=== PATIENT | male | born 1945 | race Caucasian/White ===

== ENCOUNTER 2023-03-16 15:35 | Outpatient (OUT) | payer MEDICARE, SELFPAY ==
[2023-03-16 16:00] LABS: Hematocrit 35.3 % (42.0-54.0); Hemoglobin 11.1 g/dL (14.0-18.0); Mean Corpuscular HGB Conc 31.4 g/dL (29.9-35.2); Mean Corpuscular Volume 95.4 fL (80.0-94.0); Platelet Count 110 10^3/uL (150-450); Red Cell Distribution Width 13.9 % (11.0-15.0); White Blood Count 6.8 10^3/uL (4.0-11.0)
[2023-03-16 16:06] LABS: Bilirubin Urine NEGATIVE (NEGATIVE); Blood Urine NEGATIVE (NEGATIVE); Clarity Urine CLEAR (CLEAR); Color Urine LT. YELLOW (YELLOW); Glucose Urine UA NEGATIVE (NEGATIVE); Ketones Urine NEGATIVE (NEGATIVE); Leukocyte Esterase Urine TRACE (NEGATIVE); Nitrite Urine NEGATIVE (NEGATIVE); Protein Urine TRACE mg/dL (NEG/TRACE); Urobilinogen Urine 0.2 EU/dL (0.2-1.0); pH Urine 5.5 (5.0-9.0)
[2023-03-16 16:09] LABS: Creatinine Urine Random 166.29 mg/dL (20.00-300.00); Microalbum Creatinine Ratio Ur 11.4 mg/g (0.0-29.9); Microalbumin Urine Random 1.9 mg/dL (<=30.0)
[2023-03-16 16:25] LABS: Bacteria Urine TRACE #/HPF (NONE SEEN); Cast Seen? NONE SEEN #/LPF (NONE SEEN); Crystals Seen? None Seen #/HPF (None Seen); Mucus Urine NONE SEEN (NONE SEEN); RBC Urine NONE SEEN #/HPF (0-2); Squamous Epithelial Cell Urine NONE SEEN #/LPF (NONE/RARE); WBC Urine 0-2 #/HPF (NONE SEEN)
[2023-03-16 16:27] LABS: Albumin Level 3.8 g/dL (3.4-5.0); Anion Gap 11.4; BUN Creatinine Ratio 15.5; Calcium 8.9 mg/dL (8.5-10.1); Carbon Dioxide 26.3 mmol/L (21.0-32.0); Chloride 107 mmol/L (98-107); Estimated GFR (African America 28 (>=60); Estimated GFR (Non-African Ame 23 (>=60); Glucose 85 mg/dL (74-106); Magnesium 1.9 mg/dL (1.8-2.4); Phosphorus 3.1 mg/dL (2.6-4.7); Potassium 4.7 mmol/L (3.5-5.1); Sodium 140 mmol/L (136-145)
[2023-03-18 14:07] LABS: PTH, Intact 122 pg/mL (15-65)
== END 2023-03-16 15:36 | disposition home or self-care (01) ==
LOC: LAB 15:35
PROVIDERS: PCP Family Medicine
DX: N18.4 Chronic kidney disease, stage 4 (severe) (principal)
CPT/HCPCS: 36415; 80048; 81001; 82042; 82043; 82306; 82570; 83735; 83970; 84100; 85027

== ENCOUNTER 2023-12-21 15:03 | Outpatient (OUT) | payer MEDICARE, SELFPAY ==
--- OUTSIDE RECORDS SUMMARY | 2023-12-21 15:19 | XMS_ITS | CCD ---
Author Organization [facility] Care Team Providers Care Medical Records Custodian Name Role Phone Unknown, Referring Provider Unavailable Unav ailable Unavailable Unavailable Rumschlag, Talita Primary Care Provider Rumschlag, Talita Primary Care Provider Rumschlag, Talita K Unavailable Enio, Dr. Terrence Anthony Referring Unava ilable Enio, Dr. Terrence Anthony Attending Unava ilable UNKNOWN, PCP Primary Care Unavailable Rumschlag, Talita Primary Care Provider RUMSCHLAG, TALITA Admitting Unavailable RUMSCHLAG, TALITA Consulting Unavailable RUMSCHLAG, TALITA Attending Unavailable [facility] Primary Care Unavailable MISC, DR MINA Admitting Unavailable MISC, DR MINA Consulting Unavailable MISC, DR MINA Attending Unavailable [facility] Primary Care Unavailable ENGELER, DR KRISTINE Bradley Consulting Unavailable MISC, DR MINA Admitting Unavailable MISC, DR MINA Attending Unavailable MISC, DR MINA Consulting Unavailable Rumschlag DO, Talita Primary Care Provider KYLIE CUTLER Attending Unavailable Rumschlag DO, Talita Maggie Primary Care Provider Rumschlag DO, Talita Primary Care Provider RUMSCHLAG, TALITA Primary Care Unavailable Camille AGARWAL Referring Unavailable RUMSCHLAG, TALITA Primary Care Unavailable Camille AGARWAL Attending Unavailable Camille AGARWAL Referring Unavailable RUMSCHLAG, TALITA Primary Care Unavailable RUMSCHLAG, TALITA Primary Care Unavailable Camille AGARWAL Referring Unavailable RUMSCHLAG, TALITA Primary Care Unavailable RUMSCHLAG, TALITA Primary Care Unavailable PAIGE GUTIERREZ Referring Unavailable RUMSCHLAG, TALITA Primary Care Unavailable Camille AGARWAL Attending Unavailable TALITA MISTRY Primary Care Unavailable Allergies Allergy Classification Reported Allergen(s) Allergy Type Date of Onset Reaction(s) Facility (7 sources) DULoxetine; Translations: [duloxetine] Drug Allergy 0 Hallucinations, Unknown [facility] Work Phone: (10 sources) DULoxetine; Translations: [DULOXETINE HCL] Drug Allergy 9 Mental Status Change [facility] Medications Current Medications Medication Drug Class(es) Dates Sig (Normalized) Sig (Original) [id number] 200 actuat albuterol 0.09 mg/actuat metered dose inhaler (16 sources) beta2-Adrenergic Agonist Start: 06-29-2023 take 2 puff(s) by inhalation every six hours for wheezing albuterol HFA 90 mcg/act inhaler Indications: Chronic obstructive pulmonary disease, unspecified COPD type (CMS/HCC) Inhale 2 puffs every 6 (six) hours if needed for shortness of breath or wheezing 18 g 5 06/29/2023 Active Start: 06-29-2023 take 2 puff(s) by in halation every six hours for wheezing albuterol HFA 90 mcg/act inhaler Indications: Chronic obstructive pulmonary disease, unspecified COPD type (CMS/HCC) Inhale 2 puffs every 6 (six) hours if needed for shortness of breath or wheezing 18 g 5 06/29/2023 Active Start: 12-13-2022 End: 06-29-2023 take 2 puff(s) by inhalation every six hours for wheezing albuterol HFA 90 mcg/act inhaler Indications: Chronic obstructive pulmonary disease, unspecified COPD type (CMS/HCC) Inhale 2 puffs every 6 (six) hours if needed for shortness of breath or wheezing. 18 g 5 12/13/2022 06/29/2023 Discontinued (Reorder) take 2 puff(s) by in halation every six hours as needed albuterol HFA (PROVENTIL HFA, VENTOLIN HFA) 90 mcg/actuation inhaler Inhale 2 Puffs as instructed every 6 hours as needed. 0 Active ProAir HFA 108 ( 90 Base) MCG/ACT AERS USE DIRECTED Quantity: 0 Refills: 0 Ordered: 08-Jun-2022 DO Active Comment on above: Inhale 2 Puffs as in structed every 6 hours as needed. amLODIPine 10 mg oral tablet (17 sources) Dihydropyridine Calcium Channel Judah Start: 05-27-19 End: 07-16-19 take 1 tablet by mouth once daily amLODIPine (Norvasc) 10 mg tablet Indications: Essential hypertension Take 1 tablet (10 mg) by mouth once daily. 90 tablet 3 07/17/2023 07/16/2024 Active Comment on above: Take 10 mg by mouth once daily. atorvastatin 10 mg oral tablet (17 sources) HMG-CoA Reductase Inhibitor Start: 09-23-19 take 1 tablet by mouth at bedtime atorvastatin (Lipitor) 20 MG tablet Take 20 mg by mouth at bedtime. 0 09/22/2022 Active Start: 05-27-2019 End: 07-16-2024 take 1 tablet by mouth once daily at bedtime atorvastatin (Lipitor) 10 mg tablet Indications: Hyperlipidemia, unspecified hyperlipidemia type Take 1 tablet (10 mg) by mouth once daily at bedtime. 90 tablet 3 07/17/2023 07/16/2024 Active Comment on above: Take 10 mg by mouth daily at bedtime. 30 actuat fluticasone furoate 0.1 mg/actuat / umeclidinium 0.0625 mg/actuat / vilanterol 0.025 mg/actuat dry powder inhaler (2 sources) Anticholinergic, Corticosteroid, beta2-Adrenergic Agonist Start: take 1 puff(s) by inhalation in the morning Fluticasone-Umeclid in-Vilant (Trelegy Ellipta) 100-62.5-25 MCG/ACT aerosol powder Indications: Chronic obstructive pulmonary disease, unspecified COPD type (CMS/HCC) Inhale 1 puff in the morning. 1 each 5 06/29/2023 Active Start: 06-29-2023 take 1 puff(s) by inhalation in the morning Ropjsswejru-Zgmlcnzqx-Jizyev (Trelegy Ellipta) 100-62.5-25 MCG/ACT aerosol powder Indications: Chronic obstructive pulmonary disease, unspecified COPD type (CMS/HCC) Inhale 1 puff in the morning. 1 each 5 06/29/2023 Active lisinopril 40 mg oral tablet (17 sources) Angiotensin Converting Enzyme Inhibitor Start: 11-05-2018 End: 07-16-2024 take 1 tablet by mouth once daily lisinopril 40 mg tablet Indications: Essential hypertension Take 1 tablet (40 mg) by mouth once daily. 90 tablet 3 07/17/2023 07/16/2024 Active Comment on above: 40 mg. magnesium oxide 400 mg oral tablet (4 sources) Start: 01-24-2022 take 1 tablet by mouth in the morning magnesium oxide (Mag-Ox) 400 (241.3 Mg) MG tablet Take 400 mg by mouth in the morning. 0 01/24/2022 Active 30 actuat umeclidinium 0.0625 mg/actuat / vilanterol 0.025 mg/actuat dry powder inhaler (4 sources) Anticholinergic, beta2-Adrenergic Agonist Start: 12-13-2022 End: 06-29-2023 take 1 puff(s) by inhalation in the morning Umeclidinium-Vilan terol (Anoro Ellipta) 62.5-25 MCG/ACT aerosol powder Indications: Chronic obstructive pulmonary disease, unspecified COPD type (CMS/HCC) Inhale 1 puff in the morning. 1 each 2 12/13/2022 06/29/2023 Discontinued Completed/Discontinued Medications Medication Drug Class(es) Dates Sig (Normalized) Sig (Original) 8 hr acetaminophen 650 mg extended release oral tablet (12 sources) take 1 tablet by mouth every eight hours as needed acetaminophen 650 mg CR tablet Take 650 mg by mouth every 8 hours as needed. 0 Active acetaminophen (T ylenol) 500 MG tablet every 8 (eight) hours 0 Active Comment on above: Take 650 mg by mouth every 8 hours as needed. aspirin 81 mg delayed release oral tablet (16 sources) Platelet Aggregation Inhibitor, Nonsteroidal Anti-inflammatory Drug aspirin, enteric coated (ASPIRIN, ENTERIC COATED) 81 mg EC tablet Take by mouth q 24 HR. 0 Active take 1 tablet by mouth once helene y aspirin 81 mg EC tablet Take 1 tablet (81 mg) by mouth once daily. 0 Active Comment on above: Take by mouth q 24 H R. baclofen 10 mg oral tablet (16 sources) gamma-Aminobutyric Acid-ergic Agonist Start: 10-23-2019 take 1 tablet by mouth three times daily baclofen (LIORESAL) 10 mg tablet Take 10 mg by mouth three times daily. 0 10/23/2019 Active take 1 tablet by mouth once helene y baclofen (Lioresal) 20 mg tablet Take 1 tablet (20 mg) by mouth once daily. 0 Active take 1 tablet by mouth twice micheal ly Baclofen 20 MG Oral Tablet Take 1 tablet twice daily Quantity: 0 Refills: 0 Ordered: 08-Jun-2022 DO Active take 1 tablet by mouth three anabela es daily Baclofen 20 MG Oral Tablet TAKE 1 TABLET 3 TIMES DAILY. Quantity: 0 Refills: 0 Ordered: 24-May-2021 DO Active Comment on above: Take 10 mg by mouth three times daily. cholecalciferol 0.05 mg oral capsule (9 sources) Vitamin D Start: 11-06-19 19 take 1 capsule by mouth once daily VITAMIN D-3 2,000 unit cap TAKE 1 CAPSULE BY MOUTH ONCE DAILY FOR 30 DAYS 6 11/05/2018 Active Comment on above: TAKE 1 CAPSULE BY [facility] ONCE DAILY FOR 30 DAYS escitalopram 5 mg oral tablet (3 sources) Serotonin Reuptake Inhibitor End: 12-29-19 22 take 1 tablet by mouth once daily escitalopram oxalate (LEXAPRO) 5 mg tablet Take 5 mg by mouth once daily. 0 12/28/2021 Discontinued (Discontinued by another Health Care Provider) Comment on above: Take 5 mg by mouth o nce daily. pantoprazole 40 mg delayed release oral tablet (16 sources) Proton Pump Inhibitor Start: 06-04-19 20 take 1 tablet by mouth once daily pantoprazole DR (PROTONIX) 40 mg tablet Take 1 tablet by mouth once daily. 30 tablet 5 06/04/2019 Active Comment on above: [facility]. sertraline 50 mg oral tablet (16 sources) Serotonin Reuptake Inhibitor Start: 05-27-19 20 take 1 tablet by mouth once daily sertraline (ZOLOFT) 50 mg tablet Take 50 mg by mouth once daily. 0 05/27/2019 Active Comment on above: Take 50 mg by mouth once daily. 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] Onset: 12-25-2018 Resolved: 06-28-2023 Chronic Chronic kidney disease (3 sources) Chronic kidney disease, stage 4 (severe); Translations: [Chronic kidney disease] Onset: 09-18-2022 07-17-2023 Chronic Chronic kidney disease (5 sources) Chronic kidney disease; Translations: [CHRONIC KIDNEY DISEASE STAGE 3B] Onset: 01-20-2022 Chronic obstructive pulmonary disease and bronchiectasis (10 sources) Chronic obstructive lung disease; Translations: [Chronic airway obstruction, not elsewhere classified] Onset: 12-14-2022 12-14-2022 Chronic Coagulation and hemorrhagic disorders (18 sources) Lupus anticoagulant disorder; Translations: [Primary hypercoagulable state] Onset: 08-06-2012 08-06-2012 Chronic Conduction disorders (6 sources) Right bundle branch block; Translations: [Right bundle branch block] Onset: 06-07-2023 Resolved: 06-28-2023 06-28-2023 Chronic Coronary atherosclerosis and other heart disease (5 sources) History of myocardial infarction; Translations: [Old myocardial infarction] Onset: 06-07-2023 Resolved: 06-28-2023 06-28-2023 Chronic Disorders of lipid metabolism (12 sources) Hyperlipidemia; Translations: [Other and unspecified hyperlipidemia] Onset: 09-15-2022 Resolved: 06-28-2023 Chronic Essential hypertension (11 sources) Essential hypertension; Translations: [Unspecified essential hypertension] Onset: 09-15-2022 Resolved: 06-28-2023 Chronic Hypertension with complications and secondary hypertension (1 source) Hypertensive chronic kidney disease with stage 1 through stage 4 chronic kidney disease, or unspecified chronic kidney disease; Translations: [HTN CKD W/STAGE 1-4 CKD/UNS CKD] Onset: 09-18-2022 Chronic Malaise and fatigue (1 source) Fatigue; Translations: [Other fatigue] Episodic Neoplasms of unspecified nature or uncertain behavior (1 source) Neoplasm of lung ; Translations: [Neoplasm of unspecified behavior of respiratory system] Episodic Nutritional deficiencies (1 source) Vitamin D deficiency, unspecified; Translations: [Vitamin D deficiency] Onset: 07-19-2023 Chronic Other lower respiratory disease (2 sources) Dyspnea on exertion; Translations: [Shortness of breath] Resolved: 05-24-2021 Episodic Other lower respiratory disease (15 sources) Nodule of lung; Translations: [Solitary pulmonary nodule] Onset: 08-23-2017 08-23-2017 Episodic Other lower respiratory disease (2 sources) Multiple nodules of lung; Translations: [Other nonspecific abnormal finding of lung field] Episodic Other lower respiratory disease (1 source) Cough; Translations: [Cough] Episodic Other nutritional; endocrine; and metabolic disorders (1 source) Overweight in adulthood with body mass index of 25 or more but less than 30; Translations: [Overweight] Episodic Residual codes; unclassified (6 sources) Sleep apnea; Translations: [Unspecified sleep apnea] Onset: 06-07-2023 Resolved: 06-28-2023 06-28-2023 Chronic Residual codes; unclassified (1 source) Body mass index 20-24 - normal; Translations: [Body Mass Index between 19-24, adult] Episodic Rheumatoid arthritis and related disease (17 sources) Rheumatoid arthritis; Translations: [Rheumatoid arthritis] Onset: 10-01-2014 01-09-2019 Chronic Screening and history of mental health and substance abuse codes (4 sources) Ex-smoker; Translations: [Personal history of tobacco use] Onset: 07-17-2023 07-17-2023 Episodic Thyroid disorders (8 sources) Atrophy of thyroid - acquired; Translations: [Atrophy of thyroid (acquired)] Onset: 01-05-2023 Episodic Past or Other Problems Problem Classification Problem Date Documented Da te Episodic/Chronic Chronic obstructive pulmonary disease and bronchiectasis (12 sources) Bronchitis; Translations: [Bronchitis, not specified as acute or chronic] Onset: 10-16-2013 Resolved: 06-28-2023 10-16-2013 Episodic Immunizations and screening for infectious disease (14 sources) Lupus anticoagulant disorder; Translations: [Raised antibody titer] Onset: 10-01-2014 10-01-2014 Episodic Other bone disease and musculoskeletal deformities (9 sources) Disorder of bone; Translations: [Other specified disorders of bone, unspecified site] Onset: 08-09-2012 08-09-2012 Episodic Other diseases of kidney and ureters (13 sources) Renal impairment; Translations: [Disorder of kidney and ureter, unspecified] Onset: 08-09-2012 08-09-2012 Episodic Other screening for suspected conditions (not mental disorders or infectious disease) (19 sources) Cardiovascular stress test abnormal; Translations: [Other nonspecific abnormal results of function study of cardiovascular system] Onset: 08-09-2012 Resolved: 06-28-2023 08-09-2012 Episodic Other skin disorders (9 sources) Eruption; Translations: [Rash and other nonspecific skin eruption] Onset: 08-09-2012 08-09-2012 Episodic Residual codes; unclassified (2 sources) History of clinical finding in subject; Translations: [Personal history of other specified diseases] Resolved: 05-24-2021 Episodic Unclassified (1 source) Onset: 07-17-2023 07-17-2023 Results Test Name Value Interpretation Reference Range Facility Urinalysis complete panel (U )on 07-20-2023 Bacteria LM.HPF (Urine sed) [#/Area] Negative Normal Negative [facility] Comment on above: Order Comment: Speci men Type: URINE SPECIMEN Ordering Facility: External Submitter Address: , , Performed By: #### 2 4356-8 #### [facility] CLIA [id number] [address] [place] [address] [place] Bilirubin Ql (U) Negative Normal Negative [facility] Comment on above: Order Comment: Speci men Type: URINE SPECIMEN Ordering Facility: External Submitter Address: , , Performed By: #### 2 4356-8 #### [facility] CLIA [id number] [address] [place] [address] [place] Clarity (Unsp spec) Clear Normal Clear [facility] Comment on above: Order Comment: Speci men Type: URINE SPECIMEN Ordering Facility: External Submitter Address: , , Performed By: #### 2 4356-8 #### [facility] CLIA [id number] [address] [place] [address] [place] Color (U) Yellow Normal Yellow [facility] Comment on above: Order Comment: Speci men Type: URINE SPECIMEN Ordering Facility: External Submitter Address: , , Performed By: #### 2 4356-8 #### [facility] CLIA [id number] [address] [place] [address] [place] Epithelial cells LM.HPF (Urine sed) [#/Area] None Seen Normal [facility] Comment on above: Order Comment: Speci men Type: URINE SPECIMEN Ordering Facility: External Submitter Address: , , Performed By: #### 2 4356-8 #### [facility] CLIA [id number] [address] [place] [address] [place] Glucose Test strip (U) [Mass/Vol] Negative Normal Negative [facility] Comment on above: Order Comment: Speci men Type: URINE SPECIMEN Ordering Facility: External Submitter Address: , , Performed By: #### 2 4356-8 #### [facility] CLIA [id number] [address] [place] [address] [place] Hemoglobin Ql (U) Negative Normal Negative [facility] Comment on above: Order Comment: Speci men Type: URINE SPECIMEN Ordering Facility: External Submitter Address: , , Performed By: #### 2 4356-8 #### [facility] CLIA [id number] [address] [place] [address] [place] Hyaline casts (Urine sed) [#/Area] 1-3 /LPF Abnormal 0 /LPF [facility] Comment on above: Order Comment: Speci men Type: URINE SPECIMEN Ordering Facility: External Submitter Address: , , Performed By: #### 2 4356-8 #### [facility] CLIA [id number] [address] [place] Ketones Ql (U) Negative Normal Negative [facility] Comment on above: Order Comment: Speci men Type: URINE SPECIMEN Ordering Facility: External Submitter Address: , , Performed By: #### 2 4356-8 #### [facility] CLIA [id number] [address] [place] [address] [place] Leukocyte esterase Test strip Ql (U) 1+ Abnormal Negative [facility] Comment on above: Order Comment: Speci men Type: URINE SPECIMEN Ordering Facility: External Submitter Address: , , Performed By: #### 2 4356-8 #### [facility] CLIA [id number] [address] [place] [address] [place] Nitrite Ql (U) Negative Normal Negative [facility] Comment on above: Order Comment: Speci men Type: URINE SPECIMEN Ordering Facility: External Submitter Address: , , Performed By: #### 2 4356-8 #### [facility] CLIA [id number] [address] [place] [address] [place] pH (U) 5.5 [pH] Normal <8.5 [facility] Comment on above: Order Comment: Speci men Type: URINE SPECIMEN Ordering Facility: External Submitter Address: , , Performed By: #### 2 4356-8 #### [facility] CLIA [id number] [address] [place] [address] [place] Protein (U) [Mass/Vol] Trace Abnormal Negative [facility] Comment on above: Order Comment: Speci men Type: URINE SPECIMEN Ordering Facility: External Submitter Address: , , Performed By: #### 2 4356-8 #### [facility] CLIA [id number] [address] [place] [address] [place] RBC LM.HPF (Urine sed) [#/Area] 0-2 /HPF Normal 0-2 /HPF [facility] Comment on above: Order Comment: Speci men Type: URINE SPECIMEN Ordering Facility: External Submitter Address: , , Performed By: #### 2 4356-8 #### [facility] CLIA [id number] [address] [place] [address] [place] Specific gravity (U) [Rel density] 1.023 Normal 1.005-1.030 [facility] Comment on above: Order Comment: Speci men Type: URINE SPECIMEN Ordering Facility: External Submitter Address: , , Performed By: #### 2 4356-8 #### [facility] CLIA [id number] [address] [place] [address] [place] Urobilinogen Ql (U) 0.2 EU/dL Normal 0.2-1.0 EU/dL [facility] Comment on above: Order Comment: Speci men Type: URINE SPECIMEN Ordering Facility: External Submitter Address: , , Performed By: #### 2 4356-8 #### [facility] CLIA [id number] [address] [place] [address] [place] WBC LM.HPF (Urine sed) [#/Area] 0-5 /HPF Normal 0-5 /HPF [facility] Comment on above: Order Comment: Speci men Type: URINE SPECIMEN Ordering Facility: External Submitter Address: , , Performed By: #### 2 4356-8 #### [facility] CLIA [id number] [address] [place] [address] [place] 25(OH)D3 SerPl-ncon 2023 25-hydroxyvitamin D3 [Mass/Vol] 17.9 ng/mL Low 31.0-80.0 [facility] Comment on above: Order Comment: Speci men Type: BLOOD SPECIMEN Ordering Facility: External Submitter Address: , , Result Comment: Clas sification of 25 [place] Vitamin D status: Deficiency/Insufficiency: < or = 30 ng/ml. Sufficiency/Optimal Levels: 31-80 ng/mL Toxicity: > 100 ng/mL. Test performed by chemiluminescent immunoassay. Performed By: #### 1 989-3 #### [facility] IA [id number] [address] [place] [address] [place] Albumin SerPl-mCncon 024 Albumin [Mass/Vol] 4.6 g/dL Normal 3.9-4.9 [facility] Comment on above: Order Comment: Speci men Type: BLOOD SPECIMEN Ordering Facility: [facility] Address: [address] [id number] Performed By: #### 3 016-3, 3026-2 #### [facility] CLIA [id number] [address] [place] [address] [place] Basic metabolic 2000 panelon 07-19-2023 Anion gap [Moles/Vol] 10 mmol/L Normal 9-18 [facility] Comment on above: Order Comment: Speci men Type: BLOOD SPECIMEN Ordering Facility: [facility] Address: [address] [place], [place] [id number] Performed By: #### 3 016-3, 3026-2 #### [facility] CLIA [id number] [address] [place] [address] [place] Calcium [Mass/Vol] 9.7 mg/dL Normal 8.5-10.2 [facility] Comment on above: Order Comment: Speci men Type: BLOOD SPECIMEN Ordering Facility: [facility] Address: [address] [place] [address] Performed By: #### 3 016-3, 3026-2 #### [facility] CLIA [id number] [address] [place] [address] [place] Chloride [Moles/Vol] 109 mmol/L High 97-105 [facility] Comment on above: Order Comment: Speci men Type: BLOOD SPECIMEN Ordering Facility: [facility] Address: [address] [place], [place] [id number] Performed By: #### 3 016-3, 3026-2 #### [facility] CLIA [id number] [address] [place] [address] [place] CO2 [Moles/Vol] 25 mmol/L Normal 22-30 [facility] Comment on above: Order Comment: Speci men Type: BLOOD SPECIMEN Ordering Facility: [facility] Address: [address] [place], [place] [id number] Performed By: #### 3 016-3, 3026-2 #### [facility] CLIA [id number] [address] [place] [address] [place] Creatinine [Mass/Vol] 2.45 mg/dL High 0.73-1.22 [facility] Comment on above: Order Comment: Christina pérez Type: BLOOD SPECIMEN Ordering Facility: [facility] Address: [address] [address] Performed By: #### 3 016-3, 3026-2 #### [facility] CLIA [id number] [facility] [place] [address] [place] Creatinine and Glomerular filtration rate.predicted panel (S/P/Bld) 26 mL/min/1.73m??? Low >=60 [facility] Comment on above: Order Comment: Christina pérez Type: BLOOD SPECIMEN Ordering Facility: [facility] Address: [address] [address] Result Comment: Luam mated Glomerular Filtration Rate (eGFR) is calculated using the 2020 CKD-EPI creatinine equation. This equation utilizes serum creatinine, sex, and age as parameters. The creatinine assay has traceable calibration to isotope dilution-mass spectrometry. Refer to KDIGO guidelines for clinical interpretation. In patients with unstable renal function, e.g. those with acute kidney injury, the eGFR may not accurately reflect actual GFR. Performed By: #### 3 016-3, 3026-2 #### [facility] CLIA [id number] [address] [place] [address] [place] Glucose [Mass/Vol] 104 mg/dL High 74-99 [facility] Comment on above: Order Comment: Christina pérez Type: BLOOD SPECIMEN Ordering Facility: [facility] Address: [address] [address] Result Comment: The [place] [employer] (ADA) provides guidance for cutoff values for fasting glucose and random glucose. The ADA defines fasting as no caloric intake for at least 8 hours. Fasting plasma glucose results between 100 to 125 mg/dL indicate increased risk for diabetes (prediabetes). Fasting plasma glucose results greater than or equal to 126 mg/dL meet the criteria for diagnosis of diabetes. In the absence of unequivocal hyperglycemia, results should be confirmed by repeat testing. In a patient with classic symptoms of hyperglycemia or hyperglycemic crisis, random plasma glucose results greater than or equal to 200 mg/dL meet the criteria for diagnosis of diabetes. Reference: Standards of Medical Care in Diabetes 2016, [place] [employer]. Diabetes Care. 2016.39(Suppl 1). Performed By: #### 3 016-3, 3026-2 #### [facility] CLIA [id number] [address] [place] [address] [place] Potassium [Moles/Vol] 5.1 mmol/L Normal 3.7-5.1 [facility] Comment on above: Order Comment: Speci men Type: BLOOD SPECIMEN Ordering Facility: [facility] Address: [address] Performed By: #### 3 016-3, 3026-2 #### [facility] CLIA [id number] [address] [place] [address] [place] Sodium [Moles/Vol] 144 mmol/L Normal 136-144 [facility] Comment on above: Order Comment: Speci men Type: BLOOD SPECIMEN Ordering Facility: [facility] Address: [address] Performed By: #### 3 016-3, 3025-2 #### [facility] CLIA [id number] [address] [place] [address] [place] Urea nitrogen [Mass/Vol] 33 mg/dL High 9-24 [facility] Comment on above: Order Comment: Speci men Type: BLOOD SPECIMEN Ordering Facility: [facility] Address: [address] [place] [address] Performed By: #### 3 016-3, 6-2 #### [facility] CLIA [id number] [address] [place] [address] [place] C3 SerPl-mCncon 07-19-2023 Complement C3 [Mass/Vol] 95 mg/dL Normal 86-166 [facility] Comment on above: Order Comment: Speci men Type: BLOOD SPECIMEN Ordering Facility: [facility] Address: [address] Performed By: #### 3 016-3, 3026-2 #### [facility] CLIA [id number] [address] [facility] [address] [address] [place] C4 SerPl-mCncon 07-19-2023 Complement C4 [Mass/Vol] 20 mg/dL Normal 13-46 [facility] Comment on above: Order Comment: Speci men Type: BLOOD SPECIMEN Ordering Facility: [facility] Address: [address] [place] [address] Performed By: #### 3 016-3, 3025-2 #### [facility] CLIA [id number] [address] [facility] [address] [place] [id number] [place] CBC W Auto Differential pane l (Bld)on 07-19-2023 Basophils (Bld) [#/Vol] 0.03 10*3/uL Normal <0.11 [facility] Comment on above: Order Comment: Speci men Type: BLOOD SPECIMEN Ordering Facility: External Submitter Address: , , Performed By: #### 5 7021-8 #### [facility] CLIA [id number] [address] [place] [address] Basophils/100 WBC (Bld) 0.5 % Normal [facility] Comment on above: Order Comment: Speci men Type: BLOOD SPECIMEN Ordering Facility: External Submitter Address: , , Performed By: #### 5 7021-8 #### [facility] CLIA [id number] [address] [place] [address] Differential cell count method Nom (Bld) Auto Normal [facility] Comment on above: Order Comment: Speci men Type: BLOOD SPECIMEN Ordering Facility: External Submitter Address: , , Performed By: #### 5 7021-8 #### [facility] CLIA [id number] [address] [place] [address] Eosinophils (Bld) [#/Vol] 0.26 10*3/uL Normal <0.46 [facility] Comment on above: Order Comment: Speci men Type: BLOOD SPECIMEN Ordering Facility: External Submitter Address: , , Performed By: #### 5 7021-8 #### [facility] CLIA [id number] [address] [place] [address] Eosinophils/100 WBC (Bld) 4.2 % Normal [facility] Comment on above: Order Comment: Speci men Type: BLOOD SPECIMEN Ordering Facility: External Submitter Address: , , Performed By: #### 5 7021-8 #### [facility] CLIA [id number] [address] [place] [address] Erythrocyte distribution width (RBC) [Ratio] 13.6 % Normal 11.5-15.0 [facility] Comment on above: Order Comment: Speci men Type: BLOOD SPECIMEN Ordering Facility: External Submitter Address: , , Performed By: #### 5 7021-8 #### [facility] CLIA [id number] [address] [place] [address] Hematocrit (Bld) [Volume fraction] 37.8 % Low 39.0-51.0 [facility] Comment on above: Order Comment: Speci men Type: BLOOD SPECIMEN Ordering Facility: External Submitter Address: , , Performed By: #### 5 7021-8 #### [facility] CLIA [id number] [address] [place] [address] Hemoglobin (Bld) [Mass/Vol] 12.0 g/dL Low 13.0-17.0 [facility] Comment on above: Order Comment: Speci men Type: BLOOD SPECIMEN Ordering Facility: External Submitter Address: , , Performed By: #### 5 7021-8 #### [facility] CLIA [id number] [address] [place] [address] Immature granulocytes (Bld) [#/Vol] 10*3/uL Normal <0.10 [facility] Comment on above: Order Comment: Speci men Type: BLOOD SPECIMEN Ordering Facility: External Submitter Address: , , Performed By: #### 5 7021-8 #### [facility] CLIA [id number] [address] [place] [address] Immature granulocytes/100 WBC (Bld) 0.3 % Normal [facility] Comment on above: Order Comment: Speci men Type: BLOOD SPECIMEN Ordering Facility: External Submitter Address: , , Performed By: #### 5 7021-8 #### [facility] CLIA [id number] [address] [place] [address] Lymphocytes (Bld) [#/Vol] 1.19 10*3/uL Normal 1.00-4.00 [facility] Comment on above: Order Comment: Speci men Type: BLOOD SPECIMEN Ordering Facility: External Submitter Address: , , Performed By: #### 5 7021-8 #### [facility] CLIA [id number] [address] [place] [address] Lymphocytes/100 WBC (Bld) 19.1 % Normal [facility] Comment on above: Order Comment: Speci men Type: BLOOD SPECIMEN Ordering Facility: External Submitter Address: , , Performed By: #### 5 7021-8 #### [facility] CLIA [id number] [address] [place] [address] MCH (RBC) [Entitic mass] 30.1 pg Normal 26.0-34.0 [facility] Comment on above: Order Comment: Speci men Type: BLOOD SPECIMEN Ordering Facility: External Submitter Address: , , Performed By: #### 5 7021-8 #### [facility] CLIA [id number] [address] [place] [address] MCHC (RBC) [Mass/Vol] 31.7 g/dL Normal 30.5-36.0 [facility] Comment on above: Order Comment: Speci men Type: BLOOD SPECIMEN Ordering Facility: External Submitter Address: , , Performed By: #### 5 7021-8 #### [facility] CLIA [id number] [address] [place] [address] MCV (RBC) [Entitic vol] 94.7 fL Normal 80.0-100.0 [facility] Comment on above: Order Comment: Speci men Type: BLOOD SPECIMEN Ordering Facility: External Submitter Address: , , Performed By: #### 5 7021-8 #### [facility] CLIA [id number] [address] [place] [address] Monocytes (Bld) [#/Vol] 0.37 10*3/uL Normal <0.87 [facility] Comment on above: Order Comment: Speci men Type: BLOOD SPECIMEN Ordering Facility: External Submitter Address: , , Performed By: #### 5 7021-8 #### [facility] CLIA [id number] [address] [place] [address] Monocytes/100 WBC (Bld) 5.9 % Normal [facility] Comment on above: Order Comment: Speci men Type: BLOOD SPECIMEN Ordering Facility: External Submitter Address: , , Performed By: #### 5 7021-8 #### [facility] CLIA [id number] [address] [place] [address] Neutrophils (Bld) [#/Vol] 4.37 10*3/uL Normal 1.45-7.50 [facility] Comment on above: Order Comment: Speci men Type: BLOOD SPECIMEN Ordering Facility: External Submitter Address: , , Performed By: #### 5 7021-8 #### [facility] CLIA [id number] [address] [place] [address]40[address] Neutrophils/100 WBC (Bld) 70.0 % Normal [facility] Comment on above: Order Comment: Speci men Type: BLOOD SPECIMEN Ordering Facility: External Submitter Address: , , Performed By: #### 5 7021-8 #### [facility] CLIA [id number] [address] [place] [address] Nucleated RBC (Bld) [#/Vol] 10*3/uL Normal <0.01 [facility] Comment on above: Order Comment: Speci men Type: BLOOD SPECIMEN Ordering Facility: External Submitter Address: , , Performed By: #### 5 7021-8 #### [facility] CLIA [id number] [address] [place] [address] Nucleated RBC/100 WBC (Bld) [Ratio] 0.0 /100 WBC Normal [facility] Comment on above: Order Comment: Speci men Type: BLOOD SPECIMEN Ordering Facility: External Submitter Address: , , Performed By: #### 5 7021-8 #### [facility] CLIA [id number] [address] [place] [address]78 Platelet mean volume (Bld) [Entitic vol] 12.2 fL Normal 9.0-12.7 [facility] Comment on above: Order Comment: Speci men Type: BLOOD SPECIMEN Ordering Facility: External Submitter Address: , , Performed By: #### 5 7021-8 #### [facility] CLIA [id number] [address] [place] [address]80 Platelets (Bld) [#/Vol] 59 10*3/uL Low 150-400 [facility] Comment on above: Order Comment: Speci men Type: BLOOD SPECIMEN Ordering Facility: External Submitter Address: , , Result Comment: No c lot detected.Results checked and verified. Performed By: #### 5 7021-8 #### [facility] CLIA [id number] [address] [place] [address] RBC (Bld) [#/Vol] 3.99 10*6/uL Low 4.20-6.00 [facility] Comment on above: Order Comment: Speci men Type: BLOOD SPECIMEN Ordering Facility: External Submitter Address: , , Performed By: #### 5 7021-8 #### [facility] CLIA [id number] [address] [place] [address] 22371 WBC (Bld) [#/Vol] 6.24 10*3/uL Normal 3.70-11.00 [facility] Comment on above: Order Comment: Speci men Type: BLOOD SPECIMEN Ordering Facility: External Submitter Address: , , Performed By: #### 5 7021-8 #### [facility] NANO [id number] [address] [place] [address] CNOVon 07-19-2023 CNOV Office Visit (PAZ ) SUSHANT CORREA ([id number]) 1945 M Date Time Provider Department 07/19/23 10:15 AM Camille AGARWAL During your visit today, we recorded the following information about you: Temperature Pulse Respiration Blood pressure 97.5 degrees 71/minute 16/minute 155/78 Weight 69.7 kg Camille Agarwal MD 07/20/2023 3:22 PM Signed Radiation Oncology - Follow Up Note PATIENT DIAGNOSIS: Laryngeal cancer, squamous cell carcinoma in situ, stage [id number]. RADIATION SUMMARY:DATES OF TREATMENT: 11/25/18- 01/01/19 AREA TREATED: Larynx DELIVERED DOSE: Area: Larynx 6,300 cGy in 28 fractions, 3 Parker, 3D Conformal, 6MV with daily CBCT TOTAL: 6,300 cGy in 28 fractions ELAPSED TIME: 37 days . INTERVAL HISTORY: Doing well. Voice is stable. No neck pain. No significant cough. No chest pain. Denies dysphagia. 12/28/21: Patient in for follow up after PET evaluation of lung nodule on CT chest. 11/07/21: Patient is in earlier than scheduled appointment due to concerns of fatigue increased cough and dyspnea with exertion, decreased appetite, feeling like he is dehydrated. Patient denies any dizzy spells. Denies any hemoptysis. No fever. Denies chest pain. RADIOLOGY: CT chest 07/12/2023: 1. 6 mm nodular subpleural nodular opacity, stable since 01/05/23. 2. Other subcentimeter nodular opacities measuring up to 7-8 mm, stable since 12/26/18. Greater than 4 year stability favors a benign etiology. 3. No evidence of new intrathoracic abnormalities. CT Chest 01/05/23: 1. Multiple bilateral pulmonary nodules, overall similar in appearance to prior exam. A left upper lobe nodule appears slightly smaller whereas the left lower lobe nodule appears slightly larger. No new nodules are identified. 2. No evidence of intrathoracic lymphadenopathy. (Right upper lobe (4:91) 2 mm, stable Right lower lobe (4:107) 3 mm, stable Left upper lobe (4:74) nodules measuring up to 7 mm, previously 8-9 mm Left lower lobe (4:145) 9 mm, previously 8 mm Left lower lobe (4:155) 3 mm, stable ) No new nodules are visualized. The central airways are widely patent. CT Chest 06/30/22:IMPRESSION: 1. 0.9 cm left upper lobe nodular opacity, decreased in size since 11/17/21. 2. Other subcentimeter nodular opacities measuring up to 7-8 mm, stable. 3. No evidence of new intrathoracic abnormalities. PET/CT 12/13/21: IMPRESSION: 1. Neck: No suspicious hypermetabolic foci 2. Chest: Scattered lung nodules. The most prominent Left upper lobe lung nodule is associated with low-level FDG activity. Otherwise no suspicious hypermetabolic foci. No hypermetabolic lymphadenopathy. 3. Abdomen and pelvis: No evidence of FDG avid neoplastic process 4. Skeleton: No hypermetabolic osseous lesions CT chest 11/17/2021:IMPRESSION: 1. 1.4 CM, NEWLY APPARENT LEFT UPPER LOBE NODULE, CONCERNING FOR PROGRESSION OF METASTATIC DISEASE. 2. Additional bilateral subcentimeter pulmonary nodules, unchanged. 3. No substantial intrathoracic adenopathy is identified. LABORATORY: Latest Reference Range AND Units 12/28/21 13:09 01/05/23 12:29 07/12/23 08:02 T4 5.5 - 10.2 ug/dL 5.8 5.9 6.2 TSH 0.270 - 4.200 mIU/L 1.780 0.988 2.070 Ref. Range 11/07/2021 13:28 11/07/2021 14:04 Sodium Latest Ref Range: 136 - 144 mmol/L 142 Potassium Latest Ref Range: 3.7 - 5.1 mmol/L 4.0 Chloride Latest Ref Range: 97 - 105 mmol/L 109 (H) CO2 Latest Ref Range: 22 - 30 mmol/L 26 BUN Latest Ref Range: 9 - 24 mg/dL 37 (H) Creatinine Latest Ref Range: 0.73 - 1.22 mg/dL 2.18 (H) Glucose Latest Ref Range: 74 - 99 mg/dL 134 (H) Protein, Total Latest Ref Range: 6.3 - 8.0 g/dL 7.3 Calcium Latest Ref Range: 8.5 - 10.2 mg/dL 9.6 Albumin Latest Ref Range: 3.9 - 4.9 g/dL 4.6 Bilirubin, Total Latest Ref Range: 0.2 - 1.3 mg/dL 1.2 Alkaline Phosphatase Latest Ref Range: 38 - 113 U/L 82 ALT Latest Ref Range: 10 - 54 U/L 5 (L) AST Latest Ref Range: 14 - 40 U/L 16 Anion Gap Latest Ref Range: 9 - 18 mmol/L 7 (L) eGFR Latest Ref Range: >=60 mL/min/1.73m? 31 (L) Hematocrit Latest Ref Range: 39.0 - 51.0 % 35.3 (L) Results for FELICITAS CORREA ( ) as of 11/08/2021 07:59 Ref. Range 11/07/2021 13:28 WBC Latest Ref Range: 3.70 - 11.00 k/uL 6.70 RBC Latest Ref Range: 4.20 - 6.00 m/uL 3.74 (L) Hemoglobin Latest Ref Range: 13.0 - 17.0 g/dL 11.3 (L) Hematocrit Latest Ref Range: 39.0 - 51.0 % 35.3 (L) Platelet Count Latest Ref Range: 150 - 400 k/uL 77 (L) MCV Latest Ref Range: 80.0 - 100.0 fL 94.4 MCH Latest Ref Range: 26.0 - 34.0 pg 30.2 MCHC Latest Ref Range: 30.5 - 36.0 g/dL 32.0 MPV Latest Ref Range: 9.0 - 12.7 fL 13.5 (H) RDW-CV Latest Ref Range: 11.5 - 15.0 % 14.1 DTYPE Unknown Auto Neut% Latest Units: % 70.3 Abs Neut (ANC) Latest Ref Range: 1.45 - 7.50 k/uL 4.71 Lymph% Latest Units: % 17.5 Abs Lymph Latest Ref Range: 1.00 - 4.00 k/uL 1.17 M (more content not included)... Normal [facility] Magnesium SerPl-mCncon Magnesium [Mass/Vol] 1.8 mg/dL Normal 1.7-2.3 [facility] Comment on above: Order Comment: Speci men Type: BLOOD SPECIMEN Ordering Facility: [facility] Address: [address] [place] [address] Performed By: #### 3 016-3, 3026-2 #### [facility] CLIA [id number] [facility] [address] [place] PTH-Intact SerPl-mCncon 06-22 Parathyrin.intact [Mass/Vol] 120 pg/mL High 15-65 [facility] Comment on above: Order Comment: Speci men Type: BLOOD SPECIMEN Ordering Facility: [facility] Address: [address] [place] [address] Performed By: #### 3 016-3, 3026-2 #### [facility] [place] [id number] [address] [place] [address] [place] Phosphate SerPl-mCncon Phosphate [Mass/Vol] 3.0 mg/dL Normal 2.7-4.8 [facility] Comment on above: Order Comment: Speci men Type: BLOOD SPECIMEN Ordering Facility: [facility] Address: [address] [place], [place] [address] Performed By: #### 3 016-3, 3026-2 #### [facility] [place] [id number] [address] [place] [address] [place] T4 SerPl-mCncon 07-19-2023 T4 [Mass/Vol] 6.0 ug/dL Normal 5.5-10.2 [facility] Comment on above: Order Comment: Speci men Type: BLOOD SPECIMEN Ordering Facility: [facility] Address: [address] [place], [place] [address] Performed By: #### 3 016-3, 3026-2 #### [facility] CLIA [id number] [facility] [address] [place] T4/THYROXINE BLOODon 024 T4 [Mass/Vol] 6.0 ug/dL 5.5 - 10.2 ug/dL [facility] TSH BLDon 07-19-2023 TSH Qn 1.840 m[IU]/L 0.270 - 4.200 mIU/L [facility] TSH SerPl-aCncon 07-19-2023 TSH Qn 1.840 m[IU]/L Normal 0.270-4.200 [facility] Comment on above: Order Comment: Speci men Type: BLOOD SPECIMEN Ordering Facility: [facility] Address: [address] [place] [address] Performed By: #### 3 016-3, 3026-2 #### [facility] CLIA [id number] [address] [place] [address] CHEST WO IVCONon 07-12-[address] CHEST WO IVCON * * *Final Report* * * DATE OF EXAM: Jul 12 2023 8:02AM [facility] 0541 - CT CHEST WO IVCON / PROCEDURE REASON: multiple diagnoses * * * * Physician Interpretation * * * * RESULT: EXAMINATION: CHEST CT WITHOUT CONTRAST CLINICAL HISTORY: Laryngeal cancer, lung nodules Technique: Spiral CT acquisition of the chest from the thoracic inlet to the upper abdomen without contrast. MQ: [id number] CT Radiation dose: Integrated Dose-length product (DLP) for this visit = 223 mGy*cm CT Dose Reduction Employed: Automated exposure control (AEC) Comparison: 01/05/23, 12/26/18 RESULT: Limitations: Right posterior costophrenic sulcus is excluded from the [id number].. Lines, tubes, and devices: None. Lung parenchyma and airways: Moderate emphysematous changes of the lungs. Calcified granulomas are noted. Bronchial wall thickening suggestive of bronchitis. 6 mm branching nodular opacity in the left upper lobe (3:90) stable since 01/05/23. Subcentimeter noncalcified nodular opacities measuring up to 7-8 mm, stable since 12/26/18. For example: Right midlung field (3:103) Right lower lobe (3:124) Left lower lobe (3: 162, 169) The central airways are patent. Pleural space: No pleural effusion. No pleural thickening. Lower neck, lymph nodes, and mediastinum: The imaged thyroid gland is normal. Calcified mediastinal lymph nodes are identified. No evidence of enlarged noncalcified mediastinal lymph nodes. Heart, pericardium, and thoracic vessels: The thoracic aorta and main pulmonary artery are normal in caliber. The cardiac chambers are normal in size. No coronary artery atherosclerotic calcifications are noted, although the study is not optimized for coronary assessment. No pericardial effusion or thickening. Bones and soft tissues: A hemangioma is noted in the T3 vertebral body. Sclerotic focus in the right posterior fifth rib (2:68) is stable since 12/26/18, probably a bone island. No new osseous abnormalities. Upper abdomen: Calcified splenic granulomas are noted. Partially visualized 6-7 mm high attenuation focus in the upper pole left kidney (2:217), stable. Bruise Trimmer (topogram) images: No additional findings. IMPRESSION: 1. 6 mm nodular subpleural nodular opacity, stable since 01/05/23. 2. Other subcentimeter nodular opacities measuring up to 7-8 mm, stable since 12/26/18. Greater than 4 year stability favors a benign etiology. 3. No evidence of new intrathoracic abnormalities. Transcribe Date/Time: Jul 12 2023 10:24A Dictated by: JOSIAH PEREA MD This examination was interpreted and the report reviewed and electronically signed by: JOSIAH PEREA MD on Jul 12 2023 10:46AM EST Thank you for allowing us to participate in the care of your patient. Should there be any questions regarding this interpretation, please call [phone]. If you are unable to reach us at the number above, please feel free to contact [facility] at [phone]. [id number] N Normal [facility] T4 SerPl-mCncon 07-12-2023 T4 [Mass/Vol] 6.2 ug/dL Normal 5.5-10.2 [facility] Comment on above: Order Comment: Speci men Type: BLOOD SPECIMEN Ordering Facility: [facility] Address: [address] [place] [address] Performed By: #### 3 016-3, 3026-2 #### [facility] IA [id number] [address] [place] [address] [place] TSH SerPl-aCncon 07-12-2023 TSH Qn 2.070 m[IU]/L Normal 0.270-4.200 [facility] Comment on above: Order Comment: Speci men Type: BLOOD SPECIMEN Ordering Facility: [facility] Address: [address] [place] [address] Performed By: #### 3 016-3, 3026-2 #### [facility] CLIA [id number] [address] [place] [address] [place] CNOVon 01-09-2023 CNOV Office Visit (RADTSA ) SUSHANT CORREA ([id number]) 1945 M Date Time Provider Department 01/09/23 2:15 PM [facility] your visit today, we recorded the following information about you: Weight 70.3 kg Camille Agarwal MD 01/09/2023 2:16 PM Signed Radiation Oncology - Follow Up Note PATIENT DIAGNOSIS: Laryngeal cancer, squamous cell carcinoma in situ, stage [id number]. RADIATION SUMMARY:DATES OF TREATMENT: 11/25/18- 01/01/19 AREA TREATED: Larynx DELIVERED DOSE: Area: Larynx 6,300 cGy in 28 fractions, 3 Parker, 3D Conformal, 6MV with daily CBCT TOTAL: 6,300 cGy in 28 fractions ELAPSED TIME: 37 days . INTERVAL HISTORY: Doing well. Has some mild intermittent cough and dyspnea on exertion. No productive cough. No chest pain. Denies dysphagia. 12/28/21: Patient in for follow up after PET evaluation of lung nodule on CT chest. 11/07/21: Patient is in earlier than scheduled appointment due to concerns of fatigue increased cough and dyspnea with exertion, decreased appetite, feeling like he is dehydrated. Patient denies any dizzy spells. Denies any hemoptysis. No fever. Denies chest pain. RADIOLOGY: CT Chest 01/05/23: 1. Multiple bilateral pulmonary nodules, overall similar in appearance to prior exam. A left upper lobe nodule appears slightly smaller whereas the left lower lobe nodule appears slightly larger. No new nodules are identified. 2. No evidence of intrathoracic lymphadenopathy. (Right upper lobe (4:91) 2 mm, stable Right lower lobe (4:107) 3 mm, stable Left upper lobe (4:74) nodules measuring up to 7 mm, previously 8-9 mm Left lower lobe (4:145) 9 mm, previously 8 mm Left lower lobe (4:155) 3 mm, stable ) No new nodules are visualized. The central airways are widely patent. CT Chest 06/30/22:IMPRESSION: 1. 0.9 cm left upper lobe nodular opacity, decreased in size since 11/17/21. 2. Other subcentimeter nodular opacities measuring up to 7-8 mm, stable. 3. No evidence of new intrathoracic abnormalities. PET/CT 12/13/21: IMPRESSION: 1. Neck: No suspicious hypermetabolic foci 2. Chest: Scattered lung nodules. The most prominent Left upper lobe lung nodule is associated with low-level FDG activity. Otherwise no suspicious hypermetabolic foci. No hypermetabolic lymphadenopathy. 3. Abdomen and pelvis: No evidence of FDG avid neoplastic process 4. Skeleton: No hypermetabolic osseous lesions CT chest 11/17/2021:IMPRESSION: 1. 1.4 CM, NEWLY APPARENT LEFT UPPER LOBE NODULE, CONCERNING FOR PROGRESSION OF METASTATIC DISEASE. 2. Additional bilateral subcentimeter pulmonary nodules, unchanged. 3. No substantial intrathoracic adenopathy is identified. LABORATORY: Latest Reference Range AND Units 12/28/21 13:09 01/05/23 12:29 T4 5.5 - 10.2 ug/dL 5.8 5.9 TSH 0.270 - 4.200 mIU/L 1.780 0.988 Ref. Range 11/07/2021 13:28 11/07/2021 14:04 Sodium Latest Ref Range: 136 - 144 mmol/L 142 Potassium Latest Ref Range: 3.7 - 5.1 mmol/L 4.0 Chloride Latest Ref Range: 97 - 105 mmol/L 109 (H) CO2 Latest Ref Range: 22 - 30 mmol/L 26 BUN Latest Ref Range: 9 - 24 mg/dL 37 (H) Creatinine Latest Ref Range: 0.73 - 1.22 mg/dL 2.18 (H) Glucose Latest Ref Range: 74 - 99 mg/dL 134 (H) Protein, Total Latest Ref Range: 6.3 - 8.0 g/dL 7.3 Calcium Latest Ref Range: 8.5 - 10.2 mg/dL 9.6 Albumin Latest Ref Range: 3.9 - 4.9 g/dL 4.6 Bilirubin, Total Latest Ref Range: 0.2 - 1.3 mg/dL 1.2 Alkaline Phosphatase Latest Ref Range: 38 - 113 U/L 82 ALT Latest Ref Range: 10 - 54 U/L 5 (L) AST Latest Ref Range: 14 - 40 U/L 16 Anion Gap Latest Ref Range: 9 - 18 mmol/L 7 (L) eGFR Latest Ref Range: >=60 mL/min/1.73m? 31 (L) Hematocrit Latest Ref Range: 39.0 - 51.0 % 35.3 (L) Results for FELICITAS CORREA ( ) as of 11/08/2021 07:59 Ref. Range 11/07/2021 13:28 WBC Latest Ref Range: 3.70 - 11.00 k/uL 6.70 RBC Latest Ref Range: 4.20 - 6.00 m/uL 3.74 (L) Hemoglobin Latest Ref Range: 13.0 - 17.0 g/dL 11.3 (L) Hematocrit Latest Ref Range: 39.0 - 51.0 % 35.3 (L) Platelet Count Latest Ref Range: 150 - 400 k/uL 77 (L) MCV Latest Ref Range: 80.0 - 100.0 fL 94.4 MCH Latest Ref Range: 26.0 - 34.0 pg 30.2 MCHC Latest Ref Range: 30.5 - 36.0 g/dL 32.0 MPV Latest Ref Range: 9.0 - 12.7 fL 13.5 (H) RDW-CV Latest Ref Range: 11.5 - 15.0 % 14.1 DTYPE Unknown Auto Neut% Latest Units: % 70.3 Abs Neut (ANC) Latest Ref Range: 1.45 - 7.50 k/uL 4.71 Lymph% Latest Units: % 17.5 Abs Lymph Latest Ref Range: 1.00 - 4.00 k/uL 1.17 Garden% Latest Units: % 6.3 Abs Garden Latest Ref Range: <0.87 k/uL 0.42 Eosin% Latest Units: % 5.4 Abs Eosin Latest Ref Range: <0.46 k/uL 0.36 Baso% Latest Units: % 0.4 Abs Baso Latest Ref Range: <0.11 k/uL 0.03 Immature Gran % Latest Units: % 0.1 IMMATURE GRANS (ABS) Latest Ref Range: <0.10 k/uL <0.03 NRBC Latest Units: /100 WBC 0.0 Absolute nRBC Latest Ref Ra (more content not included)... Normal [facility] CT CHEST WO IVCONon 01-06-[address] CHEST WO IVCON * * *Final Report* * * DATE OF EXAM: Jan 05 2023 1:36PM [facility] 0541 - CT CHEST WO IVCON / PROCEDURE REASON: multiple diagnoses * * * * Physician Interpretation * * * * RESULT: EXAMINATION: CHEST CT WITHOUT CONTRAST CLINICAL HISTORY: Laryngeal cancer. Technique: Spiral CT acquisition of the chest from the thoracic inlet to the upper abdomen without contrast. MQ: [id number] CT Radiation dose: Integrated Dose-length product (DLP) for this visit = 213 mGy*cm CT Dose Reduction Employed: Automated exposure control (AEC) Comparison: CT performed 06/30/2022 RESULT: Limitations: None. Lines, tubes, and devices: None. Lung parenchyma and airways: No lobar consolidation is visualized. There is mild to moderate centrilobular emphysema. Bilateral calcified granulomas are visualized. Bilateral nodular opacities are again noted. These include the following: Right upper lobe (4:91) 2 mm, stable Right lower lobe (4:107) 3 mm, stable Left upper lobe (4:74) nodules measuring up to 7 mm, previously 8-9 mm Left lower lobe (4:145) 9 mm, previously 8 mm Left lower lobe (4:155) 3 mm, stable No new nodules are visualized. The central airways are widely patent. Pleural space: No pleural effusion. No pleural thickening. Lower neck, lymph nodes, and mediastinum: Calcified mediastinal and bilateral hilar nodes are seen, in keeping with prior granulomatous disease. Heart, pericardium, and thoracic vessels: The thoracic aorta and main pulmonary artery are normal in caliber. The cardiac chambers are normal in size. No coronary artery atherosclerotic calcifications are noted, although the study is not optimized for coronary assessment. No pericardial effusion or thickening. Bones and soft tissues: Degenerative changes are noted in the thoracic spine. No destructive osseous lesions are seen. Superficial soft tissues are unremarkable. Upper abdomen: Punctate calcifications are seen within the spleen, in keeping with prior granulomatous disease. There is a probable proteinaceous/hemorrh agic cyst in the upper pole of the left kidney. Bruise Trimmer (topogram) images: No additional findings. IMPRESSION: 1. Multiple bilateral pulmonary nodules, overall similar in appearance to prior exam. A left upper lobe nodule appears slightly smaller whereas the left lower lobe nodule appears slightly larger. No new nodules are identified. 2. No evidence of intrathoracic lymphadenopathy. Transcribe Date/Time: Jan 08 2023 11:20A Dictated by: HUGO WALDEN MD This examination was interpreted and the report reviewed and electronically signed by: HUGO WALDEN MD on Jan 08 2023 11:44AM EST Thank you for allowing us to participate in the care of your patient. Should there be any questions regarding this interpretation, please call [phone]. If you are unable to reach us at the number above, please feel free to contact [facility] at [phone]. [id number] N Normal [facility] T4 SerPl-mCncon 01-05-2023 T4 [Mass/Vol] 5.9 ug/dL Normal 5.5-10.2 [facility] Comment on above: Order Comment: Speci men Type: BLOOD SPECIMEN Ordering Facility: [facility] Address: [address] [place] [address] Performed By: #### 3 016-3, 3026-2 #### [facility] CLIA [id number] OF [facility] TSH SerPl-aCncon 01-05-2023 TSH Qn 0.988 m[IU]/L Normal 0.270-4.200 [facility] Comment on above: Order Comment: Speci men Type: BLOOD SPECIMEN Ordering Facility: [facility] Address: [address] [place] [address] Performed By: #### 3 016-3, 3026-2 #### [facility] CLIA [id number] OF [facility] CNPNon 12-21-2022 CNPN Telephone (RADTSA) SUSHANT CORREA ([id number]) 1945 M Date Time Provider Department 12/21/22 Camille AGARWAL During your visit today, we recorded the following information about you: Nicole Alva LPN 12/21/2022 9:59 AM Signed Please sign pended lab orders for upcoming follow up. Previous orders . 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 - albuterol HFA (PROVENTIL HFA, VENTOLIN HFA) 90 mcg/actuation inhaler Inhale 2 Puffs as instructed every 6 hours as needed. - baclofen (LIORESAL) 10 mg tablet Take 10 mg by mouth three times daily. - amLODIPine (NORVASC) 10 mg tablet Take 10 mg by mouth once daily. - atorvastatin (LIPITOR) 10 mg tablet Take 10 mg by mouth daily at bedtime. - sertraline (ZOLOFT) 50 mg tablet Take 50 mg by mouth once daily. - pantoprazole DR (PROTONIX) 40 mg tablet Take 1 tablet by mouth once daily. - lisinopril (ZESTRIL, PRINIVIL) 40 mg tablet 40 mg. - VITAMIN D-3 2,000 unit cap TAKE 1 CAPSULE BY MOUTH ONCE DAILY FOR 30 DAYS - acetaminophen 650 mg CR tablet Take 650 mg by mouth every 8 hours as needed. Problem List As Of Date 12/21/2022 Noted Resolved Thrombocytopenia [D69.6] 08/06/2012 Elevated partial thromboplastin time (PTT) [R79*08/09/2012 Renal insufficiency [N28.9] 08/09/2012 Bone mass [M89.8X9] 08/09/2012 Rash [R21] 08/09/2012 SLE (systemic lupus erythematosus) (HCC) [M32.9]10/16/2013 10/05/2016 Bronchitis [J40] 10/16/2013 Lupus anticoagulant positive [R76.0] 10/01/2014 Rheumatoid arthritis of multiple sites with neg*10/01/2014 Lung nodule [R91.1] 08/23/2017 Laryngeal cancer (HCC) [C32.9] 12/25/2018 Encounter Status:Closed by Camille AGARWAL on 12/21/22 Normal [facility] P[facility] INTACTon 09-16-2022 PTH, Intact 64 pg/mL Normal 15-65 [facility] Comment on above: Performed By: #### M ALBCRL #### [facility] [address] [place] [address] Dr. Alison Patterson CBC AUTO DIFFon 09-15-2022 BASO # 0.1 103/ul Normal 0.0-0.1 [facility] Comment on above: Performed By: #### C BC #### [facility] [address] [place] [address] Dr. Alison Patterson Basophils/100 WBC (Bld) 0.8 % Normal 0.2-2.0 [facility] Comment on above: Performed By: #### C BC #### [facility] [address] [place] [address] Dr. Alison Patterson EO # 0.5 103/ul Normal 0.0-0.7 [facility] Comment on above: Performed By: #### C BC #### [facility] [address] [place] [address] Dr. Alison Patterson Eosinophils/100 WBC (Bld) 7.2 % Critically high 0.9-7.0 [facility] Comment on above: Performed By: #### C BC #### [facility] [address] [place] [address] Dr. Alison Patterson Erythrocyte distribution width (RBC) [Ratio] 13.7 % Normal 11.0-15.0 [facility] Comment on above: Performed By: #### C BC #### [facility] [address] [place] [address] Dr. Alison Patterson Hematocrit (Bld) [Volume fraction] 39.8 % Critically low 42.0-54.0 [facility] Comment on above: Performed By: #### C BC #### [facility] [address] [place] [address] Dr. Alison Patterson Hemoglobin (Bld) [Mass/Vol] 12.5 g/dL Critically low 14.0-18.0 [facility] Comment on above: Performed By: #### C BC #### [facility] [address] [place] [address] Dr. Alison Patterson IG # 0.01 10e3/ul Normal 0.00-0.03 [facility] Comment on above: Performed By: #### C BC #### [facility] [address] [place] [address] Dr. Alison Patterson IG % 0.2 % Normal 0.0-0.5 [facility] Comment on above: Performed By: #### C BC #### [facility] [address] [place] [address] Dr. Alison Patterson LYMPH # 1.5 103/ul Normal 1.2-3.8 [facility] Comment on above: Performed By: #### C BC #### [facility] [address] [place] [address] Dr. Alison Patterson Lymphocytes/100 WBC (Bld) 23.3 % Normal 20.5-60.0 [facility] Comment on above: Performed By: #### C BC #### [facility] [address] [place] [address] Dr. Alison Patterson MANUAL DIFF REQ NO Normal [facility] Comment on above: Performed By: #### C BC #### [facility] [address] [place] [address] Dr. Alison aPtterson MCH (RBC) [Entitic mass] 30.6 pg Normal 25.9-34.0 [facility] Comment on above: Performed By: #### C BC #### [facility] [address] [place] [address] Dr. Alison Patterson MCHC (RBC) [Mass/Vol] 31.4 g/dL Normal 29.9-35.2 [facility] Comment on above: Performed By: #### C BC #### [facility] [address] [place] [address] Dr. Alison Patterson MCV (RBC) [Entitic vol] 97.5 fL Critically high 80.0-94.0 [facility] Comment on above: Performed By: #### C BC #### [facility] [address] [place] [address] Dr. Alison Patterson MONO # 0.5 103/ul Normal 0.3-0.8 [facility] Comment on above: Performed By: #### C BC #### [facility] [address] [place] [address] Dr. Alison Patterson Monocytes/100 WBC (Bld) 7.2 % Normal 1.7-12.0 [facility] Comment on above: Performed By: #### C BC #### [facility] [address] [address] [address] Alison Patterson NEUT # 3.9 103/ul Normal 1.4-6.5 [facility] Comment on above: Performed By: #### C BC #### [facility] [address] [address] [address] Alison Patterson Neutrophils/100 WBC (Bld) 61.3 % Normal 43.0-75.0 [facility] Comment on above: Performed By: #### C BC #### [facility] [address] [address] [address] Alison Patterson Platelet mean volume (Bld) [Entitic vol] 12.7 fL Normal 9.5-13.5 [facility] Comment on above: Performed By: #### C BC #### [facility] [address] [address] [address] Alison Patterson PLT 78 103/ul Critically low 150-450 [facility] Comment on above: Performed By: #### C BC #### [facility] [address] [address] [address] Alison Patterson RBC 4.08 106/ul Critically low 4.70-6.10 [facility] Comment on above: Performed By: #### C BC #### [facility] [address] [address] [address] Alison Patterson WBC 6.4 103/ul Normal 4.0-11.0 [facility] Comment on above: Performed By: #### C BC #### [facility] [address] [address] [address] Alison Patterson LIPID PROFILEon 09-15-2022 CHOL-HDL RATIO NORM SEE BELOW Normal [facility] Comment on above: Result Comment: 3.3 - 4.4 LOW RISK 4.4 - 7.1 AVERAGE RISK 7.1 - 11.0 MODERATE RISK >11.0 HIGH RISK Performed By: #### C MP, LIPID #### [facility] [address] [address] [address] Alison Patterson Cholesterol [Mass/Vol] 189 mg/dL Normal <=200 [facility] Comment on above: Performed By: #### C MP, LIPID #### [facility] [address] [address] [address] Alison Patterson Cholesterol in HDL [Mass/Vol] 42 mg/dL Normal 40-60 [facility] Comment on above: Performed By: #### C MP, LIPID #### [facility] [address] [address] [address] Alison Patterson Cholesterol in LDL [Mass/Vol] 116.0 mg/dL Normal [facility] Comment on above: Performed By: #### C MP, LIPID #### [facility] [address] [address] [address] Alison Patterson Cholesterol.total/Cho lesterol in HDL [Mass ratio] 4.5 {ratio} Normal [facility] Comment on above: Performed By: #### C MP, LIPID #### [facility] [address] [place] [address] Dr. Alison Patterson HDL NORMAL > or = 60 mg/dl - LO W CARDIOVASCULAR RISK <40 mg/dl - HIGH CARDIOVASCULAR RISK Normal [facility] Comment on above: Performed By: #### C MP, LIPID #### [facility] [address] [place] [address] Dr. Alison Patterson LDL CALC NORMAL SEE BELOW Normal [facility] Comment on above: Result Comment: <100 mg/dl OPTIMAL 100 - 129 mg/dl NEAR OR ABOVE OPTIMAL 130 - 159 mg/dl BORDERLINE HIGH 160 - 189 mg/dl HIGH >190 mg/dl VERY HIGH Performed By: #### C MP, LIPID #### [facility] [address] [address] [address] Alison Patterson Triglyceride [Mass/Vol] 155 mg/dL Critically high <=150 [facility] Comment on above: Performed By: #### C MP, LIPID #### [facility] [address] [address] [address] Alison Patterson VLDL CALC 31.0 mg/dL Normal [facility] Comment on above: Performed By: #### C MP, LIPID #### [facility] [address] [address] [address] Alison Patterson MAGNESIUMon 09-15-2022 Magnesium [Mass/Vol] 1.9 mg/dL Normal 1.8-2.4 [facility] Comment on above: Performed By: #### M ALBCRL #### [facility] [address] [place] [address] Dr. Alison Patterson MICROALB CREAT RATIO RANDOMo n 09-15-2022 mALB 3.7 mg/L Normal <=30.0 [facility] Comment on above: Performed By: #### M CRR #### [facility] [address] [address] [address] Alison Patterson MALB CR RATIO 14.3 mg/g Normal 0.0-29.9 [facility] Comment on above: Performed By: #### M CRR #### [facility] [address] [place] [address] Dr. Alison Patterson MALB CR RATIO RANGE SEE BELOW Normal [facility] Comment on above: Result Comment: NO M ICROALBUMINURIA 0-29 MG/G CLINICAL MICROALBUMINURIA 30-300 MG/G MACROALBUMINURIA >300 MG/G Performed By: #### M CRR #### [facility] [address] [address] [address] Alison Patterson URINE CREAT 259.52 mg/dL Normal 20.00-300.00 [facility] Comment on above: Performed By: #### M CRR #### [facility] [address] [address] [address] Alison Patterson PHOSPHORUSon 09-15-2022 Phosphate [Mass/Vol] 3.9 mg/dL Normal 2.6-4.7 [facility] Comment on above: Performed By: #### M ALBCRL #### [facility] [address] [address] [address] Alison Patterson PROF 14(COMP METB)on 023 Albumin [Mass/Vol] 4.1 g/dL Normal 3.4-5.0 [facility] Comment on above: Performed By: #### C MP, LIPID #### [facility] [address] [place] [address] Dr. Alison Patterson Albumin/Globulin [Mass ratio] 1.0 {ratio} Normal [facility] Comment on above: Performed By: #### C MP, LIPID #### [facility] [address] [address] [address] Alison Patterson ALP [Catalytic activity/Vol] 78 U/L Normal 46-116 [facility] Comment on above: Performed By: #### C MP, LIPID #### [facility] [address] [address] [address] Alison Patterson ALT [Catalytic activity/Vol] 17 U/L Normal 16-63 [facility] Comment on above: Performed By: #### C MP, LIPID #### [facility] [address] [place] [address] Dr. Alison Patterson Anion gap [Moles/Vol] 13.6 mmol/L Normal [facility] Comment on above: Performed By: #### C MP, LIPID #### [facility] [address] [place] [address] Dr. Alison Patterson AST [Catalytic activity/Vol] 14 U/L Critically low 15-37 [facility] Comment on above: Performed By: #### C MP, LIPID #### [facility] [address] [place] [address] Dr. Alison Patterson Bilirubin [Mass/Vol] 1.2 mg/dL Critically high 0.2-1.0 [facility] Comment on above: Performed By: #### C MP, LIPID #### [facility] [address] [place] [address] Dr. Alison Patterson Calcium [Mass/Vol] 9.4 mg/dL Normal 8.5-10.1 [facility] Comment on above: Performed By: #### C MP, LIPID #### [facility] [address] [place] [address] Dr. Alison Patterson Chloride [Moles/Vol] 106 mmol/L Normal 98-107 [facility] Comment on above: Performed By: #### C MP, LIPID #### [facility] [address] [place] [address] Dr. Alison Patterson CO2 [Moles/Vol] 29.2 mmol/L Normal 21.0-32.0 [facility] Comment on above: Performed By: #### C MP, LIPID #### [facility] [address] [address] [address] Alison Patterson Creatinine [Mass/Vol] 2.53 mg/dL Critically high 0.70-1.30 [facility] Comment on above: Performed By: #### C MP, LIPID #### [facility] [address] [address] [address] Alison Patterson EGFR-AF J[place] 30 mL/min/1.73m2 Critically low >=60 [facility] Comment on above: Performed By: #### C MP, LIPID #### [facility] [address] [place] [address] Dr. Alison Patterson EGFR-NON AF [place] 25 mL/min/1.73m2 Critically low >=60 [facility] Comment on above: Performed By: #### C MP, LIPID #### [facility] [address] [place] [address] Dr. Alison Patterson Globulin (S) [Mass/Vol] 4.1 g/dL Normal [facility] Comment on above: Performed By: #### C MP, LIPID #### [facility] [address] [place] [address] Dr. Alison Patterson Glucose [Mass/Vol] 97 mg/dL Normal 74-106 [facility] Comment on above: Performed By: #### C MP, LIPID #### [facility] [address] [place] [address] Dr. Alison Patterson Potassium [Moles/Vol] 4.8 mmol/L Normal 3.5-5.1 [facility] Comment on above: Performed By: #### C MP, LIPID #### [facility] [address] [place] [address] Dr. Alison Patterson Protein [Mass/Vol] 8.2 g/dL Normal 6.4-8.[address] [facility] Comment on above: Performed By: #### C MP, LIPID #### [facility] [address] [address] [address] Alison Patterson Sodium [Moles/Vol] 144 mmol/L Normal 136-145 [facility] Comment on above: Performed By: #### C MP, LIPID #### [facility] [address] [place] [address] Dr. Aliosn Patterson Urea nitrogen [Mass/Vol] 33.0 mg/dL Critically high 7.0-18.0 [facility] Comment on above: Performed By: #### C MP, LIPID #### [facility] [address] [place] [address] Dr. Alison Patterson Urea nitrogen/Creatinine [Mass ratio] 13.0 mg/mg Normal [facility] Comment on above: Performed By: #### C MP, LIPID #### [facility] [address] [place] [address] Dr. Alison Patterson UA RANDOMon 09-15-2022 Bilirubin Ql (U) Negative Normal NEGATIVE [facility] Comment on above: Performed By: #### U A #### [facility] [address] [place] [address] Dr. Alison Patterson Clarity (U) CLEAR Normal CLEAR [facility] Comment on above: Performed By: #### U A #### [facility] [address] [place] [address] Dr. Alison Patterson Color (U) YELLOW Normal YELLOW [facility] Comment on above: Performed By: #### U A #### [facility] [address] [place] [address] Dr. Alison Patterson Glucose Ql (U) Negative Normal NEGATIVE [facility] Comment on above: Performed By: #### U A #### [facility] [address] [place] [address] Dr. Alison Patterson Hemoglobin Ql (U) Negative Normal NEGATIVE [facility] Comment on above: Performed By: #### U A #### [facility] [address] [place] [address] Dr. Alison Patterson Ketones Ql (U) Negative Normal NEGATIVE [facility] Comment on above: Performed By: #### U A #### [facility] [address] [place] [address] Dr. Alison Patterson LEUKOCYTES Negative Normal NEGATIVE [facility] Comment on above: Performed By: #### U A #### [facility] [address] [place] [address] Dr. Alison Patterson Nitrite Ql (U) Negative Normal NEGATIVE [facility] Comment on above: Performed By: #### U A #### [facility] [address] [place] [address] Dr. Alison Patterson pH (U) 5.5 [pH] Normal 5-9 [facility] Comment on above: Performed By: #### U A #### [facility] [address] [place] [address] Dr. Alison Patterson SPEC GRAVITY 1.025 Normal 1.005-<=1.025 [facility] Comment on above: Performed By: #### U A #### [facility] [address] [place] [address] Dr. Alison Patterson UA PROTEIN Negative Normal NEGATIVE/ TRACE [facility] Comment on above: Performed By: #### U A #### [facility] [address] [place] [address] Dr. Alison Patterson Urobilinogen Qn (U) 0.2 {Sarah'U}/dL Normal 0.2 - 1. 0 [facility] Comment on above: Performed By: #### U A #### [facility] [address] [place] [address] Dr. Alison Patterson VITAMIN D 25 OHon 09-15-2022 VIT D 25-OH 51.7 ng/mL Normal [facility] Comment on above: Performed By: #### M ALBCRL #### [facility] [address] [place] [address] Dr. Alison Patterson VIT D RANGES SEE BELOW Normal [facility] Comment on above: Result Comment: <20 ng/mL Vit D deficient 20 - <30 ng/mL Vit D insufficient 30 - 100 ng/mL Vit D sufficient >100 ng/mL Potential Toxicity Performed By: #### M ALBCRL #### [facility] [address] [place] [address] Dr. Alison Patterson Tobacco Screening.on 023 Fall risk assessment a) No falls within the last year -[facility] 250 DO Work Phone: Tobacco use status [facility] b) No -[facility] 250 DO Work Phone: Tobacco Screening. Yes [facility] 250 DO Work Phone: MICROALBUMIN/ CREATININE RAT IOon 01-21-2022 Albumin, Urine 43.3 ug/mL Normal Not Estab. The [facility] Comment on above: Performed By: #### M ALBCRL #### [facility] [address] [address] [address] Alison Patterson Albumin/ Creatinine Ratio 23 mg/g creat Normal 0-29 [facility] Comment on above: Result Comment: Norm al: 0 - 29 Moderately increased: 30 - 300 Severely increased: >300 Performed By: #### M ALBCRL #### [facility] [address] [address] [address] Alison Patterson Creatinine, Urine 186.8 mg/dL Normal Not Estab. The [facility] Comment on above: Performed By: #### M ALBCRL #### [facility] [address] [address] [address] Alison Patterson PTH INTACTon 01-21-2022 PTH, Intact 67 pg/mL Critically high 15-65 [facility] Comment on above: Performed By: #### P THINT #### [facility] [address] [place] [address] Dr. Alison Patterson VIT D 25-OH [facility] 2021 Vitamin D, 25-Hydroxy 48.0 ng/mL Normal 30.0-100.0 [facility] Comment on above: Result Comment: Elena min D deficiency has been defined by the [place] of [employer] and an Endocrine Society practice guideline as a level of serum 25-OH vitamin D less than 20 ng/mL (1,2). The Endocrine Society went on to further define vitamin D insufficiency as a level between 21 and 29 ng/mL (2). 1. IOM ([place] of [employer]). 2010. Dietary reference intakes for calcium and D. [place]: The National Academies Press. 2. Kennedy MF, Leilani NC, Jane PEREZ, et al. Evaluation, treatment, and prevention of vitamin D deficiency: an Endocrine Society clinical practice guideline. JCEM. 2010; 96(7):1911-30. Performed By: #### V ITADLC #### [facility] [address] [place] [address] Dr. Alison Patterson ALBUMINon 01-20-2022 Albumin [Mass/Vol] 4.0 g/dL Normal 3.4-5.0 [facility] Comment on above: Performed By: #### M ALBCRL #### [facility] [address] [place] [address] Dr. Alison Patterson CBC AUTO DIFFon 01-20-2022 BASO # 0.0 103/ul Normal 0.0-0.1 [facility] Comment on above: Performed By: #### C BC #### [facility] [address] [place] [address] Dr. Alison Patterson Basophils/100 WBC (Bld) 0.6 % Normal 0.2-2.0 [facility] Comment on above: Performed By: #### C BC #### [facility] [address] [place] [address] Dr. Alison Patterson EO # 0.2 103/ul Normal 0.0-0.7 [facility] Comment on above: Performed By: #### C BC #### [facility] [address] [place] [address] Dr. Alison Patterson Eosinophils/100 WBC (Bld) 2.9 % Normal 0.9-7.0 [facility] Comment on above: Performed By: #### C BC #### [facility] [address] [place] [address] Dr. Alison Patterson Erythrocyte distribution width (RBC) [Ratio] 15.3 % Critically high 11.0-15.0 [facility] Comment on above: Performed By: #### C BC #### [facility] [address] [address] [address] Alison Patterson Hematocrit (Bld) [Volume fraction] 36.9 % Critically low 42.0-54.0 [facility] Comment on above: Performed By: #### C BC #### [facility] [address] [place] [address] Dr. Alison Patterson Hemoglobin (Bld) [Mass/Vol] 11.7 g/dL Critically low 14.0-18.0 [facility] Comment on above: Performed By: #### C BC #### [facility] [address] [place] [address] Dr. Alison Patterson IG # 0.01 10e3/ul Normal 0.00-0.03 [facility] Comment on above: Performed By: #### C BC #### [facility] [address] [place] [address] Dr. Alison Patterson IG % 0.2 % Normal 0.0-0.5 [facility] Comment on above: Performed By: #### C BC #### [facility] [address] [place] [address] Dr. Alison Patterson LYMPH # 1.1 103/ul Critically low 1.2-3.8 [facility] Comment on above: Performed By: #### C BC #### [facility] [address] [place] [address] Dr. Alison Patterson Lymphocytes/100 WBC (Bld) 17.5 % Critically low 20.5-60.0 [facility] Comment on above: Performed By: #### C BC #### [facility] [address] [place] [address] Dr. Alison Patterson MANUAL DIFF REQ NO Normal [facility] Comment on above: Performed By: #### C BC #### [facility] [address] [place] [address] Dr. Alison Patterson MCH (RBC) [Entitic mass] 30.6 pg Normal 25.9-34.0 [facility] Comment on above: Performed By: #### C BC #### [facility] [address] [place] [address] Dr. Alison Patterson MCHC (RBC) [Mass/Vol] 31.7 g/dL Normal 29.9-35.2 [facility] Comment on above: Performed By: #### C BC #### [facility] [address] [place] [address] Dr. Alison Patterson MCV (RBC) [Entitic vol] 96.6 fL Critically high 80.0-94.0 [facility] Comment on above: Performed By: #### C BC #### [facility] [address] [place] [address] Dr. Alison Patterson MONO # 0.5 103/ul Normal 0.3-0.8 [facility] Comment on above: Performed By: #### C BC #### [facility] [address] [place] [address] Dr. Alison Patterson Monocytes/100 WBC (Bld) 7.5 % Normal 1.7-12.0 [facility] Comment on above: Performed By: #### C BC #### [facility] [address] [place] [address] Dr. Alison Patterson NEUT # 4.5 103/ul Normal 1.4-6.5 [facility] Comment on above: Performed By: #### C BC #### [facility] [address] [place] [address] Dr. Alison Patterson Neutrophils/100 WBC (Bld) 71.3 % Normal 43.0-75.0 [facility] Comment on above: Performed By: #### C BC #### [facility] [address] [place] [address] Dr. Alison Patterson Platelet mean volume (Bld) [Entitic vol] 12.8 fL Normal 9.5-13.5 [facility] Comment on above: Performed By: #### C BC #### [facility] [address] [place] [address] Dr. Alison Patterson PLT 75 103/ul Critically low 150-450 [facility] Comment on above: Performed By: #### C BC #### [facility] [address] [place] [address] Dr. Alison Patterson RBC 3.82 106/ul Critically low 4.70-6.10 [facility] Comment on above: Performed By: #### C BC #### [facility] [address] [place] [address] Dr. Alison Patterson WBC 6.3 103/ul Normal 4.0-11.0 [facility] Comment on above: Performed By: #### C BC #### [facility] [address] [place] [address] Dr. Alison Patterson MAGNESIUMon 01-20-2022 Magnesium [Mass/Vol] 1.6 mg/dL Critically low 1.8-2.4 [facility] Comment on above: Performed By: #### M ALBCRL #### [facility] [address] [place] [address] Dr. Alison Patterson PHOSPHORUSon 01-20-2022 Phosphate [Mass/Vol] 3.2 mg/dL Normal 2.6-4.7 [facility] Comment on above: Performed By: #### M ALBCRL #### [facility] [address] [place] [address] Dr. Alison Patterson PROF CHEM 8 (BAS METB)on Anion gap [Moles/Vol] 14.7 mmol/L Normal [facility] Comment on above: Performed By: #### M ALBCRL #### [facility] [address] [place] [address] Dr. Alison Patterson Calcium [Mass/Vol] 8.5 mg/dL Normal 8.5-10.1 [facility] Comment on above: Performed By: #### M ALBCRL #### [facility] [address] [place] [address] Dr. Alison Patterson Chloride [Moles/Vol] 109 mmol/L Critically high 98-107 [facility] Comment on above: Performed By: #### M ALBCRL #### [facility] [address] [place] [address] Dr. Alison Patterson CO2 [Moles/Vol] 26.8 mmol/L Normal 21.0-32.0 [facility] Comment on above: Performed By: #### M ALBCRL #### [facility] [address] [address] [address] Alison Patterson Creatinine [Mass/Vol] 2.29 mg/dL Critically high 0.70-1.30 [facility] Comment on above: Performed By: #### M ALBCRL #### [facility] [address] [address] [address] Alison Patterson EGFR-AF [place] 34 mL/min/1.73m2 Critically low >=60 [facility] Comment on above: Performed By: #### M ALBCRL #### [facility] [address] [address] [address] Alison Patterson EGFR-NON AF [place] 28 mL/min/1.73m2 Critically low >=60 [facility] Comment on above: Performed By: #### M ALBCRL #### [facility] [address] [address] [address] Alison Patterson Glucose [Mass/Vol] 91 mg/dL Normal 74-106 [facility] Comment on above: Performed By: #### M ALBCRL #### [facility] [address] [address] [address] Alison Patterson Potassium [Moles/Vol] 4.5 mmol/L Normal 3.5-5.1 [facility] Comment on above: Performed By: #### M ALBCRL #### [facility] [address] [address] [address] Alison Patterson Sodium [Moles/Vol] 146 mmol/L Critically high 136-145 [facility] Comment on above: Performed By: #### M ALBCRL #### [facility] [address] [address] [address] Alison Patterson Urea nitrogen [Mass/Vol] 38.0 mg/dL Critically high 7.0-18.0 [facility] Comment on above: Performed By: #### M ALBCRL #### [facility] [address] [address] [address] Alison Patterson Urea nitrogen/Creatinine [Mass ratio] 16.6 mg/mg Normal [facility] Comment on above: Performed By: #### M ALBCRL #### [facility] [address] [place] [address] Dr. Alison Patterson UA RANDOMon 01-20-2022 Bilirubin Ql (U) Negative Normal NEGATIVE [facility] Comment on above: Performed By: #### U A #### [facility] [address] [place] [address] Dr. Alison Patterson Clarity (U) CLEAR Normal CLEAR [facility] Comment on above: Performed By: #### U A #### [facility] [address] [place] [address] Dr. Alison Patterson Color (U) YELLOW Normal YELLOW [facility] Comment on above: Performed By: #### U A #### [facility] [address] [place] [address] Dr. Alison Patterson Glucose Ql (U) Negative Normal NEGATIVE [facility] Comment on above: Performed By: #### U A #### [facility] [address] [place] [address] Dr. Alison Patterson Hemoglobin Ql (U) Negative Normal NEGATIVE [facility] Comment on above: Performed By: #### U A #### [facility] [address] [place] [address] Dr. Alison Patterson Ketones Ql (U) Negative Normal NEGATIVE [facility] Comment on above: Performed By: #### U A #### [facility] [address] [place] [address] Dr. Alison Patterson LEUKOCYTES Negative Normal NEGATIVE [facility] Comment on above: Performed By: #### U A #### [facility] [address] [place] [address] Dr. Alison Patterson Nitrite Ql (U) Negative Normal NEGATIVE [facility] Comment on above: Performed By: #### U A #### [facility] [address] [place] [address] Dr. Alison Patterson pH (U) 5.5 [pH] Normal 5-9 [facility] Comment on above: Performed By: #### U A #### [facility] [address] [address] [address] Alison Patterson SPEC GRAVITY 1.025 Normal 1.005-<=1.025 [facility] Comment on above: Performed By: #### U A #### [facility] [address] [address] [address] Alison Patterson UA PROTEIN Negative Normal NEGATIVE/ TRACE [facility] Comment on above: Performed By: #### U A #### [facility] [address] [address] [address] Alison Patterson Urobilinogen Qn (U) 0.2 {Sarah'U}/dL Normal 0.2 - 1. 0 [facility] Comment on above: Performed By: #### U A #### [facility] [address] [place] [address] Dr. Alison Patterson T4/THYROXINE BLOODon 022 T4 [Mass/Vol] 5.8 ug/dL 5.5 - 10.2 ug/dL [facility] T4/THYROXINE BLOODon 022 T4 [Mass/Vol] 5.3 ug/dL Low 5.5 - 10.2 ug/dL [facility] TSH BLDon 11-08-2021 TSH Qn 1.480 m[IU]/L 0.270 - 4.200 mIU/L [facility] Albumin Levelon 07-14-2021 Albumin [Mass/Vol] 3.6 g/dL Normal 3.2-5.5 [facility] Comment on above: Performed By: #### M G, CBCNO, PTH, PHOS, ALB, URMACRERAT, BMP, [id number] #### [facility] [address] Basic Metabolic Panelon 06-22 Calcium [Mass/Vol] 9.2 mg/dL Normal 8.2-10.2 [facility] Comment on above: Performed By: #### M G, CBCNO, PTH, PHOS, ALB, URMACRERAT, BMP, [id number] #### [facility] [address] Chloride [Moles/Vol] 106 mmol/L Normal 95-114 [facility] Comment on above: Performed By: #### M G, CBCNO, PTH, PHOS, ALB, URMACRERAT, BMP, [id number] #### [facility] [address] CO2 [Moles/Vol] 26.9 mmol/L Normal 22.0-30.0 [facility] Comment on above: Performed By: #### M G, CBCNO, PTH, PHOS, ALB, URMACRERAT, BMP, [id number] #### [facility] [address] Creatinine [Mass/Vol] 2.02 mg/dL High 0.64-1.27 [facility] Comment on above: Performed By: #### M G, CBCNO, PTH, PHOS, ALB, URMACRERAT, BMP, [id number] #### [facility] [address] Estimated GFR ( Manda 39 [facility] Comment on above: Result Comment: GFR estimated reference range: According to KDOQI guidelines, <60 ml/min/1.73m2 is sufficient to diagnose a patient with chronic kidney disease. Performed By: #### M G, CBCNO, PTH, PHOS, ALB, URMACRERAT, BMP, [id number] #### [facility] [address] Estimated GFR (Non- Am 32 [facility] Comment on above: Performed By: #### M G, CBCNO, PTH, PHOS, ALB, URMACRERAT, BMP, [id number] #### [facility] [address] Glucose [Mass/Vol] 96 mg/dL Normal 70-100 [facility] Comment on above: Result Comment: [place] om Glucose Reference Range is dependent on time and content of last meal. Glucose of more than 200 mg/dL in a nonstressed, ambulatory subject supports the diagnosis of Diabetes Mellitus. ADA recommended reference range Performed By: #### M G, CBCNO, PTH, PHOS, ALB, URMACRERAT, BMP, [id number] #### [address] Potassium [Moles/Vol] 4.6 mmol/L Normal 3.5-5.1 [facility] Comment on above: Performed By: #### M G, CBCNO, PTH, PHOS, ALB, URMACRERAT, BMP, [id number] #### [address] Sodium [Moles/Vol] 142 mmol/L Normal 136-146 [facility] Comment on above: Performed By: #### M G, CBCNO, PTH, PHOS, ALB, URMACRERAT, BMP, [id number] #### [address] Urea nitrogen [Mass/Vol] 34 mg/dL High 9-23 [facility] Comment on above: Performed By: #### M G, CBCNO, PTH, PHOS, ALB, URMACRERAT, BMP, [id number] #### [address] Hemogram CBC Without Diffon 07-14-2021 Erythrocyte distribution width (RBC) [Ratio] 15.0 % High 12.0-14.8 [facility] Comment on above: Performed By: #### M G, CBCNO, PTH, PHOS, ALB, URMACRERAT, BMP, [id number] #### [address] Hematocrit (Bld) [Volume fraction] 30.8 % Low 38.8-50.0 [facility] Comment on above: Performed By: #### M G, CBCNO, PTH, PHOS, ALB, URMACRERAT, BMP, [id number] #### [address] Hemoglobin (Bld) [Mass/Vol] 10.4 g/dL Low 13.0-17.0 [facility] Comment on above: Performed By: #### M G, CBCNO, PTH, PHOS, ALB, URMACRERAT, BMP, [id number] #### [address] MCH (RBC) [Entitic mass] 31.2 pg Normal 27.5-35.2 [facility] Comment on above: Performed By: #### M G, CBCNO, PTH, PHOS, ALB, URMACRERAT, BMP, [id number] #### [address] MCV (RBC) [Entitic vol] 92.1 fL Normal 83.5-101 [facility] Comment on above: Performed By: #### M G, CBCNO, PTH, PHOS, ALB, URMACRERAT, BMP, [id number] #### [address] Mean Corpuscular HGB Conc 33.9 g/dL Normal 32.5-35.6 [facility] Comment on above: Performed By: #### M G, CBCNO, PTH, PHOS, ALB, URMACRERAT, BMP, [id number] #### [address] Platelet mean volume (Bld) [Entitic vol] 12.0 fL High 6.6-10.1 [facility] Comment on above: Result Comment: PERF ORMED BY: [place] [address] PATHOLOGIST PRODUCTION COOK TIA AKBAR M.D. Performed By: #### M G, CBCNO, PTH, PHOS, ALB, URMACRERAT, BMP, [id number] #### [address] Platelets (Bld) [#/Vol] 76 10*3/uL Low 150-450 [facility] Comment on above: Performed By: #### M G, CBCNO, PTH, PHOS, ALB, URMACRERAT, BMP, [id number] #### [address] RBC (Bld) [#/Vol] 3.34 10*6/uL Low 3.90-5.60 [facility] Comment on above: Performed By: #### M G, CBCNO, PTH, PHOS, ALB, URMACRERAT, BMP, [id number] #### [facility] [address] WBC (Bld) [#/Vol] 7.5 10*3/uL Normal 4.1-10.5 [facility] [place] Comment on above: Performed By: #### M G, CBCNO, PTH, PHOS, ALB, URMACRERAT, BMP, [id number] #### [address] Magnesiumon 07-14-2021 Magnesium [Mass/Vol] 1.8 mg/dL Normal 1.6-2.6 [facility] Comment on above: Performed By: #### M G, CBCNO, PTH, PHOS, ALB, URMACRERAT, BMP, [id number] #### [address] MicroAlb Creat Ratio,Uon Albumin DL <= 20 mg/L (U) [Mass/Vol] 3.2 mg/dL High 0.0-1.8 [facility] Comment on above: Performed By: #### M G, CBCNO, PTH, PHOS, ALB, URMACRERAT, BMP, [id number] #### [address] Creatinine, Urine (Random) 142.6 mg/dL Normal [facility] Comment on above: Result Comment: No r eference range established Performed By: #### M G, CBCNO, PTH, PHOS, ALB, URMACRERAT, BMP, [id number] #### [address] Microalbumin/Creatini ne Ratio 22.0 mg/g Normal 0.0-30.0 [facility] Comment on above: Result Comment: 30-3 00 mg/g indicates an increased risk for diabetic nephropathy. Greater than 300 mg/g is consistent with clinical nephropathy. (Am. J. Kidney Disease 1995, 25:107) PERFORMED BY: [place] [address] PATHOLOGIST PR[employer] COOK TIA AKBAR M.D. Performed By: #### M G, CBCNO, PTH, PHOS, ALB, URMACRERAT, BMP, [id number] #### [address] Parathyroid Hormone Intacton 07-14-2021 Parathyroid Hormone Intact 85.3 pg/mL Normal 12-88 [facility] Comment on above: Result Comment: PERF ORMED BY: [place] [address] PATHOLOGIST [employer] COOK TIA AKBAR M.D. Performed By: #### M G, CBCNO, PTH, PHOS, ALB, URMACRERAT, BMP, [id number] #### [address] Phosphoruson 07-14-2021 Phosphate [Mass/Vol] 3.2 mg/dL Normal 2.5-4.6 [facility] Comment on above: Performed By: #### M G, CBCNO, PTH, PHOS, ALB, URMACRERAT, BMP, [id number] #### [address] Vitamin D 25 Hydroxy Totalon 07-14-2021 Vitamin D 25 Hydroxy Total 27.3 ng/mL Low 30-100 [facility] Comment on above: Result Comment: ELE[place] MIN D STATUS 25(OH)VITAMIN D RANGE (ng/mL) Deficient <20 Insufficient 20 to <30 Sufficient 30 to 100 Reference: Kennedy MF,Leilani NC, Jane PEREZ, et al. Evaluation,treatment, and prevention of vitamin D deficiency; an Endocrine Society clinical practice guideline. JCEM. 2010; 96(7):1911-30. Performed By: #### M G, CBCNO, PTH, PHOS, ALB, URMACRERAT, BMP, [id number] #### [facility] [address] [id number] [facility] Provider Letteron 06-03-2021 Provider Letter June 03, 2021 Dear Mr. Correa, This letter is to inform you that the providers at [facility] will no longer be responsible for your routine medical care. Emergency care only will be provided for the thirty (30) days following this letter. During this time period we suggest that you find another physician for your medical needs. A listing of area physicians can be found on 's website at [email or web address] or you may contact your health plan. We will be glad to forward your records to your new physician as long as we receive a signed release of records form. This form can be obtained at our office. Sincerely, Dr. Lino Tucker [facility] [address] [facility] 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 Prescriptions will not be filled unless you are compliant with your follow up appointments or have a follow up appointment scheduled as per instruction of your physician. Refills should be requested at the time of your visit. Follow up in 1 year. Chief Complaint SUSHANT CORREA is being seen for a 6 month follow-up of. Patient is a 75-year-old gentleman returns for 6-month follow-up following recent cardiology evaluation, stress perfusion imaging revealing inferior infarction pattern with preserved left ventricular function 6 months ago. Patient remains asymptomatic has no angina or heart failure hospitalizations. He is a former smoker and has underlying COPD. He is tolerating current medications well. 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 He is not on any anticoagulation. He also has a history of throat cancer status post radiation approximately 2 to 3 years ago We rediscussed his abnormal stress test his asymptomatic status, will will continue with conservative based approach at this time. We will follow-up in 1 year Surgical History Problems History of Appendectomy Past Medical History Problems History of fatigue (V13.89) (Z87.898) Resolved Date: 24 May 2021 History of SOB (shortness of breath) on exertion (786.05) (R06.02) Current Meds Medication NameInstruction amLODIPine Besylate 10 MG Oral TabletTAKE 1 TABLET DAILY. Aspirin EC 81 MG Oral Tablet Delayed ReleaseTAKE 1 TABLET DAILY. Atorvastatin Calcium 10 MG Oral TabletTAKE 1 TABLET AT BEDTIME. Baclofen 20 MG Oral TabletTAKE 1 TABLET 3 TIMES DAILY. Lisinopril 40 MG Oral TabletTAKE 1 TABLET DAILY DIRECTED. Pantoprazole Sodium 40 MG Oral Tablet Delayed ReleaseTAKE 1 TABLET DAILY. Sertraline HCl - 50 MG Oral TabletTAKE 1 TABLET DAILY. Allergies Medication duloxetine Allergy; Recorded By: Mundo Anne; 04/26/2021 4:21:10 PM Social History Problems Caffeine use (V49.89) (Z78.9) 3-4 cups of coffee daily. Former smoker (V15.82) (Z87.891) No alcohol use No illicit drug use Review of Systems Constitutional: not feeling tired. Cardiovascular: palpitations, but no intermittent leg claudication and as noted in HPI. Respiratory: shortness of breath, but no cough. Gastrointestinal: no change in bowel habits and no blood in stools. Integumentary: no skin rashes. Neurological: no seizures and no frequent falls. All other systems have been reviewed and are negative for complaint. Vitals Vital Signs Recorded: 24May2021 10:53AM Heart Rate81, L Brachial Artery Slzrhgyf924, LUE, Sitting Mxgpjfxxi87, LUE, Sitting Height5 ft 7 in Thkaeg354 lb BMI Dlokdyibxa50.22 kg/m2 BSA Calculated1.84 Tobacco Useb) No Fall Screeninga) No falls within the last year Physical Exam Constitutional: alert and in no acute distress. Neck: neck is supple, symmetric, trachea midline, no masses and no thyromegaly . Pulmonary: no increased work of breathing or signs of respiratory distress and lungs clear to auscultation. Cardiovascular: carotid pulses 2+ bilaterally with no bruit , JVP was normal, no thrills , regular rhythm, normal S1 and S2, no murmurs , pedal pulses 2+ bilaterally and no edema . Abdomen: abdomen non-tender, no masses and no hepatomegaly . Skin: skin warm and dry, normal skin turgor . Psychiatric judgment and insight is normal and oriented to person, place and time . Signatures Electronically signed by : Terrence Vo DO; May 24 2021 1:48PM EST (Author) Normal FID3 Tobacco Screening.on Fall risk assessment a) No falls within the last year [facility] DO Work Phone: Tobacco use status [facility] b) No [facility] [address] DO Work Phone: Patient Correspondenceon Patient Correspondence [id number] 1.00CD:127 Normal [facility] Patient Letter [facility] Patient Letter [facility] February 15, 2021 SUSHANT CORREA [address] [place] [address] SUSHANT CORREA 1945 Dear Sushant Correa, I am corresponding with you by certified mail because you have a medical condition known as elevated PSA and it was recommended we do a prostate biopsy. You cancelled your procedure and have not rescheduled. Our office has been trying to reach you to reschedule without success. Please contact my office at your earliest convenience and we will gladly get your procedure rescheduled. If you wish not to have the procedure we recommend you stop in and sign a refusal of treatment form. I cannot be responsible for your urologic care if you do not follow up as recommended. Sincerely, Dr. Lino Tucker [facility] Reminderson 01-27-2021 Reminders - From: Charmaine Gaspar To: EU - Recallluther Garrett; Sent: 12/15/2020 12:51:26 EDT Show up: 01/14/2021 12:51:00 EDT Subject: reschedule trus w/ bx Reminder/Recall patient cancelled 12-20-20 biopsy and wanted rescheduled for a later time just unsure when. told patient we will call him if we do not hear back from him spoke with patient's , they still dont want to proceed with biopsy. sent msg to [facility] Lab Reportson 11-10-2020 Lab Reports [id number] .00CD:127 [facility] CARDIAC STRESS/REST INJE CTIONon 11-03-2020 [facility] CARDIAC STRESS/REST INJECTION Patient Name: SUSHANT CORREA STUDY: MYOCARDIAL PERFUSION STRESS TEST WITH LEXISCAN Performing facility: [facility], [address] [place] [address], [address], [address] Provider: Keke Vo DO, [facility] PCP: Dr. Antonella Mistry Supervising provider: Tyron Curtis MD INDICATION: SOB; Fatigue Hyperlipidemia RBBB HISTORY: Gender: M; Age: 75 y/o ; Height: 0 cm; Weight: 0 kg. CAD; Abnormal EKG; HTN; COPD; Quit smoking Unknown years ago. COMPARISON: No comparison. ACCESSION NUMBER(S): [id number]; [id number]; [id number] ORDERING CLINICIAN: TERRENCE VO TECHNIQUE: ONE DAY protocol. Stress injection: Date:11-03-20, 32.5 mCi of Myoview IV 20 seconds after rapid injection of Lexiscan. Rest injection: Date: 11-03-20, 10.5 mCi of Myoview IV at rest. The patient had a rapid injection of 0.4 mg of Lexiscan IV over 10 seconds. Imaging was performed by gated tomographic technique. Reason for Lexiscan: dizziness/unsteady/fa ll risk STRESS TEST DATA: Resting heart rate was 60 BPM. Resting blood pressure was 140/70 mmHg. Peak blood pressure was 144/60 mmHg. Peak heart rate was 77 BPM. TEST TERMINATED DUE TO: Protocol completed FINDINGS: STRESS TEST RESULTS: Resting electrocardiogram revealed normal sinus rhythm with right bundle branch block. There were no significant ischemic ECG changes or dysrhythmias. The patient did not have chest pains/symptoms during procedure. There was a normal recovery phase. IMAGING RESULTS: Image quality was good. Rest and stress tomographic images were reviewed and revealed abnormal perfusion. There was no evidence of perfusion abnormality suggestive myocardial ischemia There was evidence of fixed inferior perfusion abnormality consistent with inferior myocardial infarction. There was no left ventricular dilatation with stress. Overall left ventricular systolic function appeared to be abnormal. There were regional wall motion abnormalities with mild inferior hypokinesis. LVEF was 52%. TID is 0.91 and is normal. There was no evidence of attenuation artifact. IMPRESSION: Abnormal Lexiscan Myoview cardiac perfusion stress test. No myocardial ischemia by perfusion imaging. Moderate area inferior myocardial infarction by perfusion imaging. Abnormal left ventricular systolic function with inferior wall hypokinesis. Left ventricular ejection fraction 52 %. No previous studies are available for comparison. Electronically signed by: CIRILO DAIGLE MD Normal [facility] Ambulatory Clinical Summaryo n 11-02-2020 Ambulatory Clinical Summary {[id number]}CD:[id number] Normal [facility] Formson 11-02-2020 Forms [id number] .00CD:127 Normal [facility] Patient Educationon 11-03-19 21 Patient Education Prostate-Specific Antigen The prostate-specific antigen (PSA) is a blood test. It is used to help detect early forms of prostate cancer. The test is usually used along with other tests. The test is also used to follow the course of those who already have prostate cancer or who have been treated for prostate cancer. Some factors interfere with the results of the PSA. The factors listed below will either increase or decrease the PSA levels. They are: ? Prescriptions used for male baldness. ? Some herbs. ? Active prostate infection. ? Prior instrumentation or urinary catheterization. ? Ejaculation up to 2 days prior to testing. ? A noncancerous enlargement of the prostate. ? Inflammation of the prostate. ? Active urinary tract infection. If your test results are elevated, your caregiver will discuss the results with you. Your caregiver will also let you know if more evaluation is needed. PREPARATION FOR TEST No preparation or fasting is necessary. NORMAL FINDINGS Less than 4 ng/mL or Less than 4mcg/L (SI units) Ranges for normal findings may vary among different laboratories and hospitals. You should always check with your caregiver after having lab work or other tests done to discuss the meaning of your test results and whether your values are considered within normal limits. MEANING OF TEST A normal value means prostate cancer is less likely. The chance of having prostate cancer increases if the value is between 4 ng/mL and 10 ng/mL. However, further testing will be needed. Values above 10 ng/mL indicate that there is a much higher chance of having prostate cancer (if the above situations that raise PSA are not present). Your caregiver will go over your test results with you and discuss the importance of this test. If this value is elevated, your caregiver may recommend further testing or evaluation. OBTAINING THE TEST RESULTS It is your responsibility to obtain your test results. Ask the lab or department performing the test when and how you will get your results. Document Released: 06/09/2005 Document Revised: 07/29/2012 Document Reviewed: 12/13/2007 ExitCare? Patient Information ?2013 [employer]. Normal [facility] Screenson 11-02-2020 Screens [id number] 1.00CD:127 Normal [facility] Urology Office/Clinic Noteon 11-02-2020 Urology Office/Clinic Note Chief Complaint new patient elevated PSA This patient is a 75-year-old male with a history of elevated PSA. 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 He had a vocal cord biopsy sometime ago and states he did not have any problems with bleeding after that was performed. I am suggesting that he consider prostate ultrasound ultrasound-guided needle biopsy. [facility] Staff Canchola is a 75 y.o. male here as a new patient referred by Dr. Talita Mistry for elevated PSA.. Most recent PSA was done 09/23/20 and was 4.46.. Patients IPPS score today is 6.. Patient states that he has a cousin with prostate cancer, but is unsure of any other Fhx of prostate cancer. Denies any past medical procedures on prostate. No medications for prostate or bladder. Patient was unable to give urine sample today. Dysuria: _Denies Incomplete bladder emptying: _Denies Hematuria: _Denies visible blood in urine, Frequency: _Denies Urgency: _Denies Nocturia: _x1 Stream: _weaker stream Leaking: _Denies Post void dripping: _Denies Wearing pads/ Depends: _Denies Urge incontinence: _Denies Stress incontinence: _Denies Incontinence without Sensory Awareness: _Denies Abdominal pain: _Denies Flank pain: _Denies Sexual complaints: _ History of Present Illness Reviewed PSA, referral, and new pt. forms. There have been no associated fever, chills, flank pain or blood in the urine. Pt. denies any pain/burning with urination at this time. Review of Systems PHQ Score Initial Depression Screen Score: 0 ROS - Provider Constitutional: denies weight loss, denies hot flashes. Eyes: denies eye problems. Gastrointestinal: denies nausea, denies vomiting. Cardiovascular: denies chest pain or angina. Integumentary: no dryness Musculoskeletal: denies musculoskeletal symptoms. ENMT: denies otolaryngeal symptoms. Respiratory: no shortness of breath. Heme/Lymph: denies easy bleeding tendency, denies easy bruising tendency. Psychiatric: no confusion, no anxiety. Genitourinary: denies dysuria, denies hematuria, denies discharge, denies urinary frequency, denies urinary hesitancy, denies nocturia, denies incontinence, denies genital sores, denies decreased libido, and denies erectile dysfunction. Physical Exam Vitals & Measurements HR: 74(Peripheral) BP: 176/65 HT: 173 cm HT: 173.0 cm WT: 71.9 kg WT: 71.9 kg BMI: 24.02 General Appearance: alert, no distress, well nourished, well developed male. Head: normocephalic . Eyes: normal orbit and globe. ENMT: normal examination of external ears. Chest: Lungs CTA, respirations non labored. Cardiovascular: regular rate and rhythm. Abdomen: soft, non distended, no tenderness, no mass or organomegaly, no hernia. Genitourinary: normal scrotum, normal testes, normal urethra, normal epididymis, normal vas deferens/spermatic cord. Flank Pain: none. Bladder: nonpalpable. Penis: normal shaft, normal glans. Prostate: normal prostate, estimated weight 40 gms, no hard nodule observed. Lymph Nodes: unremarkable palpation of the cervical area. Skin: warm, dry, no bruising. Psychiatric: cooperative, affect appropriate for age, normal judgement, euthymic mood. Assessment/Plan This patient history of an elevated PSA at 4.46/mL. 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 I discussed the possibility of performing a prostate biopsy and also given the option of foregoing the biopsy and simply following his PSA because of the risk of bleeding. Patient decided he would like to proceed with prostate ultrasound with ultrasound-guided needle biopsy. The risk, alternatives and potential complications have been discussed with the patient. All of his questions were answered. Informed consent is been obtained. Preop antibiotics have been ordered and we will schedule him for transrectal ultrasound the prostate with ultrasound-guided needle biopsy. 1. Elevated PSA (R97.20: Elevated prostate specific antigen [PSA]) PSA drawn on 09/25/20 w/ a level of 4.46. WAYNE today - 40gms, no hard nodules. Will schedule TRUS of Prostate with Biopsy. The procedural risks, benefits, details, and treatment alternatives have been discussed with the patient. These include minimal to severe bleeding, infection, blood in the semen, inability to urinate, and severe infection requiring hospitalization and IV antibiotics, among others. Full informed consent has been obtained. Will order Local anesthesia. ABX sent to [facility]. Ordered: Most recent diastolic blood pressure <80 mm Hg 3078F Most recent systolic blood pressure >= 140 mm Hg 3077F Urology Procedure Order 2. BPH with urinary obstruction (N40.1: Benign prostatic hyperplasia with lower urinary tract symptoms) Pt. is not on any BPH meds. at this time and is doing well overall w/ his urination w/ no bothersome symptoms. IPSS today - 6. Ordered: Urology Procedure Order Orders: ciprofloxacin, 500 mg = 1 tab(s), Oral, BID, Start 3 days p (more content not included)... Normal [facility] Comment on above: Result Comment: Elec tronically Signed By: Garrett Arce MD, Lino Younger\.br\Date and Time Signed: 11/02/20 11:26 EDT\.br\Electronically Co-Signed By: Aimee Cooney MA\.br\Date and Time Co-Signed: 11/02/20 11:03 EDT Vital Signs Date Time Vital Sign Value Performing Clinician Facility 07-19-2023 10:10-0500 Body temperature 97.5 [degF] LISSETT Agarwal MD Work Phone: [facility] 07-19-2023 10:10-0500 Body weight 69.7 kg LISSETT Agarwal MD Work Phone: [facility] 07-19-2023 10:10-0500 Diastolic blood pressure 78 mm[Hg] LISSETT Agarwal MD Work Phone: [facility] 07-19-2023 10:10-0500 Heart rate 71 /min LISSETT Agarwal MD Work Phone: [facility] 07-19-2023 10:10-0500 Respiratory rate 16 /min LISSETT Agarwal MD Work Phone: [facility] 07-19-2023 10:10-0500 SaO2% (BldA) [Mass fraction] 97 % LISSETT Agarwal MD Work Phone: [facility] 07-19-2023 10:10-0500 Systolic blood pressure 155 mm[Hg] LISSETT Agarwal MD Work Phone: [facility] 07-17-2023 15:25-0500 Body height 170.2 cm Terrence Vo DO Work Phone: [facility] 07-17-2023 15:25-0500 Body mass index (BMI) [Ratio] 24.12 kg/m2 Terrence Vo DO Work Phone: [facility] 07-17-2023 15:25-0500 Body weight 69.85 kg Terrence Vo DO Work Phone: [facility] 07-17-2023 15:25-0500 Diastolic blood pressure 74 mm[Hg] Terrence Vo DO Work Phone: [facility] 07-17-2023 15:25-0500 Heart rate 64 /min Terrence Vo DO Work Phone: [facility] 07-17-2023 15:25-0500 Systolic blood pressure 132 mm[Hg] Terrence Vo DO Work Phone: [facility] 06-29-2023 10:54-0500 Body height 170.2 cm Kylie Omayra DO Work Phone: [facility] 06-29-2023 10:54-0500 Body mass index (BMI) [Ratio] 24.37 kg/m2 Kylie Omayra DO Work Phone: [facility] 06-29-2023 10:54-0500 Body weight 70.58 kg Kylie Omayra DO Work Phone: [facility] 06-29-2023 10:54-0500 Diastolic blood pressure 73 mm[Hg] Kylie Omayra DO Work Phone: [facility] 06-29-2023 10:54-0500 Heart rate 73 /min Kylie Omayra DO Work Phone: [facility] 06-29-2023 10:54-0500 SaO2% (BldA) [Mass fraction] 97 % Kylie Omayra DO Work Phone: [facility] 06-29-2023 10:54-0500 Systolic blood pressure 124 mm[Hg] Kylie Omayra DO Work Phone: [facility] 01-09-2023 14:00-0400 Body weight 70.31 kg LISSETT Agarwal MD Work Phone: [facility] 07-06-2022 13:01-0500 Body temperature 96.69 [degF] LISSETT Agarwal MD Work Phone: [facility] 07-06-2022 13:01-0500 Body weight 66.68 kg LISSETT Agarwal MD Work Phone: [facility] 07-06-2022 13:01-0500 Diastolic blood pressure 52 mm[Hg] LISSETT Agarwal MD Work Phone: [facility] 07-06-2022 13:01-0500 Heart rate 77 /min LISSETT Agarwal MD Work Phone: [facility] 07-06-2022 13:01-0500 Respiratory rate 18 /min LISSETT Agarwal MD Work Phone: [facility] 07-06-2022 13:01-0500 SaO2% (BldA) [Mass fraction] 97 % LISSETT Agarwal MD Work Phone: [facility] 07-06-2022 13:01-0500 Systolic blood pressure 120 mm[Hg] LISSETT Agarwal MD Work Phone: [facility] 06-08-2022 11:19-0500 Body height 170.18 cm Talita K Praneethzabrinalag Work Phone: [facility] DO Work Phone: 06-08-2022 11:19-0500 Body mass index (BMI) [Ratio] 24.12 kg/m2 Talita John Praneethschlag Work Phone: [facility] DO Work Phone: 06-08-2022 11:19-0500 Body surface area Derived from formula 1.81 m2 Talita John Praneethschlag Work Phone: [facility] DO Work Phone: 06-08-2022 11:19-0500 Body weight 69.85 kg Talita K Praneethschlag Work Phone: [facility] DO Work Phone: 06-08-2022 11:19-0500 Diastolic blood pressure 70 mm[Hg] Talita John Praneethschlag Work Phone: [facility] DO Work Phone: 06-08-2022 11:19-0500 Heart rate 76 /min Talita Mistry Work Phone: [facility] DO Work Phone: 06-08-2022 11:19-0500 Systolic blood pressure 124 mm[Hg] Talita Cordobag Work Phone: [facility] DO Work Phone: 12-28-2021 13:14-0400 Body height 171.5 cm Chaparro Wallace MD Work Phone: [facility] 12-28-2021 13:14-0400 Body temperature 97.3 [degF] Chaparro Wallace MD Work Phone: [facility] 12-28-2021 13:14-0400 Body weight 69.94 kg Chaparro Wallace MD Work Phone: [facility] 12-28-2021 13:14-0400 Diastolic blood pressure 58 mm[Hg] Chaparro Wallace MD Work Phone: [facility] 12-28-2021 13:14-0400 Heart rate 71 /min Chaparro Wallace MD Work Phone: [facility] 12-28-2021 13:14-0400 Respiratory rate 16 /min Chaparro Wallace MD Work Phone: [facility] 12-28-2021 13:14-0400 SaO2% (BldA) [Mass fraction] 96 % Chaparro Wallace MD Work Phone: [facility] 12-28-2021 13:14-0400 Systolic blood pressure 134 mm[Hg] Chaparro Wallace MD Work Phone: [facility] 12-28-2021 12:43-0400 Body temperature 97.59 [degF] LISSETT Agarwal MD Work Phone: [facility] 12-28-2021 12:43-0400 Body weight 69.4 kg LISSETT Agarwal MD Work Phone: [facility] 12-28-2021 12:43-0400 Heart rate 81 /min LISSETT Agarwal MD Work Phone: [facility] 12-28-2021 12:43-0400 Respiratory rate 16 /min LISSETT Agarwal MD Work Phone: [facility] 12-28-2021 12:43-0400 SaO2% (BldA) [Mass fraction] 96 % LISSETT Agarwal MD Work Phone: [facility] 11-24-2021 10:47-0400 Body temperature 98.4 [degF] LISSETT Agarwal MD Work Phone: [facility] 11-24-2021 10:47-0400 Body weight 69.04 kg LISSETT Agarwal MD Work Phone: [facility] 11-24-2021 10:47-0400 Diastolic blood pressure 71 mm[Hg] LISSETT Agarwal MD Work Phone: [facility] 11-24-2021 10:47-0400 Heart rate 80 /min LISSETT Agarwal MD Work Phone: [facility] 11-24-2021 10:47-0400 Respiratory rate 18 /min LISSETT Agarwal MD Work Phone: [facility] 11-24-2021 10:47-0400 SaO2% (BldA) [Mass fraction] 97 % LISSETT Agarwal MD Work Phone: [facility] 11-24-2021 10:47-0400 Systolic blood pressure 130 mm[Hg] LISSETT Agarwal MD Work Phone: [facility] 11-07-2021 13:35-0400 Body temperature 97.11 [degF] LISSETT Agarwal MD Work Phone: [facility] 11-07-2021 13:35-0400 Body weight 70.31 kg LISSETT Agarwal MD Work Phone: [facility] 11-07-2021 13:35-0400 Diastolic blood pressure 55 mm[Hg] LISSETT Agarwal MD Work Phone: [facility] 11-07-2021 13:35-0400 Heart rate 75 /min LISSETT Agarwal MD Work Phone: [facility] 11-07-2021 13:35-0400 Respiratory rate 16 /min LISSETT Agarwal MD Work Phone: [facility] 11-07-2021 13:35-0400 SaO2% (BldA) [Mass fraction] 95 % LISSETT Agarwal MD Work Phone: [facility] 11-07-2021 13:35-0400 Systolic blood pressure 138 mm[Hg] LISSETT Agarwal MD Work Phone: [facility] 05-24-2021 10:53-0500 Body height 170.18 cm Referring Provider Unknown [facility] DO Work Phone: 05-24-2021 10:53-0500 Body mass index (BMI) [Ratio] 25.22 kg/m2 Referring Provider Unknown [facility] DO Work Phone: 05-24-2021 10:53-0500 Body surface area Derived from formula 1.84 m2 Referring Provider Unknown [facility] DO Work Phone: 05-24-2021 10:53-0500 Body weight 73.03 kg Referring Provider Unknown [facility] DO Work Phone: 05-24-2021 10:53-0500 Diastolic blood pressure 70 mm[Hg] Referring Provider Unknown [facility] DO Work Phone: 05-24-2021 10:53-0500 Heart rate 81 /min Referring Provider Unknown [facility] DO Work Phone: 05-24-2021 10:53-0500 Systolic blood pressure 146 mm[Hg] Referring Provider Unknown -[facility] DO Work Phone: Encounters Encounter Date Encounter Type Care Provider Facility Start: 07-20-2023 End: 07-20-2023 [facility] Facility:[facility] Start: 07-19-2023 End: 07-19-2023 [facility] Facility:[facility] Start: 07-19-2023 End: 07-19-2023 Patient encounter procedure G Cesar Agarwal MD Work Phone: [facility] Comment on above: 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); Lung nodule; Atrophy of thyroid (acquired) Start: 07-17-2023 End: 07-17-2023 Office outpatient visit 25 minutes Terrence Vo DO Work Phone: [facility] Comment on above: Abnormal stress test ; Lupus anticoagulant disorder (CMS/HCC); Chronic kidney disease, unspecified CKD stage; Chronic obstructive pulmonary disease, unspecified COPD type (CMS/HCC); Laryngeal cancer (CMS/HCC); Former smoker; Hyperlipidemia, unspecified hyperlipidemia type; Essential hypertension Start: 07-12-2023 End: 07-12-2023 [facility] Facility:[facility] Start: 06-29-2023 Bamboo flowsheet Kylie Qureshi ck DO Work Phone: [facility] Start: 06-29-2023 Bamboo flowsheet Kylie Lopez Stra ck DO Work Phone: [facility] Start: 06-29-2023 End: 06-29-2023 ambulatory KYLIE CUTLER Not Available Start: 06-29-2023 End: 06-29-2023 Office outpatient visit 15 minutes Kylie Cutler DO Work Phone: [facility] Comment on above: Chronic obstructive pulmonary disease, unspecified COPD type (CMS/HCC) (Primary Dx) Start: 06-28-2023 Chart abstracting Kylie Miller ack DO Work Phone: [facility] Start: 01-09-2023 End: 01-09-2023 ambulatory TALITA PRANEETHSCHYEYOG Facility:[facility] Start: 01-09-2023 End: 01-09-2023 Patient encounter procedure Camille Agarwal MD Work Phone: Radiation Oncology Comment on above: 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); Acquired atrophy of thyroid Start: 01-05-2023 End: 01-05-2023 ambulatory TALITAVENKATA DACOSTASCHYEYOG Facility:[facility] Start: 12-21-2022 Telephone encounter Camille Agarwal MD Work Phone: Radiation Oncology Comment on above: Orders Start: 09-15-2022 End: 09-16-2022 ambulatory TALITAVENKATA MISTRY Facility: Start: 07-06-2022 End: 07-06-2022 Patient encounter procedure Camille Agarwal MD Work Phone: Radiation Oncology Comment on above: 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 Terrence Vo Facility: Start: 01-20-2022 End: 01-21-2022 ambulatory [facility] Facility: Start: 01-05-2022 Telephone encounter Chaparro dia MD Work Phone: [facility] Comment on above: Referral Information (Pulmonary) Start: 12-28-2021 End: 12-28-2021 ambulatory Chaparro Wallace MD Work Phone: Hematology/Oncology Comment on above: Lupus anticoagulant positive (Primary Dx); Rheumatoid arthritis of multiple sites with negative rheumatoid factor (HCC); Thrombocytopenia (HCC); Lung nodule Start: 12-28-2021 End: 12-28-2021 Patient encounter procedure Chaparro Wallace MD Work Phone: [facility] Comment on above: Lung nodules (Primar y Dx); Malignant neoplasm of larynx (HCC); Other fatigue; Disorder of thyroid Start: 11-24-2021 End: 11-24-2021 Patient encounter procedure Camille Agarwal MD Work Phone: Radiation Oncology Comment on above: Lung nodules; Neoplasm of lung Start: 11-07-2021 End: 11-07-2021 Patient encounter procedure Camille Agarwal MD Work Phone: Radiation Oncology Comment on above: Acquired atrophy of thyroid (Primary Dx); Malignant neoplasm of larynx (HCC) Start: 05-24-2021 Office outpatient vi sit 15 minutes Referring Provider Unknown [facility] 250 DO Work Phone: Procedures Date Procedure Procedure Detail Performing Clinician Start: 11-07-2021 Adult depression scr eening assessment LISSETT Agarwal MD Work Phone: Appendectomy Referring Provi erna Unknown Plan of Treatment Date Care Activity Detail Author Start: 07-18-2026 Diabetes Screening Diabetes Screenin [facility] Start: 12-28-2024 DIABETES SCREEN DIABETES SCREEN [facility] Start: 11-07-2024 DIABETES SCREEN DIABETES SCREEN [facility] Start: 07-18-2024 End: 08-17-2024 CT Chest WO contrast CT CHEST WO IVCON Radiology Routine Malignant neoplasm of larynx (HCC) Lung nodule Expected: 07/18/2024, Expires: 08/17/2024 [facility] Work Phone: Comment on above: Expected: 07/18/2024 , Expires: 08/17/2024 Start: 07-16-2024 End: 07-16-2024 Patient encounter procedure 07/16/2024 11:00 AM EST Office Visit [facility] [address] [facility] [place] [address] [place] [phone] Terrence Vo DO [address] [facility] [address] [place] [address] [facility] Start: 10-17-2023 End: 10-17-2023 Patient encounter procedure 10/17/2023 11:00 AM EDT Office Visit [facility] [address] [place] [phone] Kylie Cutler, [address] [place] [address] [facility] Start: 07-12-2023 End: 02-08-2024 Ct thorax w/o contrast material CT CHEST WO IVCON Radiology Routine 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 Expected: 07/12/2023, Expires: 02/08/2024 [facility] Work Phone: Comment on above: Expected: 07/12/2023 , Expires: 02/08/2024 Start: 07-12-2023 End: 09-11-2023 Thyrotropin [Units/volume] in Serum or Plasma TSH BLD Lab Routine 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 Expected: 07/12/2023, Expires: 09/11/2023 [facility] Work Phone: Comment on above: Expected: 07/12/2023 , Expires: 09/11/2023 Start: 07-12-2023 End: 09-11-2023 Thyroxine (T4) [Mass/volume] in Serum or Plasma T4/THYROXINE BLOOD Lab Routine 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 Expected: 07/12/2023, Expires: 09/11/2023 [facility] Work Phone: Comment on above: Expected: 07/12/2023 , Expires: 09/11/2023 Start: 06-29-2023 End: 06-29-2023 Patient encounter procedure [facility] Comment on above: Arrived Start: 06-07-2023 FUV, Provider: Terrence Vo, Status: Pen, Time: 11:20 AM FUV, Provider: Terrence Vo, Status: Guicho, Time: 11:20 AM [facility] 250 DO Work Phone: Start: 05-21-2023 Advance Directive Discussion Advance Directive Discussion [facility] Start: 05-21-2023 Depression Assessment Depression Ass essment [facility] Start: 01-19-2023 Influenza vaccination C [facility] Start: 12-21-2022 End: 02-20-2023 Thyrotropin [Units/volume] in Serum or Plasma TSH BLD Lab Routine Hypothyroidism due to acquired atrophy of thyroid Expected: 12/21/2022, Expires: 02/20/2023 [facility] Work Phone: Comment on above: Expected: 12/21/2022 , Expires: 02/20/2023 Start: 12-21-2022 End: 02-20-2023 Thyroxine (T4) [Mass/volume] in Serum or Plasma T4/THYROXINE BLOOD Lab Routine Hypothyroidism due to acquired atrophy of thyroid Expected: 12/21/2022, Expires: 02/20/2023 [facility] Work Phone: Comment on above: Expected: 12/21/2022 , Expires: 02/20/2023 Start: 11-07-2022 Adult depression screening assessment DEPRESSION SCREENING [facility] Start: 07-06-2022 End: 09-05-2022 Thyrotropin [Units/volume] in Serum or Plasma TSH BLD Lab Routine Malignant neoplasm of larynx (HCC) Disorder of thyroid Expected: 07/06/2022, Expires: 09/05/2022 [facility] Work Phone: Comment on above: Expected: 07/06/2022 , Expires: 09/05/2022 Start: 07-06-2022 End: 09-05-2022 Thyroxine (T4) [Mass/volume] in Serum or Plasma T4/THYROXINE BLOOD Lab Routine Malignant neoplasm of larynx (HCC) Disorder of thyroid Expected: 07/06/2022, Expires: 09/05/2022 [facility] Work Phone: Comment on above: Expected: 07/06/2022 , Expires: 09/05/2022 Start: 06-08-2022 FUV, Provider: Terrence Vo, Status: Pen, Time: 11:20 AM FUV, Provider: Terrence Vo, Status: Pen, Time: 11:20 AM [facility] 250 DO Work Phone: Start: 05-21-2022 ADVANCE DIRECTIVE DISCUSSION ADVANCE DIRECTIVE DISCUSSION [facility] Start: 05-21-2022 DEPRESSION ASSESSMENT DEPRESSION ASS ESSMENT [facility] Start: 01-19-2022 Influenza vaccination [facility] Start: 05-21-2021 ADVANCE DIRECTIVE DISCUSSION ADVANCE DIRECTIVE DISCUSSION [facility] Start: 12-27-2019 Influenza vaccination LUNG CANCER [facility] Start: 05-21-2017 Pneumococcal Vaccine : 65+ (2 of 2 - PCV) Pneumococcal Vaccine: 65+ (2 of 2 - PCV) [facility] Start: 05-21-2017 Pneumococcal Vaccine : 65+ Years (2 - PCV) Pneumococcal Vaccine: 65+ Years (2 - PCV) [facility] Start: 05-21-2017 PNEUMOCOCCAL: 65+ (2 - PCV) PNEUMOCOCCAL: 65+ (2 - PCV) [facility] Start: 2010 PNEUMOCOCCAL: 65+ (1 - PCV) PNEUMOCOCCAL: 65+ (1 - PCV) [facility] Start: 2005 RSV Vaccine (1 - 1-d ose 60+ series) RSV Vaccine (1 - 1-dose 60+ series) [facility] Start: 1995 SHINGRIX VACCINE (1 of 2) SHINGRIX VACCINE (1 of 2) [facility] Start: 1995 Zoster Vaccines (1 o f 2) Zoster Vaccines (1 of 2) [facility] Start: 1967 DTaP/Tdap/Td Vaccine s (1 - Tdap) DTaP/Tdap/Td Vaccines (1 - Tdap) [facility] Start: 1964 SHINGRIX VACCINE (1 of 2) SHINGRIX VACCINE (1 of 2) [facility] Start: 1964 Urine microalbumin profile [facility] Start: 1963 HEPATITIS C SCREENING HEPATITIS C [facility] Start: 1963 Hepatitis C screening Hepatitis C [facility] Start: 1951 PNEUMOCOCCAL: 65+ (1 - PCV) PNEUMOCOCCAL: 65+ (1 - PCV) [facility] Start: 1950 COVID-19 VACCINE (#1) COVID-19 VACCI NE (#1) [facility] Start: 1945 COVID-19 VACCINE (#1) COVID-19 VACCI NE (#1) [facility] Start: 1945 Lipid panel Lipid Panel [facility] Start: 1945 Medicare Annual Wellness Visit Medicare Annual Wellness Visit (AWV) [facility] End: 12-07-2022 Ct thorax w/o contrast material CT CHEST WO IVCON Radiology Routine Malignant neoplasm of larynx (HCC) 1 Occurrences starting 11/07/2021 until 12/07/2022 [facility] Work Phone: Comment on above: 1 Occurrences starti ng 11/07/2021 until 12/07/2022 End: 01-27-2023 Ct thorax w/o contrast material CT CHEST WO IVCON Radiology Routine Lung nodules Malignant neoplasm of larynx (HCC) Other fatigue Disorder of thyroid 1 Occurrences starting 12/28/2021 until 01/27/2023 [facility] Work Phone: Comment on above: 1 Occurrences starti ng 12/28/2021 until 01/27/2023 End: 08-05-2023 Ct thorax w/o contrast material CT CHEST WO IVCON Radiology Routine Malignant neoplasm of larynx (HCC) Disorder of thyroid 1 Occurrences starting 07/06/2022 until 08/05/2023 [facility] Work Phone: Comment on above: 1 Occurrences starti ng 07/06/2022 until 08/05/2023 End: 12-24-[address] attenuation skull base mid-thigh NM PET/CT SKULL-THIGH INITIAL Radiology Routine Lung nodules Neoplasm of lung 1 Occurrences starting 11/24/2021 until 12/24/2022 [facility] Work Phone: Comment on above: 1 Occurrences starti ng 11/24/2021 until 12/24/2022 [facility] Immunizations Immunization Date Immunization Notes Care Provider Fa [facility] 05-30-2019 influenza, high dose seasonal, preservative-free Referring Provider Unknown [facility] 05-30-2019 influenza virus vacc ine, unspecified formulation Terrnece Vo DO Work Phone: [facility] Work Phone: 04-03-2018 Influenza, injectabl e, [facility] [place] Canine Kidney, preservative free, quadrivalent Referring Provider Unknown [facility] 04-11-2017 influenza, seasonal, injectable, preservative free Referring Provider Unknown [facility] 05-21-2016 pneumococcal polysaccharide vaccine, 23 valwillie Wallace MD Work Phone: [facility] Payers Date Payer Category Payer Medicare MEDICARE MEDICAR E A AND B [id number] 2010-Present [phone] [place] [address] Medicare [id number] 2010 Medicare [id number] 1959 Medicare [id number] 1945 Unknown [id number] 1945 Unknown [id number] 1945 Unknown [id number] 1945 Unknown [id number] 1945 Unknown [id number] Unknown MEDICARE Social History Date Type Detail Facility Start: 10-07-2015 End: 01-09-2023 No alcohol use No alcohol use [facility] Comment on above: 3-4 cups of coffee d aily.; Start: 10-07-2015 End: 07-19-2023 Tobacco smoking status NHIS Ex-smoker [facility] Start: 10-06-2012 End: 11-13-2013 History of tobacco use Current smoker [facility] Start: 10-06-2012 End: 11-13-2013 History of tobacco use Cigarette Smoker [facility] Start: 10-06-2012 End: 11-13-2013 History of tobacco use Cigar Smoker [facility] Start: 10-07-2015 End: 07-19-2023 Tobacco use and exposure Smokeless tobacco non-user [facility] Start: 11-07-2021 End: 07-19-2023 Alcohol intake Ex-drinker (finding) [facility] Start: 05-07-2019 History SDOH Alcohol Frequency 1 [facility] Start: 1945 Sex Assigned At Not on file [facility] Start: 10-28-2021 End: 07-17-2023 Exposure to SARS-CoV-2 (event) Not sure [facility] Start: 05-07-2019 End: 01-09-2023 Alcohol Use Disorder Identification Test - Consumption [AUDIT-C] [facility] How often to you hav e a drink containing alcohol? Never [facility] Average Number of Drinks Not on file [facility] Start: 03-09-2023 End: 07-17-2023 Alcohol intake Lifetime non-drinker (finding) [facility] Start: 03-09-2023 Alcohol Comment caffeine intak e: 2-3 cups per day [facility] Clinical Notes 10-16-2013 to 07-19-2023 Camille Agarwal MD - 07/19/2023 10:21 AM Mynor Vo, DO - 07/17/2023 2:50 PM ESTPatient Jeramie Cutler, DO - 06/29/2023 11:15 AM EST Note Date & Type Note Facility 07-19-2023 Note HNO ID: [id number] Author: Camille AGARWAL MD Service: ? Author Type: Physician Type: Progress Notes Filed: 07/20/2023 15:22 Note Text: Radiation Oncology - Follow Up Note PATIENT DIAGNOSIS: Laryngeal cancer, squamous cell carcinoma in situ, stage [id number]. RADIATION SUMMARY:DATES OF TREATMENT: 11/25/18- 01/01/19 AREA TREATED: Larynx DELIVERED DOSE: Area: Larynx 6,300 cGy in 28 fractions, 3 Parker, 3D Conformal, 6MV with daily CBCT TOTAL: 6,300 cGy in 28 fractions ELAPSED TIME: 37 days . INTERVAL HISTORY: Doing well. Voice is stable. No neck pain. No significant cough. No chest pain. Denies dysphagia. 12/28/21: Patient in for follow up after PET evaluation of lung nodule on CT chest. 11/07/21: Patient is in earlier than scheduled appointment due to concerns of fatigue increased cough and dyspnea with exertion, decreased appetite, feeling like he is dehydrated. Patient denies any dizzy spells. Denies any hemoptysis. No fever. Denies chest pain. RADIOLOGY: CT chest 07/12/2023: 1. 6 mm nodular subpleural nodular opacity, stable since 01/05/23. 2. Other subcentimeter nodular opacities measuring up to 7-8 mm, stable since 12/26/18. Greater than 4 year stability favors a benign etiology. 3. No evidence of new intrathoracic abnormalities. CT Chest 01/05/23: 1. Multiple bilateral pulmonary nodules, overall similar in appearance to prior exam. A left upper lobe nodule appears slightly smaller whereas the left lower lobe nodule appears slightly larger. No new nodules are identified. 2. No evidence of intrathoracic lymphadenopathy. (Right upper lobe (4:91) 2 mm, stable Right lower lobe (4:107) 3 mm, stable Left upper lobe (4:74) nodules measuring up to 7 mm, previously 8-9 mm Left lower lobe (4:145) 9 mm, previously 8 mm Left lower lobe (4:155) 3 mm, stable ) No new nodules are visualized. The central airways are widely patent. CT Chest 06/30/22:IMPRESSION: 1. 0.9 cm left upper lobe nodular opacity, decreased in size since 11/17/21. 2. Other subcentimeter nodular opacities measuring up to 7-8 mm, stable. 3. No evidence of new intrathoracic abnormalities. PET/CT 12/13/21: IMPRESSION: 1. Neck: No suspicious hypermetabolic foci 2. Chest: Scattered lung nodules. The most prominent Left upper lobe lung nodule is associated with low-level FDG activity. Otherwise no suspicious hypermetabolic foci. No hypermetabolic lymphadenopathy. 3. Abdomen and pelvis: No evidence of FDG avid neoplastic process 4. Skeleton: No hypermetabolic osseous lesions CT chest 11/17/2021:IMPRESSION: 1. 1.4 CM, NEWLY APPARENT LEFT UPPER LOBE NODULE, CONCERNING FOR PROGRESSION OF METASTATIC DISEASE. 2. Additional bilateral subcentimeter pulmonary nodules, unchanged. 3. No substantial intrathoracic adenopathy is identified. LABORATORY: Latest Reference Range AND Units 12/28/21 13:09 01/05/23 12:29 07/12/23 08:02 T4 5.5 - 10.2 ug/dL 5.8 5.9 6.2 TSH 0.270 - 4.200 mIU/L 1.780 0.988 2.070 Ref. Range 11/07/2021 13:28 11/07/2021 14:04 Sodium Latest Ref Range: 136 - 144 mmol/L 142 Potassium Latest Ref Range: 3.7 - 5.1 mmol/L 4.0 Chloride Latest Ref Range: 97 - 105 mmol/L 109 (H) CO2 Latest Ref Range: 22 - 30 mmol/L 26 BUN Latest Ref Range: 9 - 24 mg/dL 37 (H) Creatinine Latest Ref Range: 0.73 - 1.22 mg/dL 2.18 (H) Glucose Latest Ref Range: 74 - 99 mg/dL 134 (H) Protein, Total Latest Ref Range: 6.3 - 8.0 g/dL 7.3 Calcium Latest Ref Range: 8.5 - 10.2 mg/dL 9.6 Albumin Latest Ref Range: 3.9 - 4.9 g/dL 4.6 Bilirubin, Total Latest Ref Range: 0.2 - 1.3 mg/dL 1.2 Alkaline Phosphatase Latest Ref Range: 38 - 113 U/L 82 ALT Latest Ref Range: 10 - 54 U/L 5 (L) AST Latest Ref Range: 14 - 40 U/L 16 Anion Gap Latest Ref Range: 9 - 18 mmol/L 7 (L) eGFR Latest Ref Range: >=60 mL/min/1.73m? 31 (L) Hematocrit Latest Ref Range: 39.0 - 51.0 % 35.3 (L) Results for CLARKE FELICITAS Hanna ( ) as of 11/08/2021 07:59 Ref. Range 11/07/2021 13:28 WBC Latest Ref Range: 3.70 - 11.00 k/uL 6.70 RBC Latest Ref Range: 4.20 - 6.00 m/uL 3.74 (L) Hemoglobin Latest Ref Range: 13.0 - 17.0 g/dL 11.3 (L) Hematocrit Latest Ref Range: 39.0 - 51.0 % 35.3 (L) Platelet Count Latest Ref Range: 150 - 400 k/uL 77 (L) MCV Latest Ref Range: 80.0 - 100.0 fL 94.4 MCH Latest Ref Range: 26.0 - 34.0 pg 30.2 MCHC Latest Ref Range: 30.5 - 36.0 g/dL 32.0 MPV Latest Ref Range: 9.0 - 12.7 fL 13.5 (H) RDW-CV Latest Ref Range: 11.5 - 15.0 % 14.1 DTYPE Unknown Auto Neut% Latest Units: % 70.3 Abs Neut (ANC) Latest Ref Range: 1.45 - 7.50 k/uL 4.71 Lymph% Latest Units: % 17.5 Abs Lymph Latest Ref Range: 1.00 - 4.00 k/uL 1.17 Garden% Latest Units: % 6.3 Abs Garden Latest Ref Range: <0.87 k/uL 0.42 Eosin% Latest Units: % 5.4 Abs Eosin Latest Ref Range: <0.46 k/uL 0.36 Baso% Latest Units: % 0.4 Abs Baso Latest Ref Range: <0.11 k/uL 0.03 Immature Gran % Latest Units: % 0.1 IMMATURE GRANS (ABS) Latest Ref Range: <0.10 k/uL <0.0 (more content not included)... [facility] 07-19-2023 History of Present illness Narrative Radiation Oncology - Follow Up Note PATIENT DIAGNOSIS: Laryngeal cancer, squamous cell carcinoma in situ, stage [id number]. RADIATION SUMMARY:DATES OF TREATMENT: 11/25/18- 01/01/19 AREA TREATED: Larynx DELIVERED DOSE: Area: Larynx 6,300 cGy in 28 fractions, 3 Parker, 3D Conformal, 6MV with daily CBCT TOTAL: 6,300 cGy in 28 fractions ELAPSED TIME: 37 days . INTERVAL HISTORY: Doing well. Voice is stable. No neck pain. No significant cough. No chest pain. Denies dysphagia. 12/28/21: Patient in for follow up after PET evaluation of lung nodule on CT chest. 11/07/21: Patient is in earlier than scheduled appointment due to concerns of fatigue increased cough and dyspnea with exertion, decreased appetite, feeling like he is dehydrated. Patient denies any dizzy spells. Denies any hemoptysis. No fever. Denies chest pain. RADIOLOGY: CT chest 07/12/2023: 1. 6 mm nodular subpleural nodular opacity, stable since 01/05/23. 2. Other subcentimeter nodular opacities measuring up to 7-8 mm, stable since 12/26/18. Greater than 4 year stability favors a benign etiology. 3. No evidence of new intrathoracic abnormalities. CT Chest 01/05/23: 1. Multiple bilateral pulmonary nodules, overall similar in appearance to prior exam. A left upper lobe nodule appears slightly smaller whereas the left lower lobe nodule appears slightly larger. No new nodules are identified. 2. No evidence of intrathoracic lymphadenopathy. (Right upper lobe (4:91) 2 mm, stable Right lower lobe (4:107) 3 mm, stable Left upper lobe (4:74) nodules measuring up to 7 mm, previously 8-9 mm Left lower lobe (4:145) 9 mm, previously 8 mm Left lower lobe (4:155) 3 mm, stable ) No new nodules are visualized. The central airways are widely patent. CT Chest 06/30/22:IMPRESSION: 1. 0.9 cm left upper lobe nodular opacity, decreased in size since 11/17/21. 2. Other subcentimeter nodular opacities measuring up to 7-8 mm, stable. 3. No evidence of new intrathoracic abnormalities. PET/CT 12/13/21: IMPRESSION: 1. Neck: No suspicious hypermetabolic foci 2. Chest: Scattered lung nodules. The most prominent Left upper lobe lung nodule is associated with low-level FDG activity. Otherwise no suspicious hypermetabolic foci. No hypermetabolic lymphadenopathy. 3. Abdomen and pelvis: No evidence of FDG avid neoplastic process 4. Skeleton: No hypermetabolic osseous lesions CT chest 11/17/2021:IMPRESSION: 1. 1.4 CM, NEWLY APPARENT LEFT UPPER LOBE NODULE, CONCERNING FOR PROGRESSION OF METASTATIC DISEASE. 2. Additional bilateral subcentimeter pulmonary nodules, unchanged. 3. No substantial intrathoracic adenopathy is identified. LABORATORY: Latest Reference Range & Units 12/28/21 13:09 01/05/23 12:29 07/12/23 08:02 T4 5.5 - 10.2 ug/dL 5.8 5.9 6.2 TSH 0.270 - 4.200 mIU/L 1.780 0.988 2.070 Ref. Range 11/07/2021 13:28 11/07/2021 14:04 Sodium Latest Ref Range: 136 - 144 mmol/L 142 Potassium Latest Ref Range: 3.7 - 5.1 mmol/L 4.0 Chloride Latest Ref Range: 97 - 105 mmol/L 109 (H) CO2 Latest Ref Range: 22 - 30 mmol/L 26 BUN Latest Ref Range: 9 - 24 mg/dL 37 (H) Creatinine Latest Ref Range: 0.73 - 1.22 mg/dL 2.18 (H) Glucose Latest Ref Range: 74 - 99 mg/dL 134 (H) Protein, Total Latest Ref Range: 6.3 - 8.0 g/dL 7.3 Calcium Latest Ref Range: 8.5 - 10.2 mg/dL 9.6 Albumin Latest Ref Range: 3.9 - 4.9 g/dL 4.6 Bilirubin, Total Latest Ref Range: 0.2 - 1.3 mg/dL 1.2 Alkaline Phosphatase Latest Ref Range: 38 - 113 U/L 82 ALT Latest Ref Range: 10 - 54 U/L 5 (L) AST Latest Ref Range: 14 - 40 U/L 16 Anion Gap Latest Ref Range: 9 - 18 mmol/L 7 (L) eGFR Latest Ref Range: >=60 mL/min/1.73m 31 (L) Hematocrit Latest Ref Range: 39.0 - 51.0 % 35.3 (L) Results for CLARKEFELICITAS ( ) as of 11/08/2021 07:59 Ref. Range 11/07/2021 13:28 WBC Latest Ref Range: 3.70 - 11.00 k/uL 6.70 RBC Latest Ref Range: 4.20 - 6.00 m/uL 3.74 (L) Hemoglobin Latest Ref Range: 13.0 - 17.0 g/dL 11.3 (L) Hematocrit Latest Ref Range: 39.0 - 51.0 % 35.3 (L) Platelet Count Latest Ref Range: 150 - 400 k/uL 77 (L) MCV Latest Ref Range: 80.0 - 100.0 fL 94.4 MCH Latest Ref Range: 26.0 - 34.0 pg 30.2 MCHC Latest Ref Range: 30.5 - 36.0 g/dL 32.0 MPV Latest Ref Range: 9.0 - 12.7 fL 13.5 (H) RDW-CV Latest Ref Range: 11.5 - 15.0 % 14.1 DTYPE Unknown Auto Neut% Latest Units: % 70.3 Abs Neut (ANC) Latest Ref Range: 1.45 - 7.50 k/uL 4.71 Lymph% Latest Units: % 17.5 Abs Lymph Latest Ref Range: 1.00 - 4.00 k/uL 1.17 Garden% Latest Units: % 6.3 Abs Garden Latest Ref Range: <0.87 k/uL 0.42 Eosin% Latest Units: % 5.4 Abs Eosin Latest Ref Range: <0.46 k/uL 0.36 Baso% Latest Units: % 0.4 Abs Baso Latest Ref Range: <0.11 k/uL 0.03 Immature Gran % Latest Units: % 0.1 IMMATURE GRANS (ABS) Latest Ref Range: <0.10 k/uL <0.03 NRBC Latest Units: /100 WBC 0.0 Absolute nRBC Latest Ref Range: <0.01 k/uL <0.01 Results for CLARKEFELICITAS ( ) as of 11/08/2021 07:59 Ref. Range 11/07/2021 14:04 GLUCOSE UA (POCT) Latest Ref Range: Negative mg/dL Negative BILIRUBIN UA (POCT) Latest Ref Range: Negative Negative KETONE UA (POCT) Latest Ref Range: Negative mg/dL Negative SPECIFIC GRAVITY UA (POCT) Latest Ref Range: 1.005 - 1.030 1.020 HEMOGLOBIN/BLOOD UA (POCT) Latest Ref Range: Negative Negative PH UA (POCT) Latest Ref Range: 4.5 - 8.0 5.5 PROTEIN UA (POCT) Latest Ref Range: Negative mg/dL Trace (A) UROBILINOGEN UA (POCT) Latest Ref Range: Normal E.U./dL 0.2 NITRITE UA (POCT) Latest Ref Range: Negative Negative LEUKOCYTES UA (POCT) Latest Ref Range: Negative Negative COLOR UA (POCT) Unknown Yellow CLARITY UA (POCT) Unknown Clear Ref. Range 05/05/2019 12:03 10/30/19 06/22/20 06/21/21 11/07/20 T4 Latest Ref Range: 5.5 - 10.2 ug/dL 6.3 6.8 6.5 5.3 pending TSH Latest Ref Range: 0.270 - 4.200 uU/mL 1.160 1.487 1.251 1.48 pending ALLERGIES Allergen Reactions Duloxetine Hcl Mental Status Change MEDICATIONS: aspirin, enteric coated (ASPIRIN, ENTERIC COATED) 81 mg EC tablet Take by mouth q 24 HR. albuterol HFA (PROVENTIL HFA, VENTOLIN HFA) 90 mcg/actuation inhaler Inhale 2 Puffs as instructed every 6 hours as needed. baclofen (LIORESAL) 10 mg tablet Take 10 mg by mouth three times daily. amLODIPine (NORVASC) 10 mg tablet Take 10 mg by mouth once daily. atorvastatin (LIPITOR) 10 mg tablet Take 10 mg by mouth daily at bedtime. sertraline (ZOLOFT) 50 mg tablet Take 50 mg by mouth once daily. pantoprazole DR (PROTONIX) 40 mg tablet Take 1 tablet by mouth once daily. lisinopril (ZESTRIL, PRINIVIL) 40 mg tablet 40 mg. VITAMIN D-3 2,000 unit cap TAKE 1 CAPSULE BY MOUTH ONCE DAILY FOR 30 DAYS acetaminophen 650 mg CR tablet Take 650 mg by mouth every 8 hours as needed. REVIEW OF SYSTEMS: GENERAL: Negative for weight loss, fevers, chills, or night sweats. HEENT: Negative for sudden vision or hearing changes. NECK: Negative for masses in the neck. RESPIRATORY: See HPI CARDIAC: Negative for chest pain, palpitations, murmurs, or syncopal episodes. GI: Appetite diminished no nausea vomiting or diarrhea : Negative for hematuria, has some increased urgency and frequency MUSCULOSKELETAL: Negative for limitations in movement, pain, or swelling. NEURO: Negative for dizziness, headache, weakness or numbness. HEMATOLOGIC: Negative for bleeding or easy bruising. SKIN: Skin irritation anterior neck improving PHYSICAL EXAM: VS: BP 155/78 Pulse 71 Temp 36.4 C (97.5 F) Resp 16 Wt 69.7 kg (153 lb 10.6 oz) SpO2 97% BMI 23.70 kg/m KPS: 100 General Appearance: Alert and oriented. No acute distress. Lungs: No rales rhonchi or wheezing Neuro: Speech fluent. Gait normal. No focal deficits. Skin: No rashes noted Lymphatics: No palpable lymphadenopathy. ASSESSMENT/PLAN: Laryngeal cancer, squamous cell carcinoma in situ, stage [id number] status post definitive radiation completed December 2018. 1. Laryngeal cancer, doing well no evidence recurrence. Has continued surveillance with Dr. Rodriguez. 2. Left upper lung nodule and other subcentimeter nodules. Overall stable on recent CT scan. Likely benign. Recommend interval CT in 1 year. 3. Thyroid function stable still at risk for postradiation hypothyroidism recommend continued surveillance. Signed by: Camille Agarwal MD cc: Eloy Matamoros MD [address] [place] [address] Dr. Rodriguez Portions of the above note extracted and edited from previous visit as well as active information included in the EMR. documented in this encounter [facility] 07-17-2023 History of Present illness Narrative Subjective Sushant Correa is a 78 y.o. male Chief Complaint Annual Exam 78-year-old gentleman here for 1 year follow-up he is doing well he describes no cardiovascular events, angina or hospitalizations. In 2020 he had abnormal stress imaging that revealed small inferior infarction with no ischemia and preserved left ventricular function. However due to his advanced kidney disease we undertook conservative approach with no further imaging or evaluation especially based on his asymptomatic status. Same goes as for today, he does have exertional shortness of breath due to underlying COPD but no cardiovascular symptoms or angina He is stable status post laryngeal cancer with chemo/radiation, continues to follow with hematology oncology, has lupus anticoagulant disorder as well with no thromboembolic events. He has underlying stage 4+ chronic kidney disease, and states he is about ready for dialysis at some point. He is hemodynamically stable tolerating current therapies well Will continue conservative approach follow-up in 1 year or as needed. Review of Systems Respiratory: Positive for shortness of breath. All other systems reviewed and are negative. Vitals: 07/17/23 1525 BP: 132/74 BP Location: Left arm Patient Position: Sitting Pulse: 64 Weight: 69.9 kg (154 lb) Height: 1.702 m (5' 7 ) Objective Physical Exam Constitutional: Appearance: Normal appearance. HENT: Nose: Nose normal. Neck: Vascular: No carotid bruit. Cardiovascular: Rate and Rhythm: Normal rate. Pulses: Normal pulses. Heart sounds: Normal heart sounds. Pulmonary: Effort: Pulmonary effort is normal. Abdominal: General: Bowel sounds are normal. Palpations: Abdomen is soft. Musculoskeletal: General: Normal range of motion. Cervical back: Normal range of motion. Right lower leg: No edema. Left lower leg: No edema. Skin: General: Skin is warm and dry. Neurological: General: No focal deficit present. Mental Status: He is alert. Psychiatric: Mood and Affect: Mood normal. Behavior: Behavior normal. Thought Content: Thought content normal. Judgment: Judgment normal. Allergies Duloxetine Current Medications Current Outpatient Medications: amLODIPine (Norvasc) 10 mg tablet, Take 1 tablet (10 mg) by mouth once daily., Disp: , Rfl: aspirin 81 mg EC tablet, Take 1 tablet (81 mg) by mouth once daily., Disp: , Rfl: atorvastatin (Lipitor) 10 mg tablet, Take 1 tablet (10 mg) by mouth once daily at bedtime., Disp: , Rfl: baclofen (Lioresal) 20 mg tablet, Take 1 tablet (20 mg) by mouth once daily., Disp: , Rfl: lisinopril 40 mg tablet, Take 1 tablet (40 mg) by mouth once daily., Disp: , Rfl: pantoprazole (ProtoNix) 40 mg EC tablet, Take 1 tablet (40 mg) by mouth once daily., Disp: , Rfl: sertraline (Zoloft) 50 mg tablet, Take 1 tablet (50 mg) by mouth once daily., Disp: , Rfl: No medication list or bottles at visit today. Updated verbally with patient. Assessment/Plan 1. Abnormal stress test 2. Lupus anticoagulant disorder (CMS/HCC) 3. Chronic kidney disease, unspecified CKD stage 4. Chronic obstructive pulmonary disease, unspecified COPD type (CMS/HCC) 5. Laryngeal cancer (CMS/HCC) 6. Former smoker Scribe Attestation By signing my name below, Ariana Fletcher LPN , Scribe attest that this documentation has been prepared under the direction and in the presence of Terrence Vo DO. Provider Attestation - Scribe documentation All medical record entries made by the Scribe were at my direction and personally dictated by me. I have reviewed the chart and agree that the record accurately reflects my personal performance of the history, physical exam, discussion and plan. documented in this encounter [facility] Work Phone: 07-17-2023 Instructions Dyan Brown LPN - 07/17/2023 2:50 PM EST Please bring all medicines, vitamins, and herbal supplements with you when you come to the office. Prescriptions will not be filled unless you are compliant with your follow up appointments or have a follow up appointment scheduled as per instruction of your physician. Refills should be requested at the time of your visit. documented in this encounter [facility] Work Phone: 07-12-2023 Note HNO ID: [id number] Author: SEBASTIEN GOLDMAN RT(R) Service: ? Author Type: Technologist Type: Procedures Filed: 07/12/2023 08:01 Note Text: Radiology Service Progress Note PATIENT NAME: Sushant Correa DATE OF SERVICE: July 12, 2023 TIME: 8:01 AM PATIENT IDENTITY VERIFICATION COMPLETED USING TWO (2) IDENTIFIERS: Name and Date of confirmed by patient verbally. FALL SCREENING: Has the patient had 2 falls in the last year or 1 fall with injury or currently using an Ambulatory Assistive Device (Walker, Cane, Wheelchair, Crutches, etc.)? No PATIENT GENDER DATA: Male PATIENT RELEVANT IMPLANT DATA REVIEWED: Not Applicable PATIENT PRESENTS WITH AN IMPLANTABLE OR ATTACHED SHINGLE SAWYER: No RADIOLOGY DEPARTMENT: CT; Exam(s) Completed: Chest PERIPHERAL IV DATA: Not applicable SIGNED BY: RT Franki(R) July 12, 2023 8:01 AM [facility] 06-29-2023 History of Present illness Narrative Images from the original note were not included. Sushant Correa presents today for follow up on COPD. He was last seen 3 months ago. He is accompanied by his at today's office visit. He does continue with Anoro once daily. However it does last office visit we discussed changing to Trelegy. He was given samples. However he does continue with Anoro once daily. He does continue to complain of exertional dyspnea. He does use albuterol on an as-needed basis. He denies any ER visits or exacerbations of his breathing since his last office visit. He denies any current complaints of chest pain, palpitations, fevers, chills, sweats, or recent unintentional weight changes. He denies any other complaints this time. Allergies: Allergies Allergen Reactions Duloxetine Hallucinations wanted to kill people while taking medication Medications: Current Outpatient Medications: acetaminophen (Tylenol) 500 MG tablet, every 8 (eight) hours, Disp: , Rfl: amLODIPine (Norvasc) 10 MG tablet, Take 10 mg by mouth in the morning., Disp: , Rfl: aspirin 81 MG EC tablet, Take 81 mg by mouth 1 (one) time each day at the same time., Disp: , Rfl: atorvastatin (Lipitor) 20 MG tablet, Take 20 mg by mouth at bedtime., Disp: , Rfl: baclofen (Lioresal) 10 MG tablet, Take 10 mg by mouth as needed at bedtime., Disp: , Rfl: lisinopril 40 MG tablet, Take 40 mg by mouth in the morning., Disp: , Rfl: magnesium oxide (Mag-Ox) 400 (241.3 Mg) MG tablet, Take 400 mg by mouth in the morning., Disp: , Rfl: pantoprazole (ProtoNix) 40 MG EC tablet, Take 40 mg by mouth in the morning., Disp: , Rfl: sertraline (Zoloft) 50 MG tablet, Take 50 mg by mouth in the morning., Disp: , Rfl: albuterol HFA 90 mcg/act inhaler, Inhale 2 puffs every 6 (six) hours if needed for shortness of breath or wheezing, Disp: 18 g, Rfl: 5 Enppsygkmkl-Djkxafpdk-Mfqnyh (Trelegy Ellipta) 100-62.5-25 MCG/ACT aerosol powder , Inhale 1 puff in the morning., Disp: 1 each, Rfl: 5 Past Medical History: Past Medical History: Diagnosis Date Abnormal stress test 06/07/2023 Acute renal failure (ARF) ([facility]) Arthritis Azotemia Bronchitis 10/16/2013 Carcinoma of vocal cord ([facility]) Elevated partial thromboplastin time (PTT) 08/09/2012 Essential hypertension ([facility]) 06/07/2023 History of [place] (myocardial infarction) ([facility]) 06/07/2023 HLD (hyperlipidemia) ([facility]) Hoarseness HTN (hypertension) ([facility]) Hyperlipidemia ([facility]) 06/07/2023 Laryngeal cancer ([facility]) 12/25/2018 Lupus anticoagulant disorder ([facility]) Nasal obstruction ANJALI (obstructive sleep apnea) Other specified hearing loss of both ears RBBB (right bundle branch block) 06/07/2023 Sensorineural hearing loss (SNHL) of both ears Sleep apnea 06/07/2023 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 Social History: Social History Tobacco Use Smoking status: Former Types: Cigarettes Smokeless tobacco: Never Substance Use Topics Alcohol use: Never Comment: caffeine intake: 2-3 cups per day Vitals: BP 124/73 (BP Location: Left arm, Patient Position: Sitting) Pulse 73 Ht 5' 7 Wt 155 lb 9.6 oz SpO2 97% BMI 24.37 kg/m Exam: Heart: regular rate Lungs: clear to auscultation bilaterally, no wheezes/rales/rhonchi, no resp distress Extremities: no edema noted, no visible rashes Neuro: alert, oriented x3 Imaging Reviewed: None Assessment/Plan: Diagnoses and all orders for this visit: Chronic obstructive pulmonary disease, unspecified COPD type ([facility]) - albuterol HFA 90 mcg/act inhaler; Inhale 2 puffs every 6 (six) hours if needed for shortness of breath or wheezing - Ffvlseuljhj-Eznlrdeah-Llkiqx (Trelegy Ellipta) 100-62.5-25 MCG/ACT aerosol powder ; Inhale 1 puff in the morning. COPD -- at this time he does continue to complain of exertional dyspnea. He had been using Anoro once daily. At his last office visit we discussed changing to Trelegy. He again was given a sample and prescription for Trelegy at today's office visit. He was told to stop using Anoro and begin using the Trelegy. We discussed that Anoro is present in the Trelegy, however there is an additional medication. He will continue with Trelegy once daily and albuterol as needed. He will follow here in 3-4 months time unless needed before then. Follow up in about 3 months (around 09/27/2023) for COPD. Kylie Cutler DO documented in this encounter [facility] 01-09-2023 Note HNO ID: [id number] Author: Camille Agarwal MD Service: ? Author Type: Physician Type: Progress Notes Filed: 01/09/2023 2:16 PM Note Text: Radiation Oncology - Follow Up Note PATIENT DIAGNOSIS: Laryngeal cancer, squamous cell carcinoma in situ, stage [id number]. RADIATION SUMMARY:DATES OF TREATMENT: 11/25/18- 01/01/19 AREA TREATED: Larynx DELIVERED DOSE: Area: Larynx 6,300 cGy in 28 fractions, 3 Parker, 3D Conformal, 6MV with daily CBCT TOTAL: 6,300 cGy in 28 fractions ELAPSED TIME: 37 days . INTERVAL HISTORY: Doing well. Has some mild intermittent cough and dyspnea on exertion. No productive cough. No chest pain. Denies dysphagia. 12/28/21: Patient in for follow up after PET evaluation of lung nodule on CT chest. 11/07/21: Patient is in earlier than scheduled appointment due to concerns of fatigue increased cough and dyspnea with exertion, decreased appetite, feeling like he is dehydrated. Patient denies any dizzy spells. Denies any hemoptysis. No fever. Denies chest pain. RADIOLOGY: CT Chest 01/05/23: 1. Multiple bilateral pulmonary nodules, overall similar in appearance to prior exam. A left upper lobe nodule appears slightly smaller whereas the left lower lobe nodule appears slightly larger. No new nodules are identified. 2. No evidence of intrathoracic lymphadenopathy. (Right upper lobe (4:91) 2 mm, stable Right lower lobe (4:107) 3 mm, stable Left upper lobe (4:74) nodules measuring up to 7 mm, previously 8-9 mm Left lower lobe (4:145) 9 mm, previously 8 mm Left lower lobe (4:155) 3 mm, stable ) No new nodules are visualized. The central airways are widely patent. CT Chest 06/30/22:IMPRESSION: 1. 0.9 cm left upper lobe nodular opacity, decreased in size since 11/17/21. 2. Other subcentimeter nodular opacities measuring up to 7-8 mm, stable. 3. No evidence of new intrathoracic abnormalities. PET/CT 12/13/21: IMPRESSION: 1. Neck: No suspicious hypermetabolic foci 2. Chest: Scattered lung nodules. The most prominent Left upper lobe lung nodule is associated with low-level FDG activity. Otherwise no suspicious hypermetabolic foci. No hypermetabolic lymphadenopathy. 3. Abdomen and pelvis: No evidence of FDG avid neoplastic process 4. Skeleton: No hypermetabolic osseous lesions CT chest 11/17/2021:IMPRESSION: 1. 1.4 CM, NEWLY APPARENT LEFT UPPER LOBE NODULE, CONCERNING FOR PROGRESSION OF METASTATIC DISEASE. 2. Additional bilateral subcentimeter pulmonary nodules, unchanged. 3. No substantial intrathoracic adenopathy is identified. LABORATORY: Latest Reference Range AND Units 12/28/21 13:09 01/05/23 12:29 T4 5.5 - 10.2 ug/dL 5.8 5.9 TSH 0.270 - 4.200 mIU/L 1.780 0.988 Ref. Range 11/07/2021 13:28 11/07/2021 14:04 Sodium Latest Ref Range: 136 - 144 mmol/L 142 Potassium Latest Ref Range: 3.7 - 5.1 mmol/L 4.0 Chloride Latest Ref Range: 97 - 105 mmol/L 109 (H) CO2 Latest Ref Range: 22 - 30 mmol/L 26 BUN Latest Ref Range: 9 - 24 mg/dL 37 (H) Creatinine Latest Ref Range: 0.73 - 1.22 mg/dL 2.18 (H) Glucose Latest Ref Range: 74 - 99 mg/dL 134 (H) Protein, Total Latest Ref Range: 6.3 - 8.0 g/dL 7.3 Calcium Latest Ref Range: 8.5 - 10.2 mg/dL 9.6 Albumin Latest Ref Range: 3.9 - 4.9 g/dL 4.6 Bilirubin, Total Latest Ref Range: 0.2 - 1.3 mg/dL 1.2 Alkaline Phosphatase Latest Ref Range: 38 - 113 U/L 82 ALT Latest Ref Range: 10 - 54 U/L 5 (L) AST Latest Ref Range: 14 - 40 U/L 16 Anion Gap Latest Ref Range: 9 - 18 mmol/L 7 (L) eGFR Latest Ref Range: >=60 mL/min/1.73m? 31 (L) Hematocrit Latest Ref Range: 39.0 - 51.0 % 35.3 (L) Results for FELICITAS CORREA ( ) as of 11/08/2021 07:59 Ref. Range 11/07/2021 13:28 WBC Latest Ref Range: 3.70 - 11.00 k/uL 6.70 RBC Latest Ref Range: 4.20 - 6.00 m/uL 3.74 (L) Hemoglobin Latest Ref Range: 13.0 - 17.0 g/dL 11.3 (L) Hematocrit Latest Ref Range: 39.0 - 51.0 % 35.3 (L) Platelet Count Latest Ref Range: 150 - 400 k/uL 77 (L) MCV Latest Ref Range: 80.0 - 100.0 fL 94.4 MCH Latest Ref Range: 26.0 - 34.0 pg 30.2 MCHC Latest Ref Range: 30.5 - 36.0 g/dL 32.0 MPV Latest Ref Range: 9.0 - 12.7 fL 13.5 (H) RDW-CV Latest Ref Range: 11.5 - 15.0 % 14.1 DTYPE Unknown Auto Neut% Latest Units: % 70.3 Abs Neut (ANC) Latest Ref Range: 1.45 - 7.50 k/uL 4.71 Lymph% Latest Units: % 17.5 Abs Lymph Latest Ref Range: 1.00 - 4.00 k/uL 1.17 Garden% Latest Units: % 6.3 Abs Garden Latest Ref Range: <0.87 k/uL 0.42 Eosin% Latest Units: % 5.4 Abs Eosin Latest Ref Range: <0.46 k/uL 0.36 Baso% Latest Units: % 0.4 Abs Baso Latest Ref Range: <0.11 k/uL 0.03 Immature Gran % Latest Units: % 0.1 IMMATURE GRANS (ABS) Latest Ref Range: <0.10 k/uL <0.03 NRBC Latest Units: /100 WBC 0.0 Absolute nRBC Latest Ref Range: <0.01 k/uL <0.01 Results for FELICITAS CORREA ( ) as of 11/08/2021 07:59 Ref. Range 11/07/2021 14:04 GLUCOSE UA (POCT) Latest Ref Range: Negative mg/dL Negative BILIRUBIN UA (POCT) Latest Ref (more content not included)... [facility] 01-09-2023 History of Present illness Narrative Radiation Oncology - Follow Up Note PATIENT DIAGNOSIS: Laryngeal cancer, squamous cell carcinoma in situ, stage [id number]. RADIATION SUMMARY:DATES OF TREATMENT: 11/25/18- 01/01/19 AREA TREATED: Larynx DELIVERED DOSE: Area: Larynx 6,300 cGy in 28 fractions, 3 Parker, 3D Conformal, 6MV with daily CBCT TOTAL: 6,300 cGy in 28 fractions ELAPSED TIME: 37 days . INTERVAL HISTORY: Doing well. Has some mild intermittent cough and dyspnea on exertion. No productive cough. No chest pain. Denies dysphagia. 12/28/21: Patient in for follow up after PET evaluation of lung nodule on CT chest. 11/07/21: Patient is in earlier than scheduled appointment due to concerns of fatigue increased cough and dyspnea with exertion, decreased appetite, feeling like he is dehydrated. Patient denies any dizzy spells. Denies any hemoptysis. No fever. Denies chest pain. RADIOLOGY: CT Chest 01/05/23: 1. Multiple bilateral pulmonary nodules, overall similar in appearance to prior exam. A left upper lobe nodule appears slightly smaller whereas the left lower lobe nodule appears slightly larger. No new nodules are identified. 2. No evidence of intrathoracic lymphadenopathy. (Right upper lobe (4:91) 2 mm, stable Right lower lobe (4:107) 3 mm, stable Left upper lobe (4:74) nodules measuring up to 7 mm, previously 8-9 mm Left lower lobe (4:145) 9 mm, previously 8 mm Left lower lobe (4:155) 3 mm, stable ) No new nodules are visualized. The central airways are widely patent. CT Chest 06/30/22:IMPRESSION: 1. 0.9 cm left upper lobe nodular opacity, decreased in size since 11/17/21. 2. Other subcentimeter nodular opacities measuring up to 7-8 mm, stable. 3. No evidence of new intrathoracic abnormalities. PET/CT 12/13/21: IMPRESSION: 1. Neck: No suspicious hypermetabolic foci 2. Chest: Scattered lung nodules. The most prominent Left upper lobe lung nodule is associated with low-level FDG activity. Otherwise no suspicious hypermetabolic foci. No hypermetabolic lymphadenopathy. 3. Abdomen and pelvis: No evidence of FDG avid neoplastic process 4. Skeleton: No hypermetabolic osseous lesions CT chest 11/17/2021:IMPRESSION: 1. 1.4 CM, NEWLY APPARENT LEFT UPPER LOBE NODULE, CONCERNING FOR PROGRESSION OF METASTATIC DISEASE. 2. Additional bilateral subcentimeter pulmonary nodules, unchanged. 3. No substantial intrathoracic adenopathy is identified. LABORATORY: Latest Reference Range & Units 12/28/21 13:09 01/05/23 12:29 T4 5.5 - 10.2 ug/dL 5.8 5.9 TSH 0.270 - 4.200 mIU/L 1.780 0.988 Ref. Range 11/07/2021 13:28 11/07/2021 14:04 Sodium Latest Ref Range: 136 - 144 mmol/L 142 Potassium Latest Ref Range: 3.7 - 5.1 mmol/L 4.0 Chloride Latest Ref Range: 97 - 105 mmol/L 109 (H) CO2 Latest Ref Range: 22 - 30 mmol/L 26 BUN Latest Ref Range: 9 - 24 mg/dL 37 (H) Creatinine Latest Ref Range: 0.73 - 1.22 mg/dL 2.18 (H) Glucose Latest Ref Range: 74 - 99 mg/dL 134 (H) Protein, Total Latest Ref Range: 6.3 - 8.0 g/dL 7.3 Calcium Latest Ref Range: 8.5 - 10.2 mg/dL 9.6 Albumin Latest Ref Range: 3.9 - 4.9 g/dL 4.6 Bilirubin, Total Latest Ref Range: 0.2 - 1.3 mg/dL 1.2 Alkaline Phosphatase Latest Ref Range: 38 - 113 U/L 82 ALT Latest Ref Range: 10 - 54 U/L 5 (L) AST Latest Ref Range: 14 - 40 U/L 16 Anion Gap Latest Ref Range: 9 - 18 mmol/L 7 (L) eGFR Latest Ref Range: >=60 mL/min/1.73m 31 (L) Hematocrit Latest Ref Range: 39.0 - 51.0 % 35.3 (L) Results for FELICITAS CORREA ( ) as of 11/08/2021 07:59 Ref. Range 11/07/2021 13:28 WBC Latest Ref Range: 3.70 - 11.00 k/uL 6.70 RBC Latest Ref Range: 4.20 - 6.00 m/uL 3.74 (L) Hemoglobin Latest Ref Range: 13.0 - 17.0 g/dL 11.3 (L) Hematocrit Latest Ref Range: 39.0 - 51.0 % 35.3 (L) Platelet Count Latest Ref Range: 150 - 400 k/uL 77 (L) MCV Latest Ref Range: 80.0 - 100.0 fL 94.4 MCH Latest Ref Range: 26.0 - 34.0 pg 30.2 MCHC Latest Ref Range: 30.5 - 36.0 g/dL 32.0 MPV Latest Ref Range: 9.0 - 12.7 fL 13.5 (H) RDW-CV Latest Ref Range: 11.5 - 15.0 % 14.1 DTYPE Unknown Auto Neut% Latest Units: % 70.3 Abs Neut (ANC) Latest Ref Range: 1.45 - 7.50 k/uL 4.71 Lymph% Latest Units: % 17.5 Abs Lymph Latest Ref Range: 1.00 - 4.00 k/uL 1.17 Garden% Latest Units: % 6.3 Abs Garden Latest Ref Range: <0.87 k/uL 0.42 Eosin% Latest Units: % 5.4 Abs Eosin Latest Ref Range: <0.46 k/uL 0.36 Baso% Latest Units: % 0.4 Abs Baso Latest Ref Range: <0.11 k/uL 0.03 Immature Gran % Latest Units: % 0.1 IMMATURE GRANS (ABS) Latest Ref Range: <0.10 k/uL <0.03 NRBC Latest Units: /100 WBC 0.0 Absolute nRBC Latest Ref Range: <0.01 k/uL <0.01 Results for FELICITAS CORREA ( ) as of 11/08/2021 07:59 Ref. Range 11/07/2021 14:04 GLUCOSE UA (POCT) Latest Ref Range: Negative mg/dL Negative BILIRUBIN UA (POCT) Latest Ref Range: Negative Negative KETONE UA (POCT) Latest Ref Range: Negative mg/dL Negative SPECIFIC GRAVITY UA (POCT) Latest Ref Range: 1.005 - 1.030 1.020 HEMOGLOBIN/BLOOD UA (POCT) Latest Ref Range: Negative Negative PH UA (POCT) Latest Ref Range: 4.5 - 8.0 5.5 PROTEIN UA (POCT) Latest Ref Range: Negative mg/dL Trace (A) UROBILINOGEN UA (POCT) Latest Ref Range: Normal E.U./dL 0.2 NITRITE UA (POCT) Latest Ref Range: Negative Negative LEUKOCYTES UA (POCT) Latest Ref Range: Negative Negative COLOR UA (POCT) Unknown Yellow CLARITY UA (POCT) Unknown Clear Ref. Range 05/05/2019 12:03 10/30/19 06/22/20 06/21/21 11/07/20 T4 Latest Ref Range: 5.5 - 10.2 ug/dL 6.3 6.8 6.5 5.3 pending TSH Latest Ref Range: 0.270 - 4.200 uU/mL 1.160 1.487 1.251 1.48 pending ALLERGIES Allergen Reactions Duloxetine Hcl Mental Status Change MEDICATIONS: aspirin, enteric coated (ASPIRIN, ENTERIC COATED) 81 mg EC tablet Take by mouth q 24 HR. albuterol HFA (PROVENTIL HFA, VENTOLIN HFA) 90 mcg/actuation inhaler Inhale 2 Puffs as instructed every 6 hours as needed. baclofen (LIORESAL) 10 mg tablet Take 10 mg by mouth three times daily. amLODIPine (NORVASC) 10 mg tablet Take 10 mg by mouth once daily. atorvastatin (LIPITOR) 10 mg tablet Take 10 mg by mouth daily at bedtime. sertraline (ZOLOFT) 50 mg tablet Take 50 mg by mouth once daily. lisinopril (ZESTRIL, PRINIVIL) 40 mg tablet 40 mg. VITAMIN D-3 2,000 unit cap TAKE 1 CAPSULE BY MOUTH ONCE DAILY FOR 30 DAYS acetaminophen 650 mg CR tablet Take 650 mg by mouth every 8 hours as needed. pantoprazole DR (PROTONIX) 40 mg tablet Take 1 tablet by mouth once daily. REVIEW OF SYSTEMS: GENERAL: Negative for weight loss, fevers, chills, or night sweats. HEENT: Negative for sudden vision or hearing changes. NECK: Negative for masses in the neck. RESPIRATORY: See HPI CARDIAC: Negative for chest pain, palpitations, murmurs, or syncopal episodes. GI: Appetite diminished no nausea vomiting or diarrhea : Negative for hematuria, has some increased urgency and frequency MUSCULOSKELETAL: Negative for limitations in movement, pain, or swelling. NEURO: Negative for dizziness, headache, weakness or numbness. HEMATOLOGIC: Negative for bleeding or easy bruising. SKIN: Skin irritation anterior neck improving PHYSICAL EXAM: VS: Wt 70.3 kg (155 lb) BMI 23.90 kg/m KPS: 100 General Appearance: Alert and oriented. No acute distress. Lungs: No rales rhonchi or wheezing Neuro: Speech fluent. Gait normal. No focal deficits. Skin: No rashes noted Lymphatics: No palpable lymphadenopathy. ASSESSMENT/PLAN: Laryngeal cancer, squamous cell carcinoma in situ, stage [id number] status post definitive radiation completed December 2018. 1. Laryngeal cancer, doing well no evidence recurrence. 2. Left upper lung nodule and other subcentimeter nodules. Overall stable. 1 nodule with very minimal increase from 8 to 9 mm likely nonsignificant. Left upper lobe nodule smaller. No evidence of new nodules. Recommend continued surveillance with CT in 6 months. Signed by: Camille Agarwal MD cc: Eloy Matamoros MD [address] [place] [address] Dr. Rodriguez Portions of the above note extracted and edited from previous visit as well as active information included in the EMR. documented in this encounter [facility] 01-05-2023 Note HNO ID: [id number] Author: Ashlyn Baig, (R) Service: ? Author Type: Technologist Type: Progress Notes Filed: 01/05/2023 12:53 PM Note Text: Radiology Service Progress Note PATIENT NAME: Sushant Correa DATE OF SERVICE: January 05, 2023 TIME: 12:53 PM PATIENT IDENTITY VERIFICATION COMPLETED USING TWO (2) IDENTIFIERS: Name and Date of confirmed by patient verbally. FALL SCREENING: Has the patient had 2 falls in the last year or 1 fall with injury or currently using an Ambulatory Assistive Device (Walker, Cane, Wheelchair, Crutches, etc.)? No PATIENT GENDER DATA: Male PATIENT RELEVANT IMPLANT DATA REVIEWED: Not Applicable RADIOLOGY DEPARTMENT: CT; Exam(s) Completed: Chest PERIPHERAL IV DATA: Not applicable SIGNED BY: Ashlyn Baig, RT(R) January 05, 2023 12:53 PM [facility] 12-21-2022 Miscellaneous Notes Please sign pended lab orders for upcoming follow up. Previous orders . Nicole Alva LPN documented in this encounter [facility] 07-06-2022 History of Present illness Narrative Radiation Oncology - Follow Up Note PATIENT DIAGNOSIS: Laryngeal cancer, squamous cell carcinoma in situ, stage [id number]. RADIATION SUMMARY:DATES OF TREATMENT: 11/25/18- 01/01/19 AREA TREATED: Larynx DELIVERED DOSE: Area: Larynx 6,300 cGy in 28 fractions, 3 Parker, 3D Conformal, 6MV with daily CBCT TOTAL: 6,300 cGy in 28 fractions ELAPSED TIME: 37 days . INTERVAL HISTORY: Doing well. Denies CP, SOB or significant cough. 12/28/21: Patient in for follow up after PET evaluation of lung nodule on CT chest. 11/07/21: Patient is in earlier than scheduled appointment due to concerns of fatigue increased cough and dyspnea with exertion, decreased appetite, feeling like he is dehydrated. Patient denies any dizzy spells. Denies any hemoptysis. No fever. Denies chest pain. RADIOLOGY: CT Chest 06/30/22:IMPRESSION: 1. 0.9 cm left upper lobe nodular opacity, decreased in size since 11/17/21. 2. Other subcentimeter nodular opacities measuring up to 7-8 mm, stable. 3. No evidence of new intrathoracic abnormalities. PET/CT 12/13/21: IMPRESSION: 1. Neck: No suspicious hypermetabolic foci 2. Chest: Scattered lung nodules. The most prominent Left upper lobe lung nodule is associated with low-level FDG activity. Otherwise no suspicious hypermetabolic foci. No hypermetabolic lymphadenopathy. 3. Abdomen and pelvis: No evidence of FDG avid neoplastic process 4. Skeleton: No hypermetabolic osseous lesions CT chest 11/17/2021:IMPRESSION: 1. 1.4 CM, NEWLY APPARENT LEFT UPPER LOBE NODULE, CONCERNING FOR PROGRESSION OF METASTATIC DISEASE. 2. Additional bilateral subcentimeter pulmonary nodules, unchanged. 3. No substantial intrathoracic adenopathy is identified. LABORATORY: Results for FELICITAS CORREA ( ) as of 11/08/2021 07:59 Ref. Range 11/07/2021 13:28 11/07/2021 14:04 Sodium Latest Ref Range: 136 - 144 mmol/L 142 Potassium Latest Ref Range: 3.7 - 5.1 mmol/L 4.0 Chloride Latest Ref Range: 97 - 105 mmol/L 109 (H) CO2 Latest Ref Range: 22 - 30 mmol/L 26 BUN Latest Ref Range: 9 - 24 mg/dL 37 (H) Creatinine Latest Ref Range: 0.73 - 1.22 mg/dL 2.18 (H) Glucose Latest Ref Range: 74 - 99 mg/dL 134 (H) Protein, Total Latest Ref Range: 6.3 - 8.0 g/dL 7.3 Calcium Latest Ref Range: 8.5 - 10.2 mg/dL 9.6 Albumin Latest Ref Range: 3.9 - 4.9 g/dL 4.6 Bilirubin, Total Latest Ref Range: 0.2 - 1.3 mg/dL 1.2 Alkaline Phosphatase Latest Ref Range: 38 - 113 U/L 82 ALT Latest Ref Range: 10 - 54 U/L 5 (L) AST Latest Ref Range: 14 - 40 U/L 16 Anion Gap Latest Ref Range: 9 - 18 mmol/L 7 (L) eGFR Latest Ref Range: >=60 mL/min/1.73m 31 (L) Hematocrit Latest Ref Range: 39.0 - 51.0 % 35.3 (L) Results for FELICITAS CORREA ( ) as of 11/08/2021 07:59 Ref. Range 11/07/2021 13:28 WBC Latest Ref Range: 3.70 - 11.00 k/uL 6.70 RBC Latest Ref Range: 4.20 - 6.00 m/uL 3.74 (L) Hemoglobin Latest Ref Range: 13.0 - 17.0 g/dL 11.3 (L) Hematocrit Latest Ref Range: 39.0 - 51.0 % 35.3 (L) Platelet Count Latest Ref Range: 150 - 400 k/uL 77 (L) MCV Latest Ref Range: 80.0 - 100.0 fL 94.4 MCH Latest Ref Range: 26.0 - 34.0 pg 30.2 MCHC Latest Ref Range: 30.5 - 36.0 g/dL 32.0 MPV Latest Ref Range: 9.0 - 12.7 fL 13.5 (H) RDW-CV Latest Ref Range: 11.5 - 15.0 % 14.1 DTYPE Unknown Auto Neut% Latest Units: % 70.3 Abs Neut (ANC) Latest Ref Range: 1.45 - 7.50 k/uL 4.71 Lymph% Latest Units: % 17.5 Abs Lymph Latest Ref Range: 1.00 - 4.00 k/uL 1.17 Garden% Latest Units: % 6.3 Abs Garden Latest Ref Range: <0.87 k/uL 0.42 Eosin% Latest Units: % 5.4 Abs Eosin Latest Ref Range: <0.46 k/uL 0.36 Baso% Latest Units: % 0.4 Abs Baso Latest Ref Range: <0.11 k/uL 0.03 Immature Gran % Latest Units: % 0.1 IMMATURE GRANS (ABS) Latest Ref Range: <0.10 k/uL <0.03 NRBC Latest Units: /100 WBC 0.0 Absolute nRBC Latest Ref Range: <0.01 k/uL <0.01 Results for FELICITAS CORREA ( ) as of 11/08/2021 07:59 Ref. Range 11/07/2021 14:04 GLUCOSE UA (POCT) Latest Ref Range: Negative mg/dL Negative BILIRUBIN UA (POCT) Latest Ref Range: Negative Negative KETONE UA (POCT) Latest Ref Range: Negative mg/dL Negative SPECIFIC GRAVITY UA (POCT) Latest Ref Range: 1.005 - 1.030 1.020 HEMOGLOBIN/BLOOD UA (POCT) Latest Ref Range: Negative Negative PH UA (POCT) Latest Ref Range: 4.5 - 8.0 5.5 PROTEIN UA (POCT) Latest Ref Range: Negative mg/dL Trace (A) UROBILINOGEN UA (POCT) Latest Ref Range: Normal E.U./dL 0.2 NITRITE UA (POCT) Latest Ref Range: Negative Negative LEUKOCYTES UA (POCT) Latest Ref Range: Negative Negative COLOR UA (POCT) Unknown Yellow CLARITY UA (POCT) Unknown Clear Ref. Range 05/05/2019 12:03 10/30/19 06/22/20 06/21/21 11/07/20 T4 Latest Ref Range: 5.5 - 10.2 ug/dL 6.3 6.8 6.5 5.3 pending TSH Latest Ref Range: 0.270 - 4.200 uU/mL 1.160 1.487 1.251 1.48 pending ALLERGIES Allergen Reactions Duloxetine Hcl Mental Status Change MEDICATIONS: aspirin, enteric coated (ASPIRIN, ENTERIC COATED) 81 mg EC tablet Take by mouth q 24 HR. albuterol HFA (PROVENTIL HFA, VENTOLIN HFA) 90 mcg/actuation inhaler Inhale 2 Puffs as instructed every 6 hours as needed. baclofen (LIORESAL) 10 mg tablet Take 10 mg by mouth three times daily. amLODIPine (NORVASC) 10 mg tablet Take 10 mg by mouth once daily. atorvastatin (LIPITOR) 10 mg tablet Take 10 mg by mouth daily at bedtime. sertraline (ZOLOFT) 50 mg tablet Take 50 mg by mouth once daily. pantoprazole DR (PROTONIX) 40 mg tablet Take 1 tablet by mouth once daily. lisinopril (ZESTRIL, PRINIVIL) 40 mg tablet 40 mg. VITAMIN D-3 2,000 unit cap TAKE 1 CAPSULE BY MOUTH ONCE DAILY FOR 30 DAYS acetaminophen 650 mg CR tablet Take 650 mg by mouth every 8 hours as needed. REVIEW OF SYSTEMS: GENERAL: Negative for weight loss, fevers, chills, or night sweats. HEENT: Negative for sudden vision or hearing changes. NECK: Negative for masses in the neck. RESPIRATORY: See HPI CARDIAC: Negative for chest pain, palpitations, murmurs, or syncopal episodes. GI: Appetite diminished no nausea vomiting or diarrhea : Negative for hematuria, has some increased urgency and frequency MUSCULOSKELETAL: Negative for limitations in movement, pain, or swelling. NEURO: Negative for dizziness, headache, weakness or numbness. HEMATOLOGIC: Negative for bleeding or easy bruising. SKIN: Skin irritation anterior neck improving PHYSICAL EXAM: VS: There were no vitals taken for this visit. KPS: 100 General Appearance: Alert and oriented. No acute distress. Lungs: No rales rhonchi or wheezing Neuro: Speech fluent. Gait normal. No focal deficits. Skin: No rashes noted Lymphatics: No palpable lymphadenopathy. ASSESSMENT/PLAN: Laryngeal cancer, squamous cell carcinoma in situ, stage [id number]. 1. Laryngeal cancer, doing well no evidence recurrence. 2. Left upper lung nodule. Most recent CT with decrease in size of lesion. No other suspicious findings. Given interval decrease, likely benign. Recommend repeat imaging this summer. Signed by: Camille Agarwal MD cc: Eloy Matamoros MD [address] [place] [address] Dr. Rodriguez Portions of the above note extracted and edited from previous visit as well as active information included in the EMR. documented in this encounter [facility] 01-09-2022 Miscellaneous Notes Svetlana Called Dr Devlin office spoke with Isa. She states they have received this referral and have patient scheduled with Dr. Devlin on 01/17 @ 2:30. Delmy Sutton Pss Records faxed to Dr. [facility]ced[facility]. Chari: Can you please send information to their office and recent imaging? Information in your mailbox to send. Thanks! Anastacia Terrell ----- Message from Chaparro Wallace MD sent at 01/04/2022 10:31 PM EDT ----- Regarding: Pulmonary referral Please refer patient to [facility] or [facility]. I have spoken to him about this , documented in this encounter [facility] 12-28-2021 History of Present illness Narrative PATIENT NAME: Sushant Correa CLINIC NO.: [id number] ATTENDING PHYSICIAN: Chaparro Wallace MD DATE OF SERVICE: December 28, [address] Talita Mistry, here is an update on a follow up visit on male Sushant Correa at the clinic 12/28/2021 Diagnosis: 1. Laryngeal cancer, squamous cell carcinoma in situ 2. Lupus anticoagulant positive 3. 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 Cobb) Bone marrow evaluation requested for future need for cytotoxic therapy but this was deferred per patient request Presented with hoarseness and October 29, 2018 direct laryngoscopy biopsies (Dr. Rodriguez) of true vocal cord mass consistent with SCC in situ; true invasion could be assessed for properly due to lac of stromal component. Given extensive involvement, the suspicion for invasion was high November 25, 2018 - January 01, 2019 RT 63 Gy in 28 fractions to the larynx HPI: Sushant Correa is a 76 year old year old male here for follow up. Feels fine and denies any fevers and or chills. Denies any bleeding as well. PAST MEDICAL HISTORY Diagnosis Date Hypercholesteremia Hypertension rheumatoid arth Thrombocytopenia (HCC) Social History Tobacco Use Smoking status: Former Packs/day: 1.00 Years: 47.00 Pack years: 47.00 Types: Cigarettes, Cigars Start date: 10/06/2012 Quit date: 11/13/2013 Years since quittin.1 Smokeless tobacco: Never Vaping Use Vaping Use: Never used Substance Use Topics Alcohol use: Not Currently FAMILY HISTORY Problem Relation Age of Onset Cancer Mother Lung cancer, Female cancer Cancer Maternal Aunt Cancer Cancer Maternal Uncle Cancer Past medical, social and family history reviewed without any changes. REVIEW OF SYSTEMS GENERAL: No weight loss, malaise or fevers. No night sweats. HEENT: Negative for headaches, No changes in hearing or vision, no nose bleeds or other nasal problems. RESPIRATORY: Negative for cough, wheezing and shortness of breath CARDIOVASCULAR: Negative for chest pain, leg swelling and palpitations GI: Negative for abdominal discomfort, blood in stools or black stools and change in bowel habits : Negative for dysuria, frequency and incontinence MUSCULOSKELETAL: Negative for joint pain or swelling, back pain, and muscle pain. SKIN: Negative for lesions, rash, and itching. HEMATOLOGY/LYMPHOLOGY Negative for prolonged bleeding, bruising easily, and swollen nodes. NEURO: Negative for numbness or tingling of hands/feet. No weakness. PHYSICAL EXAMINATION: BP 134/58 Pulse 71 Temp (Src) 97.3 (Temporal) Resp 16 Ht 5' 7.52 (1.72m) Wt 154 lb 3.2 oz (69.9kg) SpO2 96% BMI 23.78 kg/(m^2). Wt 69.9 kg (154 lb 3.2 oz) BMI 23.78 kg/m2 Last 3 Encounter Wt Readings: Date: Wt: 12/28/2021 69.9 kg (154 lb 3.2 oz) 12/28/2021 69.4 kg (153 lb) 11/24/2021 69 kg (152 lb 3.2 oz) General appearance:ECOG PERFORMANCE STATUS: 0- Fully active, able to carry on all pre-disease performance w/o restriction. Patient in NAD. Skin: Skin color, texture, turgor normal. No rashes or lesions. Eyes: Anicteric sclera. Pupils are equally round and reactive to light. Extraocular movements are intact. Lymph Nodes: No cervical, supraclavicular, axillary or inguinal adenopathy. Oropharynx: Lips, mucosa, and tongue normal. Back: No pain to percussion. Negative SLR test Lungs clear to auscultation, No wheezing or rhonchi Heart: RRR without murmur, gallop, or rubs. Abdomen soft, non-tender. No masses, organomegaly Extremities: No deformities. No edema Neuro: Gait and speech normal. Reflexes normal and symmetric. Muscular strength intact. Sensation grossly intact. Rectal: Deferred : Deferred LABS: Glucose (mg/dL) Date Value 12/28/2021 127 06/21/2021 119 Potassium (mmol/L) Date Value 12/28/2021 4.5 06/21/2021 5.6 Sodium (mmol/L) Date Value 12/28/2021 142 06/21/2021 141 Chloride (mmol/L) Date Value 12/28/2021 107 06/21/2021 106 CO2 (mmol/L) Date Value 12/28/2021 26 06/21/2021 26 Creatinine (mg/dL) Date Value 12/28/2021 2.18 06/21/2021 2.42 BUN (mg/dL) Date Value 12/28/2021 30 06/21/2021 48 Anion Gap (mmol/L) Date Value 12/28/2021 9 06/21/2021 9 Calcium (mg/dL) Date Value 06/21/2021 9.6 Calcium, Total (mg/dL) Date Value 12/28/2021 9.3 Protein, Total (g/dL) Date Value 12/28/2021 6.9 06/21/2021 7.4 Albumin (g/dL) Date Value 12/28/2021 4.6 06/21/2021 4.5 Bilirubin, Total (mg/dL) Date Value 12/28/2021 1.2 06/21/2021 1.0 Alkaline Phosphatase (U/L) Date Value 12/28/2021 74 06/21/2021 79 AST (U/L) Date Value 12/28/2021 12 06/21/2021 15 ALT (U/L) Date Value 12/28/2021 7 06/21/2021 6 WBC Date Value Ref Range Status 12/28/2021 7.16 3.70 - 11.00 k/uL Final RBC Date Value Ref Range Status 12/28/2021 4.09 (L) 4.20 - 6.00 m/uL Final Hemoglobin Date Value Ref Range Status 12/28/2021 12.3 (L) 13.0 - 17.0 g/dL Final Hematocrit Date Value Ref Range Status 12/28/2021 39.3 39.0 - 51.0 % Final MCV Date Value Ref Range Status 12/28/2021 96.1 80.0 - 100.0 fL Final MCH Date Value Ref Range Status 12/28/2021 30.1 26.0 - 34.0 pg Final MCHC Date Value Ref Range Status 12/28/2021 31.3 30.5 - 36.0 g/dL Final RDW-CV Date Value Ref Range Status 12/28/2021 15.5 (H) 11.5 - 15.0 % Final Platelet Count Date Value Ref Range Status 12/28/2021 72 (L) 150 - 400 k/uL Final Comment: Sample checked for clot MPV Date Value Ref Range Status 12/28/2021 12.9 (H) 9.0 - 12.7 fL Final Abs Neut Date Value Ref Range Status 12/28/2021 5.43 1.45 - 7.50 k/uL Final Lymph% Date Value Ref Range Status 12/28/2021 15.5 % Final Abs Lymph Date Value Ref Range Status 12/28/2021 1.11 1.00 - 4.00 k/uL Final Garden% Date Value Ref Range Status 12/28/2021 5.0 % Final Abs Garden Date Value Ref Range Status 12/28/2021 0.36 <0.87 k/uL Final Eosin% Date Value Ref Range Status 12/28/2021 2.7 % Final Abs Eosin Date Value Ref Range Status 12/28/2021 0.19 <0.46 k/uL Final Baso% Date Value Ref Range Status 12/28/2021 0.6 % Final Abs Baso Date Value Ref Range Status 12/28/2021 0.04 <0.11 k/uL Final PATH: Imaging: CT of the Chest 10/2021: 1. 1.4 CM, NEWLY APPARENT LEFT UPPER LOBE NODULE, CONCERNING FOR PROGRESSION OF METASTATIC DISEASE. 2. Additional bilateral subcentimeter pulmonary nodules, unchanged. 3. No substantial intrathoracic adenopathy is identified. PET 11/2021: 1. Neck: No suspicious hypermetabolic foci 2. Chest: Scattered lung nodules. The most prominent Left upper lobe lung nodule is associated with low-level FDG activity. Otherwise no suspicious hypermetabolic foci. No hypermetabolic lymphadenopathy. 3. Abdomen and pelvis: No evidence of FDG avid neoplastic process 4. Skeleton: No hypermetabolic osseous lesions Assessment and Plan: Sushant E Correa is a 76 year old year old male here for follow up. 1. 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 He continues to follow up with Drs. Agarwal and Michael, and currently is doing well. 2. The lupus anticoagulant positivity was initially noted in 2012 when routine blood work had shown an elevated PTT. He has no prior blood clots, family history of clots or miscarriages. He does appear to have chronic kidney disease based on elevated creatinine but did not have any evidence of this in 2012 when he was diagnosed. He denies any prior cerebral vascular accident but does mention that he may have had silent myocardial ischemia. None of these events appear related to the presence of lupus anticoagulant. Continue to monitor for now. repeat studies per Dr. Triplett pending 3. Thrombocytopenia is chronic and stable, ~60,000. No prior bleeding history. Etiology is likely immune from underlying seronegative rheumatoid arthritis. He was previously on prednisone with improvement in platelet counts to 100,000 range, however, he is no longer seeing a charge histotechnologist or taking prednisone. I discussed that if he feels that his arthritis is worsening, he may need a re-referral to a charge histotechnologist. No additional treatment or intervention needed for thrombocytopenia. Monitor counts every 6 months. Thank you for the kind referral. If there are any questions and or concerns please do not hesitate to contact me at [phone]. 4. Anemia, normocytic likely is from underlying chronic kidney disease. Continue to monitor. He follows with a laundry washer in [place], [place]. I have asked him to reach out given worsening creatinine. 5. SHASHI nodule. I reviewed ths with the patient and it is concerning. Will discuss with Dr. Agarwal as well. Chaparro Wallace MD Hematology/Medical Oncology [facility] I spent a total of 35 minutes on the date of the service which included preparing to see the patient, [id number] patient care, completing clinical documentation, obtaining and/or reviewing separately obtained history, counseling and educating the patient/family/caregiver, ordering medications, tests, or procedures, and communicating with other HCPs (not separately reported). Medical Decision Making: Medical Decision Making Level: 1 - N/A CC: MD Talita Sol MD documented in this encounter [facility] 12-28-2021 History of Present illness Narrative Radiation Oncology - Follow Up Note PATIENT DIAGNOSIS: Laryngeal cancer, squamous cell carcinoma in situ, stage [id number]. RADIATION SUMMARY:DATES OF TREATMENT: 11/25/18- 01/01/19 AREA TREATED: Larynx DELIVERED DOSE: Area: Larynx 6,300 cGy in 28 fractions, 3 Parker, 3D Conformal, 6MV with daily CBCT TOTAL: 6,300 cGy in 28 fractions ELAPSED TIME: 37 days . INTERVAL HISTORY: Patient in for follow up after PET evaluation of lung nodule on CT chest. 11/07/21: Patient is in earlier than scheduled appointment due to concerns of fatigue increased cough and dyspnea with exertion, decreased appetite, feeling like he is dehydrated. Patient denies any dizzy spells. Denies any hemoptysis. No fever. Denies chest pain. RADIOLOGY: PET/CT 12/13/21: IMPRESSION: 1. Neck: No suspicious hypermetabolic foci 2. Chest: Scattered lung nodules. The most prominent Left upper lobe lung nodule is associated with low-level FDG activity. Otherwise no suspicious hypermetabolic foci. No hypermetabolic lymphadenopathy. 3. Abdomen and pelvis: No evidence of FDG avid neoplastic process 4. Skeleton: No hypermetabolic osseous lesions CT chest 11/17/2021:IMPRESSION: 1. 1.4 CM, NEWLY APPARENT LEFT UPPER LOBE NODULE, CONCERNING FOR PROGRESSION OF METASTATIC DISEASE. 2. Additional bilateral subcentimeter pulmonary nodules, unchanged. 3. No substantial intrathoracic adenopathy is identified. LABORATORY: Results for FELICITAS CORREA ( ) as of 11/08/2021 07:59 Ref. Range 11/07/2021 13:28 11/07/2021 14:04 Sodium Latest Ref Range: 136 - 144 mmol/L 142 Potassium Latest Ref Range: 3.7 - 5.1 mmol/L 4.0 Chloride Latest Ref Range: 97 - 105 mmol/L 109 (H) CO2 Latest Ref Range: 22 - 30 mmol/L 26 BUN Latest Ref Range: 9 - 24 mg/dL 37 (H) Creatinine Latest Ref Range: 0.73 - 1.22 mg/dL 2.18 (H) Glucose Latest Ref Range: 74 - 99 mg/dL 134 (H) Protein, Total Latest Ref Range: 6.3 - 8.0 g/dL 7.3 Calcium Latest Ref Range: 8.5 - 10.2 mg/dL 9.6 Albumin Latest Ref Range: 3.9 - 4.9 g/dL 4.6 Bilirubin, Total Latest Ref Range: 0.2 - 1.3 mg/dL 1.2 Alkaline Phosphatase Latest Ref Range: 38 - 113 U/L 82 ALT Latest Ref Range: 10 - 54 U/L 5 (L) AST Latest Ref Range: 14 - 40 U/L 16 Anion Gap Latest Ref Range: 9 - 18 mmol/L 7 (L) eGFR Latest Ref Range: >=60 mL/min/1.73m 31 (L) Hematocrit Latest Ref Range: 39.0 - 51.0 % 35.3 (L) Results for FELICITAS CORREA ( ) as of 11/08/2021 07:59 Ref. Range 11/07/2021 13:28 WBC Latest Ref Range: 3.70 - 11.00 k/uL 6.70 RBC Latest Ref Range: 4.20 - 6.00 m/uL 3.74 (L) Hemoglobin Latest Ref Range: 13.0 - 17.0 g/dL 11.3 (L) Hematocrit Latest Ref Range: 39.0 - 51.0 % 35.3 (L) Platelet Count Latest Ref Range: 150 - 400 k/uL 77 (L) MCV Latest Ref Range: 80.0 - 100.0 fL 94.4 MCH Latest Ref Range: 26.0 - 34.0 pg 30.2 MCHC Latest Ref Range: 30.5 - 36.0 g/dL 32.0 MPV Latest Ref Range: 9.0 - 12.7 fL 13.5 (H) RDW-CV Latest Ref Range: 11.5 - 15.0 % 14.1 DTYPE Unknown Auto Neut% Latest Units: % 70.3 Abs Neut (ANC) Latest Ref Range: 1.45 - 7.50 k/uL 4.71 Lymph% Latest Units: % 17.5 Abs Lymph Latest Ref Range: 1.00 - 4.00 k/uL 1.17 Garden% Latest Units: % 6.3 Abs Garden Latest Ref Range: <0.87 k/uL 0.42 Eosin% Latest Units: % 5.4 Abs Eosin Latest Ref Range: <0.46 k/uL 0.36 Baso% Latest Units: % 0.4 Abs Baso Latest Ref Range: <0.11 k/uL 0.03 Immature Gran % Latest Units: % 0.1 IMMATURE GRANS (ABS) Latest Ref Range: <0.10 k/uL <0.03 NRBC Latest Units: /100 WBC 0.0 Absolute nRBC Latest Ref Range: <0.01 k/uL <0.01 Results for FELICITAS CORREA ( ) as of 11/08/2021 07:59 Ref. Range 11/07/2021 14:04 GLUCOSE UA (POCT) Latest Ref Range: Negative mg/dL Negative BILIRUBIN UA (POCT) Latest Ref Range: Negative Negative KETONE UA (POCT) Latest Ref Range: Negative mg/dL Negative SPECIFIC GRAVITY UA (POCT) Latest Ref Range: 1.005 - 1.030 1.020 HEMOGLOBIN/BLOOD UA (POCT) Latest Ref Range: Negative Negative PH UA (POCT) Latest Ref Range: 4.5 - 8.0 5.5 PROTEIN UA (POCT) Latest Ref Range: Negative mg/dL Trace (A) UROBILINOGEN UA (POCT) Latest Ref Range: Normal E.U./dL 0.2 NITRITE UA (POCT) Latest Ref Range: Negative Negative LEUKOCYTES UA (POCT) Latest Ref Range: Negative Negative COLOR UA (POCT) Unknown Yellow CLARITY UA (POCT) Unknown Clear Ref. Range 05/05/2019 12:03 10/30/19 06/22/20 06/21/21 11/07/20 T4 Latest Ref Range: 5.5 - 10.2 ug/dL 6.3 6.8 6.5 5.3 pending TSH Latest Ref Range: 0.270 - 4.200 uU/mL 1.160 1.487 1.251 1.48 pending ALLERGIES Allergen Reactions Duloxetine Hcl Mental Status Change MEDICATIONS: aspirin, enteric coated (ASPIRIN, ENTERIC COATED) 81 mg EC tablet Take by mouth q 24 HR. albuterol HFA (PROVENTIL HFA, VENTOLIN HFA) 90 mcg/actuation inhaler Inhale 2 Puffs as instructed every 6 hours as needed. baclofen (LIORESAL) 10 mg tablet Take 10 mg by mouth three times daily. amLODIPine (NORVASC) 10 mg tablet Take 10 mg by mouth once daily. atorvastatin (LIPITOR) 10 mg tablet Take 10 mg by mouth daily at bedtime. sertraline (ZOLOFT) 50 mg tablet Take 50 mg by mouth once daily. pantoprazole DR (PROTONIX) 40 mg tablet Take 1 tablet by mouth once daily. escitalopram oxalate (ESCITALOPRAM) 5 mg tablet Take 5 mg by mouth once daily. (Patient not taking: Reported on 11/24/2021 ) lisinopril (ZESTRIL, PRINIVIL) 40 mg tablet 40 mg. VITAMIN D-3 2,000 unit cap TAKE 1 CAPSULE BY MOUTH ONCE DAILY FOR 30 DAYS acetaminophen (TYLENOL 8 HOUR) 650 mg CR tablet Take 650 mg by mouth every 8 hours as needed. REVIEW OF SYSTEMS: GENERAL: Negative for weight loss, fevers, chills, or night sweats. HEENT: Negative for sudden vision or hearing changes. NECK: Negative for masses in the neck. RESPIRATORY: See HPI CARDIAC: Negative for chest pain, palpitations, murmurs, or syncopal episodes. GI: Appetite diminished no nausea vomiting or diarrhea : Negative for hematuria, has some increased urgency and frequency MUSCULOSKELETAL: Negative for limitations in movement, pain, or swelling. NEURO: Negative for dizziness, headache, weakness or numbness. HEMATOLOGIC: Negative for bleeding or easy bruising. SKIN: Skin irritation anterior neck improving PHYSICAL EXAM: VS: There were no vitals taken for this visit. KPS: 100 General Appearance: Alert and oriented. No acute distress. Lungs: No rales rhonchi or wheezing Neuro: Speech fluent. Gait normal. No focal deficits. Skin: No rashes noted Lymphatics: No palpable lymphadenopathy. ASSESSMENT/PLAN: Laryngeal cancer, squamous cell carcinoma in situ, stage [id number]. 1. Laryngeal cancer, doing well no evidence recurrence. 2. Left upper lung nodule. PET scan without significant uptake. No other areas or worrisome uptake. Given that the nodule is new compared to scan 3 years ago and does have a solid appearance I do have concerns this may represent underlying malignancy. I am concerned that this may be difficult to biopsy. Options for management include repeat CT in 4 to 6 months versus consideration for resection versus biopsy. Discussed with Dr. Wallace, patient will be presented at thoracic tumor board to assess potential diagnostic and treatment strategies. Signed by: Camille Agarwal MD cc: Eloy Matamoros MD [address] [place] [address] Dr. Rodriguez Portions of the above note extracted and edited from previous visit as well as active information included in the EMR. documented in this encounter [facility] 11-24-2021 History of Present illness Narrative Radiation Oncology - Follow Up Note PATIENT DIAGNOSIS: Laryngeal cancer, squamous cell carcinoma in situ, stage [id number]. RADIATION SUMMARY:DATES OF TREATMENT: 11/25/18- 01/01/19 AREA TREATED: Larynx DELIVERED DOSE: Area: Larynx 6,300 cGy in 28 fractions, 3 Parker, 3D Conformal, 6MV with daily CBCT TOTAL: 6,300 cGy in 28 fractions ELAPSED TIME: 37 days . INTERVAL HISTORY: Patient returns after follow-up for new issues of weight loss and cough. He had CT chest for further evaluation as noted below. 11/07/21: Patient is in earlier than scheduled appointment due to concerns of fatigue increased cough and dyspnea with exertion, decreased appetite, feeling like he is dehydrated. Patient denies any dizzy spells. Denies any hemoptysis. No fever. Denies chest pain. RADIOLOGY: CT chest 11/17/2021:IMPRESSION: 1. 1.4 CM, NEWLY APPARENT LEFT UPPER LOBE NODULE, CONCERNING FOR PROGRESSION OF METASTATIC DISEASE. 2. Additional bilateral subcentimeter pulmonary nodules, unchanged. 3. No substantial intrathoracic adenopathy is identified. LABORATORY: Results for FELICITAS CORREA ( ) as of 11/08/2021 07:59 Ref. Range 11/07/2021 13:28 11/07/2021 14:04 Sodium Latest Ref Range: 136 - 144 mmol/L 142 Potassium Latest Ref Range: 3.7 - 5.1 mmol/L 4.0 Chloride Latest Ref Range: 97 - 105 mmol/L 109 (H) CO2 Latest Ref Range: 22 - 30 mmol/L 26 BUN Latest Ref Range: 9 - 24 mg/dL 37 (H) Creatinine Latest Ref Range: 0.73 - 1.22 mg/dL 2.18 (H) Glucose Latest Ref Range: 74 - 99 mg/dL 134 (H) Protein, Total Latest Ref Range: 6.3 - 8.0 g/dL 7.3 Calcium Latest Ref Range: 8.5 - 10.2 mg/dL 9.6 Albumin Latest Ref Range: 3.9 - 4.9 g/dL 4.6 Bilirubin, Total Latest Ref Range: 0.2 - 1.3 mg/dL 1.2 Alkaline Phosphatase Latest Ref Range: 38 - 113 U/L 82 ALT Latest Ref Range: 10 - 54 U/L 5 (L) AST Latest Ref Range: 14 - 40 U/L 16 Anion Gap Latest Ref Range: 9 - 18 mmol/L 7 (L) eGFR Latest Ref Range: >=60 mL/min/1.73m 31 (L) Hematocrit Latest Ref Range: 39.0 - 51.0 % 35.3 (L) Results for FELICITAS CORREA ( ) as of 11/08/2021 07:59 Ref. Range 11/07/2021 13:28 WBC Latest Ref Range: 3.70 - 11.00 k/uL 6.70 RBC Latest Ref Range: 4.20 - 6.00 m/uL 3.74 (L) Hemoglobin Latest Ref Range: 13.0 - 17.0 g/dL 11.3 (L) Hematocrit Latest Ref Range: 39.0 - 51.0 % 35.3 (L) Platelet Count Latest Ref Range: 150 - 400 k/uL 77 (L) MCV Latest Ref Range: 80.0 - 100.0 fL 94.4 MCH Latest Ref Range: 26.0 - 34.0 pg 30.2 MCHC Latest Ref Range: 30.5 - 36.0 g/dL 32.0 MPV Latest Ref Range: 9.0 - 12.7 fL 13.5 (H) RDW-CV Latest Ref Range: 11.5 - 15.0 % 14.1 DTYPE Unknown Auto Neut% Latest Units: % 70.3 Abs Neut (ANC) Latest Ref Range: 1.45 - 7.50 k/uL 4.71 Lymph% Latest Units: % 17.5 Abs Lymph Latest Ref Range: 1.00 - 4.00 k/uL 1.17 Garden% Latest Units: % 6.3 Abs Garden Latest Ref Range: <0.87 k/uL 0.42 Eosin% Latest Units: % 5.4 Abs Eosin Latest Ref Range: <0.46 k/uL 0.36 Baso% Latest Units: % 0.4 Abs Baso Latest Ref Range: <0.11 k/uL 0.03 Immature Gran % Latest Units: % 0.1 IMMATURE GRANS (ABS) Latest Ref Range: <0.10 k/uL <0.03 NRBC Latest Units: /100 WBC 0.0 Absolute nRBC Latest Ref Range: <0.01 k/uL <0.01 Results for FELICITAS CORREA ( ) as of 11/08/2021 07:59 Ref. Range 11/07/2021 14:04 GLUCOSE UA (POCT) Latest Ref Range: Negative mg/dL Negative BILIRUBIN UA (POCT) Latest Ref Range: Negative Negative KETONE UA (POCT) Latest Ref Range: Negative mg/dL Negative SPECIFIC GRAVITY UA (POCT) Latest Ref Range: 1.005 - 1.030 1.020 HEMOGLOBIN/BLOOD UA (POCT) Latest Ref Range: Negative Negative PH UA (POCT) Latest Ref Range: 4.5 - 8.0 5.5 PROTEIN UA (POCT) Latest Ref Range: Negative mg/dL Trace (A) UROBILINOGEN UA (POCT) Latest Ref Range: Normal E.U./dL 0.2 NITRITE UA (POCT) Latest Ref Range: Negative Negative LEUKOCYTES UA (POCT) Latest Ref Range: Negative Negative COLOR UA (POCT) Unknown Yellow CLARITY UA (POCT) Unknown Clear Ref. Range 05/05/2019 12:03 10/30/19 06/22/20 06/21/21 11/07/20 T4 Latest Ref Range: 5.5 - 10.2 ug/dL 6.3 6.8 6.5 5.3 pending TSH Latest Ref Range: 0.270 - 4.200 uU/mL 1.160 1.487 1.251 1.48 pending ALLERGIES Allergen Reactions Duloxetine Hcl Mental Status Change MEDICATIONS: aspirin, enteric coated (ASPIRIN, ENTERIC COATED) 81 mg EC tablet Take by mouth q 24 HR. albuterol HFA (PROVENTIL HFA, VENTOLIN HFA) 90 mcg/actuation inhaler Inhale 2 Puffs as instructed every 6 hours as needed. baclofen (LIORESAL) 10 mg tablet Take 10 mg by mouth three times daily. amLODIPine (NORVASC) 10 mg tablet Take 10 mg by mouth once daily. atorvastatin (LIPITOR) 10 mg tablet Take 10 mg by mouth daily at bedtime. sertraline (ZOLOFT) 50 mg tablet Take 50 mg by mouth once daily. lisinopril (ZESTRIL, PRINIVIL) 40 mg tablet 40 mg. VITAMIN D-3 2,000 unit cap TAKE 1 CAPSULE BY MOUTH ONCE DAILY FOR 30 DAYS acetaminophen (TYLENOL 8 HOUR) 650 mg CR tablet Take 650 mg by mouth every 8 hours as needed. pantoprazole DR (PROTONIX) 40 mg tablet Take 1 tablet by mouth once daily. escitalopram oxalate (ESCITALOPRAM) 5 mg tablet Take 5 mg by mouth once daily. REVIEW OF SYSTEMS: GENERAL: Negative for weight loss, fevers, chills, or night sweats. HEENT: Negative for sudden vision or hearing changes. NECK: Negative for masses in the neck. RESPIRATORY: See HPI CARDIAC: Negative for chest pain, palpitations, murmurs, or syncopal episodes. GI: Appetite diminished no nausea vomiting or diarrhea : Negative for hematuria, has some increased urgency and frequency MUSCULOSKELETAL: Negative for limitations in movement, pain, or swelling. NEURO: Negative for dizziness, headache, weakness or numbness. HEMATOLOGIC: Negative for bleeding or easy bruising. SKIN: Skin irritation anterior neck improving PHYSICAL EXAM: VS: BP 130/71 Pulse 80 Temp 36.9 C (98.4 F) Resp 18 Wt 69 kg (152 lb 3.2 oz) SpO2 97% BMI 23.47 kg/m KPS: 100 General Appearance: Alert and oriented. No acute distress. Lungs: No rales rhonchi or wheezing Neuro: Speech fluent. Gait normal. No focal deficits. Skin: No rashes noted Lymphatics: No palpable lymphadenopathy. ASSESSMENT/PLAN: Laryngeal cancer, squamous cell carcinoma in situ, stage [id number]. Patient unfortunately has what appears to be a new left lung nodule. Patient states in the past he had a benign nodule that has been followed it is unclear whether this is the same lesion. Given the solid appearing characteristics would recommend further work-up with PET/CT. We will plan to have him back after that for further evaluation. Signed by: Camille Agarwal MD cc: Eloy Matamoros MD [address] [place] [address] Dr. Rodriguez Portions of the above note extracted and edited from previous visit as well as active information included in the EMR. documented in this encounter [facility] 11-07-2021 History of Present illness Narrative Radiation Oncology - Follow Up Note PATIENT DIAGNOSIS: Laryngeal cancer, squamous cell carcinoma in situ, stage [id number]. RADIATION SUMMARY:DATES OF TREATMENT: 11/25/18- 01/01/19 AREA TREATED: Larynx DELIVERED DOSE: Area: Larynx 6,300 cGy in 28 fractions, 3 Parker, 3D Conformal, 6MV with daily CBCT TOTAL: 6,300 cGy in 28 fractions ELAPSED TIME: 37 days . INTERVAL HISTORY: Patient is in earlier than scheduled appointment due to concerns of fatigue increased cough and dyspnea with exertion, decreased appetite, feeling like he is dehydrated. Patient denies any dizzy spells. Denies any hemoptysis. No fever. Denies chest pain. LABORATORY: Results for FELICITAS CORREA ( ) as of 11/08/2021 07:59 Ref. Range 11/07/2021 13:28 11/07/2021 14:04 Sodium Latest Ref Range: 136 - 144 mmol/L 142 Potassium Latest Ref Range: 3.7 - 5.1 mmol/L 4.0 Chloride Latest Ref Range: 97 - 105 mmol/L 109 (H) CO2 Latest Ref Range: 22 - 30 mmol/L 26 BUN Latest Ref Range: 9 - 24 mg/dL 37 (H) Creatinine Latest Ref Range: 0.73 - 1.22 mg/dL 2.18 (H) Glucose Latest Ref Range: 74 - 99 mg/dL 134 (H) Protein, Total Latest Ref Range: 6.3 - 8.0 g/dL 7.3 Calcium Latest Ref Range: 8.5 - 10.2 mg/dL 9.6 Albumin Latest Ref Range: 3.9 - 4.9 g/dL 4.6 Bilirubin, Total Latest Ref Range: 0.2 - 1.3 mg/dL 1.2 Alkaline Phosphatase Latest Ref Range: 38 - 113 U/L 82 ALT Latest Ref Range: 10 - 54 U/L 5 (L) AST Latest Ref Range: 14 - 40 U/L 16 Anion Gap Latest Ref Range: 9 - 18 mmol/L 7 (L) eGFR Latest Ref Range: >=60 mL/min/1.73m 31 (L) Hematocrit Latest Ref Range: 39.0 - 51.0 % 35.3 (L) Results for FELICITAS CORREA ( ) as of 11/08/2021 07:59 Ref. Range 11/07/2021 13:28 WBC Latest Ref Range: 3.70 - 11.00 k/uL 6.70 RBC Latest Ref Range: 4.20 - 6.00 m/uL 3.74 (L) Hemoglobin Latest Ref Range: 13.0 - 17.0 g/dL 11.3 (L) Hematocrit Latest Ref Range: 39.0 - 51.0 % 35.3 (L) Platelet Count Latest Ref Range: 150 - 400 k/uL 77 (L) MCV Latest Ref Range: 80.0 - 100.0 fL 94.4 MCH Latest Ref Range: 26.0 - 34.0 pg 30.2 MCHC Latest Ref Range: 30.5 - 36.0 g/dL 32.0 MPV Latest Ref Range: 9.0 - 12.7 fL 13.5 (H) RDW-CV Latest Ref Range: 11.5 - 15.0 % 14.1 DTYPE Unknown Auto Neut% Latest Units: % 70.3 Abs Neut (ANC) Latest Ref Range: 1.45 - 7.50 k/uL 4.71 Lymph% Latest Units: % 17.5 Abs Lymph Latest Ref Range: 1.00 - 4.00 k/uL 1.17 Garden% Latest Units: % 6.3 Abs Garden Latest Ref Range: <0.87 k/uL 0.42 Eosin% Latest Units: % 5.4 Abs Eosin Latest Ref Range: <0.46 k/uL 0.36 Baso% Latest Units: % 0.4 Abs Baso Latest Ref Range: <0.11 k/uL 0.03 Immature Gran % Latest Units: % 0.1 IMMATURE GRANS (ABS) Latest Ref Range: <0.10 k/uL <0.03 NRBC Latest Units: /100 WBC 0.0 Absolute nRBC Latest Ref Range: <0.01 k/uL <0.01 Results for FELICITAS CORREA ( ) as of 11/08/2021 07:59 Ref. Range 11/07/2021 14:04 GLUCOSE UA (POCT) Latest Ref Range: Negative mg/dL Negative BILIRUBIN UA (POCT) Latest Ref Range: Negative Negative KETONE UA (POCT) Latest Ref Range: Negative mg/dL Negative SPECIFIC GRAVITY UA (POCT) Latest Ref Range: 1.005 - 1.030 1.020 HEMOGLOBIN/BLOOD UA (POCT) Latest Ref Range: Negative Negative PH UA (POCT) Latest Ref Range: 4.5 - 8.0 5.5 PROTEIN UA (POCT) Latest Ref Range: Negative mg/dL Trace (A) UROBILINOGEN UA (POCT) Latest Ref Range: Normal E.U./dL 0.2 NITRITE UA (POCT) Latest Ref Range: Negative Negative LEUKOCYTES UA (POCT) Latest Ref Range: Negative Negative COLOR UA (POCT) Unknown Yellow CLARITY UA (POCT) Unknown Clear Ref. Range 05/05/2019 12:03 10/30/19 06/22/20 06/21/21 11/07/20 T4 Latest Ref Range: 5.5 - 10.2 ug/dL 6.3 6.8 6.5 5.3 pending TSH Latest Ref Range: 0.270 - 4.200 uU/mL 1.160 1.487 1.251 1.48 pending ALLERGIES Allergen Reactions Duloxetine Hcl Mental Status Change MEDICATIONS: aspirin, enteric coated (ASPIRIN, ENTERIC COATED) 81 mg EC tablet Take by mouth q 24 HR. albuterol HFA (PROVENTIL HFA, VENTOLIN HFA) 90 mcg/actuation inhaler Inhale 2 Puffs as instructed every 6 hours as needed. baclofen (LIORESAL) 10 mg tablet Take 10 mg by mouth three times daily. amLODIPine (NORVASC) 10 mg tablet Take 10 mg by mouth once daily. atorvastatin (LIPITOR) 10 mg tablet Take 10 mg by mouth daily at bedtime. sertraline (ZOLOFT) 50 mg tablet Take 50 mg by mouth once daily. pantoprazole DR (PROTONIX) 40 mg tablet Take 1 tablet by mouth once daily. escitalopram oxalate (ESCITALOPRAM) 5 mg tablet Take 5 mg by mouth once daily. lisinopril (ZESTRIL, PRINIVIL) 40 mg tablet 40 mg. VITAMIN D-3 2,000 unit cap TAKE 1 CAPSULE BY MOUTH ONCE DAILY FOR 30 DAYS acetaminophen (TYLENOL 8 HOUR) 650 mg CR tablet Take 650 mg by mouth every 8 hours as needed. REVIEW OF SYSTEMS: GENERAL: Negative for weight loss, fevers, chills, or night sweats. HEENT: Negative for sudden vision or hearing changes. NECK: Negative for masses in the neck. RESPIRATORY: See HPI CARDIAC: Negative for chest pain, palpitations, murmurs, or syncopal episodes. GI: Appetite diminished no nausea vomiting or diarrhea : Negative for hematuria, has some increased urgency and frequency MUSCULOSKELETAL: Negative for limitations in movement, pain, or swelling. NEURO: Negative for dizziness, headache, weakness or numbness. HEMATOLOGIC: Negative for bleeding or easy bruising. SKIN: Skin irritation anterior neck improving PHYSICAL EXAM: VS: BP 138/55 Pulse 75 Temp 36.2 C (97.1 F) Resp 16 Wt 70.3 kg (155 lb) SpO2 95% BMI 23.90 kg/m KPS: 100 General Appearance: Alert and oriented. No acute distress. HEENT: NCAT. Sclera anicteric. PERRL. EOMI. Oral cavity and oropharynx: lips and gums normal, oral and pharyngeal mucosa moist, tongue mobile and without palpable lesions, tonsils without masses Indirect laryngeal exam with no obvious lesions Neck: Normal ROM. No palpable cervical or supraclavicular adenopathy. Neck mobility: Good Musculoskeletal: No edema. Normal ROM in extremities. No bone or spine tenderness. Neuro: Speech fluent. Gait normal. No focal deficits. Skin: No rashes noted Lymphatics: No palpable lymphadenopathy. ASSESSMENT/PLAN: Laryngeal cancer, squamous cell carcinoma in situ, stage [id number]. Patient having several issues likely multifactorial. Do not feel they were related to his laryngeal cancer although I do want restaging with CT chest given his increased cough and dyspnea. He does have underlying chronic renal insufficiency however this is stable. He also has underlying anemia and thrombocytopenia, this is stable and he has continued follow-up with hematology, as well as for lupus anticoagulant and thrombocytopenia.. He also has continued follow-up with for posttreatment surveillance of his laryngeal carcinoma. I will plan to have him back after his CT chest. Signed by: Camille Agarwal MD cc: Eloy Matamoros MD [address] [place] [address] Dr. Rodriguez Portions of the above note extracted and edited from previous visit as well as active information included in the EMR. documented in this encounter [facility] 10-16-2013 History of Past i llness Narrative Problem Noted Date Resolved Date SLE (systemic lupus erythematosus) 10/16/2013 10/05/2016 documented as of this encounter (statuses as of 11/08/2021) [facility] History of Past illness Narrative* Problem Noted Date Resolved Date SLE (systemic lupus erythematosus) 10/16/2013 10/05/2016 documented as of this encounter (statuses as of 11/25/2021) [facility] History of Past illness Narrative* Problem Noted Date Resolved Date SLE (systemic lupus erythematosus) 10/16/2013 10/05/2016 documented as of this encounter (statuses as of 12/29/2021) [facility] of Past illness Narrative* Problem Noted Date Resolved Date SLE (systemic lupus erythematosus) 10/16/2013 10/05/2016 documented as of this encounter (statuses as of 12/30/2021) [facility] of Past illness Narrative* Problem Noted Date Resolved Date SLE (systemic lupus erythematosus) 10/16/2013 10/05/2016 documented as of this encounter (statuses as of 01/09/2022) [facility] of [facility] Narrative* Problem Noted Date Resolved Date SLE (systemic lupus erythematosus) 10/16/2013 10/05/2016 documented as of this encounter (statuses as of 07/12/2022) [facility] of Past illness Narrative* Problem Noted Date Diagnosed Date Resolved Date SLE (systemic lupus erythematosus) 10/16/2013 10/05/2016 documented as of this encounter (statuses as of 12/21/2022) [facility] illness Narrative* Problem Noted Date Diagnosed Date Resolved Date SLE (systemic lupus erythematosus) 10/16/2013 10/05/2016 documented as of this encounter (statuses as of 01/10/2023) [facility] illness Narrative* Problem Noted Date Diagnosed Date Resolved Date SLE (systemic lupus erythematosus) 10/16/2013 10/05/2016 documented as of this encounter (statuses as of 07/20/2023) [facility] note* Diagnosis Acquired atrophy of thyroid- Primary Other specified disorders of thyroid Malignant neoplasm of larynx (HCC) Malignant neoplasm of larynx, unspecified site [facility] Diagnosis Lung nodules Other nonspecific abnormal finding of lung field Neoplasm of lung Neoplasm of unspecified nature of respiratory system [facility] Diagnosis Lupus anticoagulant positive- Primary Other and unspecified nonspecific immunological findings Rheumatoid arthritis of multiple sites with negative rheumatoid factor (HCC) Thrombocytopenia (HCC) Thrombocytopenia, unspecified Lung nodule Solitary pulmonary nodule documented in this encounter [facility] note* Diagnosis Lung nodules- Primary Other nonspecific abnormal finding of lung field Malignant neoplasm of larynx (HCC) Malignant neoplasm of larynx, unspecified site Other fatigue Disorder of thyroid Unspecified disorder of thyroid [facility] Diagnosis Malignant neoplasm of larynx (HCC)- Primary Malignant neoplasm of larynx, unspecified site Disorder of thyroid Unspecified disorder of thyroid [facility]* Diagnosis Malignant neoplasm of larynx (HCC)- Primary Malignant neoplasm of larynx, unspecified site Hypothyroidism due to acquired atrophy of thyroid [facility] Diagnosis Malignant neoplasm of larynx (HCC)- Primary Malignant neoplasm of larynx, unspecified site Acquired atrophy of thyroid Other specified disorders of thyroid [facility]* Diagnosis Chronic obstructive pulmonary disease, unspecified COPD type (CMS/HCC)- Primary [facility] Abnormal stress test Other nonspecific abnormal cardiovascular system function study Lupus anticoagulant disorder (CMS/HCC) Primary hypercoagulable state Chronic kidney disease, unspecified CKD stage Chronic obstructive pulmonary disease, unspecified COPD type (CMS/HCC) Laryngeal cancer (CMS/HCC) Malignant neoplasm of larynx, unspecified site Former smoker Personal history of tobacco use, presenting hazards to health Hyperlipidemia, unspecified hyperlipidemia type Essential hypertension Unspecified essential hypertension documented in this encounter [facility] Work Phone: Evaluation note* Diagnosis Malignant neoplasm of larynx (HCC)- Primary Malignant neoplasm of larynx, unspecified site Lung nodule Solitary pulmonary nodule Atrophy of thyroid (acquired) documented in this encounter [facility] for referral (narrative)* Diagnostic Procedure Only (Routine) - Authorized Specialty Diagnoses / Procedures Referred By Contac t Referred To Contact MOLECULAR & FUNCTIONAL IMAGING Diagnoses Lung nodules Neoplasm of lung Procedures NM PET/CT SKULL-THIGH INITIAL PET IMAGING CT ATTENUATION SKULL BASE MID-THIGH Camille Agarwal MD [address] [place] [address] [place] [address] Molecular & Functional Imaging [address] [place] [address] Referral ID Status Reason Start Date Expiration Date Visits Requested Visits Authorized [id number] Authorized Auto-Generat ed Referral 11/24/2021 12/24/2022 1 1 [facility] for referral (narrative)* Consultation (Routine) - Authorized Specialty Diagnoses / Procedures Referred By Contac t Referred To Contact Cardiology Diagnoses Chronic kidney disease, unspecified CKD stage Essential hypertension Procedures Follow Up In Cardiology Terrence Vo DO [address] [facility] [address], [address] [address] Terrence Vo DO [address] [facility] [address], [address] [address] Referral ID Status Reason Start Date Expiration Date V isits Requested Visits Authorized [id number] Authorized 07/17/2023 07/16/2024 1 1 [facility] Work Phone: Summary Purpose Family History No Family History Records FoundUnknown Family Member Name Dates Details No pertinent family history: Mother(V49.89, Z78.9) Status:Active Unknown Family Member Name Dates Details No pertinent family history: Mother(V49.89, Z78.9) Status:Active Advance Directives No Advanced Directives Records FoundNo Advanced Directives Records FoundNo Advanced Directives Records FoundNo Advanced Directives Records FoundNo Advanced Directives Records FoundNo Advanced Directives Records FoundNo Advanced Directives Records FoundNo Advanced Directives Records Found Chief Complaint * SUSHANT CORREA is being seen for a 6 month follow-up of. * Patient is a 75-year-old gentleman returns for 6-month follow-up following recent cardiology evaluation, stress perfusion imaging revealing inferior infarction pattern with preserved left ventricularfunction 6 months ago. Patient remains asymptomatic has no angina or heart failure hospitalizations. He is a former smoker and has underlying COPD. He is tolerating current medications well. 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 He is not on any anticoagulation. * He also has a history of throat cancer status post radiation approximately 2 to 3 years ago * We rediscussed his abnormal stress test his asymptomatic status, will will continue with conservative based approach at this time. We will follow-up in 1 year * SUSHANT CORREA is being seen for an annual follow-up of. * 76-year-old gentleman returns with chief complaints of exertional dyspnea/shortness of breath, worsening fatigue and somnolence on a regular basis primarily provided complaints from his . Patienthimself says his symptoms over the past year really have not changed at all. He does have ambulatory dyspnea secondary to severe COPD, history of throat cancer with radiation, chronic cough. He denies angina or chest heaviness, pressure, discomfort, denies any edema or abdominal bloating or syncope. * He has a history of stress perfusion imaging dating back to October 2020 that was abnormal with preserved left ventricular function and inferior perfusion defect consistent with infarction but no ischemia. * He has comorbidities are noted for hypertension, chronic kidney disease, reportedly rheumatoid arthritis, COPD, essential hypertension, hyperlipidemia, laryngeal cancer, reportedly lupus anticoagulant disorder with no thromboembolic events. * He denies any previous clinical myocardial infarction has not had any revascularization procedures. * Because of the symptoms of worsening fatigue exertional dyspnea, we did offer his and himself elective coronary assessment by means of either coronary CT angiography versus cardiac catheterization electively. We did perform informed decision-making process, risk, benefits, and alternatives including continued conservative based medical therapy that we have been performing for the past year * Will otherwise follow-up in 1 year the patient will notify us if he has indication to proceed with further assessment. Reason for Referral Specialty Diagnoses / Procedures Referred By Contac t Referred To Contact CT IMAGING Diagnoses Malignant neoplasm of larynx (HCC) Procedures CT CHEST WO IVCON DIAGNOSTIC COMPUTED TOMOGRAPHY THORAX W/O Camille Howell MD [address] [place] [address] [place] [address] Ct Imaging Referral ID Status Reason Start Date Expiration Date Visits Requested Visits Authorized [id number] Authorized Auto-Generat ed Referral 11/07/2021 12/07/2022 1 1 Specialty Diagnoses / Procedures Referred By Contac t Referred To Contact CT IMAGING Diagnoses Lung nodules Malignant neoplasm of larynx (HCC) Other fatigue Disorder of thyroid Procedures CT CHEST WO IVCON DIAGNOSTIC COMPUTED TOMOGRAPHY THORAX W/O Camille Howell MD [address] [place] [address] [place] [address] Ct Imaging Referral ID Status Reason Start Date Expiration Date Visits Requested Visits Authorized [id number] Pending Review Auto-Generat ed Referral 12/28/2021 01/27/2023 1 1 Specialty Diagnoses / Procedures Referred By Contac t Referred To Contact CT IMAGING Diagnoses Malignant neoplasm of larynx (HCC) Disorder of thyroid Procedures CT CHEST WO IVCON DIAGNOSTIC COMPUTED TOMOGRAPHY THORAX W/O Camille Howell MD [address] [place] [address] [place] [address] Ct Imaging Referral ID Status Reason Start Date Expiration Date Visits Requested Visits Authorized [id number] Authorized Auto-Generat ed Referral 07/06/2022 08/05/2023 1 1 Specialty Diagnoses / Procedures Referred By Contac t Referred To Contact CT IMAGING Diagnoses 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 Procedures CT CHEST WO IVCON DIAGNOSTIC COMPUTED TOMOGRAPHY THORAX W/O Camille Howell MD [address] [place] [address] [place] [address] [place] [address] Referral ID Status Reason Start Date Expiration Date Visits Requested Visits Authorized [id number] Authorized Auto-Generat ed Referral 07/12/2023 02/08/2024 1 1 Specialty Diagnoses / Procedures Referred By Contac t Referred To Contact CT IMAGING Diagnoses Malignant neoplasm of larynx (HCC) Lung nodule Procedures CT CHEST WO IVCON DIAGNOSTIC COMPUTED TOMOGRAPHY THORAX W/O CNTRST Camille Agarwal MD [address] [place] [address] [place] [address] [place] [address] Referral ID Status Reason Start Date Expiration Date Visits Requested Visits Authorized [id number] Authorized Auto-Generat ed Referral 07/18/2024 08/17/2024 1 1 Additional Source Comments (unrecognized sect ion and content) No Status Records FoundNo Status Records FoundNo Status Records FoundNo Status Records FoundNo Status Records FoundNo Status Records FoundNo Status Records FoundNo Status Records Found INFORMATION SOURCE (unrecogn ized section and content) DATE CREATED AUTHOR 11/06/2020 [facility] DATE CREATED AUTHOR AUTHOR'S ORGANIZ ATION 05/25/2021 [facility] DATE CREATED AUTHOR AUTHOR'S ORGANIZ ATION 06/04/2021 [facility] DATE CREATED AUTHOR AUTHOR'S ORGANIZ ATION 08/16/2021 [facility] DATE CREATED AUTHOR AUTHOR'S ORGANIZ ATION 06/14/2022 [facility] DATE CREATED AUTHOR AUTHOR'S ORGANIZ ATION 09/18/2022 [facility] DATE CREATED AUTHOR AUTHOR'S ORGANIZ ATION 06/30/2023 [facility] DATE CREATED AUTHOR AUTHOR'S ORGANIZ ATION 07/22/2023 [facility] Source Comments (unrecognize d section and content) In the event this informatio n is protected by the Federal Confidentiality of Alcohol and Drug Abuse Patient Records regulations: The Federal rules restrict any use of the information to criminally investigate or prosecute any alcohol or drug abuse patient.[facility] the event this information is protected by the Federal Confidentiality of Alcohol and Drug Abuse Patient Records regulations: The Federal rules restrict any use of the information to criminally investigate or prosecute any alcohol or drug abuse patient.[facility] the event this information is protected by the Federal Confidentiality of Alcohol and Drug Abuse Patient Records regulations: The Federal rules restrict any use of the information to criminally investigate or prosecute any alcohol or drug abuse patient.[facility] the event this information is protected by the Federal Confidentiality of Alcohol and Drug Abuse Patient Records regulations: The Federal rules restrict any use of the information to criminally investigate or prosecute any alcohol or drug abuse patient.[facility] Hospital[facility] the event this information is protected by the Federal Confidentiality of Alcohol and Drug Abuse Patient Records regulations: The Federal rules restrict any use of the information to criminally investigate or prosecute any alcohol or drug abuse patient.[facility] HospitalIn the event this information is protected by the Federal Confidentiality of Alcohol and Drug Abuse Patient Records regulations: The Federal rules restrict any use of the information to criminally investigate or prosecute any alcohol or drug abuse patient.[facility] HospitalIn the event this information is protected by the Federal Confidentiality of Alcohol and Drug Abuse Patient Records regulations: The Federal rules restrict any use of the information to criminally investigate or prosecute any alcohol or drug abuse patient.[facility] Hospital[facility] the event this information is protected by the Federal Confidentiality of Alcohol and Drug Abuse Patient Records regulations: The Federal rules restrict any use of the information to criminally investigate or prosecute any alcohol or drug abuse patient.[facility] Hospital[facility] the event this information is protected by the Federal Confidentiality of Alcohol and Drug Abuse Patient Records regulations: The Federal rules restrict any use of the information to criminally investigate or prosecute any alcohol or drug abuse patient.[facility] Reason for Visit (unrecogniz ed section and content) Reason Comments Head and Neck Cancer Reason Comments Laryngeal Cancer Reason Comments lupus Reason Comments Referral Information Pulmonary Reason Comments Orders Reason Comments COPD 3 month follow up Reason Comments Annual Exam Care Teams (unrecognized sec tion and content) Medical Records Custodian Relationship Specialty Start Date End Date Andrew Talita [address] [place] [address] PCP - General Family Practice 11/04/19 Medical Records Custodian Relationship Specialty Start Date End Date Andrew Talita [address] [place] [address] PCP - General Family Practice 11/04/19 Medical Records Custodian Relationship Specialty Start Date End Date Lesley Mistyrty [address] [place] [address] PCP - General Family Practice 11/04/19 Medical Records Custodian Relationship Specialty Start Date End Date Lesley Mistryty [address] [place] [address] PCP - General Family Practice 11/04/19 Medical Records Custodian Relationship Specialty Start Date End Date Lesley Mistryty [address] [place] [address] PCP - General Family Medicine 11/04/19 Medical Records Custodian Relationship Specialty Start Date End Date Talita Mistry [address] [place] [address] PCP - General Family Medicine 11/04/19 Medical Records Custodian Relationship Specialty Start Date End Date Talita Mistry [address] [place] [address] PCP - General [facility] 11/04/19 Medical Records Custodian Relationship Specialty Start Date End Date Talita Mistry DO [address] [place] [address] PCP - General Family [facility] 02/28/23 Medical Records Custodian Relationship Specialty Start Date End Date Talita Mistry DO [address] [place] [address] PCP - General [facility] 02/28/23 Medical Records Custodian Relationship Specialty Start Date End Date Talita Mistry DO [address] [facility] [place] [address] PCP - General [facility] 02/28/23 Medical Records Custodian Relationship Specialty Start Date End Date Talita Mistry DO [address] [place] [address] PCP General 06/08/22 Medical Records Custodian Relationship Specialty Start Date End Date Talita Mistry DO [address] [place] [address] PCP - General Family [facility] 11/04/19 FOR RECORDS PERTAINING TO PATIENTS WHO ARE OR HAVE BEEN ENROLLED IN A CHEMICAL DEPENDENCY/SUBSTANCEABUSE PROGRAM, SOME INFORMATION MAY BE OMITTED. This clinical summary was aggregated from multiple sources. Caution should be exercised in using it in the provision of clinical care. This summary normalizes information from multiple sources, and as a consequence, information in this document may materially change the coding, format and clinical context of patient data. In addition, data may be omitted in some cases. CLINICAL DECISIONS SHOULD BE BASED ON THE PRIMARY CLINICAL RECORDS. [facility] [employer] [facility]. provides no warranty or guarantee of the accuracy or completeness of information in this document.
[2023-12-21 15:45] LABS: Basophils Absolute Auto 0.1 10^3/uL (0.0-0.1); Basophils Percent Auto 0.8 % (0.2-2.0); Eosinophils Absolute Auto 0.3 10^3/uL (0.0-0.7); Eosinophils Percent Auto 4.6 % (0.9-7.0); Hemoglobin 11.9 g/dL (14.0-18.0); Immature Granulocytes Abs Auto 0.01 10^3/uL (0.00-0.03); Immature Granulocytes Pct Auto 0.2 % (0.0-0.5); Lymphocytes Absolute Auto 1.2 10^3/uL (1.2-3.8); Lymphocytes Percent Auto 18.2 % (20.5-60.0); Mean Corpuscular HGB Conc 32.2 g/dL (29.9-35.2); Mean Corpuscular Hemoglobin 30.7 pg (25.9-34.0); Mean Corpuscular Volume 95.6 fL (80.0-94.0); Mean Platelet Volume 13.4 fL (9.5-13.5); Monocytes Absolute Auto 0.5 10^3/uL (0.3-0.8); Monocytes Percent Auto 7.8 % (1.7-12.0); Neutrophils Absolute Auto 4.5 10^3/uL (1.4-6.5); Neutrophils Percent Auto 68.4 % (43.0-75.0); Platelet Count 67 10^3/uL (150-450); Red Blood Count 3.87 10^6/uL (4.70-6.10); Red Cell Distribution Width 14.3 % (11.0-15.0); White Blood Count 6.5 10^3/uL (4.0-11.0)
[2023-12-21 15:56] LABS: Creatinine Urine Random 176.42 mg/dL (20.00-300.00); Microalbum Creatinine Ratio Ur 17.5 mg/g (0.0-29.9); Microalbumin Urine Random 3.1 mg/dL (<=30.0)
[2023-12-21 16:03] LABS: Anion Gap 13.1; BUN Creatinine Ratio 12.8; Calcium 8.5 mg/dL (8.5-10.1); Carbon Dioxide 26.2 mmol/L (21.0-32.0); Chloride 106 mmol/L (98-107); Estimated GFR (African America 27 (>=60); Estimated GFR (Non-African Ame 22 (>=60); Glucose 94 mg/dL (74-106); Magnesium 1.7 mg/dL (1.8-2.4); Phosphorus 3.6 mg/dL (2.6-4.7); Potassium 5.3 mmol/L (3.5-5.1); Sodium 140 mmol/L (136-145); Uric Acid 8.2 mg/dL (3.5-7.2)
[2023-12-21 16:03] LABS: Bilirubin Urine NEGATIVE (NEGATIVE); Blood Urine NEGATIVE (NEGATIVE); Clarity Urine CLEAR (CLEAR); Color Urine YELLOW (YELLOW); Glucose Urine UA NEGATIVE (NEGATIVE); Ketones Urine NEGATIVE (NEGATIVE); Leukocyte Esterase Urine NEGATIVE (NEGATIVE); Nitrite Urine NEGATIVE (NEGATIVE); Protein Urine NEGATIVE (NEG/TRACE); Urobilinogen Urine 0.2 EU/dL (0.2-1.0)
[2023-12-21 16:12] LABS: Bacteria Urine NONE SEEN #/HPF (NONE SEEN); Cast Seen? NONE SEEN #/LPF (NONE SEEN); Crystals Seen? None Seen #/HPF (None Seen); Mucus Urine NONE SEEN (NONE SEEN); RBC Urine 0-2 #/HPF (0-2); Squamous Epithelial Cell Urine RARE #/LPF (NONE/RARE); WBC Urine NONE SEEN #/HPF (NONE SEEN)
[2023-12-21 16:13] LABS: Urine Culture Indicated NO
[2023-12-23 12:08] LABS: PTH, Intact 153 pg/mL (15-65)
== END 2023-12-21 15:04 | disposition home or self-care (01) ==
LOC: LAB 15:03
PROVIDERS: PCP Family Medicine
DX: N18.4 Chronic kidney disease, stage 4 (severe) (principal)
CPT/HCPCS: 36415; 80048; 81001; 82042; 82043; 82306; 82570; 83735; 83970; 84100; 84550; 85025

== ENCOUNTER 2024-03-26 10:46 | Outpatient (OUT) | payer MEDICARE, SELFPAY ==
[2024-03-26 11:14] LABS: Creatinine Urine Random 212.79 mg/dL (20.00-300.00); Microalbum Creatinine Ratio Ur 83.1 mg/g (0.0-29.9); Microalbumin Urine Random 17.7 mg/dL (<=30.0)
[2024-03-26 11:18] LABS: Basophils Absolute Auto 0.1 10^3/uL (0.0-0.1); Basophils Percent Auto 0.7 % (0.2-2.0); Eosinophils Absolute Auto 0.3 10^3/uL (0.0-0.7); Eosinophils Percent Auto 4.9 % (0.9-7.0); Hematocrit 35.6 % (42.0-54.0); Hemoglobin 11.2 g/dL (14.0-18.0); Immature Granulocytes Abs Auto 0.02 10^3/uL (0.00-0.03); Immature Granulocytes Pct Auto 0.3 % (0.0-0.5); Mean Corpuscular HGB Conc 31.5 g/dL (29.9-35.2); Mean Corpuscular Hemoglobin 30.4 pg (25.9-34.0); Mean Corpuscular Volume 96.5 fL (80.0-94.0); Mean Platelet Volume 13.5 fL (9.5-13.5); Monocytes Absolute Auto 0.5 10^3/uL (0.3-0.8); Neutrophils Percent Auto 72.1 % (43.0-75.0); Platelet Count 52 10^3/uL (150-450); Red Blood Count 3.69 10^6/uL (4.70-6.10); Red Cell Distribution Width 14.2 % (11.0-15.0); White Blood Count 6.9 10^3/uL (4.0-11.0)
[2024-03-26 11:32] LABS: Anion Gap 12.6; BUN Creatinine Ratio 12.8; Calcium 8.9 mg/dL (8.5-10.1); Carbon Dioxide 26.3 mmol/L (21.0-32.0); Chloride 110 mmol/L (98-107); Estimated GFR (African America 30 (>=60 mL/min/1.73m^2); Estimated GFR (Non-African Ame 25 (>=60 mL/min/1.73m^2); Glucose 93 mg/dL (74-106); Magnesium 1.8 mg/dL (1.8-2.4); Potassium 4.9 mmol/L (3.5-5.1); Sodium 144 mmol/L (136-145); Uric Acid 8.6 mg/dL (3.5-7.2)
[2024-03-26 11:37] LABS: Bilirubin Urine NEGATIVE (NEGATIVE); Blood Urine NEGATIVE (NEGATIVE); Clarity Urine CLEAR (CLEAR); Color Urine YELLOW (YELLOW); Glucose Urine UA NEGATIVE (NEGATIVE); Ketones Urine NEGATIVE (NEGATIVE); Leukocyte Esterase Urine NEGATIVE (NEGATIVE); Nitrite Urine NEGATIVE (NEGATIVE); Protein Urine 30 mg/dL (NEG/TRACE); pH Urine 5.5 (5.0-9.0)
[2024-03-27 11:09] LABS: PTH, Intact 137 pg/mL (15-65)
== END 2024-03-26 10:47 | disposition home or self-care (01) ==
LOC: LAB 10:46
PROVIDERS: PCP Nurse Practitioner Family
DX: N18.4 Chronic kidney disease, stage 4 (severe) (principal)
CPT/HCPCS: 36415; 80048; 81003; 82043; 82306; 82570; 83735; 83970; 84550; 85025

== ENCOUNTER 2024-05-23 15:46 | Outpatient (OUT) | payer MEDICARE, SELFPAY ==
--- OUTSIDE RECORDS SUMMARY | 2024-05-23 15:54 | XMS_ITS | CCD ---
Author Organization [facility] Care Team Providers Care Pediatric Associate Name Role Phone Unknown, Referring Provider Unavailable Unav ailable Unavailable Unavailable Rumschlag, Talita Primary Care Provider Rumschlag, Talita Primary Care Provider Rumschlag, Talita K Unavailable Enio, Dr. Terrence Anthony Referring Unava ilable Enio, Dr. Terrence Anthony Attending Unava ilable UNKNOWN, PCP Primary Care Unavailable Rumschlag, Talita Primary Care Provider RUMSCHLAG, TALITA Admitting Unavailable RUMSCHLAG, TALITA Consulting Unavailable RUMSCHLAG, TALITA Attending Unavailable [facility] Primary Care Unavailable MISC, DR MINA Admitting Unavailable MISC, DR MINA Consulting Unavailable MISC, DR MINA Attending Unavailable [facility] Primary Care Unavailable ENGELER, DR KRISTINE Bradley Consulting Unavailable MISC, DR MINA Admitting Unavailable MISC, DR MINA Attending Unavailable MISC, DR MINA Consulting Unavailable Rumschlag DO, Talita Primary Care Provider Rumschlag DO, Talita Maggie Primary Care Provider Rumschlag DO, Talita Primary Care Provider RUMSCHLAG, TALITA Primary Care Unavailable Camille AGARWAL Referring Unavailable RUMSCHLAG, TALITA Primary Care Unavailable Camille AGARWAL Attending Unavailable Camille AGARWAL Referring Unavailable RUMSCHLAG, TALITA Primary Care Unavailable RUMSCHLAG, TALITA Primary Care Unavailable Camille AGARWAL Referring Unavailable RUMSCHLAG, TALITA Primary Care Unavailable RUMSCHLAG, TALITA Primary Care Unavailable PAIGE GUTIERREZ Referring Unavailable TALITA MISTRY Primary Care Unavailable Camille AGARWAL Attending Unavailable TALITA MISTRY Primary Care Unavailable Talita Mistry DO Primary Care Provider KYLIE CUTLER Attending Unavailable ELVIRA MUNOZ Attending Unavailable Allergies Allergy Classification Reported Allergen(s) Allergy Type Date of Onset Reaction(s) Facility (10 sources) DULoxetine; Translations: [duloxetine] Drug Allergy 0 Hallucinations, Unknown [facility] Work Phone: (15 sources) DULoxetine; Translations: [DULOXETINE HCL] Drug Allergy 9 Mental Status Change [facility] Medications Current Medications Medication Drug Class(es) Dates Sig (Normalized) Sig (Original) acetaminophen 500 mg oral tablet (20 sources) acetaminophen (T ylenol) 500 MG tablet every 8 (eight) hours Active take 1 tablet by elaine th every eight hours as needed acetaminophen 650 mg CR tablet Take 650 mg by mouth every 8 hours as needed. Active Comment on above: Take 650 mg by mouth every 8 hours as needed. [id number] 200 actuat albuterol 0.09 mg/actuat metered dose inhaler (20 sources) beta2-Adrenergic Agonist Start: 12-13-2022 End: 06-29-2023 take 2 puff(s) by inhalation every six hours for wheezing albuterol HFA 90 mcg/act inhaler Indications: Chronic obstructive pulmonary disease, unspecified COPD type ([facility]) Inhale 2 puffs every 6 (six) hours if needed for shortness of breath or wheezing 18 g 5 06/29/2023 Active take 2 puff(s) by in halation every six hours as needed albuterol HFA (PROVENTIL HFA, VENTOLIN H FA) 90 mcg/actuation inhaler Inhale 2 Puffs as instructed every 6 hours as needed. Active ProAir HFA 108 ( 90 Base) MCG/ACT AERS USE DIRECTED Quantity: 0 Refills: 0 Ordered: 08-Jun-2022 DO Active Comment on above: Inhale 2 Puffs as in structed every 6 hours as needed. amLODIPine 10 mg oral tablet (20 sources) Dihydropyridine Calcium Channel Judah Start: 0 End: 5 take 1 tablet by mouth in the morning amLODIPine (Norvasc) 10 MG tablet Take 10 mg by mouth in the morning. 08/18/2022 Active Comment on above: Take 10 mg by mouth once daily. aspirin 81 mg delayed release oral tablet (20 sources) Platelet Aggregation Inhibitor, Nonsteroidal Anti-inflammatory Drug take 1 tablet by mouth once daily aspirin 81 MG EC tablet Take 81 mg by mouth 1 (one) time each day at the same time. Active aspirin, enteric coated (ASPIRIN, ENTERIC COATED) 81 mg EC tablet Take by mouth q 24 HR. Active Comment on above: Take by mouth q 24 H R. atorvastatin 20 mg oral tablet (20 sources) HMG-CoA Reductase Inhibitor Start: 3 take 1 tablet by mouth at bedtime atorvastatin (Lipitor) 20 MG tablet Take 20 mg by mouth at bedtime. 09/22/2022 Active Start: 05-27-2019 End: 07-16-2024 take 1 tablet by mouth once daily at bedtime atorvastatin (LIPITOR) 10 mg tablet Take 10 mg by mouth daily at bedtime. 05/27/2019 Active Comment on above: Take 10 mg by mouth daily at bedtime. baclofen 10 mg oral tablet (20 sources) gamma-Aminobutyric Acid-ergic Agonist Start: 10-23-2019 baclofen (Lioresal) 10 MG tablet Take 10 mg by mouth as needed at bedtime. 11/19/2022 Active take 1 tablet by mouth once [...] times daily. cholecalciferol 0.05 mg oral capsule (14 sources) Vitamin D Start: 019 take 1 capsule by mouth once daily VITAMIN D-3 2,000 unit cap TAKE 1 CAPSULE BY MOUTH ONCE DAILY FOR 30 DAYS 6 11/05/2018 Active Comment on above: TAKE 1 CAPSULE BY [facility] ONCE DAILY FOR 30 DAYS fluticasone propionate 0.05 mg/actuat metered dose nasal spray (2 sources) Corticosteroid Start: End: take 2 spray(s) nasal route once daily fluticasone (Flonase) 50 MCG/ACT nasal spray Indications: Nasal obstruction Administer 2 sprays into each nostril Daily Shake gently. Before first use, prime pump. After use, clean tip and replace cap. 48 g 3 03/26/2024 03/26/2025 Active 30 actuat fluticasone furoate 0.1 mg/actuat / umeclidinium 0.0625 mg/actuat / vilanterol 0.025 mg/actuat dry powder inhaler (5 sources) Anticholinergic, Corticosteroid, beta2-Adrenergic Agonist Start: take 1 puff(s) by inhalation in the morning Fluticasone-Umecli din-Vilant (Trelegy Ellipta) 100-62.5-25 MCG/ACT aerosol powder Indications: Chronic obstructive pulmonary disease, unspecified COPD type ([facility]) Inhale 1 puff in the morning. 1 each 5 06/29/2023 Active lisinopril 40 mg oral tablet (20 sources) Angiotensin Converting Enzyme Inhibitor Start: End: lisinopril (ZESTRIL, PRINIVIL) 40 mg tablet 40 mg. 11/05/2018 Active Comment on above: 40 mg. magnesium oxide 400 mg oral tablet (7 sources) Start: take 1 tablet by mouth in the morning magnesium oxide (Mag-Ox) 400 (241.3 Mg) MG tablet Take 400 mg by mouth in the morning. 01/24/2022 Active pantoprazole 40 mg delayed release oral tablet (20 sources) Proton Pump Inhibitor Start: take 1 tablet by mouth once daily pantoprazole DR (PROTONIX) 40 mg tablet Take 1 tablet by mouth once daily. 30 tablet 5 06/04/2019 Active Comment on above: Take 1 tablet by elaine th once daily. sertraline 50 mg oral tablet (20 sources) Serotonin Reuptake Inhibitor Start: take 1 tablet by mouth in the morning sertraline (Zoloft) 50 MG tablet Take 50 mg by mouth in the morning. 10/06/2022 Active Comment on above: Take 50 mg by mouth once daily. 30 actuat umeclidinium 0.0625 mg/actuat / vilanterol 0.025 mg/actuat dry powder inhaler (4 sources) Anticholinergic, beta2-Adrenergic Agonist Start: 023 End: 024 take 1 puff(s) by inhalation in the morning Umeclidinium-Vilan terol (Anoro Ellipta) 62.5-25 MCG/ACT aerosol powder Indications: Chronic obstructive pulmonary disease, unspecified COPD type ([facility]) Inhale 1 puff in the morning. 1 each 2 12/13/2022 06/29/2023 Discontinued Completed/Discontinued Medications Medication Drug Class(es) Dates Sig (Normalized) Sig (Original) escitalopram 5 mg oral tablet (4 sources) Serotonin Reuptake Inhibitor End: 12-28-2021 take 1 tablet by mouth once daily escitalopram oxalate (LEXAPRO) 5 mg tablet Take 5 mg by mouth once daily. 12/28/2021 Discontinued (Discontinued by another Health Care Provider) Comment on above: Take 5 mg by mouth o nce daily. Problems Active Problems Problem Classification Problem [...] 01-20-2022 Chronic obstructive pulmonary disease and bronchiectasis (13 sources) Chronic obstructive lung disease; Translations: [Chronic airway obstruction, not elsewhere classified] Onset: 12-14-2022 12-14-2022 Chronic Coagulation and hemorrhagic disorders (20 sources) Lupus anticoagulant disorder; Translations: [Primary hypercoagulable state] Onset: 08-06-2012 08-06-2012 Chronic Hypertension with complications and secondary hypertension (1 source) Hypertensive chronic kidney disease with stage 1 through stage 4 chronic kidney disease, or unspecified chronic kidney disease; Translations: [HTN CKD W/STAGE 1-4 CKD/UNS CKD] Onset: 09-18-2022 Chronic Malaise and fatigue (2 sources) Fatigue; Translations: [Other fatigue] Episodic Neoplasms of unspecified nature or uncertain behavior (2 sources) Neoplasm of lung ; Translations: [Neoplasm of unspecified behavior of respiratory system] Episodic Nutritional deficiencies (1 source) Vitamin D deficiency, unspecified; Translations: [Vitamin D deficiency] Onset: 07-19-2023 Chronic Other lower respiratory disease (2 sources) Dyspnea on exertion; Translations: [Shortness of breath] Resolved: 05-24-2021 Episodic Other lower respiratory disease (4 sources) Multiple nodules of lung; Translations: [Other nonspecific abnormal finding of lung field] Episodic Other lower respiratory disease (1 source) Cough; Translations: [Cough] Episodic Other nutritional; endocrine; and metabolic disorders (1 source) Overweight in adulthood with body mass index of 25 or more but less than 30; Translations: [Overweight] Episodic Other upper respiratory disease (2 sources) Nasal obstruction; Translations: [Other specified disorders of nose and nasal sinuses] 03-26-2024 Episodic Residual codes; unclassified (1 source) Body mass index 20-24 - normal; Translations: [Body Mass Index between 19-24, adult] Episodic Rheumatoid arthritis and related disease (20 sources) Rheumatoid arthritis; Translations: [Rheumatoid arthritis] Onset: 10-01-2014 01-09-2019 Chronic Screening and history of mental health and substance abuse codes (4 sources) Ex-smoker; Translations: [Personal history of tobacco use] Onset: 07-17-2023 07-17-2023 Episodic Thyroid disorders (11 sources) Atrophy of thyroid - acquired; Translations: [Atrophy of thyroid (acquired)] Onset: 01-05-2023 Episodic Past or Other Problems Problem Classification Problem Date Documented Da te Episodic/Chronic Chronic obstructive pulmonary disease and bronchiectasis (20 sources) Bronchitis; Translations: [Bronchitis, not specified as acute or chronic] Onset: 10-16-2013 Resolved: 06-28-2023 10-16-2013 Episodic Conduction disorders (9 sources) Right bundle branch block; Translations: [Right bundle branch block] Onset: 06-07-2023 Resolved: 06-28-2023 06-28-2023 Chronic Coronary atherosclerosis and other heart disease (8 sources) History of myocardial infarction; Translations: [Old myocardial infarction] Onset: 06-07-2023 Resolved: 06-28-2023 06-28-2023 Chronic Disorders of lipid metabolism (15 sources) Hyperlipidemia; Translations: [Other and unspecified hyperlipidemia] Onset: 09-15-2022 Resolved: 06-28-2023 Chronic Essential hypertension (14 sources) Essential hypertension; Translations: [Unspecified essential hypertension] Onset: 09-15-2022 Resolved: 06-28-2023 Chronic Immunizations and screening for infectious disease (20 sources) Lupus anticoagulant disorder; Translations: [Raised antibody titer] Onset: 10-01-2014 10-01-2014 Episodic Other bone disease and musculoskeletal deformities (14 sources) Disorder of bone; Translations: [Other specified disorders of bone, unspecified site] Onset: 08-09-2012 08-09-2012 Episodic Other diseases of kidney and ureters (20 sources) Renal impairment; Translations: [Disorder of kidney and ureter, unspecified] Onset: 08-09-2012 08-09-2012 Episodic Other lower respiratory disease (20 sources) Nodule of lung; Translations: [Solitary pulmonary nodule] Onset: 08-23-2017 08-23-2017 Episodic Other screening for suspected conditions (not mental disorders or infectious disease) (20 sources) Cardiovascular stress test abnormal; Translations: [Other nonspecific abnormal results of function study of cardiovascular system] Onset: 08-09-2012 Resolved: 06-28-2023 08-09-2012 Episodic Other skin disorders (14 sources) Eruption; Translations: [Rash and other nonspecific skin eruption] Onset: 08-09-2012 08-09-2012 Episodic Residual codes; unclassified (9 sources) Sleep apnea; Translations: [Unspecified sleep apnea] Onset: 06-07-2023 Resolved: 06-28-2023 06-28-2023 Chronic Residual codes; unclassified (2 sources) History of clinical finding in subject; Translations: [Personal history of other specified diseases] Resolved: 05-24-2021 Episodic Systemic lupus erythematosus and connective tissue disorders (5 sources) Systemic lupus erythematosus; Translations: [Systemic lupus erythematosus, unspecified] Onset: 10-16-2013 Resolved: 10-05-2016 10-05-2016 Chronic Unclassified (1 source) Onset: 07-17-2023 07-17-2023 Results Test Name Value Interpretation Reference Range Facility Urinalysis complete panel (U )on 07-20-2023 Bacteria LM.HPF (Urine sed) [#/Area] Negative Normal Negative [facility] Comment on above: Order Comment: Speci men Type: URINE SPECIMEN Ordering Facility: External Submitter Address: , , Performed By: #### 2 4356-8 #### [facility] CLIA [id number] [facility] [place] [address] [place] Bilirubin Ql (U) Negative Normal Negative [facility] Comment on above: Order Comment: Speci men Type: URINE SPECIMEN Ordering Facility: External Submitter Address: , , Performed By: #### 2 4356-8 #### [facility] CLIA [id number] [address] [place] [address] [place] Clarity (Unsp spec) Clear Normal Clear [facility] Comment on above: Order Comment: Speci men Type: URINE SPECIMEN Ordering Facility: External Submitter Address: , , Performed By: #### 2 4356-8 #### [facility] CLIA [id number] [address] [place] [address] [place] Color (U) Yellow Normal Yellow [facility] Comment on above: Order Comment: Speci men Type: URINE SPECIMEN Ordering Facility: External Submitter Address: , , Performed By: #### 2 4356-8 #### [facility] CLIA [id number] [address] [place] [address] [place] Epithelial cells LM.HPF (Urine sed) [#/Area] None Seen Normal [facility] Comment on above: Order Comment: Speci men Type: URINE SPECIMEN Ordering Facility: External Submitter Address: , , Performed By: #### 2 4356-8 #### [facility] CLIA [id number] [address] [place] [address] [place] Glucose Test strip (U) [Mass/Vol] Negative Normal Negative [facility] Comment on above: Order Comment: Speci men Type: URINE SPECIMEN Ordering Facility: External Submitter Address: , , Performed By: #### 2 4356-8 #### [facility] CLIA [id number] [address] [place] [address] [place] Hemoglobin Ql (U) Negative Normal Negative [facility] Comment on above: Order Comment: Speci men Type: URINE SPECIMEN Ordering Facility: External Submitter Address: , , Performed By: #### 2 4356-8 #### [facility] CLIA [id number] [address] [place] [address] [place] Hyaline casts (Urine sed) [#/Area] 1-3 /LPF Abnormal 0 /LPF [facility] Comment on above: Order Comment: Speci men Type: URINE SPECIMEN Ordering Facility: External Submitter Address: , , Performed By: #### 2 4356-8 #### [facility] CLIA [id number] [address] [place] [address] [place] Ketones Ql (U) Negative Normal Negative [facility] Comment on above: Order Comment: Speci men Type: URINE SPECIMEN Ordering Facility: External Submitter Address: , , Performed By: #### 2 4356-8 #### [facility] CLIA [id number] [address] [place] [address] OF [facility] Leukocyte esterase Test strip Ql (U) 1+ Abnormal Negative [facility] Comment on above: Order Comment: Speci men Type: URINE SPECIMEN Ordering Facility: External Submitter Address: , , Performed By: #### 2 4356-8 #### [facility] CLIA [id number] [address] [place] [address] [place] Nitrite Ql (U) Negative Normal Negative [facility] Comment on above: Order Comment: Speci men Type: URINE SPECIMEN Ordering Facility: External Submitter Address: , , Performed By: #### 2 4356-8 #### [facility] CLIA [id number] [address] [place] pH (U) 5.5 [pH] Normal <8.5 [facility] Comment on above: Order Comment: Speci men Type: URINE SPECIMEN Ordering Facility: External Submitter Address: , , Performed By: #### 2 4356-8 #### [facility] CLIA [id number] [address] [place] [address] [place] Protein (U) [Mass/Vol] Trace Abnormal Negative [facility] Comment on above: Order Comment: Speci men Type: URINE SPECIMEN Ordering Facility: External Submitter Address: , , Performed By: #### 2 4356-8 #### [facility] IA [id number] [address] [place] [address] [place] RBC LM.HPF (Urine sed) [#/Area] 0-2 /HPF Normal 0-2 /HPF [facility] Comment on above: Order Comment: Speci men Type: URINE SPECIMEN Ordering Facility: External Submitter Address: , , Performed By: #### 2 4356-8 #### [facility] CLIA [id number] [address] [place] [address] [place] Specific gravity (U) [Rel density] 1.023 Normal 1.005-1.030 [facility] Comment on above: Order Comment: Speci men Type: URINE SPECIMEN Ordering Facility: External Submitter Address: , , Performed By: #### 2 4356-8 #### [facility] CLIA [id number] [address] [place] [address] [place] Urobilinogen Ql (U) 0.2 EU/dL Normal 0.2-1.0 EU/dL [facility] Comment on above: Order Comment: Speci men Type: URINE SPECIMEN Ordering Facility: External Submitter Address: , , Performed By: #### 2 4356-8 #### [facility] CLIA [id number] [address] [id number] [address] [place] WBC LM.HPF (Urine sed) [#/Area] 0-5 /HPF Normal 0-5 /HPF [facility] Comment on above: Order Comment: Speci men Type: URINE SPECIMEN Ordering Facility: External Submitter Address: , , Performed By: #### 2 4356-8 #### [facility] CLIA [id number] [address] [place] [address] [place] 25(OH)D3 [facility]P-[facility] 2023 25-hydroxyvitamin D3 [Mass/Vol] 17.9 ng/mL Low 31.0-80.0 [facility] Comment on above: Order Comment: Speci men Type: BLOOD SPECIMEN Ordering Facility: External Submitter Address: , , Result Comment: Clas sification of 25 [place] Vitamin D status: Deficiency/Insufficiency: < or = 30 ng/ml. Sufficiency/Optimal Levels: 31-80 ng/mL Toxicity: > 100 ng/mL. Test performed by chemiluminescent immunoassay. Performed By: #### 1 989-3 #### [facility] CLIA [id number] [facility] [place] [address] [place] Albumin [facility] 024 Albumin [Mass/Vol] 4.6 g/dL Normal 3.9-4.9 [facility] Comment on above: Order Comment: Speci men Type: BLOOD SPECIMEN Ordering Facility: [facility] Address: [address] [place] [address] Performed By: #### 3 016-3, 3026-2 #### [facility] CLIA [id number] [facility] [place] [address] [place] Basic metabolic 2000 panelon 07-19-2023 Anion gap [Moles/Vol] 10 mmol/L Normal 9-18 [facility] Comment on above: Order Comment: Speci men Type: BLOOD SPECIMEN Ordering Facility: [facility] Address: [address] [place] [address] Performed By: #### 3 016-3, 3026-2 #### [facility] CLIA [id number] [address] [place] [address] [place] Calcium [Mass/Vol] 9.7 mg/dL Normal 8.5-10.2 [facility] Comment on above: Order Comment: Speci men Type: BLOOD SPECIMEN Ordering Facility: [facility] Address: [address] [place] [address] Performed By: #### 3 016-3, 3026-2 #### [facility] CLIA [id number] [address] [place] [address] [place] Chloride [Moles/Vol] 109 mmol/L High 97-105 [facility] Comment on above: Order Comment: Speci men Type: BLOOD SPECIMEN Ordering Facility: [facility] Address: [address] [place] [address] Performed By: #### 3 016-3, 3025-2 #### [facility] CLIA [id number] [address] [place] [address] [place] CO2 [Moles/Vol] 25 mmol/L Normal 22-30 [facility] Comment on above: Order Comment: Speci men Type: BLOOD SPECIMEN Ordering Facility: [facility] Address: [address] [place], [place] [address] Performed By: #### 3 016-3, 3026-2 #### [facility] CLIA [id number] [address] [place] [address] [place] Creatinine [Mass/Vol] 2.45 mg/dL High 0.73-1.22 [facility] Comment on above: Order Comment: Speci men Type: BLOOD SPECIMEN Ordering Facility: [facility] Address: [address] [place], [place] [address] Performed By: #### 3 016-3, 3026-2 #### [facility] CLIA [id number] [address] [place] [address] [place] Creatinine and Glomerular filtration rate.predicted panel (S/P/Bld) 26 mL/min/1.73m??? Low >=60 [facility] Comment on above: Order Comment: Christina pérez Type: BLOOD SPECIMEN Ordering Facility: [facility] Address: [address] [place], [place] [address] Result Comment: Luma mated Glomerular Filtration Rate (eGFR) is calculated [...] Performed By: #### 3 016-3, 3026-2 #### [facility] CLIA [id number] [address] [place] [address] [place] Glucose [Mass/Vol] 104 mg/dL High 74-99 [facility] Comment on above: Order Comment: Christina pérez Type: BLOOD SPECIMEN Ordering Facility: [facility] Address: [address] [place] [address] Result Comment: The [place] [employer] (ADA) provides guidance for cutoff [...] Standards of Medical Care in Diabetes 2016, [place] [employer]. Diabetes Care. 2016.39(Suppl 1). Performed By: #### 3 016-3, 3026-2 #### [facility] CLIA [id number] [facility] [place] [address] [place] Potassium [Moles/Vol] 5.1 mmol/L Normal 3.7-5.1 [facility] Comment on above: Order Comment: Speci men Type: BLOOD SPECIMEN Ordering Facility: [facility] Address: [address] Performed By: #### 3 016-3, 3026-2 #### [facility] CLIA [id number] [address] [place] [address] [place] Sodium [Moles/Vol] 144 mmol/L Normal 136-144 [facility] Comment on above: Order Comment: Speci men Type: BLOOD SPECIMEN Ordering Facility: [facility] Address: [address] [place] [address] Performed By: #### 3 016-3, 3026-2 #### [facility] CLIA [id number] [address] [place] [address] [place] Urea nitrogen [Mass/Vol] 33 mg/dL High 9-24 [facility] Comment on above: Order Comment: Speci men Type: BLOOD SPECIMEN Ordering Facility: [facility] Address: [address] [place], [place] [address] Performed By: #### 3 016-3, 3026-2 #### [facility] CLIA [id number] [address] [place] [address] [place] C3 SerPl-mCncon 07-19-2023 Complement C3 [Mass/Vol] 95 mg/dL Normal 86-166 [facility] Comment on above: Order Comment: Speci men Type: BLOOD SPECIMEN Ordering Facility: [facility] Address: [address] Performed By: #### 3 016-3, 3026-2 #### [facility] CLIA [id number] [address] [place] [address] [place] C4 SerPl-mCncon 07-19-2023 Complement C4 [Mass/Vol] 20 mg/dL Normal 13-46 [facility] Comment on above: Order Comment: Speci men Type: BLOOD SPECIMEN Ordering Facility: [facility] Address: [address] [place] [address] Performed By: #### 3 016-3, 3026-2 #### [facility] CLIA [id number] [address] [id number] [id number] [place] CBC W Auto Differential pane l (Bld)on 07-19-2023 Basophils (Bld) [#/Vol] 0.03 10*3/uL Normal <0.11 [facility] Comment on above: Order Comment: Speci men Type: BLOOD SPECIMEN Ordering Facility: External Submitter Address: , , Performed By: #### 5 7021-8 #### [facility] CLIA [id number] [address] [place] [address] 81332 Basophils/100 WBC (Bld) 0.5 % Normal [facility] Comment on above: Order Comment: Speci men Type: BLOOD SPECIMEN Ordering Facility: External Submitter Address: , , Performed By: #### 5 7021-8 #### [facility] CLIA [id number] [address] [place] [address] 27120 Differential cell count method Nom (Bld) Auto Normal [facility] Comment on above: Order Comment: Speci men Type: BLOOD SPECIMEN Ordering Facility: External Submitter Address: , , Performed By: #### 5 7021-8 #### [facility] CLIA [id number] [address] [place] [address] 65027 Eosinophils (Bld) [#/Vol] 0.26 10*3/uL Normal <0.46 [facility] Comment on above: Order Comment: Speci men Type: BLOOD SPECIMEN Ordering Facility: External Submitter Address: , , Performed By: #### 5 7021-8 #### [facility] CLIA [id number] [address] [place] [address] 29506 Eosinophils/100 WBC (Bld) 4.2 % Normal [facility] Comment on above: Order Comment: Speci men Type: BLOOD SPECIMEN Ordering Facility: External Submitter Address: , , Performed By: #### 5 7021-8 #### [facility] CLIA [id number] [address] [place] [address] 15498 Erythrocyte distribution width (RBC) [Ratio] 13.6 % Normal 11.5-15.0 [facility] Comment on above: Order Comment: Speci men Type: BLOOD SPECIMEN Ordering Facility: External Submitter Address: , , Performed By: #### 5 7021-8 #### [facility] CLIA [id number] [address] [place] [address] 22544 Hematocrit (Bld) [Volume fraction] 37.8 % Low 39.0-51.0 [facility] Comment on above: Order Comment: Speci men Type: BLOOD SPECIMEN Ordering Facility: External Submitter Address: , , Performed By: #### 5 7021-8 #### [facility] CLIA [id number] [address] [place] [address] 67488 Hemoglobin (Bld) [Mass/Vol] 12.0 g/dL Low 13.0-17.0 [facility] Comment on above: Order Comment: Speci men Type: BLOOD SPECIMEN Ordering Facility: External Submitter Address: , , Performed By: #### 5 7021-8 #### [facility] CLIA [id number] [address] [place] [address] 89245 Immature granulocytes (Bld) [#/Vol] 10*3/uL Normal <0.10 [facility] Comment on above: Order Comment: Speci men Type: BLOOD SPECIMEN Ordering Facility: External Submitter Address: , , Performed By: #### 5 7021-8 #### [facility] CLIA [id number] [address] [place] [address] 16521 Immature granulocytes/100 WBC (Bld) 0.3 % Normal [facility] Comment on above: Order Comment: Speci men Type: BLOOD SPECIMEN Ordering Facility: External Submitter Address: , , Performed By: #### 5 7021-8 #### [facility] CLIA [id number] [address] [place] [address] 12951 Lymphocytes (Bld) [#/Vol] 1.19 10*3/uL Normal 1.00-4.00 [facility] Comment on above: Order Comment: Speci men Type: BLOOD SPECIMEN Ordering Facility: External Submitter Address: , , Performed By: #### 5 7021-8 #### [facility] CLIA [id number] [address] [place] [address] 13219 Lymphocytes/100 WBC (Bld) 19.1 % Normal [facility] Comment on above: Order Comment: Speci men Type: BLOOD SPECIMEN Ordering Facility: External Submitter Address: , , Performed By: #### 5 7021-8 #### [facility] CLIA [id number] [address] [place] [address] 24292 MCH (RBC) [Entitic mass] 30.1 pg Normal 26.0-34.0 [facility] Comment on above: Order Comment: Speci men Type: BLOOD SPECIMEN Ordering Facility: External Submitter Address: , , Performed By: #### 5 7021-8 #### [facility] CLIA [id number] [address] [place] [address] 63662 MCHC (RBC) [Mass/Vol] 31.7 g/dL Normal 30.5-36.0 [facility] Comment on above: Order Comment: Speci men Type: BLOOD SPECIMEN Ordering Facility: External Submitter Address: , , Performed By: #### 5 7021-8 #### [facility] CLIA [id number] [address] [place] [address] 48364 MCV (RBC) [Entitic vol] 94.7 fL Normal 80.0-100.0 [facility] Comment on above: Order Comment: Speci men Type: BLOOD SPECIMEN Ordering Facility: External Submitter Address: , , Performed By: #### 5 7021-8 #### [facility] CLIA [id number] [address] [place] [address] 23614 Monocytes (Bld) [#/Vol] 0.37 10*3/uL Normal <0.87 [facility] Comment on above: Order Comment: Speci men Type: BLOOD SPECIMEN Ordering Facility: External Submitter Address: , , Performed By: #### 5 7021-8 #### [facility] CLIA [id number] [address] [place] [address] 63160 Monocytes/100 WBC (Bld) 5.9 % Normal [facility] Comment on above: Order Comment: Speci men Type: BLOOD SPECIMEN Ordering Facility: External Submitter Address: , , Performed By: #### 5 7021-8 #### [facility] CLIA [id number] [address] [place] [address] 02340 Neutrophils (Bld) [#/Vol] 4.37 10*3/uL Normal 1.45-7.50 [facility] Comment on above: Order Comment: Speci men Type: BLOOD SPECIMEN Ordering Facility: External Submitter Address: , , Performed By: #### 5 7021-8 #### [facility] CLIA [id number] [address] [place] [address] 72778 Neutrophils/100 WBC (Bld) 70.0 % Normal [facility] Comment on above: Order Comment: Speci men Type: BLOOD SPECIMEN Ordering Facility: External Submitter Address: , , Performed By: #### 5 7021-8 #### [facility] CLIA [id number] [address] [place] [address] 04884 Nucleated RBC (Bld) [#/Vol] 10*3/uL Normal <0.01 [facility] Comment on above: Order Comment: Speci men Type: BLOOD SPECIMEN Ordering Facility: External Submitter Address: , , Performed By: #### 5 7021-8 #### [facility] CLIA [id number] [address] [place] [address] 70803 Nucleated RBC/100 WBC (Bld) [Ratio] 0.0 /100 WBC Normal [facility] Comment on above: Order Comment: Speci men Type: BLOOD SPECIMEN Ordering Facility: External Submitter Address: , , Performed By: #### 5 7021-8 #### [facility] CLIA [id number] [address] [place] [address] Platelet mean volume (Bld) [Entitic vol] 12.2 fL Normal 9.0-12.7 [facility] Comment on above: Order Comment: Speci men Type: BLOOD SPECIMEN Ordering Facility: External Submitter Address: , , Performed By: #### 5 7021-8 #### [facility] CLIA [id number] [address] [place] [address] 02022 Platelets (Bld) [#/Vol] 59 10*3/uL Low 150-400 [facility] Comment on above: Order Comment: Speci men Type: BLOOD SPECIMEN Ordering Facility: External Submitter Address: , , Result Comment: No c lot detected.Results checked and verified. Performed By: #### 5 7021-8 #### [facility] IA [id number] [address] [place] [address] 80823 RBC (Bld) [#/Vol] 3.99 10*6/uL Low 4.20-6.00 [facility] Comment on above: Order Comment: Speci men Type: BLOOD SPECIMEN Ordering Facility: External Submitter Address: , , Performed By: #### 5 7021-8 #### [facility] IA [id number] [address] [place] [address] 32601 WBC (Bld) [#/Vol] 6.24 10*3/uL Normal 3.70-11.00 [facility] Comment on above: Order Comment: Speci men Type: BLOOD SPECIMEN Ordering Facility: External Submitter Address: , , Performed By: #### 5 7021-8 #### [facility] IA [id number] [address] [place] [address] 11987 Harini 07-19-2023 CNOV Office Visit (RADTSA ) SUSHANT CORREA ([id number]) 1945 M Date Time Provider Department 07/19/23 10:15 AM Camille AGARWAL During your visit today, we recorded the following information about you: Temperature Pulse Respiration Blood pressure 97.5 degrees 71/minute 16/minute 155/78 Weight 69.7 kg Camille Agarwal MD 07/20/2023 3:22 PM Signed Radiation Oncology - Follow Up Note PATIENT DIAGNOSIS: Laryngeal cancer, squamous cell carcinoma in situ, stage [id number]. RADIATION SUMMARY:DATES OF TREATMENT: 11/25/18- 01/01/19 AREA [...] 1.17 M (more content not included)... Normal [facility] Magnesium SerPl-mCncon Magnesium [Mass/Vol] 1.8 mg/dL Normal 1.7-2.3 [facility] Comment on above: Order Comment: Speci men Type: BLOOD SPECIMEN Ordering Facility: [facility] Address: [address] [place], [place] [address] Performed By: #### 3 016-3, 3026-2 #### [facility] CLIA [id number] [address] [place] [address] [place] PTH-Intact SerPl-mCncon 02- Parathyrin.intact [Mass/Vol] 120 pg/mL High 15-65 [facility] Comment on above: Order Comment: Speci men Type: BLOOD SPECIMEN Ordering Facility: [facility] Address: [address] [place], [place] [address] Performed By: #### 3 016-3, 3026-2 #### [facility] CLIA [id number] [address] [place] [address] [place] Phosphate SerPl-mCncon Phosphate [Mass/Vol] 3.0 mg/dL Normal 2.7-4.8 [facility] Comment on above: Order Comment: Speci men Type: BLOOD SPECIMEN Ordering Facility: [facility] Address: [address] [place], [place] [address] Performed By: #### 3 016-3, 3026-2 #### [facility] IA [id number] [address] [place] [address] [place] T4 SerPl-mCncon 07-19-2023 T4 [Mass/Vol] 6.0 ug/dL Normal 5.5-10.2 [facility] Comment on above: Order Comment: Speci men Type: BLOOD SPECIMEN Ordering Facility: [facility] Address: [address] [place], [place] [address] Performed By: #### 3 016-3, 3026-2 #### [facility] IA [id number] [address] [place] [address] [place] T4/THYROXINE BLOODon 024 T4 [Mass/Vol] 6.0 ug/dL 5.5 - 10.2 ug/dL [facility] TSH BLDon 07-19-2023 TSH Qn 1.840 m[IU]/L 0.270 - 4.200 mIU/L [facility] TSH SerPl-aCncon 07-19-2023 TSH Qn 1.840 m[IU]/L Normal 0.270-4.200 [facility] Comment on above: Order Comment: Speci men Type: BLOOD SPECIMEN Ordering Facility: [facility] Address: [address] [place] [address] Performed By: #### 3 016-3, 3026-2 #### [facility] CLIA [id number] [address] [facility] DESK [address] [place] CT CHEST WO IVCONon 07-12-[address] CHEST WO IVCON * * *Final Report* * * DATE OF EXAM: Jul 12 2023 8:02AM [facility] 0541 - CT CHEST WO IVCON / [...] posterior costophrenic sulcus is excluded from the sfpql-fp-ddxy.. Lines, tubes, and devices: None. Lung parenchyma [...] the upper pole left kidney (2:217), stable. Lithographer Apprentice (topogram) images: No additional findings. IMPRESSION: 1. [...] any questions regarding this interpretation, please call [phone]. If you are unable to reach us at the number above, please feel free to contact [facility] at [phone]. [id number] N Normal [facility] CT Chest WO contraston 07-12 IMPRESSION: 1. 6 mm nodular subpleural nodular [...] any questions regarding this interpretation, please call [phone]. If you are unable to reach us at the number above, please feel free to contact [facility] at [phone]. DIVISION OF RADIOLOGY * * *Final Report* * * DATE OF EXAM: Jul 12 2023 8:02AM [facility] 0541 - CT CHEST WO IVCON / [...] posterior costophrenic sulcus is excluded from the zddmd-mc-izcw.. Lines, tubes, and devices: None. Lung parenchyma [...] the upper pole left kidney (2:217), stable. Lithographer Apprentice (topogram) images: No additional findings. DIVISION OF RADIOLOGY Provider, Khadijah [facility] - 07/12/2023 * * *Final Report* * * DATE OF EXAM: Jul 12 2023 8:02AM [facility] 0541 - CT CHEST WO IVCON / [...] posterior costophrenic sulcus is excluded from the obbuq-hd-faun.. Lines, tubes, and devices: None. Lung parenchyma [...] the upper pole left kidney (2:217), stable. Lithographer Apprentice (topogram) images: No additional findings. IMPRESSION IMPRESSION: 1. 6 mm nodular subpleural nodular [...] any questions regarding this interpretation, please call [phone]. If you are unable to reach us at the number above, please feel free to contact [facility] at [phone]. [facility] Radiology Study observation (narrative) [facility] CT Chest WO contrastOrdered By: Ccf Provider on 07-12-2023 [facility] T4 SerPl-mCncon 07-12-2023 T4 [Mass/Vol] 6.2 ug/dL Normal 5.5-10.2 [facility] Comment on above: Order Comment: Speci beto Type: BLOOD SPECIMEN Ordering Facility: [facility] Address: [address] [place] [address] Performed By: #### 3 016-3, 3026-2 #### [facility] CLIA [id number] [address] [place] [address] [place] TSH SerPl-aCncon 07-12-2023 TSH Qn 2.070 m[IU]/L Normal 0.270-4.200 [facility] Comment on above: Order Comment: Speci men Type: BLOOD SPECIMEN Ordering Facility: [facility] Address: [address] [place] [address] Performed By: #### 3 016-3, 3026-2 #### [facility] CLIA [id number] [address] [facility] [place] [id number] [place] [facility] CNOVon 01-09-2023 CNOV Office Visit (RADTSA ) SUSHANT CORREA ([id number]) 1945 M Date Time Provider Department 01/09/23 2:15 PM Camille AGARWAL During your visit today, we recorded the following information about you: Weight 70.3 kg Camille Agarwal MD 01/09/2023 2:16 PM Signed Radiation Oncology - Follow Up Note PATIENT DIAGNOSIS: Laryngeal cancer, squamous cell carcinoma in situ, stage [id number]. RADIATION SUMMARY:DATES OF TREATMENT: 11/25/18- 01/01/19 AREA [...] Ref Range: 1.00 - 4.00 k/uL 1.17 [place]% Latest Units: % 6.3 Abs [place] Latest Ref Range: <0.87 k/uL 0.42 E[place]% [...] Ref Ra (more content not included)... Normal [facility] CT Chest WO contraston 01-08 IMPRESSION: 1. Multiple bilateral pulmonary nodules, overall [...] any questions regarding this interpretation, please call [phone]. If you are unable to reach us at the number above, please feel free to contact [facility] at [phone]. DIVISION OF RADIOLOGY * * *Final Report* * * DATE OF EXAM: Jan 05 2023 1:36PM [facility] 0541 - CT CHEST WO IVCON / [...] the upper pole of the left kidney. Lithographer Apprentice (topogram) images: No additional findings. DIVISION OF RADIOLOGY Provider, [facility] - 01/08/2023 * * *Final Report* * * DATE OF EXAM: Jan 05 2023 1:36PM [facility] 0541 - CT CHEST WO IVCON / [...] the upper pole of the left kidney. Lithographer Apprentice (topogram) images: No additional findings. IMPRESSION IMPRESSION: 1. Multiple bilateral pulmonary nodules, overall [...] any questions regarding this interpretation, please call [phone]. If you are unable to reach us at the number above, please feel free to contact [facility] at [phone]. [facility] CT Chest WO contrastOrdered By: Ccf Provider on 01-08-[address] [facility] [address] CHEST WO IVCONon 01-06-20 CT CHEST WO IVCON * * *Final Report* * * DATE OF EXAM: Jan 05 2023 1:36PM [facility] 0541 - CT CHEST WO IVCON / [...] the upper pole of the left kidney. Lithographer Apprentice (topogram) images: No additional findings. IMPRESSION: 1. [...] any questions regarding this interpretation, please call [phone]. If you are unable to reach us at the number above, please feel free to contact [facility] at [phone]. [id number] N Normal [facility] CT Chest WO contraston 01-05 Radiology Study observation (narrative) [facility] T4 SerPl-mCncon 01-05-2023 T4 [Mass/Vol] 5.9 ug/dL Normal 5.5-10.2 [facility] Comment on above: Order Comment: Speci men Type: BLOOD SPECIMEN Ordering Facility: [facility] Address: [address] [place] [address] Performed By: #### 3 016-3, 3026-2 #### [facility] CLIA [id number] [address] [place] [address] OF [facility] TSH SerPl-aCncon 01-05-2023 TSH Qn 0.988 m[IU]/L Normal 0.270-4.200 [facility] Comment on above: Order Comment: Speci beto Type: BLOOD SPECIMEN Ordering Facility: [facility] Address: [address] [place] [address] Performed By: #### 3 016-3, 3026-2 #### [facility] CLIA [id number] [address] [place] [address] CNPNon 12-21-2022 DANTEN Telephone (RADANNIEA) SUSHANT CORREA ([id number]) 1945 M Date Time Provider Department 12/21/22 [...] thyroid [E03.4] Order(s):TSH BLD [SQTSH] Order #: [id number] FUTURE T4/THYROXINE BLOOD [SQT4] Order #: [id number] FUTURE Prescriptions as of 12/21/2022 - aspirin, [...] by Camille AGARWAL on 12/21/22 [facility] PTH INTACTon 09-16-2022 PTH, Intact 64 pg/mL Normal 15-65 [facility] Comment on above: Performed By: #### M ALBCRL #### [facility] [address] [place] [address] [address] Alison Patterson CBC AUTO DIFFon 09-15-2022 BASO # 0.1 103/ul Normal 0.0-0.1 [facility] Comment on above: Performed By: #### C BC #### [facility] [address] [place] [address] Dr. Alison Patterson Basophils/100 WBC (Bld) 0.8 % Normal 0.2-2.0 [facility] Comment on above: Performed By: #### C BC #### [facility] [address] [place] [address] Dr. Alison Patterson EO # 0.5 103/ul Normal 0.0-0.7 [facility] Comment on above: Performed By: #### C BC #### [facility] [address] [place] [address] Dr. Alison Patterson Eosinophils/100 WBC (Bld) 7.2 % Critically high 0.9-7.0 [facility] Comment on above: Performed By: #### C BC #### [facility] [address] [place] [address] Dr. Alison Patterson Erythrocyte distribution width (RBC) [Ratio] 13.7 % Normal 11.0-15.0 [facility] Comment on above: Performed By: #### C BC #### [facility] [address] [place] [address] Dr. Alison Patterson Hematocrit (Bld) [Volume fraction] 39.8 % Critically low 42.0-54.0 [facility] Comment on above: Performed By: #### C BC #### [facility] [address] [place] [address] Dr. Alison Patterson Hemoglobin (Bld) [Mass/Vol] 12.5 g/dL Critically low 14.0-18.0 [facility] Comment on above: Performed By: #### C BC #### [facility] [address] [place] [address] Dr. Alison Patterson IG # 0.01 10e3/ul Normal 0.00-0.03 [facility] Comment on above: Performed By: #### C BC #### [facility] [address] [place] [address] Dr. Alison Patterson IG % 0.2 % Normal 0.0-0.5 [facility] Comment on above: Performed By: #### C BC #### [facility] [address] [place] [address] Dr. Alison Patterson LYMPH # 1.5 103/ul Normal 1.2-3.8 [facility] Comment on above: Performed By: #### C BC #### [facility] [address] [place] [address] Dr. Alison Patterson Lymphocytes/100 WBC (Bld) 23.3 % Normal 20.5-60.0 [facility] Comment on above: Performed By: #### C BC #### [facility] [address] [place] [address] Dr. Alison Patterson MANUAL DIFF REQ NO Normal [facility] Comment on above: Performed By: #### C BC #### [facility] [address] [place] [address] Dr. Alison Patterson MCH (RBC) [Entitic mass] 30.6 pg Normal 25.9-34.0 [facility] Comment on above: Performed By: #### C BC #### [facility] [address] [place] [address] Dr. Alison Patterson MCHC (RBC) [Mass/Vol] 31.4 g/dL Normal 29.9-35.2 [facility] Comment on above: Performed By: #### C BC #### [facility] [address] [place] [address] Dr. Alison Patterson MCV (RBC) [Entitic vol] 97.5 fL Critically high 80.0-94.0 [facility] Comment on above: Performed By: #### C BC #### [facility] [address] [place] [address] [address] Alison Patterson MONO # 0.5 103/ul Normal 0.3-0.8 [facility] Comment on above: Performed By: #### C BC #### [facility] [address] [place] [address] [address] Alison Patterson Monocytes/100 WBC (Bld) 7.2 % Normal 1.7-12.0 [facility] Comment on above: Performed By: #### C BC #### [facility] [address] [place] [address] [address] Alison Patterson NEUT # 3.9 103/ul Normal 1.4-6.5 [facility] Comment on above: Performed By: #### C BC #### [facility] [address] [place] [address] Dr. Alison Patterson Neutrophils/100 WBC (Bld) 61.3 % Normal 43.0-75.0 [facility] Comment on above: Performed By: #### C BC #### [facility] [address] [place] [address] Dr. Alison Patterson Platelet mean volume (Bld) [Entitic vol] 12.7 fL Normal 9.5-13.5 [facility] Comment on above: Performed By: #### C BC #### [facility] [address] [place] [address] Dr. Alison Patterson PLT 78 103/ul Critically low 150-450 [facility] Comment on above: Performed By: #### C BC #### [facility] [address] [place] [address] Dr. Alison Patterson RBC 4.08 106/ul Critically low 4.70-6.10 [facility] Comment on above: Performed By: #### C BC #### [facility] [address] [place] [address] Dr. Alison Patterson WBC 6.4 103/ul Normal 4.0-11.0 [facility] Comment on above: Performed By: #### C BC #### [facility] [address] [place] [address] Dr. Alison Patterson LIPID PROFILEon 09-15-2022 CHOL-HDL RATIO NORM SEE BELOW Normal [facility] Comment on above: Result Comment: 3.3 - 4.4 LOW RISK 4.4 - 7.1 AVERAGE RISK 7.1 - 11.0 MODERATE RISK >11.0 HIGH RISK Performed By: #### C MP, LIPID #### [facility] [address] [place] [address] [address] Alison Patterson Cholesterol [Mass/Vol] 189 mg/dL Normal <=200 [facility] Comment on above: Performed By: #### C MP, LIPID #### [facility] [address] [address] [address] Alison Patterson Cholesterol in HDL [Mass/Vol] 42 mg/dL Normal 40-60 [facility] Comment on above: Performed By: #### C MP, LIPID #### [facility] [address] [address] [address] Alison Patterson Cholesterol in LDL [Mass/Vol] 116.0 mg/dL Normal [facility] Comment on above: Performed By: #### C MP, LIPID #### [facility] [address] [address] [address] Alison Patterson Cholesterol.total/Cho lesterol in HDL [Mass ratio] 4.5 {ratio} Normal [facility] Comment on above: Performed By: #### C MP, LIPID #### [facility] [address] [address] [address] Alison Patterson HDL NORMAL > or = 60 mg/dl - LO W CARDIOVASCULAR RISK <40 mg/dl - HIGH CARDIOVASCULAR RISK Normal [facility] Comment on above: Performed By: #### C MP, LIPID #### [facility] [address] [address] [address] Alison Patterson LDL CALC NORMAL SEE BELOW Normal [facility] Comment on above: Result Comment: <100 mg/dl OPTIMAL 100 - 129 mg/dl NEAR OR ABOVE OPTIMAL 130 - 159 mg/dl BORDERLINE HIGH 160 - 189 mg/dl HIGH >190 mg/dl VERY HIGH Performed By: #### C MP, LIPID #### [facility] [address] [address] [address] Alison Patterson Triglyceride [Mass/Vol] 155 mg/dL Critically high <=150 [facility] Comment on above: Performed By: #### C MP, LIPID #### [facility] [address] [place] [address] Dr. Alison Patterson VLDL CALC 31.0 mg/dL Normal [facility] Comment on above: Performed By: #### C MP, LIPID #### [facility] [address] [address] [address] Alison Patterson MAGNESIUMon 09-15-2022 Magnesium [Mass/Vol] 1.9 mg/dL Normal 1.8-2.4 [facility] Comment on above: Performed By: #### M ALBCRL #### [facility] [address] [place] [address] Dr. Alison Patterson MICROALB CREAT RATIO RANDOMo n 09-15-2022 mALB 3.7 mg/L Normal <=30.0 [facility] Comment on above: Performed By: #### M CRR #### [facility] [address] [place] [address] Dr. Alison Patterson MALB CR RATIO 14.3 mg/g Normal 0.0-29.9 [facility] Comment on above: Performed By: #### M CRR #### [facility] [address] [place] [address] Dr. Alison Patterson MALB CR RATIO RANGE SEE BELOW Normal [facility] Comment on above: Result Comment: NO M ICROALBUMINURIA 0-29 MG/G CLINICAL MICROALBUMINURIA 30-300 MG/G MACROALBUMINURIA >300 MG/G Performed By: #### M CRR #### [facility] [address] [address] [address] Alison Patterson URINE CREAT 259.52 mg/dL Normal 20.00-300.00 [facility] Comment on above: Performed By: #### M CRR #### [facility] [address] [place] [address] Dr. Alison Patterson PHOSPHORUSon 09-15-2022 Phosphate [Mass/Vol] 3.9 mg/dL Normal 2.6-4.7 [facility] Comment on above: Performed By: #### M ALBCRL #### [facility] [address] [place] [address] Dr. Alison Patterson PROF 14(COMP METB)on 023 Albumin [Mass/Vol] 4.1 g/dL Normal 3.4-5.0 [facility] Comment on above: Performed By: #### C MP, LIPID #### [facility] [address] [place] [address] Dr. Alison Patterson Albumin/Globulin [Mass ratio] 1.0 {ratio} Normal [facility] Comment on above: Performed By: #### C MP, LIPID #### [facility] [address] [place] [address] Dr. Alison Patterson ALP [Catalytic activity/Vol] 78 U/L Normal 46-116 [facility] Comment on above: Performed By: #### C MP, LIPID #### [facility] [address] [place] [address] Dr. Alison Patterson ALT [Catalytic activity/Vol] 17 U/L Normal 16-63 [facility] Comment on above: Performed By: #### C MP, LIPID #### [facility] [address] [place] [address] Dr. Alison Patterson Anion gap [Moles/Vol] 13.6 mmol/L Normal [facility] Comment on above: Performed By: #### C MP, LIPID #### [facility] [address] [place] [address] Dr. Alison Patterson AST [Catalytic activity/Vol] 14 U/L Critically low 15-37 [facility] Comment on above: Performed By: #### C MP, LIPID #### [facility] [address] [place] [address] Dr. Alison Patterson Bilirubin [Mass/Vol] 1.2 mg/dL Critically high 0.2-1.0 [facility] Comment on above: Performed By: #### C MP, LIPID #### [facility] [address] [place] [address] Dr. Alison Patterson Calcium [Mass/Vol] 9.4 mg/dL Normal 8.5-10.1 [facility] Comment on above: Performed By: #### C MP, LIPID #### [facility] [address] [address] [address] Alison Patterson Chloride [Moles/Vol] 106 mmol/L Normal 98-107 [facility] Comment on above: Performed By: #### C MP, LIPID #### [facility] [address] [address] [address] Alison Patterson CO2 [Moles/Vol] 29.2 mmol/L Normal 21.0-32.0 [facility] Comment on above: Performed By: #### C MP, LIPID #### [facility] [address] [place] [address] Dr. Alison Patterson Creatinine [Mass/Vol] 2.53 mg/dL Critically high 0.70-1.30 [facility] Comment on above: Performed By: #### C MP, LIPID #### [facility] [address] [place] [address] Dr. Alison Patterson EGFR-AF NIUEAN 30 mL/min/1.73m2 Critically low >=60 [facility] Comment on above: Performed By: #### C MP, LIPID #### [facility] [address] [place] [address] Dr. Alison Patterson EGFR-NON AF NIUEAN 25 mL/min/1.73m2 Critically low >=60 [facility] Comment on above: Performed By: #### C MP, LIPID #### [facility] [address] [place] [address] Dr. Alison Patterson Globulin (S) [Mass/Vol] 4.1 g/dL Normal [facility] Comment on above: Performed By: #### C MP, LIPID #### [facility] [address] [place] [address] Dr. Alison Patterson Glucose [Mass/Vol] 97 mg/dL Normal 74-106 [facility] Comment on above: Performed By: #### C MP, LIPID #### [facility] [address] [place], [place] [address] Dr. Alison Patterson Potassium [Moles/Vol] 4.8 mmol/L Normal 3.5-5.1 [facility] Comment on above: Performed By: #### C MP, LIPID #### [facility] [address] [place] [address] Dr. Alison Patterson Protein [Mass/Vol] 8.2 g/dL Normal 6.4-8.2 [facility] Comment on above: Performed By: #### C MP, LIPID #### [facility] [address] [place] [address] Dr. Alison Patterson Sodium [Moles/Vol] 144 mmol/L Normal 136-145 [facility] Comment on above: Performed By: #### C MP, LIPID #### [facility] [address] [place] [address] Dr. Alison Patterson Urea nitrogen [Mass/Vol] 33.0 mg/dL Critically high 7.0-18.0 [facility] Comment on above: Performed By: #### C MP, LIPID #### [facility] [address] [place] [address] Dr. Alison Patterson Urea nitrogen/Creatinine [Mass ratio] 13.0 mg/mg Normal [facility] Comment on above: Performed By: #### C MP, LIPID #### [facility] [address] [place] [address] Dr. Alison Patterson UA RANDOMon 09-15-2022 Bilirubin Ql (U) Negative Normal NEGATIVE [facility] Comment on above: Performed By: #### U A #### [facility] [address] [place] [address] Dr. lAison Patterson Clarity (U) CLEAR Normal CLEAR [facility] Comment on above: Performed By: #### U A #### [facility] [address] [place] [address] Dr. Alison Patterson Color (U) YELLOW Normal YELLOW [facility] Comment on above: Performed By: #### U A #### [facility] [address] [place] [address] Dr. Alison Patterson Glucose Ql (U) Negative Normal NEGATIVE [facility] Comment on above: Performed By: #### U A #### [facility] [address] [place] [address] Dr. Alison Patterson Hemoglobin Ql (U) Negative Normal NEGATIVE [facility] Comment on above: Performed By: #### U A #### [facility] [address] [place] [address] Dr. Alison Patterson Ketones Ql (U) Negative Normal NEGATIVE [facility] Comment on above: Performed By: #### U A #### [facility] [address] [place] [address] Dr. Alison Patterson LEUKOCYTES Negative Normal NEGATIVE [facility] Comment on above: Performed By: #### U A #### [facility] [address] [place] [address] Dr. Alison Patterson Nitrite Ql (U) Negative Normal NEGATIVE [facility] Comment on above: Performed By: #### U A #### [facility] [address] [place] [address] Dr. Alison Patterson pH (U) 5.5 [pH] Normal 5-9 [facility] Comment on above: Performed By: #### U A #### [facility] [address] [place] [address] Dr. Alison Patterson SPEC GRAVITY 1.025 Normal 1.005-<=1.025 [facility] Comment on above: Performed By: #### U A #### [facility] [address] [place] [address] Dr. Alison Patterson UA PROTEIN Negative Normal NEGATIVE/ TRACE [facility] Comment on above: Performed By: #### U A #### [facility] [address] [place] [address] Dr. Alison Patterson Urobilinogen Qn (U) 0.2 {Sarah'U}/dL Normal 0.2 - 1. 0 [facility] Comment on above: Performed By: #### U A #### [facility] [address] [place] [address] Dr. Alison Patterson VITAMIN D 25 OHon 09-15-2022 VIT D 25-OH 51.7 ng/mL Normal [facility] Comment on above: Performed By: #### M ALBCRL #### [facility] [address] [place] [address] Dr. Alison Patterson VIT D RANGES SEE BELOW Normal [facility] Comment on above: Result Comment: <20 ng/mL Vit D deficient 20 - <30 ng/mL Vit D insufficient 30 - 100 ng/mL Vit D sufficient >100 ng/mL Potential Toxicity Performed By: #### M ALBCRL #### [facility] [address] [address] Chest WO contraston 06-30 IMPRESSION: 1. 0.9 cm left upper lobe nodular opacity, decreased in size since 11/17/21. 2. Other subcentimeter nodular opacities measuring up to 7-8 mm, stable. 3. No evidence of new intrathoracic abnormalities. Transcribe Date/Time: Jun 30 2022 5:25P Dictated by: JOSIAH PEREA MD This examination was interpreted and the report reviewed and electronically signed by: JOSIAH PEREA MD on Jun 30 2022 6:06PM EST Thank you for allowing us to participate in the care of your patient. Should there be any questions regarding this interpretation, please call [phone]. If you are unable to reach us at the number above, please feel free to contact [facility] at [phone]. DIVISION OF RADIOLOGY * * *Final Report* * * DATE OF EXAM: Jun 30 2022 10:05AM [facility] 0541 - CT CHEST WO IVCON / PROCEDURE REASON: multiple diagnoses * * * * Physician Interpretation * * * * RESULT: EXAMINATION: CHEST CT WITHOUT CONTRAST CLINICAL HISTORY: Laryngeal cancer, lung nodules Technique: Spiral CT acquisition of the chest from the thoracic inlet to the upper abdomen without contrast. MQ: CTCWO_6 CT Radiation dose: Integrated Dose-length product (DLP) for this visit = 246 mGy*cm CT Dose Reduction Employed: Automated exposure control (AEC) Comparison: PET/CT scans dated 12/13/21, chest CT scan dated 11/17/21. RESULT: Limitations: None. Lines, tubes, and devices: None. Lung parenchyma and airways: Moderate emphysematous changes of the lungs. Calcified granulomas are noted. Bronchial wall thickening suggestive of bronchitis. 0.9 x 0.8 cm left upper lobe nodular opacity (4:82), previously 1.4 x 1.2 cm, decreased in size. Subcentimeter noncalcified nodular opacities measuring up to 7-8 mm, stable. For example: Right midlung field (focal 96) Right lower lobe (4:113) Left lower lobe (4:157) No new airspace opacities. The central airways are patent. Pleural space: [...] is noted in the T3 vertebral body. No new osseous abnormalities. Upper abdomen: Calcified splenic granulomas are noted. 1-2 mm nonobstructive right renal stone. 6-7 mm high attenuation focus in the upper pole left kidney (3:209), stable. Lithographer Apprentice (topogram) images: No additional findings. DIVISION OF RADIOLOGY Provider, [facility] - 06/30/2022 * * *Final Report* * * DATE OF EXAM: Jun 30 2022 10:05AM [facility] 0541 - CT CHEST WO IVCON / PROCEDURE REASON: multiple diagnoses * * * * Physician Interpretation * * * * RESULT: EXAMINATION: CHEST CT WITHOUT CONTRAST CLINICAL HISTORY: Laryngeal cancer, lung nodules Technique: Spiral CT acquisition of the chest from the thoracic inlet to the upper abdomen without contrast. MQ: CTCWO_6 CT Radiation dose: Integrated Dose-length product (DLP) for this visit = 246 mGy*cm CT Dose Reduction Employed: Automated exposure control (AEC) Comparison: PET/CT scans dated 12/13/21, chest CT scan dated 11/17/21. RESULT: Limitations: None. Lines, tubes, and devices: None. Lung parenchyma and airways: Moderate emphysematous changes of the lungs. Calcified granulomas are noted. Bronchial wall thickening suggestive of bronchitis. 0.9 x 0.8 cm left upper lobe nodular opacity (4:82), previously 1.4 x 1.2 cm, decreased in size. Subcentimeter noncalcified nodular opacities measuring up to 7-8 mm, stable. For example: Right midlung field (focal 96) Right lower lobe (4:113) Left lower lobe (4:157) No new airspace opacities. The central airways are patent. Pleural space: [...] is noted in the T3 vertebral body. No new osseous abnormalities. Upper abdomen: Calcified splenic granulomas are noted. 1-2 mm nonobstructive right renal stone. 6-7 mm high attenuation focus in the upper pole left kidney (3:209), stable. Lithographer Apprentice (topogram) images: No additional findings. IMPRESSION IMPRESSION: 1. 0.9 cm left upper lobe nodular opacity, decreased in size since 11/17/21. 2. Other subcentimeter nodular opacities measuring up to 7-8 mm, stable. 3. No evidence of new intrathoracic abnormalities. Transcribe Date/Time: Jun 30 2022 5:25P Dictated by: JOSIAH PEREA MD This examination was interpreted and the report reviewed and electronically signed by: JOSIAH PEREA MD on Jun 30 2022 6:06PM EST Thank you for allowing us to participate in the care of your patient. Should there be any questions regarding this interpretation, please call [phone]. If you are unable to reach us at the number above, please feel free to contact [facility] at [phone]. [facility] Radiology Study observation (narrative) [facility] CT Chest WO contrastOrdered By: [facility] Provider on 06-30-2022 [facility] Tobacco Screening.on 023 Fall risk assessment a) No falls within the last year -[facility] 250 DO Work Phone: Tobacco use status [facility] b) No -[facility] 250 DO Work Phone: Tobacco Screening. Yes [facility] 250 DO Work Phone: MICROALBUMIN/ CREATININE RAT IOon 01-21-2022 Albumin, Urine 43.3 ug/mL Normal Not Estab. [facility] Comment on above: Performed By: #### M ALBCRL #### [facility] [address] [place] [address] Dr. Alison Patterson Albumin/ Creatinine Ratio 23 mg/g creat Normal 0-29 [facility] Comment on above: Result Comment: Norm al: 0 - 29 Moderately increased: 30 - 300 Severely increased: >300 Performed By: #### M ALBCRL #### [facility] [address] [address] [address] Alison Patterson Creatinine, Urine 186.8 mg/dL Normal Not Estab. [facility] Comment on above: Performed By: #### M ALBCRL #### [facility] [address] [place] [address] Dr. Alison Patterson PTH INTACTon 01-21-2022 PTH, Intact 67 pg/mL Critically high 15-65 [facility] Comment on above: Performed By: #### P THINT #### [facility] [address] [place] [address] Dr. Alison Patterson VIT D 25-OH [facility] 2021 Vitamin D, 25-Hydroxy 48.0 ng/mL Normal 30.0-100.0 [facility] Comment on above: Result Comment: Elena min D deficiency has been defined by the [employer] of [employer] and an Endocrine Society practice guideline as a level of serum 25-OH vitamin D less than 20 ng/mL (1,2). The Endocrine Society went on to further define vitamin D insufficiency as a level between 21 and 29 ng/mL (2). 1. IOM ([employer] of [employer]). 2010. Dietary reference intakes for calcium and D. [place]: The National Academies Press. 2. Kennedy MF, Leilani [place], Jane PEREZ, et al. Evaluation, treatment, and prevention of vitamin D deficiency: an Endocrine Society clinical practice guideline. JCEM. 2010; 96(7):1911-30. Performed By: #### V ITADLC #### [facility] [address] [place] [address] Dr. Alison Patterson ALBUMINon 01-20-2022 Albumin [Mass/Vol] 4.0 g/dL Normal 3.4-5.0 [facility] Comment on above: Performed By: #### M ALBCRL #### [facility] [address] [place] [address] Dr. Alison Patterson CBC AUTO DIFFon 01-20-2022 BASO # 0.0 103/ul Normal 0.0-0.1 [facility] Comment on above: Performed By: #### C BC #### [facility] [address] [place] [address] Dr. Alison Patterson Basophils/100 WBC (Bld) 0.6 % Normal 0.2-2.0 [facility] Comment on above: Performed By: #### C BC #### [facility] [address] [place] [address] Dr. Alison Patterson EO # 0.2 103/ul Normal 0.0-0.7 [facility] Comment on above: Performed By: #### C BC #### [facility] [address] [place] [address] Dr. Alison Patterson Eosinophils/100 WBC (Bld) 2.9 % Normal 0.9-7.0 [facility] Comment on above: Performed By: #### C BC #### [facility] [address] [place] [address] Dr. Alison Patterson Erythrocyte distribution width (RBC) [Ratio] 15.3 % Critically high 11.0-15.0 [facility] Comment on above: Performed By: #### C BC #### [facility] [address] [place] [address] Dr. Alison Patterson Hematocrit (Bld) [Volume fraction] 36.9 % Critically low 42.0-54.0 [facility] Comment on above: Performed By: #### C BC #### [facility] [address] [place] [address] Dr. Alison Patterson Hemoglobin (Bld) [Mass/Vol] 11.7 g/dL Critically low 14.0-18.0 [facility] Comment on above: Performed By: #### C BC #### [facility] [address] [place] [address] Dr. Alison Patterson IG # 0.01 10e3/ul Normal 0.00-0.03 [facility] Comment on above: Performed By: #### C BC #### [facility] [address] [place] [address] Dr. Alison Patterson IG % 0.2 % Normal 0.0-0.5 [facility] Comment on above: Performed By: #### C BC #### [facility] [address] [place] [address] Dr. Alison Patterson LYMPH # 1.1 103/ul Critically low 1.2-3.8 [facility] Comment on above: Performed By: #### C BC #### [facility] [address] [place] [address] Dr. Alison Patterson Lymphocytes/100 WBC (Bld) 17.5 % Critically low 20.5-60.0 [facility] Comment on above: Performed By: #### C BC #### [facility] [address] [place] [address] Dr. Alison Patterson MANUAL DIFF REQ NO Normal [facility] Comment on above: Performed By: #### C BC #### [facility] [address] [place] [address] Dr. Alison Patterson MCH (RBC) [Entitic mass] 30.6 pg Normal 25.9-34.0 [facility] Comment on above: Performed By: #### C BC #### [facility] [address] [place] [address] Dr. Alison Patterson MCHC (RBC) [Mass/Vol] 31.7 g/dL Normal 29.9-35.2 [facility] Comment on above: Performed By: #### C BC #### [facility] [address] [address] [address] Alison Patterson MCV (RBC) [Entitic vol] 96.6 fL Critically high 80.0-94.0 [facility] Comment on above: Performed By: #### C BC #### [facility] [address] [address] [address] Alison Patterson MONO # 0.5 103/ul Normal 0.3-0.8 [facility] Comment on above: Performed By: #### C BC #### [facility] [address] [place] [address] Dr. Alison Patterson Monocytes/100 WBC (Bld) 7.5 % Normal 1.7-12.0 [facility] Comment on above: Performed By: #### C BC #### [facility] [address] [place] [address] Dr. Alison Patterson NEUT # 4.5 103/ul Normal 1.4-6.5 [facility] Comment on above: Performed By: #### C BC #### [facility] [address] [place] [address] Dr. Alison Patterson Neutrophils/100 WBC (Bld) 71.3 % Normal 43.0-75.0 [facility] Comment on above: Performed By: #### C BC #### [facility] [address] [place] [address] Dr. Alison Patterson Platelet mean volume (Bld) [Entitic vol] 12.8 fL Normal 9.5-13.5 [facility] Comment on above: Performed By: #### C BC #### [facility] [address] [place] [address] Dr. Alison Patterson PLT 75 103/ul Critically low 150-450 [facility] Comment on above: Performed By: #### C BC #### [facility] [address] [place] [address] Dr. Alison Patterson RBC 3.82 106/ul Critically low 4.70-6.10 [facility] Comment on above: Performed By: #### C BC #### [facility] [address] [place] [address] Dr. Alison Patterson WBC 6.3 103/ul Normal 4.0-11.0 [facility] Comment on above: Performed By: #### C BC #### [facility] [address] [place] [address] Dr. Alison Patterson MAGNESIUMon 01-20-2022 Magnesium [Mass/Vol] 1.6 mg/dL Critically low 1.8-2.4 [facility] Comment on above: Performed By: #### M ALBCRL #### [facility] [address] [place] [address] Dr. Alison Patterson PHOSPHORUSon 01-20-2022 Phosphate [Mass/Vol] 3.2 mg/dL Normal 2.6-4.7 [facility] Comment on above: Performed By: #### M ALBCRL #### [facility] [address] [place] [address] Dr. Alison Patterson PROF CHEM 8 (BAS METB)on Anion gap [Moles/Vol] 14.7 mmol/L Normal [facility] Comment on above: Performed By: #### M ALBCRL #### [facility] [address] [place] [address] Dr. Alison Patterson Calcium [Mass/Vol] 8.5 mg/dL Normal 8.5-10.1 [facility] Comment on above: Performed By: #### M ALBCRL #### [facility] [address] [place] [address] Dr. Alison Patterson Chloride [Moles/Vol] 109 mmol/L Critically high 98-107 [facility] Comment on above: Performed By: #### M ALBCRL #### [facility] [address] [place] [address] Dr. Alison Patterson CO2 [Moles/Vol] 26.8 mmol/L Normal 21.0-32.0 [facility] Comment on above: Performed By: #### M ALBCRL #### [facility] [address] [address] [address] Alison Patterson Creatinine [Mass/Vol] 2.29 mg/dL Critically high 0.70-1.30 [facility] Comment on above: Performed By: #### M ALBCRL #### [facility] [address] [address] [address] Alison Patterson EGFR-AF NIUEAN 34 mL/min/1.73m2 Critically low >=60 [facility] Comment on above: Performed By: #### M ALBCRL #### [facility] [address] [address] [address] Alison Patterson EGFR-NON AF NIUEAN 28 mL/min/1.73m2 Critically low >=60 [facility] Comment on above: Performed By: #### M ALBCRL #### [facility] [address] [address] [address] Alison Patterson Glucose [Mass/Vol] 91 mg/dL Normal 74-106 [facility] Comment on above: Performed By: #### M ALBCRL #### [facility] [address] [address] [address] Alison Patterson Potassium [Moles/Vol] 4.5 mmol/L Normal 3.5-5.1 [facility] Comment on above: Performed By: #### M ALBCRL #### [facility] [address] [address] [address] Alison Patterson Sodium [Moles/Vol] 146 mmol/L Critically high 136-145 [facility] Comment on above: Performed By: #### M ALBCRL #### [facility] [address] [address] [address] Alison Patterson Urea nitrogen [Mass/Vol] 38.0 mg/dL Critically high 7.0-18.0 [facility] Comment on above: Performed By: #### M ALBCRL #### [facility] [address] [address] [address] Alison Patterson Urea nitrogen/Creatinine [Mass ratio] 16.6 mg/mg Normal [facility] Comment on above: Performed By: #### M ALBCRL #### [facility] [address] [place] [address] Dr. Alison Patterson UA RANDOMon 01-20-2022 Bilirubin Ql (U) Negative Normal NEGATIVE [facility] Comment on above: Performed By: #### U A #### [facility] [address] [place] [address] Dr. Alison Patterson Clarity (U) CLEAR Normal CLEAR [facility] Comment on above: Performed By: #### U A #### [facility] [address] [place] [address] Dr. Alison Patterson Color (U) YELLOW Normal YELLOW [facility] Comment on above: Performed By: #### U A #### [facility] [address] [place] [address] Dr. Alison Patterson Glucose Ql (U) Negative Normal NEGATIVE [facility] Comment on above: Performed By: #### U A #### [facility] [address] [place] [address] Dr. Alison Patterson Hemoglobin Ql (U) Negative Normal NEGATIVE [facility] Comment on above: Performed By: #### U A #### [facility] [address] [place] [address] Dr. Alison Patterson Ketones Ql (U) Negative Normal NEGATIVE [facility] Comment on above: Performed By: #### U A #### [facility] [address] [place] [address] Dr. Alison Patterson LEUKOCYTES Negative Normal NEGATIVE [facility] Comment on above: Performed By: #### U A #### [facility] [address] [place] [address] Dr. Alison Patterson Nitrite Ql (U) Negative Normal NEGATIVE [facility] Comment on above: Performed By: #### U A #### [facility] [address] [place] [address] Dr. Alison Patterson pH (U) 5.5 [pH] Normal 5-9 [facility] Comment on above: Performed By: #### U A #### [facility] [address] [place] [address] Dr. Alison Patterson SPEC GRAVITY 1.025 Normal 1.005-<=1.025 [facility] Comment on above: Performed By: #### U A #### [facility] [address] [place], [place] [address] Dr. Alison Patterson UA PROTEIN Negative Normal NEGATIVE/ TRACE [facility] Comment on above: Performed By: #### U A #### [facility] [address] [place], [place] [address] Dr. Alison Patterson Urobilinogen Qn (U) 0.2 {Sarah'U}/dL Normal 0.2 - 1. 0 [facility] Comment on above: Performed By: #### U A #### [facility] [address] [place], [place] [address] Dr. Alison Patterson T4/THYROXINE BLOODon 022 T4 [Mass/Vol] 5.8 ug/dL 5.5 - 10.2 ug/dL [facility] GLUCOSE, BLOOD (POC)on 12-13 Glucose [Mass/Vol] 91 mg/dL 74 - 99 mg/dL [facility] Comment on above: Location:[facility], [address] [place] [address] , [place], [place], [address] The Accu-Chek Inform II glucose meter has not been approved for testing on patients receiving intensive medical intervention or therapy and results from this point of care glucose test should not be used for patient management decisions in these cases. Inaccurate results may also occur from other interfering factors, such as N-acetylcysteine (blood concentrations of greater than 5mg/dL), galactose, extremes of hematocrit (<10 or >65), or high doses of ascorbic acid (vitamin C) greater than 3mg/dL. Consider alternate testing mechanisms (e.g. core lab, blood gas instrument) in the above situations. [facility] PET+CT Guidance for localiza tion of tumor of Skull base to mid-thigh-- W 18F-FDG Olga 12-13-2021 IMPRESSION: 1. Neck: No suspicious hypermetabolic foci 2. Chest: Scattered lung nodules. The most prominent Left upper lobe lung nodule is associated with low-level FDG activity. Otherwise no suspicious hypermetabolic foci. No hypermetabolic lymphadenopathy. 3. Abdomen and pelvis: No evidence of FDG avid neoplastic process 4. Skeleton: No hypermetabolic osseous lesions Transcribe Date/Time: Dec 13 2021 1:19P Dictated by: MERARY FIELDS MD This examination was interpreted and the report reviewed and electronically signed by: MERARY FIELDS MD on Dec 13 2021 1:29PM EST Thank you for allowing us to participate in the care of your patient. Should there be any questions regarding this interpretation, please call [phone]. If you are unable to reach us at the number above, please feel free to contact [facility] at [phone]. ZZZ_DO_NOT_USE _DIVISION OF RADIOLOGY * * *Final Report* * * DATE OF EXAM: Dec 13 2021 1:09PM NRN [id number] - NM PET/CT SKULL-THIGH INIT / PROCEDURE REASON: multiple diagnoses * * * * Physician Interpretation * * * * RESULT: FDG PET/CT SCAN: CLINICAL HISTORY: Laryngeal cancer, lung nodule. INDICATION: Initial treatment strategy. TECHNIQUE: 10.8 mCi 18-FDG IV, followed about 1 hour later by PET imaging from base of the skull to proximal femur with head and neck imaging. Non contrast CT was performed for attenuation correction and anatomic localization purposes. CT Dose-Length Product (DLP): 246 mGy*cm. CT Dose Reduction Employed: Yes BLOOD GLUCOSE: 91 mg/dL Correlation: CT chest 11/17/2021 RESULT: Reference mediastinal blood pool SUV 2.7, liver SUV 3 HEAD AND NECK: Likely physiological activity in the oral cavity, tonsillar regions, larynx, salivary glands, visualized brain. No suspicious hypermetabolic foci. There is no hypermetabolic cervical lymphadenopathy. CHEST: Calcified hilar and mediastinal lymph nodes. There is no hypermetabolic hilar or mediastinal lymphadenopathy. There is no hypermetabolic axillary lymphadenopathy. Scattered lung nodules. Left upper lobe lung nodule 1.1 x 1.4 cm (max SUV 1.6), a left lower lobe nodule 0.7 x 0.9 cm (max SUV 1). ABDOMEN AND PELVIS: The liver is slightly heterogeneous activity but no focal lesions are identified. There are no hypermetabolic foci in the liver, spleen, adrenals. Bilateral non-FDG avid low-attenuation renal lesions. A hyperdense lesion along the lower pole of the left kidney is not FDG avid. There is no hypermetabolic abdominal or pelvic lymphadenopathy. Physiologic activity is noted in the liver, renal collecting system, bladder and bowel. SKELETON: There are no hypermetabolic osseous lesions. Lithographer Apprentice (topogram) images:No additional findings. -- BING_DO_NOT_USE _DIVISION OF RADIOLOGY Emily Prescott Bernard - 12/13/2021 * * *Final Report* * * DATE OF EXAM: Dec 13 2021 1:09PM NRN [id number] - NM PET/CT SKULL-THIGH INIT / PROCEDURE REASON: multiple diagnoses * * * * Physician Interpretation * * * * RESULT: FDG PET/CT SCAN: CLINICAL HISTORY: Laryngeal cancer, lung nodule. INDICATION: Initial treatment strategy. TECHNIQUE: 10.8 mCi 18-FDG IV, followed about 1 hour later by PET imaging from base of the skull to proximal femur with head and neck imaging. Non contrast CT was performed for attenuation correction and anatomic localization purposes. CT Dose-Length Product (DLP): 246 mGy*cm. CT Dose Reduction Employed: Yes BLOOD GLUCOSE: 91 mg/dL Correlation: CT chest 11/17/2021 RESULT: Reference mediastinal blood pool SUV 2.7, liver SUV 3 HEAD AND NECK: Likely physiological activity in the oral cavity, tonsillar regions, larynx, salivary glands, visualized brain. No suspicious hypermetabolic foci. There is no hypermetabolic cervical lymphadenopathy. CHEST: Calcified hilar and mediastinal lymph nodes. There is no hypermetabolic hilar or mediastinal lymphadenopathy. There is no hypermetabolic axillary lymphadenopathy. Scattered lung nodules. Left upper lobe lung nodule 1.1 x 1.4 cm (max SUV 1.6), a left lower lobe nodule 0.7 x 0.9 cm (max SUV 1). ABDOMEN AND PELVIS: The liver is slightly heterogeneous activity but no focal lesions are identified. There are no hypermetabolic foci in the liver, spleen, adrenals. Bilateral non-FDG avid low-attenuation renal lesions. A hyperdense lesion along the lower pole of the left kidney is not FDG avid. There is no hypermetabolic abdominal or pelvic lymphadenopathy. Physiologic activity is noted in the liver, renal collecting system, bladder and bowel. SKELETON: There are no hypermetabolic osseous lesions. Lithographer Apprentice (topogram) images:No additional findings. -- IMPRESSION IMPRESSION: 1. Neck: No suspicious hypermetabolic foci 2. Chest: Scattered lung nodules. The most prominent Left upper lobe lung nodule is associated with low-level FDG activity. Otherwise no suspicious hypermetabolic foci. No hypermetabolic lymphadenopathy. 3. Abdomen and pelvis: No evidence of FDG avid neoplastic process 4. Skeleton: No hypermetabolic osseous lesions Transcribe Date/Time: Dec 13 2021 1:19P Dictated by: MERARY FIELDS MD This examination was interpreted and the report reviewed and electronically signed by: MERARY FIELDS MD on Dec 13 2021 1:29PM EST Thank you for allowing us to participate in the care of your patient. Should there be any questions regarding this interpretation, please call [phone]. If you are unable to reach us at the number above, please feel free to contact [facility] at [phone]. [facility] Radiology Study observation (narrative) [facility] PET+CT Guidance for localiza tion of tumor of Skull base to mid-thigh-- W 18F-FDG IVOrdered By: Ccf Provider on 12-13-[address] [facility] [address] Chest WO contraston 11-17 IMPRESSION: 1. 1.4 CM, NEWLY APPARENT LEFT UPPER LOBE NODULE, CONCERNING FOR PROGRESSION OF METASTATIC DISEASE. 2. Additional bilateral subcentimeter pulmonary nodules, unchanged. 3. No substantial intrathoracic adenopathy is identified. Transcribe Date/Time: Nov 17 2021 2:23P Dictated by: FLOWER SUTTON MD This examination was interpreted and the report reviewed and electronically signed by: FLOWER SUTTON MD on Nov 17 2021 3:11PM EST Thank you for allowing us to participate in the care of your patient. Should there be any questions regarding this interpretation, please call [phone]. If you are unable to reach us at the number above, please feel free to contact [facility] at [phone]. 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 MQ: CTCWOR_4 CT Dose-Length Product: 230 mGy*cm CT Dose Reduction Employed: Automated exposure control (AEC) Comparison: CT chest 12/26/2018 RESULT: Limitations: None. Lines, tubes, and devices: None. Lung parenchyma , airways, and pleural space: No consolidative process or pleural effusion. Mild, diffuse bronchial wall thickening is noted. Scattered bilateral calcified granulomata are appreciated. Mild upper lobe predominant centrilobular emphysematous changes are suspected. 3 mm noncalcified right lower lobe nodule, image 117, series 3, stable. 1.4 x 1.2 cm left upper lobe nodule demonstrating slightly irregular margins, image 81, series 3 appears new. 8 mm noncalcified nodule abutting the left hemidiaphragm at the inferior left lower lobe, image 52, series 3, stable. Lower neck, lymph nodes, and mediastinum: The visualized thyroid gland is stable. No substantial supraclavicular or axillary lymphadenopathy. No substantial mediastinal or hilar adenopathy is definitively identified on these unenhanced images. Scattered mediastinal and right hilar granulomatous calcification is again noted. Heart, pericardium, and thoracic vessels: The thoracic aorta is normal in caliber. No substantial pericardial effusion. Bones/Soft Tissues: Mild degenerative change within the thoracic spine is again noted. No osseous destructive process. Upper Abdomen: Limited unenhanced images through the upper abdomen demonstrate 2 mm nonobstructive right renal calculus. No adrenal mass. Lithographer Apprentice (topogram) images: No additional findings. 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 MQ: CTCWOR_4 CT Dose-Length Product: 230 mGy*cm CT Dose Reduction Employed: Automated exposure control (AEC) Comparison: CT chest 12/26/2018 RESULT: Limitations: None. Lines, tubes, and devices: None. Lung parenchyma , airways, and pleural space: No consolidative process or pleural effusion. Mild, diffuse bronchial wall thickening is noted. Scattered bilateral calcified granulomata are appreciated. Mild upper lobe predominant centrilobular emphysematous changes are suspected. 3 mm noncalcified right lower lobe nodule, image 117, series 3, stable. 1.4 x 1.2 cm left upper lobe nodule demonstrating slightly irregular margins, image 81, series 3 appears new. 8 mm noncalcified nodule abutting the left hemidiaphragm at the inferior left lower lobe, image 52, series 3, stable. Lower neck, lymph nodes, and mediastinum: The visualized thyroid gland is stable. No substantial supraclavicular or axillary lymphadenopathy. No substantial mediastinal or hilar adenopathy is definitively identified on these unenhanced images. Scattered mediastinal and right hilar granulomatous calcification is again noted. Heart, pericardium, and thoracic vessels: The thoracic aorta is normal in caliber. No substantial pericardial effusion. Bones/Soft Tissues: Mild degenerative change within the thoracic spine is again noted. No osseous destructive process. Upper Abdomen: Limited unenhanced images through the upper abdomen demonstrate 2 mm nonobstructive right renal calculus. No adrenal mass. Lithographer Apprentice (topogram) images: No additional findings. IMPRESSION IMPRESSION: 1. 1.4 CM, NEWLY APPARENT LEFT UPPER LOBE NODULE, CONCERNING FOR PROGRESSION OF METASTATIC DISEASE. 2. Additional bilateral subcentimeter pulmonary nodules, unchanged. 3. No substantial intrathoracic adenopathy is identified. Transcribe Date/Time: Nov 17 2021 2:23P Dictated by: FLOWER SUTTON MD This examination was interpreted and the report reviewed and electronically signed by: FLOWER SUTTON MD on Nov 17 2021 3:11PM EST Thank you for allowing us to participate in the care of your patient. Should there be any questions regarding this interpretation, please call [phone]. If you are unable to reach us at the number above, please feel free to contact [facility] at [phone]. [facility] Radiology Study observation (narrative) [facility] CT Chest WO contrastOrdered By: Ccf Provider on 11-17-2021 [facility] T4/THYROXINE BLOODon 022 T4 [Mass/Vol] 5.3 ug/dL Low 5.5 - 10.2 ug/dL [facility] TSH BLDon 11-08-2021 TSH Qn 1.480 m[IU]/L 0.270 - 4.200 mIU/L [facility] Albumin Levelon 07-14-2021 Albumin [Mass/Vol] 3.6 g/dL Normal 3.2-5.5 [facility] Comment on above: Performed By: #### M G, CBCNO, PTH, PHOS, ALB, URMACRERAT, BMP, [id number] #### [facility] [address] Basic Metabolic Panelon 06-22 Calcium [Mass/Vol] 9.2 mg/dL Normal 8.2-10.2 [facility] Comment on above: Performed By: #### M G, CBCNO, PTH, PHOS, ALB, URMACRERAT, BMP, [id number] #### [facility] [address] [place] [id number] [facility] Chloride [Moles/Vol] 106 mmol/L Normal 95-114 [facility] Comment on above: Performed By: #### M G, CBCNO, PTH, PHOS, ALB, URMACRERAT, BMP, [id number] #### [facility] [address] [place] [address] [facility] CO2 [Moles/Vol] 26.9 mmol/L Normal 22.0-30.0 [facility] Comment on above: Performed By: #### M G, CBCNO, PTH, PHOS, ALB, URMACRERAT, BMP, [id number] #### [facility] [address] [id number] [facility] Creatinine [Mass/Vol] 2.02 mg/dL High 0.64-1.27 [facility] Comment on above: Performed By: #### M G, CBCNO, PTH, PHOS, ALB, URMACRERAT, BMP, [id number] #### [facility] [address] Estimated GFR ( Manda 39 [facility] Comment on above: Result Comment: GFR estimated reference range: According to KDOQI guidelines, <60 ml/min/1.73m2 is sufficient to diagnose a patient with chronic kidney disease. Performed By: #### M G, CBCNO, PTH, PHOS, ALB, URMACRERAT, BMP, [id number] #### [facility] [address] Estimated GFR (Non- Am 32 [facility] Comment on above: Performed By: #### M G, CBCNO, PTH, PHOS, ALB, URMACRERAT, BMP, [id number] #### [address] Glucose [Mass/Vol] 96 mg/dL Normal 70-100 [facility] Comment on above: Result Comment: Mina Glucose Reference Range is dependent on time and content of last meal. Glucose of more than 200 mg/dL in a nonstressed, ambulatory subject supports the diagnosis of Diabetes Mellitus. ADA recommended reference range Performed By: #### M G, CBCNO, PTH, PHOS, ALB, URMACRERAT, BMP, [id number] #### [address] Potassium [Moles/Vol] 4.6 mmol/L Normal 3.5-5.1 [facility] Comment on above: Performed By: #### M G, CBCNO, PTH, PHOS, ALB, URMACRERAT, BMP, [id number] #### [address] Sodium [Moles/Vol] 142 mmol/L Normal 136-146 [facility] Comment on above: Performed By: #### M G, CBCNO, PTH, PHOS, ALB, URMACRERAT, BMP, [id number] #### [address] Urea nitrogen [Mass/Vol] 34 mg/dL High 9- [facility] Comment on above: Performed By: #### M G, CBCNO, PTH, PHOS, ALB, URMACRERAT, BMP, [id number] #### [address] Hemogram CBC Without Diffon 07-14-2021 Erythrocyte distribution width (RBC) [Ratio] 15.0 % High 12.0-14.8 [facility] Comment on above: Performed By: #### M G, CBCNO, PTH, PHOS, ALB, URMACRERAT, BMP, [id number] #### [address] Hematocrit (Bld) [Volume fraction] 30.8 % Low 38.8-50.0 [facility] Comment on above: Performed By: #### M G, CBCNO, PTH, PHOS, ALB, URMACRERAT, BMP, [id number] #### [address] Hemoglobin (Bld) [Mass/Vol] 10.4 g/dL Low 13.0-17.0 [facility] Comment on above: Performed By: #### M G, CBCNO, PTH, PHOS, ALB, URMACRERAT, BMP, [id number] #### [address] MCH (RBC) [Entitic mass] 31.2 pg Normal 27.5-35.2 [facility] Comment on above: Performed By: #### M G, CBCNO, PTH, PHOS, ALB, URMACRERAT, BMP, [id number] #### [address] MCV (RBC) [Entitic vol] 92.1 fL Normal 83.5-101 [facility] Comment on above: Performed By: #### M G, CBCNO, PTH, PHOS, ALB, URMACRERAT, BMP, [id number] #### [address] Mean Corpuscular HGB Conc 33.9 g/dL Normal 32.5-35.6 [facility] Comment on above: Performed By: #### M G, CBCNO, PTH, PHOS, ALB, URMACRERAT, BMP, [id number] #### [address] Platelet mean volume (Bld) [Entitic vol] 12.0 fL High 6.6-10.1 [facility] Comment on above: Result Comment: PERF ORMED BY: [place] [address] PATHOLOGIST FORMSTONE FITTER TIA AKBAR M.D. Performed By: #### M G, CBCNO, PTH, PHOS, ALB, URMACRERAT, BMP, [id number] #### [address] Platelets (Bld) [#/Vol] 76 10*3/uL Low 150-450 [facility] Comment on above: Performed By: #### M G, CBCNO, PTH, PHOS, ALB, URMACRERAT, BMP, [id number] #### [address] RBC (Bld) [#/Vol] 3.34 10*6/uL Low 3.90-5.60 [facility] Comment on above: Performed By: #### M G, CBCNO, PTH, PHOS, ALB, URMACRERAT, BMP, [id number] #### [address] WBC (Bld) [#/Vol] 7.5 10*3/uL Normal 4.1-10.5 [facility] Comment on above: Performed By: #### M G, CBCNO, PTH, PHOS, ALB, URMACRERAT, BMP, [id number] #### [address] [place] [address] [facility] Magnesiumon 07-14-2021 Magnesium [Mass/Vol] 1.8 mg/dL Normal 1.6-2.6 [facility] Comment on above: Performed By: #### M G, CBCNO, PTH, PHOS, ALB, URMACRERAT, BMP, [id number] #### [facility] [address] MicroAlb Creat Ratio,Uon Albumin DL <= 20 mg/L (U) [Mass/Vol] 3.2 mg/dL High 0.0-1.8 [facility] Comment on above: Performed By: #### M G, CBCNO, PTH, PHOS, ALB, URMACRERAT, BMP, [id number] #### [address] Creatinine, Urine (Random) 142.6 mg/dL Normal [facility] Comment on above: Result Comment: No r eference range established Performed By: #### M G, CBCNO, PTH, PHOS, ALB, URMACRERAT, BMP, [id number] #### [address] Microalbumin/Creatini ne Ratio 22.0 mg/g Normal 0.0-30.0 [facility] Comment on above: Result Comment: 30-3 00 mg/g indicates an increased risk for diabetic nephropathy. Greater than 300 mg/g is consistent with clinical nephropathy. (Am. J. Kidney Disease 1995, 25:107) PERFORMED BY: [place] [address] PATHOLOGIST FORMSTONE FITTER TIA AKBAR M.D. Performed By: #### M G, CBCNO, PTH, PHOS, ALB, URMACRERAT, BMP, [id number] #### [address] Parathyroid Hormone Intacton 07-14-2021 Parathyroid Hormone Intact 85.3 pg/mL Normal 12-88 [facility] Comment on above: Result Comment: PERF ORMED BY: [place] [id number] PATHOLOGIST FORMSTONE FITTER TIA AKBAR M.D. Performed By: #### M G, CBCNO, PTH, PHOS, ALB, URMACRERAT, BMP, [id number] #### [facility] [address] [place] [id number] [facility] Phosphoruson 07-14-2021 Phosphate [Mass/Vol] 3.2 mg/dL Normal 2.5-4.6 [facility] Comment on above: Performed By: #### M G, CBCNO, PTH, PHOS, ALB, URMACRERAT, BMP, [id number] #### [facility] [address] [place] [address] Vitamin D 25 Hydroxy Totalon 07-14-2021 Vitamin D 25 Hydroxy Total 27.3 ng/mL Low 30-100 [facility] Comment on above: Result Comment: ELENA MIN D STATUS 25(OH)VITAMIN D RANGE (ng/mL) Deficient <20 Insufficient 20 to <30 Sufficient 30 to 100 Reference: Kennedy MF,Leilani NC, Jane PEREZ, et al. Evaluation,treatment, and prevention of vitamin D deficiency; an Endocrine Society clinical practice guideline. JCEM. 2010; 96(7):1911-30. Performed By: #### M G, CBCNO, PTH, PHOS, ALB, URMACRERAT, BMP, [id number] #### [facility] [address] [place], [place] [id number] [facility] Provider Letteron 06-03-2021 Provider Letter June 03, 2021 Dear Mr. Roseand, This letter is to inform you that the providers at [facility], [facility] will no longer be responsible for your routine medical care. Emergency care only will be provided for the thirty (30) days following this letter. During this time period we suggest that you find another physician for your medical needs. A listing of area physicians can be found on [facility]'s website at [email or web address] or you may contact your health plan. We will be glad to forward your records to your new physician as long as we receive a signed release of records form. This form can be obtained at our office. Sincerely, Dr. Lino Tucker [facility] [address] [address] [facility] Office Visit (Cardiology)on 05-24-2021 Follow-up [...] 24May2021 10:53AM Heart Rate81, L Brachial Artery Kxexdirb858, LUE, Sitting Omdzmcebr65, LUE, Sitting Height5 ft 7 in Qqtrtj339 lb BMI Qlsxyguqbs94.22 kg/m2 BSA Calculated1.84 Tobacco Useb) No Fall [...] . Signatures Electronically signed by : Terrence Steen DO; May 24 2021 1:48PM EST (Author) Normal [place] Tobacco Screening.on 022 Fall risk assessment a) No falls within the last year [facility] [address] DO Work Phone: Tobacco use status CPHS b) No [facility] [address] DO Work Phone: Patient Correspondenceon Patient Correspondence [id number] 1.00CD:127 [facility] February 15, 2021 SUSHANT CORREA [address] [place] [address] SUSHANT CORREA 1945 Dear Sushant Correa, I [...] up as recommended. Sincerely, Dr. Lino Tucker [facility] Reminderson 01-27-2021 Reminders - From: Charmaine Gaspar To: [facility] - Tracy Tucker; Sent: 12/15/2020 12:51:26 EDT Show up: 01/14/2021 12:51:00 EDT Subject: reschedule trus w/ bx Reminder/Recall patient cancelled 12-20-20 biopsy and wanted rescheduled for a later time just unsure when. told patient we will call him if we do not hear back from him spoke with patient's , they still dont want to proceed with biopsy. sent msg to [facility] Lab Reportson 11-10-2020 Lab Reports [id number] .00CD:127 Normal [facility] CARDIAC STRESS/REST INJE CTIONon 11-03-2020 [facility] CARDIAC STRESS/REST INJECTION Patient Name: SUSHANT CORREA STUDY: MYOCARDIAL PERFUSION STRESS TEST WITH LEXISCAN Performing facility: [facility], [address] [place] [address], [address], [address] Provider: Keke Steen DO, [facility] PCP: Dr. Antonella Mistry Supervising provider: Tyron Curtis MD INDICATION: SOB; Fatigue Hyperlipidemia RBBB HISTORY: Gender: M; Age: 75 y/o ; Height: 0 cm; Weight: 0 kg. CAD; Abnormal EKG; HTN; COPD; Quit smoking Unknown years ago. COMPARISON: No comparison. ACCESSION NUMBER(S): [id number]; [id number]; [id number] ORDERING CLINICIAN: TERRENCE STEEN TECHNIQUE: ONE DAY protocol. Stress injection: Date:11-03-20, [...] Electronically signed by: CIRILO DAIGLE MD Normal [facility] Ambulatory Clinical Summaryo n 11-02-2020 Ambulatory Clinical Summary {[id number] Normal [facility] Formson 11-02-2020 Forms [id number] .00CD:127 Normal [facility] Patient Educationon 11-03-19 21 Patient Education Prostate-Specific [...] Document Reviewed: 12/13/2007 ExitCare? Patient Information ?2013 [employer]. Normal [facility] Screenson 11-02-2020 Screens [id number] 1.00CD:127 Normal [facility] Urology Office/Clinic Noteon 11-02-2020 Urology Office/Clinic Note [...] he consider prostate ultrasound ultrasound-guided needle biopsy. [facility] Staff Sushant is a 75 y.o. male here as [...] Will order Local anesthesia. ABX sent to Suy[facility] Ewing. Ordered: Most recent diastolic blood pressure <80 [...] days p (more content not included)... Normal [facility] Comment on above: Result Comment: Elec tronically Signed By: Lino Tucker Jr., MD\.br\Date and Time Signed: 11/02/20 11:26 EDT\.br\Electronically Co-Signed By: Aimee Cooney MA\.br\Date and Time Co-Signed: 11/02/20 11:03 EDT Vital Signs Date Time Vital Sign Value Performing Clinician Facility 03-26-2024 10:12-0500 Body height 170.2 cm Elvira Munoz MD Work Phone: [facility] 03-26-2024 10:12-0500 Body mass index (BMI) [Ratio] 25.06 kg/m2 Elvira Munoz MD Work Phone: [facility] 03-26-2024 10:12-0500 Body weight 72.58 kg Elvira Munoz MD Work Phone: [facility] 03-26-2024 10:12-0500 Diastolic blood pressure 64 mm[Hg] Elvira Munoz MD Work Phone: [facility] 03-26-2024 10:12-0500 Systolic blood pressure 134 mm[Hg] Elvira Munoz MD Work Phone: [facility] 07-19-2023 10:10-0500 Body temperature 97.5 [degF] LISSETT Agarwal MD Work Phone: [facility] 07-19-2023 10:10-0500 Body weight 69.7 kg LISSETT Agarwal MD Work Phone: [facility] 07-19-2023 10:10-0500 Diastolic blood pressure 78 mm[Hg] LSISETT Agarwal MD Work Phone: [facility] 07-19-2023 10:10-0500 Heart rate 71 /min LISSETT Agarwal MD Work Phone: [facility] 07-19-2023 10:10-0500 Respiratory rate 16 /min LISSETT Agarwal MD Work Phone: [facility] 07-19-2023 10:10-0500 SaO2% (BldA) [Mass fraction] 97 % LISSETT Agarwal MD Work Phone: [facility] 07-19-2023 10:10-0500 Systolic blood pressure 155 mm[Hg] LISSETT Agarwal MD Work Phone: [facility] 07-17-2023 15:25-0500 Body height 170.2 cm Terrence Steen DO Work Phone: [facility] 07-17-2023 15:25-0500 Body mass index (BMI) [Ratio] 24.12 kg/m2 Terrence Steen DO Work Phone: [facility] 07-17-2023 15:25-0500 Body weight 69.85 kg Terrence Steen DO Work Phone: [facility] 07-17-2023 15:25-0500 Diastolic blood pressure 74 mm[Hg] Terrence Steen DO Work Phone: [facility] 07-17-2023 15:25-0500 Heart rate 64 /min Terrence Steen DO Work Phone: [facility] 07-17-2023 15:25-0500 Systolic blood pressure 132 mm[Hg] Terrence Steen DO Work Phone: [facility] 06-29-2023 10:54-0500 Body height 170.2 cm Kylie Omayra DO Work Phone: [facility] 06-29-2023 10:54-0500 Body mass index (BMI) [Ratio] 24.37 kg/m2 Kylie Omayra DO Work Phone: [facility] 06-29-2023 10:54-0500 Body weight 70.58 kg Kylie Omayra DO Work Phone: [facility] 06-29-2023 10:54-0500 Diastolic blood pressure 73 mm[Hg] Kylie Omayra DO Work Phone: [facility] 06-29-2023 10:54-0500 Heart rate 73 /min Kylie Omayra DO Work Phone: [facility] 06-29-2023 10:54-0500 SaO2% (BldA) [Mass fraction] 97 % Kylie Omayra DO Work Phone: [facility] 06-29-2023 10:54-0500 Systolic blood pressure 124 mm[Hg] Kylie Omayra DO Work Phone: [facility] 01-09-2023 14:00-0400 Body weight 70.31 kg LISSETT Agarwal MD Work Phone: [facility] 07-06-2022 13:01-0500 Body temperature 96.69 [degF] LISSETT Agarwal MD Work Phone: [facility] 07-06-2022 13:01-0500 Body weight 66.68 kg LISSETT Agarwal MD Work Phone: [facility] 07-06-2022 13:01-0500 Diastolic blood pressure 52 mm[Hg] LISSETT Agarwal MD Work Phone: [facility] 07-06-2022 13:01-0500 Heart rate 77 /min LISSETT Agarwal MD Work Phone: [facility] 07-06-2022 13:01-0500 Respiratory rate 18 /min LISSETT Agarwal MD Work Phone: [facility] 07-06-2022 13:01-0500 SaO2% (BldA) [Mass fraction] 97 % LISSETT Agarwal MD Work Phone: [facility] 07-06-2022 13:01-0500 Systolic blood pressure 120 mm[Hg] LISSETT Agarwal MD Work Phone: [facility] 06-08-2022 11:19-0500 Body height 170.18 cm Talita K Rumschlag Work Phone: [facility] [place] [address] DO Work Phone: 06-08-2022 11:19-0500 Body mass index (BMI) [Ratio] 24.12 kg/m2 Talita K Rumschlag Work Phone: [facility] [address] DO Work Phone: 06-08-2022 11:19-0500 Body surface area Derived from formula 1.81 m2 Talita K Rumschlag Work Phone: [facility] [address] DO Work Phone: 06-08-2022 11:19-0500 Body weight 69.85 kg Talita K Rumschlag Work Phone: [facility] [address] DO Work Phone: 06-08-2022 11:19-0500 Diastolic blood pressure 70 mm[Hg] Talita John Rumschlag Work Phone: [facility] [address] DO Work Phone: 06-08-2022 11:19-0500 Heart rate 76 /min Talita oJhn Rumschlag Work Phone: [facility] [address] DO Work Phone: 06-08-2022 11:19-0500 Systolic blood pressure 124 mm[Hg] Talita John Rumschlag Work Phone: [facility] [address] DO Work Phone: 12-28-2021 13:14-0400 Body height 171.5 cm Chaparro Wallace MD Work Phone: [facility] 12-28-2021 13:14-0400 Body temperature 97.3 [degF] Chaparro Wallace MD Work Phone: [facility] 12-28-2021 13:14-0400 Body weight 69.94 kg Chaparro Wallace MD Work Phone: [facility] 12-28-2021 13:14-0400 Diastolic blood pressure 58 mm[Hg] Chaparro Wallace MD Work Phone: [facility] 12-28-2021 13:14-0400 Heart rate 71 /min Chaparro Wallace MD Work Phone: [facility] 12-28-2021 13:14-0400 Respiratory rate 16 /min Chaparro Wallace MD Work Phone: [facility] 12-28-2021 13:14-0400 SaO2% (BldA) [Mass fraction] 96 % Chaparro Wallace MD Work Phone: [facility] 12-28-2021 13:14-0400 Systolic blood pressure 134 mm[Hg] Chaparro Wallace MD Work Phone: [facility] 12-28-2021 12:43-0400 Body temperature 97.59 [degF] LISSETT Agarwal MD Work Phone: [facility] 12-28-2021 12:43-0400 Body weight 69.4 kg LISSETT Agarwal MD Work Phone: [facility] 12-28-2021 12:43-0400 Heart rate 81 /min LISSETT Agarwal MD Work Phone: [facility] 12-28-2021 12:43-0400 Respiratory rate 16 /min LISSETT Agarwal MD Work Phone: [facility] 12-28-2021 12:43-0400 SaO2% (BldA) [Mass fraction] 96 % LISSETT Agarwal MD Work Phone: [facility] 11-24-2021 10:47-0400 Body temperature 98.4 [degF] LISSETT Agarwal MD Work Phone: [facility] 11-24-2021 10:47-0400 Body weight 69.04 kg LISSETT Agarwal MD Work Phone: [facility] 11-24-2021 10:47-0400 Diastolic blood pressure 71 mm[Hg] LISSETT Agarwal MD Work Phone: [facility] 11-24-2021 10:47-0400 Heart rate 80 /min LISSETT Agarwal MD Work Phone: [facility] 11-24-2021 10:47-0400 Respiratory rate 18 /min LISSETT Agarwal MD Work Phone: [facility] 11-24-2021 10:47-0400 SaO2% (BldA) [Mass fraction] 97 % LISSETT Agarwal MD Work Phone: [facility] 11-24-2021 10:47-0400 Systolic blood pressure 130 mm[Hg] LISSETT Agarwal MD Work Phone: [facility] 11-07-2021 13:35-0400 Body temperature 97.11 [degF] LISSETT Agarwal MD Work Phone: [facility] 11-07-2021 13:35-0400 Body weight 70.31 kg LISSETT Agarwal MD Work Phone: [facility] 11-07-2021 13:35-0400 Diastolic blood pressure 55 mm[Hg] LISSETT Agarwal MD Work Phone: [facility] 11-07-2021 13:35-0400 Heart rate 75 /min LISSETT Agarwal MD Work Phone: [facility] 11-07-2021 13:35-0400 Respiratory rate 16 /min LISSETT Agarwal MD Work Phone: [facility] 11-07-2021 13:35-0400 SaO2% (BldA) [Mass fraction] 95 % LISSETT Agarwal MD Work Phone: [facility] 11-07-2021 13:35-0400 Systolic blood pressure 138 mm[Hg] LISSETT Agarwal MD Work Phone: [facility] 05-24-2021 10:53-0500 Body height 170.18 cm Referring Provider Unknown [facility] [address] DO Work Phone: 05-24-2021 10:53-0500 Body mass index (BMI) [Ratio] 25.22 kg/m2 Referring Provider Unknown [facility] [address] DO Work Phone: 05-24-2021 10:53-0500 Body surface area Derived from formula 1.84 m2 Referring Provider Unknown [facility] [address] DO Work Phone: 05-24-2021 10:53-0500 Body weight 73.03 kg Referring Provider Unknown [facility] [address] DO Work Phone: 05-24-2021 10:53-0500 Diastolic blood pressure 70 mm[Hg] Referring Provider Unknown [facility] 250 DO Work Phone: 05-24-2021 10:53-0500 Heart rate 81 /min Referring Provider Unknown [facility] [address] DO Work Phone: 05-24-2021 10:53-0500 Systolic blood pressure 146 mm[Hg] Referring Provider Unknown [facility] [address] DO Work Phone: Encounters Encounter Date Encounter Type Care Provider Facility Start: 03-26-2024 End: 03-26-2024 Rob Munoz MD Work Phone: [facility] Start: 03-26-2024 End: 03-26-2024 Bamboo flowsleonard Munoz MD Work Phone: [facility] Start: 03-26-2024 End: 03-26-2024 Office outpatient visit 25 minutes Elvira Munoz MD Work Phone: [facility] Comment on above: Carcinoma of vocal c ord (CMS/HCC) (Primary Dx); Nasal obstruction Start: 03-26-2024 End: 03-26-2024 ambulatory ELVIRA MUNOZ Not Available Start: 07-20-2023 End: 07-20-2023 [facility] Start: 07-19-2023 End: 07-19-2023 ambulatory TALITA [facility] Facility:[facility] Start: 07-19-2023 End: 07-19-2023 Patient encounter procedure Camille Agarwal MD Work Phone: Radiation Oncology Comment on above: 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); Lung nodule; Atrophy of thyroid (acquired) Start: 07-17-2023 End: 07-17-2023 Office outpatient visit 25 minutes Terrence Steen DO Work Phone: [facility] Comment on above: Abnormal stress test ; Lupus anticoagulant disorder (CMS/HCC); Chronic kidney disease, unspecified CKD stage; Chronic obstructive pulmonary disease, unspecified COPD type (CMS/HCC); Laryngeal cancer (CMS/HCC); Former smoker; Hyperlipidemia, unspecified hyperlipidemia type; Essential hypertension Start: 07-12-2023 End: 07-12-2023 ambulatory TALITA RUMSCHLAG Facility:[facility] Start: 07-12-2023 End: 07-12-2023 Subsequent hospital visit by physician Arrival Time Radiology Work Phone: Radiology [facility] Comment on above: 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] Start: 06-29-2023 Bamboo flowsheet Kylie K Stra ck DO Work Phone: [facility] Start: 06-29-2023 Bamboo flowsheet Kylie K Stra ck DO Work Phone: [facility] Start: 06-29-2023 End: 06-29-2023 Office outpatient visit 15 minutes Kylie Qureshick DO Work Phone: [facility] Comment on above: Chronic obstructive pulmonary disease, unspecified COPD type (CMS/HCC) (Primary Dx) Start: 06-29-2023 End: 06-29-2023 ambulatory KYLIE QURESHICK Not Available Start: 06-28-2023 Chart abstracting Kylie Lopez Str ack DO Work Phone: [facility] Start: 01-09-2023 End: 01-09-2023 [facility] Facility:[facility] Start: 01-09-2023 End: 01-09-2023 Patient encounter procedure Camille Agarwal MD Work Phone: Radiation Oncology Comment on above: 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); Acquired atrophy of thyroid Start: 01-05-2023 End: 01-05-2023 [facility] Facility:[facility] Start: 01-05-2023 End: 01-05-2023 Subsequent hospital visit by physician Arrival Time Radiology Work Phone: [facility] Comment on above: 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] Start: 12-21-2022 Telephone encounter Camille Agarwal MD Work Phone: Radiation Oncology Comment on above: Orders Start: 09-15-2022 End: 09-16-2022 ambulatory [facility] Facility:[facility] Start: 07-06-2022 End: 07-06-2022 Patient encounter procedure Camille Agarwal MD Work Phone: Radiation Oncology Comment on above: 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); Disorder of thyroid Start: 06-30-2022 End: 06-30-2022 Subsequent hospital visit by physician Arrival Time Radiology Work Phone: [facility] Comment on above: Lung nodules [R91.8] Start: 06-08-2022 Office outpatient vi sit 25 minutes Talita Mistry Work Phone: [facility] [facility] DO Work Phone: Start: 06-08-[address] Terrence lloyd Enio Facility: Start: 01-20-2022 End: 01-21-2022 ambulatory [facility] Facility: Start: 01-05-2022 Telephone encounter Chaparro dia MD Work Phone: [facility] Comment on above: Referral Information (Pulmonary) Start: 12-28-2021 End: 12-28-2021 ambulatory Chaparro Wallace MD Work Phone: Hematology/Oncology Comment on above: Lupus anticoagulant positive (Primary Dx); Rheumatoid arthritis of multiple sites with negative rheumatoid factor (HCC); Thrombocytopenia (HCC); Lung nodule Start: 12-28-2021 End: 12-28-2021 Patient encounter procedure Chaparro Wallace MD Work Phone: [employer] Comment on above: Lung nodules (Primar y Dx); Malignant neoplasm of larynx (HCC); Other fatigue; Disorder of thyroid Start: 12-13-2021 End: 12-13-2021 Subsequent hospital visit by physician Arrival Time Radiology Work Phone: Radiology [facility] Comment on above: Lung nodules [R91.8] Start: 11-24-2021 End: 11-24-2021 Patient encounter procedure Camille Agarwal MD Work Phone: Radiation Oncology Comment on above: Lung nodules; Neoplasm of lung Start: 11-17-2021 End: 11-17-2021 Subsequent hospital visit by physician Arrival Time Radiology Work Phone: Radiology [facility] Comment on above: 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] Start: 11-07-2021 End: 11-07-2021 Patient encounter procedure Camille Agarwal MD Work Phone: Radiation Oncology Comment on above: Acquired atrophy of thyroid (Primary Dx); Malignant neoplasm of larynx (HCC) Start: 05-24-2021 Office outpatient vi sit 15 minutes Referring Provider Unknown [facility] [facility] DO Work Phone: Procedures Date Procedure Procedure Detail Performing Clinician Start: 07-12-2023 Ct thorax w/o contra st material Camille Agarwal MD Work Phone: Start: 01-05-2023 Ct thorax w/o contra st material Camille Agarwal MD Work Phone: Start: 06-30-2022 Ct thorax w/o contra st material Camille Agarwal MD Work Phone: Start: 12-13-[address] atten uation skull base mid-thigh Camille Agarwal MD Work Phone: Start: 12-13-2021 Gluc bld gluc mntr d ev cleared fda spec home use [facility] Provider Start: 11-17-2021 Ct thorax w/o contra st material Camille Agarwal MD Work Phone: Start: 11-07-2021 Adult depression scr eening assessment LISSETT Agarwal MD Work Phone: Appendectomy Referring Provi erna Unknown Plan of Treatment Date Care Activity Detail Author Start: 07-18-2026 Diabetes Screening Diabetes Screenin g [facility] Start: 12-28-2024 DIABETES SCREEN DIABETES SCREEN [facility] Start: 11-07-2024 DIABETES SCREEN DIABETES SCREEN [facility] Start: 07-24-2024 End: 07-24-2024 Patient encounter procedure 07/24/2024 10:00 AM EST Office Visit Radiation Oncology [address] [place] [address] [place] [address] Camille Agarwal MD [address] [address] followup Radiation Oncology Comment on above: followup Start: 07-18-2024 End: 08-17-2024 CT Chest WO contrast CT CHEST WO IVCON Radiology Routine Malignant neoplasm of larynx (HCC) Lung nodule Expected: 07/18/2024, Expires: 08/17/2024 [facility] Work Phone: Comment on above: Expected: 07/18/2024 , Expires: 08/17/2024 Start: 07-17-2024 End: 07-17-2024 Patient encounter procedure Radiology Pet CT Comment on above: CT chest wo lab Start: 07-16-2024 End: 07-16-2024 Patient encounter procedure 07/16/2024 11:00 AM EST Office Visit [facility] [address] [facility] [address] [place] [address] Terrence Steen DO [address] [facility] [address] [place] [address] [place] [address] [facility] Start: 03-26-2024 End: 03-26-2024 Patient encounter procedure 03/26/2024 10:20 AM EST Office Visit [facility] [address] [facility] [address] [place] [id number] Elvira Munoz MD [address] [facility] [address] [place] [address] Arrived [facility] Comment on above: Arrived Start: 01-20-2024 Covid-19 Vaccine ( season) Covid-19 Vaccine ( season) [facility] Start: 01-20-2024 Covid-19 Vaccine ( season) Covid-19 Vaccine ( season) [facility] Start: 01-20-2024 Influenza vaccination Influenza Vacc ine (#1) [facility] Start: 10-17-2023 End: 10-17-2023 Patient encounter procedure 10/17/2023 11:00 AM EDT Office Visit [facility] [address] [place] [address] Kylie Cutler, DO [address] [facility] [place] [address] [facility] Start: 07-12-2023 End: 02-08-2024 Ct thorax w/o contrast material CT CHEST WO IVCON Radiology Routine 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 Expected: 07/12/2023, Expires: 02/08/2024 [facility] Work Phone: Comment on above: Expected: 07/12/2023 , Expires: 02/08/2024 Start: 07-12-2023 End: 09-11-2023 Thyrotropin [Units/volume] in Serum or Plasma TSH BLD Lab Routine 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 Expected: 07/12/2023, Expires: 09/11/2023 [facility] Work Phone: Comment on above: Expected: 07/12/2023 , Expires: 09/11/2023 Start: 07-12-2023 End: 09-11-2023 Thyroxine (T4) [Mass/volume] in Serum or Plasma T4/THYROXINE BLOOD Lab Routine 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 Expected: 07/12/2023, Expires: 09/11/2023 [facility] Work Phone: Comment on above: Expected: 07/12/2023 , Expires: 09/11/2023 Start: 06-29-2023 End: 06-29-2023 Patient encounter procedure [facility] Comment on above: Arrived Start: 06-07-2023 FUV, Provider: Terrence Steen, Status: Pen, Time: 11:20 AM FUV, Provider: Terrence Steen, Status: Guicho, Time: 11:20 AM [place] [address] DO Work Phone: Start: 05-21-2023 Advance Directive Discussion Advance Directive Discussion [facility] Start: 05-21-2023 Depression Assessment Depression Ass essment [facility] Start: 01-19-2023 Influenza vaccination C [facility] Start: 12-21-2022 End: 02-20-2023 Thyrotropin [Units/volume] in Serum or Plasma TSH BLD Lab Routine Hypothyroidism due to acquired atrophy of thyroid Expected: 12/21/2022, Expires: 02/20/2023 [facility] Work Phone: Comment on above: Expected: 12/21/2022 , Expires: 02/20/2023 Start: 12-21-2022 End: 02-20-2023 Thyroxine (T4) [Mass/volume] in Serum or Plasma T4/THYROXINE BLOOD Lab Routine Hypothyroidism due to acquired atrophy of thyroid Expected: 12/21/2022, Expires: 02/20/2023 [facility] Work Phone: Comment on above: Expected: 12/21/2022 , Expires: 02/20/2023 Start: 11-07-2022 Adult depression screening assessment DEPRESSION SCREENING [facility] Start: 07-06-2022 End: 09-05-2022 Thyrotropin [Units/volume] in Serum or Plasma TSH BLD Lab Routine Malignant neoplasm of larynx (HCC) Disorder of thyroid Expected: 07/06/2022, Expires: 09/05/2022 [facility] Work Phone: Comment on above: Expected: 07/06/2022 , Expires: 09/05/2022 Start: 07-06-2022 End: 09-05-2022 Thyroxine (T4) [Mass/volume] in Serum or Plasma T4/THYROXINE BLOOD Lab Routine Malignant neoplasm of larynx (HCC) Disorder of thyroid Expected: 07/06/2022, Expires: 09/05/2022 [facility] Work Phone: Comment on above: Expected: 07/06/2022 , Expires: 09/05/2022 Start: 06-08-2022 FUV, Provider: Terrence Steen, Status: Pen, Time: 11:20 AM FUV, Provider: Terrence Steen, Status: Pen, Time: 11:20 AM -[facility] DO Work Phone: Start: 05-21-2022 ADVANCE DIRECTIVE DISCUSSION ADVANCE DIRECTIVE DISCUSSION [facility] Start: 05-21-2022 DEPRESSION ASSESSMENT DEPRESSION ASS ESSMENT [facility] Start: 01-19-2022 Influenza vaccination [facility] Start: 05-21-2021 ADVANCE DIRECTIVE DISCUSSION ADVANCE DIRECTIVE DISCUSSION [facility] Start: 2020 RSV Vaccine (1 - 1-d ose 75+ series) RSV Vaccine (1 - 1-dose 75+ series) [facility] Start: 12-27-2019 Influenza vaccination LUNG CANCER [facility] Start: 05-21-2017 Pneumococcal Vaccine : 65+ (2 of 2 - PCV) Pneumococcal Vaccine: 65+ (2 of 2 - PCV) [facility] Start: 05-21-2017 Pneumococcal Vaccine : 65+ Years (2 - PCV) Pneumococcal Vaccine: 65+ Years (2 - PCV) [facility] Start: 05-21-2017 PNEUMOCOCCAL: 65+ (2 - PCV) PNEUMOCOCCAL: 65+ (2 - PCV) [facility] Start: 2010 PNEUMOCOCCAL: 65+ (1 - PCV) PNEUMOCOCCAL: 65+ (1 - PCV) [facility] Start: 2005 RSV Vaccine (1 - 1-d ose 60+ series) RSV Vaccine (1 - 1-dose 60+ series) [facility] Start: 1995 SHINGRIX VACCINE (1 of 2) SHINGRIX VACCINE (1 of 2) [facility] Start: 1995 Zoster Vaccines (1 o f 2) Zoster Vaccines (1 of 2) [facility] Start: 1967 DTaP/Tdap/Td Vaccine s (1 - Tdap) DTaP/Tdap/Td Vaccines (1 - Tdap) [facility] Start: 1964 SHINGRIX VACCINE (1 of 2) SHINGRIX VACCINE (1 of 2) [facility] Start: 1964 Urine microalbumin profile [facility] Start: 1963 Anxiety Screening Anxiety Screening [facility] Start: 1963 Depression Screening Depression Scre ening [facility] Start: 1963 HEPATITIS C SCREENING HEPATITIS C [facility] Start: 1963 Hepatitis C screening Hepatitis C [facility] Start: 1951 PNEUMOCOCCAL: 65+ (1 - PCV) PNEUMOCOCCAL: 65+ (1 - PCV) [facility] Start: 1950 COVID-19 VACCINE (#1) COVID-19 VACCI NE (#1) [facility] Start: 1945 COVID-19 VACCINE (#1) COVID-19 VACCI NE (#1) [facility] Start: 1945 Lipid panel Lipid Panel [facility] Start: 1945 Medicare Annual Wellness Visit Medicare Annual Wellness Visit (AWV) [facility] End: 12-07-2022 Ct thorax w/o contrast material CT CHEST WO IVCON Radiology Routine Malignant neoplasm of larynx (HCC) 1 Occurrences starting 11/07/2021 until 12/07/2022 [facility] Work Phone: Comment on above: 1 Occurrences starti ng 11/07/2021 until 12/07/2022 End: 01-27-2023 Ct thorax w/o contrast material CT CHEST WO IVCON Radiology Routine Lung nodules Malignant neoplasm of larynx (HCC) Other fatigue Disorder of thyroid 1 Occurrences starting 12/28/2021 until 01/27/2023 [facility] Work Phone: Comment on above: 1 Occurrences starti ng 12/28/2021 until 01/27/2023 End: 08-05-2023 Ct thorax w/o contrast material CT CHEST WO IVCON Radiology Routine Malignant neoplasm of larynx (HCC) Disorder of thyroid 1 Occurrences starting 07/06/2022 until 08/05/2023 [facility] Work Phone: Comment on above: 1 Occurrences starti ng 07/06/2022 until 08/05/2023 End: 12-24-[address] attenuation skull base mid-thigh NM PET/CT SKULL-THIGH INITIAL Radiology Routine Lung nodules Neoplasm of lung 1 Occurrences starting 11/24/2021 until 12/24/2022 [facility] Work Phone: Comment on above: 1 Occurrences starti ng 11/24/2021 until 12/24/2022 [facility] Immunizations Immunization Date Immunization Notes Care Provider Ian boston 05-30-2019 influenza, high dose seasonal, preservative-free Referring Provider Unknown [facility] 05-30-2019 influenza virus vacc ine, unspecified formulation Terrence Enio Work Phone: [facility] Work Phone: 04-03-2018 Influenza, injectabl e, Madin Danielle Canine Kidney, preservative free, quadrivalent Referring Provider Unknown [facility] 04-11-2017 influenza, seasonal, injectable, preservative free Referring Provider Unknown [facility] 05-21-2016 pneumococcal polysaccharide vaccine, 23 valent Chaparro Wallace MD Work Phone: [facility] Payers Date Payer Category Payer Medicare MEDICARE MEDICAR E A AND B [id number] 2010-Present [phone] [place] [address] Medicare [id number] 2010 Medicare [id number] 1959 Medicare [id number] 1945 Unknown [id number] 1945 Unknown [id number] 1945 Unknown [id number] 1945 Unknown [id number] 1945 Unknown [id number] 1945 Unknown [id number] Unknown MEDICARE Social History Date Type Detail Facility Start: 10-07-2015 End: 06-29-2023 No alcohol use No alcohol use [facility] Comment on above: 3-4 cups of coffee d aily.; Start: 10-07-2015 End: 03-09-2023 Tobacco smoking status NHIS Ex-smoker [facility]ic Start: 10-06-2012 End: 11-13-2013 History of tobacco use Current smoker [facility] Start: 10-06-2012 End: 11-13-2013 History of tobacco use Cigarette Smoker [facility] Start: 10-06-2012 End: 11-13-2013 History of tobacco use Cigar Smoker [facility] Start: 10-07-2015 End: 03-09-2023 Tobacco use and exposure Smokeless tobacco non-user [facility] Start: 11-07-2021 End: 11-24-2021 Alcohol intake Ex-drinker (finding) [facility] Start: 05-07-2019 History SDOH Alcohol Frequency 1 [facility] Start: 1945 Sex Assigned At Not on file [facility] Start: 10-28-2021 End: 07-17-2023 Exposure to SARS-CoV-2 (event) Not sure [facility] Start: 05-07-2019 End: 06-29-2023 Alcohol Use Disorder Identification Test - Consumption [AUDIT-C] [facility] How often to you hav e a drink containing alcohol? Never [facility] Average Number of Drinks Not on file [facility] Start: 03-09-2023 End: 06-29-2023 Alcohol intake Lifetime non-drinker (finding) [facility] Start: 03-09-2023 Alcohol Comment caffeine intak e: 2-3 cups per day [facility] Clinical Notes 10-16-2013 to 03-26-2024 Elvira Munoz MD - 03/26/2024 10:20 AM Camille Campos MD - 07/19/2023 10:21 AM Mynor Steen DO - 07/17/2023 2:50 PM ESTPatient Instructions Note Date & Type Note Facility 03-26-2024 History of Present illness Narrative Subjective Patient ID: Felicitas Correa is a 78 y.o. male who presents for Cancer (Yearly check Vocal cord ) No H&N CA c/o. Pt notes a couple month h/o RT nasal obstruction. Exacerbated by laying in left. Family History Problem Relation Name Age of Onset Lung cancer Mother COPD Mother Leukemia Maternal Grandfather Active Ambulatory Problems Diagnosis Date Noted Carcinoma of vocal cord ([facility] 12/14/2022 Chronic obstructive pulmonary disease ([facility]) 12/14/2022 Lung nodule 08/23/2017 Lupus anticoagulant positive 10/01/2014 Renal insufficiency 08/09/2012 Rheumatoid arthritis of multiple sites with negative rheumatoid factor ([facility]) 10/01/2014 Thrombocytopenia ([facility]) 08/06/2012 Resolved Ambulatory Problems Diagnosis Date Noted Abnormal stress test 06/07/2023 Bronchitis 10/16/2013 Elevated partial thromboplastin time (PTT) 08/09/2012 Essential hypertension ([facility]) 06/07/2023 History of DE (myocardial infarction) ([facility]) 06/07/2023 Hyperlipidemia ([facility]) 06/07/2023 Laryngeal cancer ([facility]) 12/25/2018 Sleep apnea 06/07/2023 RBBB (right bundle branch block) 06/07/2023 Past Medical History: Diagnosis Date Acute renal failure (ARF) ([facility]) Arthritis Azotemia HLD (hyperlipidemia) ([facility]) Hoarseness HTN (hypertension) ([facility]) Lupus anticoagulant disorder ([facility]) Nasal obstruction ANJALI (obstructive sleep apnea) Other specified hearing loss of both ears Sensorineural hearing loss (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 Past Surgical History: Procedure Laterality Date APPENDECTOMY LARYNGOSCOPY Left 10/29/2018 microlaryngoscopy with bx left TVNestor, Michael OTHER SURGICAL HISTORY 12/2018 completed radiation to throat, Cesar Allergies Allergen Reactions Duloxetine Hallucinations wanted to kill people while taking medication Current Outpatient Medications on File Prior to Visit Medication Sig Dispense Refill acetaminophen (Tylenol) 500 MG tablet every 8 (eight) hours albuterol HFA 90 mcg/act inhaler Inhale 2 puffs every 6 (six) hours if needed for shortness of breath or wheezing 18 g 5 amLODIPine (Norvasc) 10 MG tablet Take 10 mg by mouth in the morning. aspirin 81 MG EC tablet Take 81 mg by mouth 1 (one) time each day at the same time. atorvastatin (Lipitor) 20 MG tablet Take 20 mg by mouth at bedtime. baclofen (Lioresal) 10 MG tablet Take 10 mg by mouth as needed at bedtime. Pgjrwkflqdi-Tezisfmwj-Dmqonj (Trelegy Ellipta) 100-62.5-25 MCG/ACT aerosol powder Inhale 1 puff in the morning. 1 each 5 magnesium oxide (Mag-Ox) 400 (241.3 Mg) MG tablet Take 400 mg by mouth in the morning. pantoprazole (ProtoNix) 40 MG EC tablet Take 40 mg by mouth in the morning. sertraline (Zoloft) 50 MG tablet Take 50 mg by mouth in the morning. [DISCONTINUED] lisinopril 40 MG tablet Take 40 mg by mouth in the morning. No current facility-administered medications on file prior to visit. 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 Recheck annually Due to DNS and and nasal stenosis. Stop OTC spray (decongestant?) Tx with flonase. Consider eval by Dr More if worsens documented in this encounter [facility] 07-19-2023 Note HNO ID: [id number] Author: Camille AGARWAL MD Service: ? Author Type: Physician Type: Progress Notes Filed: 07/20/2023 15:22 Note Text: Radiation Oncology - Follow Up Note PATIENT DIAGNOSIS: Laryngeal cancer, squamous cell carcinoma in situ, stage [id number]. RADIATION SUMMARY:DATES OF TREATMENT: 11/25/18- 01/01/19 AREA [...] - 51.0 % 35.3 (L) Results for CORREAFELICITAS ( ) as of 11/08/2021 07:59 Ref. [...] Ref Range: 1.00 - 4.00 k/uL 1.17 Cone[place]uh% Latest Units: % 6.3 Abs [place] Latest Ref Range: <0.87 k/uL 0.42 Eosin% Latest Units: % 5.4 Abs Eosin Latest Ref Range: <0.46 k/uL 0.36 Baso% Latest Units: % 0.4 Abs Baso Latest Ref Range: <0.11 k/uL 0.03 Immature Gran % Latest Units: % 0.1 IMMATURE GRANS (ABS) Latest Ref Range: <0.10 k/uL <0.0 (more content not included)... [facility] 07-19-2023 History of Present illness Narrative Radiation Oncology - Follow Up Note PATIENT DIAGNOSIS: Laryngeal cancer, squamous cell carcinoma in situ, stage [id number]. RADIATION SUMMARY:DATES OF TREATMENT: 11/25/18- 01/01/19 AREA [...] Ref Range: 1.00 - 4.00 k/uL 1.17 [place]% Latest Units: % 6.3 Abs [place] Latest Ref Range: <0.87 k/uL 0.42 Eosin% [...] cancer, squamous cell carcinoma in situ, stage [id number] status post definitive radiation completed December 2018. 1. Laryngeal cancer, doing well no evidence recurrence. Has continued surveillance with Dr. Munoz. 2. Left upper lung nodule and other subcentimeter nodules. Overall stable on recent CT scan. Likely benign. Recommend interval CT in 1 year. 3. Thyroid function stable still at risk for postradiation hypothyroidism recommend continued surveillance. Signed by: Camille Agarwal MD cc: Eloy Matamoros MD [address] [place] [address] Dr. Munoz Portions of the above note extracted and edited from previous visit as well as active information included in the EMR. documented in this encounter [facility] 07-17-2023 History of Present illness Narrative [...] Scribe Attestation By signing my name below, I, Cecelia Lane LPN attest that this documentation has been prepared under the direction and in the presence of Terrence Stene DO. Provider Attestation - Scribe documentation All medical record entries made by the Scribe were at my direction and personally dictated by me. I have reviewed the chart and agree that the record accurately reflects my personal performance of the history, physical exam, discussion and plan. documented in this encounter [facility] Work Phone: 07-17-2023 Instructions Dyan Brown LPN [...] of your visit. documented in this encounter [facility] Work Phone: 07-12-2023 Note HNO ID: [id number] Author: SEBASTIEN GOLDMAN RT(Kenzie) Service: ? Author Type: Technologist Type: Procedures [...] PATIENT PRESENTS WITH AN IMPLANTABLE OR ATTACHED TAX MANAGER CPA: No RADIOLOGY DEPARTMENT: CT; Exam(s) Completed: Chest PERIPHERAL IV DATA: Not applicable SIGNED BY: RT Franki(R) July 12, 2023 8:01 AM [facility] 07-12-2023 Procedure note Radiology Service Progress Note PATIENT NAME: Sushant [...] PATIENT PRESENTS WITH AN IMPLANTABLE OR ATTACHED TAX MANAGER CPA: No RADIOLOGY DEPARTMENT: CT; Exam(s) Completed: Chest PERIPHERAL IV DATA: Not applicable SIGNED BY: RT Franki(R) July 12, 2023 8:01 AM [facility] 07-12-2023 Procedure note Radiology Service Progress Note PATIENT NAME: Sushant [...] PATIENT PRESENTS WITH AN IMPLANTABLE OR ATTACHED TAX MANAGER CPA: No RADIOLOGY DEPARTMENT: CT; Exam(s) Completed: Chest PERIPHERAL IV DATA: Not applicable SIGNED BY: RT Franki(R) July 12, 2023 8:01 AM documented in this encounter [facility] 06-29-2023 History of Present illness Narrative [...] or wheezing, Disp: 18 g, Rfl: 5 Cjgpmvlyibo-Subtwpeef-Gltolm (Trelegy Ellipta) 100-62.5-25 MCG/ACT aerosol powder , Inhale 1 puff in the morning., Disp: 1 each, Rfl: 5 Past Medical History: Past Medical History: Diagnosis Date Abnormal stress test 06/07/2023 Acute renal failure (ARF) ([facility]) Arthritis Azotemia Bronchitis 10/16/2013 Carcinoma of vocal cord ([facility]) Elevated partial thromboplastin time (PTT) 08/09/2012 Essential hypertension ([facility]) 06/07/2023 History of DE (myocardial infarction) ([facility]) 06/07/2023 HLD (hyperlipidemia) ([facility]) Hoarseness HTN (hypertension) ([facility]) Hyperlipidemia ([facility]) 06/07/2023 Laryngeal cancer ([facility]) 12/25/2018 Lupus anticoagulant disorder ([facility]) Nasal obstruction ANJALI (obstructive sleep apnea) Other [...] Chronic obstructive pulmonary disease, unspecified COPD type ([facility]) - albuterol HFA 90 mcg/act inhaler; Inhale 2 puffs every 6 (six) hours if needed for shortness of breath or wheezing - Vghkjhvgiga-Ohtjekrnj-Kxajnw (Trelegy Ellipta) 100-62.5-25 MCG/ACT aerosol powder ; [...] Kylie Cutler DO documented in this encounter [facility] 01-09-2023 Note HNO ID: [id number] Author: Camille Agarwal MD Service: ? Author Type: Physician Type: Progress Notes Filed: 01/09/2023 2:16 PM Note Text: Radiation Oncology - Follow Up Note PATIENT DIAGNOSIS: Laryngeal cancer, squamous cell carcinoma in situ, stage [id number]. RADIATION SUMMARY:DATES OF TREATMENT: 11/25/18- 01/01/19 AREA [...] Ref Range: 1.00 - 4.00 k/uL 1.17 [place]% Latest Units: % 6.3 Abs [place] Latest Ref Range: <0.87 k/uL 0.42 Eosin% [...] (POCT) Latest Ref (more content not included)... [facility] 01-09-2023 History of Present illness Narrative Radiation Oncology - Follow Up Note PATIENT DIAGNOSIS: Laryngeal cancer, squamous cell carcinoma in situ, stage [id number]. RADIATION SUMMARY:DATES OF TREATMENT: 11/25/18- 01/01/19 AREA [...] Ref Range: 1.00 - 4.00 k/uL 1.17 [place]% Latest Units: % 6.3 Abs [place] Latest Ref Range: <0.87 k/uL 0.42 Eosin% [...] cancer, squamous cell carcinoma in situ, stage [id number] status post definitive radiation completed December 2018. [...] Camille Agarwal MD cc: Eloy Matamoros MD [address] [place] [address] Dr. Munoz Portions of the above note extracted and edited from previous visit as well as active information included in the EMR. documented in this encounter [facility] 01-05-2023 Note HNO ID: [id number] Author: Ashlyn Baig, RT(R) Service: ? Author Type: Technologist Type: Progress [...] IV DATA: Not applicable SIGNED BY: RT Yuliya(R) January 05, 2023 12:53 PM [facility] 01-05-2023 History of Present illness Narrative Radiology Service Progress Note PATIENT NAME: Sushant [...] IV DATA: Not applicable SIGNED BY: RT Yuliya(R) January 05, 2023 12:53 PM documented in this encounter [facility] 12-21-2022 Miscellaneous Notes Please sign pended lab orders for upcoming follow up. Previous orders . Nicole Alva LPN documented in this encounter [facility] 07-06-2022 History of Present illness Narrative Radiation Oncology - Follow Up Note PATIENT DIAGNOSIS: Laryngeal cancer, squamous cell carcinoma in situ, stage [id number]. RADIATION SUMMARY:DATES OF TREATMENT: 11/25/18- 01/01/19 AREA [...] Ref Range: 1.00 - 4.00 k/uL 1.17 [place]one[place]uh% Latest Units: % 6.3 Abs [place] Latest Ref Range: <0.87 k/uL 0.42 Eosin% [...] cancer, squamous cell carcinoma in situ, stage [id number]. 1. Laryngeal cancer, doing well no evidence recurrence. 2. Left upper lung nodule. Most recent CT with decrease in size of lesion. No other suspicious findings. Given interval decrease, likely benign. Recommend repeat imaging this summer. Signed by: Camille Agarwal MD cc: Eloy Matamoros MD [address] [place] [address] Dr. Munoz Portions of the above note extracted and edited from previous visit as well as active information included in the EMR. documented in this encounter [facility] 06-30-2022 History of Present illness Narrative Radiology Service Progress Note PATIENT NAME: Sushant Crorea DATE OF SERVICE: June 30, 2022 TIME: 9:57 AM PATIENT IDENTITY VERIFICATION COMPLETED USING TWO [...] IV DATA: Not applicable SIGNED BY: RT Yuliya(R) June 30, 2022 9:57 AM documented in this encounter [facility] 01-09-2022 Miscellaneous Notes Svetlana Called Dr [...] Regarding: Pulmonary referral Please refer patient to Wil[facility]. I have spoken to him about this , documented in this encounter [facility] 12-28-2021 History of Present illness Narrative PATIENT NAME: Sushant Correa CLINIC NO.: [id number] ATTENDING PHYSICIAN: Chaparro Wallace MD DATE OF [...] October 29, 2018 direct laryngoscopy biopsies (Dr. Munoz) of true vocal cord mass consistent with [...] 12/28/2021 1.11 1.00 - 4.00 k/uL Final Cone[place]uh% Date Value Ref Range Status 12/28/2021 5.0 % Final Abs [place] Date Value Ref Range Status 12/28/2021 0.36 [...] hypermetabolic osseous lesions Assessment and Plan: Sushant Correa is a 76 year old [...] however, he is no longer seeing a respiratory care program director or taking prednisone. I discussed that if he feels that his arthritis is worsening, he may need a re-referral to a respiratory care program director. No additional treatment or intervention needed for thrombocytopenia. Monitor counts every 6 months. Thank you for the kind referral. If there are any questions and or concerns please do not hesitate to contact me at [phone]. 4. Anemia, normocytic likely is from underlying chronic kidney disease. Continue to monitor. 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 I have asked him to reach out given worsening creatinine. 5. SHASHI nodule. I reviewed ths with the patient and it is concerning. Will discuss with Dr. Agarwal as well. Chaparro Wallace MD Hematology/Medical Oncology [facility] I spent a total of 35 minutes on the date of the service which included preparing to see the patient, [id number] patient care, completing clinical documentation, obtaining and/or reviewing separately obtained history, counseling and educating the patient/family/caregiver, ordering medications, tests, or procedures, and communicating with other HCPs (not separately reported). Medical Decision Making: Medical Decision Making Level: 1 - N/A CC: MD Talita Sol MD documented in this encounter [facility] 12-28-2021 History of Present illness Narrative Radiation Oncology - Follow Up Note PATIENT DIAGNOSIS: Laryngeal cancer, squamous cell carcinoma in situ, stage [id number]. RADIATION SUMMARY:DATES OF TREATMENT: 11/25/18- 01/01/19 AREA [...] Ref Range: 1.00 - 4.00 k/uL 1.17 [place]% Latest Units: % 6.3 Abs [place] Latest Ref Range: <0.87 k/uL 0.42 Eosin% [...] cancer, squamous cell carcinoma in situ, stage [id number]. 1. Laryngeal cancer, doing well no evidence [...] Camille Agarwal MD cc: Eloy Matamoros MD [address] [place] [id number] [address] Munoz Portions of the above note extracted and edited from previous visit as well as active information included in the EMR. documented in this encounter [facility] 12-13-2021 History of Present illness Narrative Radiology Service Progress Note DATE OF SERVICE: December 13, 2021 TIME: 11:41 AM PATIENT IDENTITY VERIFICATION COMPLETED USING TWO (2) STANDARD IDENTIFIERS: Name and Date of confirmed by patient verbally. FALL SCREENING: Has the patient had 2 falls in the last year or 1 fall with injury or currently using an Ambulatory Assistive Device (Walker, Cane, Wheelchair, Crutches, etc.)? No PATIENT GENDER DATA: Male ALLERGIES: Reviewed and unchanged CONTRAST ALLERGY: No EXAM: CT -CONTRAST INDUCED NEPHROPATHY RISK FACTORS: Not applicable CREATININE: Creatinine Date Value Ref Range Status 11/07/2021 2.18 (H) 0.73 - 1.22 mg/dL Final 06/21/2021 2.42 (H) 0.73 - 1.22 mg/dL Final 12/27/2020 1.93 (H) 0.73 - 1.22 mg/dL Final Estimated Glomerular Filtration Rate Date Value Ref Range Status 11/07/2021 31 (L) >=60 mL/min/1.73m Final Comment: Estimated Glomerular Filtration Rate (eGFR) is calculated using the 2020 CKD-EPI creatinine equation. This equation utilizes serum creatinine, sex, and age as parameters. The creatinine assay has traceable calibration to isotope dilution-mass spectrometry. Refer to KDIGO guidelines for clinical interpretation. In patients with unstable renal function, e.g. those with acute kidney injury, the eGFR may not accurately reflect actual GFR. eGFR- Date Value Ref Range Status 06/21/2021 32 Final P.O.C.T. RESULTS: POC done: Yes, See Lab Tab December 13, 2021 TREATMENT: N/A IV SITE: Ambulatory: A peripheral IV was started in the Right forearm with a Angio cath: 22 gauge. IV SITE APPEARANCE: Clean,Dry and Intact SIGNATURE: Linda Ramos RN PATIENT NAME: Sushant Correa DATE: December 13, 2021 TIME: 11:41 AM RADIOLOGY SERVICE PROGRESS NOTE SERVICE DATE: 12/13/2021 SERVICE TIME: 1:12 PM PATIENT IDENTITY VERIFICATION COMPLETED USING TWO (2) STANDARD IDENTIFIERS: Name and Date of confirmed by patient verbally POST EXAM PIV STATUS: Discontinued PROCEDURE TYPE: NM INJECT: PET/CT HEAD, NECK, BODY SCAN. 10.8 mCi F18 FDG. No other medications given.. ADMINISTRATION TIME: 1148 PATIENT DISCHARGED TO: Ambulatory patient, left NH department area. A Diagnostic radioactive procedure has taken place, with no further precautions necessary other than routine body substance precautions. More information regarding radiation safety can be found using this link: [email or web address] SIGNATURE: RT Yuliya(Kenzie) PATIENT NAME: Sushant Correa DATE: December 13, 2021 TIME: 1:12 PM PAGER/CONTACT #: documented in this encounter [facility] 11-24-2021 History of Present illness Narrative Radiation Oncology - Follow Up Note PATIENT DIAGNOSIS: Laryngeal cancer, squamous cell carcinoma in situ, stage [id number]. RADIATION SUMMARY:DATES OF TREATMENT: 11/25/18- 01/01/19 AREA [...] Ref Range: 1.00 - 4.00 k/uL 1.17 [place]% Latest Units: % 6.3 Abs [place] Latest Ref Range: <0.87 k/uL 0.42 E[place]% [...] cancer, squamous cell carcinoma in situ, stage [id number]. Patient unfortunately has what appears to be [...] Camille Agarwal MD cc: Eloy Matamoros MD [address] [place] [address] Dr. Munoz Portions of the above note extracted and edited from previous visit as well as active information included in the EMR. documented in this encounter [facility] 11-17-2021 History of Present illness Narrative Radiology Service Progress Note PATIENT NAME: Sushant Correa DATE OF SERVICE: November 17, 2021 TIME: 2:03 PM PATIENT IDENTITY VERIFICATION COMPLETED USING TWO [...] IV DATA: Not applicable SIGNED BY: RT Yuliya(R) November 17, 2021 2:03 PM documented in this encounter [facility] 11-07-2021 History of Present illness Narrative Radiation Oncology - Follow Up Note PATIENT DIAGNOSIS: Laryngeal cancer, squamous cell carcinoma in situ, stage [id number]. RADIATION SUMMARY:DATES OF TREATMENT: 11/25/18- 01/01/19 AREA [...] Ref Range: 1.00 - 4.00 k/uL 1.17 [place]% Latest Units: % 6.3 Abs [place] Latest Ref Range: <0.87 k/uL 0.42 Eosin% [...] cancer, squamous cell carcinoma in situ, stage [id number]. Patient having several issues likely multifactorial. Do [...] Camille Agarwal MD cc: Eloy Matamoros MD [address] [place] [address] Dr. Munoz Portions of the above note extracted and edited from previous visit as well as active information included in the EMR. documented in this encounter [facility] 10-16-2013 History of Past i llness Narrative Problem Noted Date Resolved Date SLE (systemic lupus erythematosus) 10/16/2013 10/05/2016 documented as of this encounter (statuses as of 11/08/2021) [facility] History of Past illness Narrative* Problem Noted Date Resolved Date SLE (systemic lupus erythematosus) 10/16/2013 10/05/2016 documented as of this encounter (statuses as of 11/25/2021) [facility] History of Past illness Narrative* Problem Noted Date Resolved Date SLE (systemic lupus erythematosus) 10/16/2013 10/05/2016 documented as of this encounter (statuses as of 12/29/2021) [facility] of Past illness Narrative* Problem Noted Date Resolved Date SLE (systemic lupus erythematosus) 10/16/2013 10/05/2016 documented as of this encounter (statuses as of 12/30/2021) [facility] History of Past illness Narrative* Problem Noted Date Resolved Date SLE (systemic lupus erythematosus) 10/16/2013 10/05/2016 documented as of this encounter (statuses as of 01/09/2022) [facility] of [facility] illness Narrative* Problem Noted Date Resolved Date SLE (systemic lupus erythematosus) 10/16/2013 10/05/2016 documented as of this encounter (statuses as of 07/12/2022) [facility] of Past illness Narrative* Problem Noted Date Diagnosed Date Resolved Date SLE (systemic lupus erythematosus) 10/16/2013 10/05/2016 documented as of this encounter (statuses as of 12/21/2022) [facility] Past illness Narrative* Problem Noted Date Diagnosed Date Resolved Date SLE (systemic lupus erythematosus) 10/16/2013 10/05/2016 documented as of this encounter (statuses as of 01/10/2023) [facility] of Past illness Narrative* Problem Noted Date Diagnosed Date Resolved Date SLE (systemic lupus erythematosus) 10/16/2013 10/05/2016 documented as of this encounter (statuses as of 07/20/2023) [facility] Diagnosis Acquired atrophy of thyroid- Primary Other specified disorders of thyroid Malignant neoplasm of larynx (HCC) Malignant neoplasm of larynx, unspecified site [facility] Lung nodules Other nonspecific abnormal finding of lung field Neoplasm of lung Neoplasm of unspecified nature of respiratory system [facility] Diagnosis Lupus anticoagulant positive- Primary Other and unspecified nonspecific immunological findings Rheumatoid arthritis of multiple sites with negative rheumatoid factor (HCC) Thrombocytopenia (HCC) Thrombocytopenia, unspecified Lung nodule Solitary pulmonary nodule [facility] Diagnosis Lung nodules- Primary Other nonspecific abnormal finding of lung field Malignant neoplasm of larynx (HCC) Malignant neoplasm of larynx, unspecified site Other fatigue Disorder of thyroid Unspecified disorder of thyroid [facility] Diagnosis Malignant neoplasm of larynx (HCC)- Primary Malignant neoplasm of larynx, unspecified site Disorder of thyroid Unspecified disorder of thyroid [facility] Diagnosis Malignant neoplasm of larynx (HCC)- Primary Malignant neoplasm of larynx, unspecified site Hypothyroidism due to acquired atrophy of thyroid [facility] Diagnosis Malignant neoplasm of larynx (HCC)- Primary Malignant neoplasm of larynx, unspecified site Acquired atrophy of thyroid Other specified disorders of thyroid [facility] Diagnosis Chronic obstructive pulmonary disease, unspecified COPD type (CMS/HCC)- Primary [facility] Diagnosis Abnormal stress test Other nonspecific [...] Unspecified essential hypertension documented in this encounter [facility] Work Phone: Evaluation note* Diagnosis Malignant neoplasm of larynx (HCC)- Primary Malignant neoplasm of larynx, unspecified site Lung nodule Solitary pulmonary nodule Atrophy of thyroid (acquired) [facility] Diagnosis Malignant neoplasm of larynx (HCC) Malignant neoplasm of larynx, unspecified site Acquired atrophy of thyroid Other specified disorders of thyroid [facility] Diagnosis Malignant neoplasm of larynx (HCC) Malignant neoplasm of larynx, unspecified site Disorder of thyroid Unspecified disorder of thyroid [facility] Lung nodules Other nonspecific abnormal finding of lung field Malignant neoplasm of larynx (HCC) Malignant neoplasm of larynx, unspecified site Other fatigue Disorder of thyroid Unspecified disorder of thyroid [facility] Diagnosis Lung nodules Other nonspecific abnormal finding of lung field Neoplasm of lung Neoplasm of unspecified nature of respiratory system documented in this encounter [facility] note* Diagnosis Malignant neoplasm of larynx (HCC) Malignant neoplasm of larynx, unspecified site documented in this encounter [facility] note* Diagnosis 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 Nasal obstruction Other diseases of nasal cavity and sinuses documented in this encounter [facility] for referral (narrative)* Diagnostic Procedure Only (Routine) - Authorized Specialty Diagnoses / Procedures Referred By Abe tavera Referred To Contact MOLECULAR & FUNCTIONAL IMAGING Diagnoses Lung nodules Neoplasm of lung Procedures NM PET/CT SKULL-THIGH INITIAL PET IMAGING CT ATTENUATION SKULL BASE MID-THIGH Camille Agarwal MD [address] [place] [address] [place] [address] Molecular & Functional Imaging [address] [place] [address] Referral ID Status Reason Start Date Expiration Date Visits Requested Visits Authorized [id number] Authorized Auto-Generat ed Referral 11/24/2021 12/24/2022 1 1 [facility] for referral (narrative)* Consultation (Routine) - Authorized Specialty Diagnoses / Procedures Referred By Abe tavera Referred To Contact Cardiology Diagnoses Chronic kidney disease, unspecified CKD stage Essential hypertension Procedures Follow Up In Cardiology Terrence Steen DO [address] [place] [address], [address] [address] Terrence Steen DO [address] [place] [address], [address] [address] Referral ID Status Reason Start Date Expiration Date V isits Requested Visits Authorized [id number] Authorized 07/17/2023 07/16/2024 1 1 [facility] Work Phone: Reason for referral (narrative)* Diagnostic Procedure Only (Routine) - Closed Specialty Diagnoses / Procedures Referred By Abe t Referred To Contact MOLECULAR & FUNCTIONAL IMAGING Diagnoses Lung nodules Neoplasm of lung Procedures NM PET/CT SKULL-THIGH INITIAL PET IMAGING CT ATTENUATION SKULL BASE MID-THIGH Camille Agarwal MD [address] [place] [address] [place] [address] Molecular & Functional Imaging [address] [place], [place] [id number] Referral ID Status Reason Start Date Expiration Date V isits Requested Visits Authorized [id number] Closed Auto-Generate d Referral 11/24/2021 12/24/2022 1 1 [facility] Summary Purpose Family History Unknown Family Member Name Dates Details No [...] Referral Specialty Diagnoses / Procedures Referred By Abe tavera Referred To Contact CT IMAGING Diagnoses Malignant neoplasm of larynx (HCC) Procedures CT CHEST WO IVCON DIAGNOSTIC COMPUTED TOMOGRAPHY THORAX W/O Camille Howell MD [address] [place] [address] [place] [address] Ct Imaging Referral ID Status Reason Start Date Expiration Date Visits Requested Visits Authorized [id number] Authorized Auto-Generat ed Referral 11/07/2021 12/07/2022 1 1 Specialty Diagnoses / Procedures Referred By Abe tavera Referred To Contact CT IMAGING Diagnoses Lung nodules Malignant neoplasm of larynx (HCC) Other fatigue Disorder of thyroid Procedures CT CHEST WO IVCON DIAGNOSTIC COMPUTED TOMOGRAPHY THORAX W/O Camille Howell MD [address] [place] [address] [place] [address] Ct Imaging Referral ID Status Reason Start Date Expiration Date Visits Requested Visits Authorized [id number] Pending Review Auto-Generat ed Referral 12/28/2021 01/27/2023 1 1 Specialty Diagnoses / Procedures Referred By Contac t Referred To Contact CT IMAGING Diagnoses Malignant neoplasm of larynx (HCC) Disorder of thyroid Procedures CT CHEST WO IVCON DIAGNOSTIC COMPUTED TOMOGRAPHY THORAX W/O Camille Howell MD [address] [place] [address] [place] [address] Ct Imaging Referral ID Status Reason Start Date Expiration Date Visits Requested Visits Authorized [id number] Authorized Auto-Generat ed Referral 07/06/2022 08/05/2023 1 1 Specialty Diagnoses / Procedures Referred By Contac t Referred To Contact CT IMAGING Diagnoses 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 Procedures CT CHEST WO IVCON DIAGNOSTIC COMPUTED TOMOGRAPHY THORAX W/O Camille Howlel MD [address] [place] [address] [place] [address] [place] [address] Referral ID Status Reason Start Date Expiration Date Visits Requested Visits Authorized [id number] Authorized Auto-Generat ed Referral 07/12/2023 02/08/2024 1 1 Specialty Diagnoses / Procedures Referred By Contac t Referred To Contact CT IMAGING Diagnoses Malignant neoplasm of larynx (HCC) Lung nodule Procedures CT CHEST WO IVCON DIAGNOSTIC COMPUTED TOMOGRAPHY THORAX W/O Camille Howell MD [address] [place] [address] [place] [address] Ct Imaging [id number] Referral ID Status Reason Start Date Expiration Date Visits Requested Visits Authorized [id number] Authorized Auto-Generat ed Referral 07/18/2024 08/17/2024 1 1 Referral ID Status Reason Start Date Expiration Date V isits Requested Visits Authorized [id number] Closed Auto-Generate d Referral 07/12/2023 02/08/2024 1 1 Specialty Diagnoses / Procedures Referred By Contac t Referred To Contact CT IMAGING Diagnoses Malignant neoplasm of larynx (HCC) Disorder of thyroid Procedures CT CHEST WO IVCON DIAGNOSTIC COMPUTED TOMOGRAPHY THORAX W/O Camille Howell MD [address] [place] [address] [place] [address] [place] [address] Referral ID Status Reason Start Date Expiration Date V isits Requested Visits Authorized [id number] Closed Auto-Generate d Referral 07/06/2022 08/05/2023 1 1 Specialty Diagnoses / Procedures Referred By Contac t Referred To Contact CT IMAGING Diagnoses Lung nodules Malignant neoplasm of larynx (HCC) Other fatigue Disorder of thyroid Procedures CT CHEST WO IVCON DIAGNOSTIC COMPUTED TOMOGRAPHY THORAX W/O Camille Howell MD [address] [place] [address] [place] [address] [place] [address] Referral ID Status Reason Start Date Expiration Date V isits Requested Visits Authorized [id number] Closed Auto-Generate d Referral 12/28/2021 01/27/2023 1 1 Specialty Diagnoses / Procedures Referred By Contac t Referred To Contact CT IMAGING Diagnoses Malignant neoplasm of larynx (HCC) Procedures CT CHEST WO IVCON DIAGNOSTIC COMPUTED TOMOGRAPHY THORAX W/O Camille Howell MD [address] [place] [address] [place] [address] [place] [address] Referral ID Status Reason Start Date Expiration Date V isits Requested Visits Authorized [id number] Closed Auto-Generate d Referral 11/07/2021 12/07/2022 1 1 Additional Source Comments (unrecognized sect ion and content) No Status Records FoundNo Status Records FoundNo Status Records FoundNo Status Records FoundNo Status Records FoundNo Status Records FoundNo Status Records FoundNo Status Records Found INFORMATION SOURCE (unrecogn ized section and content) DATE CREATED AUTHOR 11/06/2020 [facility] DATE CREATED AUTHOR AUTHOR'S ORGANIZ ATION 05/25/2021 [place] DATE CREATED AUTHOR AUTHOR'S ORGANIZ ATION 06/04/2021 [facility] DATE CREATED AUTHOR AUTHOR'S ORGANIZ ATION 08/16/2021 [facility] DATE CREATED AUTHOR AUTHOR'S ORGANIZ ATION 06/14/2022 [facility] DATE CREATED AUTHOR AUTHOR'S ORGANIZ ATION 09/18/2022 [facility] DATE CREATED AUTHOR AUTHOR'S ORGANIZ ATION 07/22/2023 [facility] DATE CREATED AUTHOR AUTHOR'S ORGANIZ ATION 03/28/2024 [facility] EPIC Source Comments (unrecognize d section and content) In the event this informatio n is protected by the Federal Confidentiality of Alcohol and Drug Abuse Patient Records regulations: The Federal rules restrict any use of the information to criminally investigate or prosecute any alcohol or drug abuse patient.[facility] the event this information is protected by the Federal Confidentiality of Alcohol and Drug Abuse Patient Records regulations: The Federal rules restrict any use of the information to criminally investigate or prosecute any alcohol or drug abuse patient.[facility] the event this information is protected by the Federal Confidentiality of Alcohol and Drug Abuse Patient Records regulations: The Federal rules restrict any use of the information to criminally investigate or prosecute any alcohol or drug abuse patient.[facility] the event this information is protected by the Federal Confidentiality of Alcohol and Drug Abuse Patient Records regulations: The Federal rules restrict any use of the information to criminally investigate or prosecute any alcohol or drug abuse patient.[facility] the event this information is protected by the Federal Confidentiality of Alcohol and Drug Abuse Patient Records regulations: The Federal rules restrict any use of the information to criminally investigate or prosecute any alcohol or drug abuse patient.[facility] the event this information is protected by the Federal Confidentiality of Alcohol and Drug Abuse Patient Records regulations: The Federal rules restrict any use of the information to criminally investigate or prosecute any alcohol or drug abuse patient.[facility] the event this information is protected by the Federal Confidentiality of Alcohol and Drug Abuse Patient Records regulations: The Federal rules restrict any use of the information to criminally investigate or prosecute any alcohol or drug abuse patient.[facility] the event this information is protected by the Federal Confidentiality of Alcohol and Drug Abuse Patient Records regulations: The Federal rules restrict any use of the information to criminally investigate or prosecute any alcohol or drug abuse patient.[facility] the event this information is protected by the Federal Confidentiality of Alcohol and Drug Abuse Patient Records regulations: The Federal rules restrict any use of the information to criminally investigate or prosecute any alcohol or drug abuse patient.[facility] the event this information is protected by the Federal Confidentiality of Alcohol and Drug Abuse Patient Records regulations: The Federal rules restrict any use of the information to criminally investigate or prosecute any alcohol or drug abuse patient.[facility] HospitalIn the event this information is protected by the Federal Confidentiality of Alcohol and Drug Abuse Patient Records regulations: The Federal rules restrict any use of the information to criminally investigate or prosecute any alcohol or drug abuse patient.[facility] Hospital[facility] the event this information is protected by the Federal Confidentiality of Alcohol and Drug Abuse Patient Records regulations: The Federal rules restrict any use of the information to criminally investigate or prosecute any alcohol or drug abuse patient.[facility] HospitalIn the event this information is protected by the Federal Confidentiality of Alcohol and Drug Abuse Patient Records regulations: The Federal rules restrict any use of the information to criminally investigate or prosecute any alcohol or drug abuse patient.[facility] HospitalIn the event this information is protected by the Federal Confidentiality of Alcohol and Drug Abuse Patient Records regulations: The Federal rules restrict any use of the information to criminally investigate or prosecute any alcohol or drug abuse patient.[facility] Reason for Visit (unrecogniz ed section and content) Reason Comments Radiology NM Specialty Diagnoses / Procedures Referred By Contac t Referred To Contact MOLECULAR & FUNCTIONAL IMAGING Diagnoses Lung nodules Neoplasm of lung Procedures NM PET/CT SKULL-THIGH INITIAL PET IMAGING CT ATTENUATION SKULL BASE MID-THIGH Camille Agarwal MD [address] [place] [address] [place] [address] Molecular & Functional Imaging [address] [place] [address] Referral ID Status Reason Start Date Expiration Date V isits Requested Visits Authorized [id number] Closed Auto-Generate d Referral 11/24/2021 12/24/2022 1 1 Reason Comments Head and Neck Cancer Reason Comments Laryngeal Cancer Reason Comments lupus Reason Comments Referral Information Pulmonary Reason Comments Orders Reason Comments COPD 3 month follow up Reason Comments Annual Exam Specialty Diagnoses / Procedures Referred By Contac t Referred To Contact CT IMAGING Diagnoses 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 Procedures CT CHEST WO IVCON DIAGNOSTIC COMPUTED TOMOGRAPHY THORAX W/O Camille Howell MD [address] [place] [address] [place] [address] [place] [address] Referral ID Status Reason Start Date Expiration Date V isits Requested Visits Authorized [id number] Closed Auto-Generate d Referral 07/12/2023 02/08/2024 [address] Specialty Diagnoses / Procedures Referred By Contac t Referred To Contact CT IMAGING Diagnoses Malignant neoplasm of larynx (HCC) Disorder of thyroid Procedures CT CHEST WO IVCON DIAGNOSTIC COMPUTED TOMOGRAPHY THORAX W/O Camille Howell MD [address] [place] [address] [place] [address] [place] [address] Referral ID Status Reason Start Date Expiration Date V isits Requested Visits Authorized [id number] Closed Auto-Generate d Referral 07/06/2022 08/05/2023 1 1 Specialty Diagnoses / Procedures Referred By Contac t Referred To Contact CT IMAGING Diagnoses Lung nodules Malignant neoplasm of larynx (HCC) Other fatigue Disorder of thyroid Procedures CT CHEST WO IVCON DIAGNOSTIC COMPUTED TOMOGRAPHY THORAX W/O Camille Howell MD [address] [place] [address] [place] [address] [place] [address] Referral ID Status Reason Start Date Expiration Date V isits Requested Visits Authorized [id number] Closed Auto-Generate d Referral 12/28/2021 01/27/2023 1 1 Specialty Diagnoses / Procedures Referred By Contac t Referred To Contact CT IMAGING Diagnoses Malignant neoplasm of larynx (HCC) Procedures CT CHEST WO IVCON DIAGNOSTIC COMPUTED TOMOGRAPHY THORAX W/O Camille Howell MD [address] [place] [address] [place] [address] Referral ID Status Reason Start Date Expiration Date V isits Requested Visits Authorized [id number] Closed Auto-Generate d Referral 11/07/2021 12/07/2022 1 1 Reason Comments Cancer Yearly check Vocal c ord Care Teams (unrecognized sec tion and content) Pediatric Associate Relationship Specialty Start Date End Date Talita Mistry [address] [place] [address] PCP - General Family Practice 11/04/19 Pediatric Associate Relationship Specialty Start Date End Date Talita Mistry [address] [place] [address] PCP - General Family Practice 11/04/19 Pediatric Associate Relationship Specialty Start Date End Date Talita Mistry [address] [place] [address] PCP - General Family Practice 11/04/19 Pediatric Associate Relationship Specialty Start Date End Date Talita Mistry [address] [place] [address] PCP - General Family Practice 11/04/19 Pediatric Associate Relationship Specialty Start Date End Date Talita Mistry [address] [place] [address] PCP - General Family Medicine 11/04/19 Pediatric Associate Relationship Specialty Start Date End Date OpalLesley schaferty [address] [place] [address] PCP - General Family Medicine 11/04/19 Pediatric Associate Relationship Specialty Start Date End Date OpalLesley schaferty [address] [place] [address] PCP - General Family Medicine 11/04/19 Pediatric Associate Relationship Specialty Start Date End Date Rumschlag, Talita, DO [address] [place] [address] PCP - General Family Medicine 02/28/23 Pediatric Associate Relationship Specialty Start Date End Date Rumschlag, Talita, DO [address] [place] [address] PCP - General Family Medicine 02/28/23 Pediatric Associate Relationship Specialty Start Date End Date Rumschlag, Talita, DO [address] [place] [address] PCP - General Family Medicine 02/28/23 Pediatric Associate Relationship Specialty Start Date End Date Rumschlag, Talita Maggie, DO [facility] [place] [id number] PCP - General 06/08/22 Pediatric Associate Relationship Specialty Start Date End Date Rumschlag, Talita, DO [address] [place] [address] PCP - General Family Medicine 11/04/19 Pediatric Associate Relationship Specialty Start Date End Date Rumschlag, Talita, DO [address] [place] [address] PCP - General Family Medicine 11/04/19 Pediatric Associate Relationship Specialty Start Date End Date Rumschlag, Talita, DO [address] [place] [address] PCP - General Family Medicine 11/04/19 Pediatric Associate Relationship Specialty Start Date End Date Rumschlag, Talita, DO [address] [place] [address] PCP - General Family Medicine 11/04/19 Pediatric Associate Relationship Specialty Start Date End Date Talita Mistry DO [address] [place] [address] PCP - General Family Medicine 11/04/19 Pediatric Associate Relationship Specialty Start Date End Date Talita Mistry DO [address] [place], [place] [id number] PCP - General Family Medicine 02/28/23 FOR RECORDS PERTAINING TO PATIENTS WHO ARE [...] BE BASED ON THE PRIMARY CLINICAL RECORDS. [facility] [employer] provides no warranty or guarantee of the accuracy or completeness of information in this document.
[2024-05-23 16:03] LABS: Bilirubin Urine NEGATIVE (NEGATIVE); Blood Urine TRACE-I (NEGATIVE); Clarity Urine CLEAR (CLEAR); Color Urine YELLOW (YELLOW); Glucose Urine UA NEGATIVE (NEGATIVE); Ketones Urine NEGATIVE (NEGATIVE); Leukocyte Esterase Urine NEGATIVE (NEGATIVE); Nitrite Urine NEGATIVE (NEGATIVE); Protein Urine 100 mg/dL (NEG/TRACE); Specific Gravity Urine 1.025 (1.005-1.025); Urobilinogen Urine 0.2 EU/dL (0.2-1.0)
[2024-05-23 16:10] LABS: Creatinine Urine Random 127.54 mg/dL (20.00-300.00); Microalbumin Urine Random 17.1 mg/dL (<=30.0)
[2024-05-23 16:14] LABS: Basophils Absolute Auto 0.1 10^3/uL (0.0-0.1); Basophils Percent Auto 0.7 % (0.2-2.0); Eosinophils Absolute Auto 0.3 10^3/uL (0.0-0.7); Eosinophils Percent Auto 4.2 % (0.9-7.0); Hematocrit 38.3 % (42.0-54.0); Hemoglobin 12.2 g/dL (14.0-18.0); Immature Granulocytes Abs Auto 0.02 10^3/uL (0.00-0.03); Immature Granulocytes Pct Auto 0.3 % (0.0-0.5); Lymphocytes Absolute Auto 1.3 10^3/uL (1.2-3.8); Lymphocytes Percent Auto 17.8 % (20.5-60.0); Mean Corpuscular HGB Conc 31.9 g/dL (29.9-35.2); Mean Corpuscular Hemoglobin 30.2 pg (25.9-34.0); Mean Corpuscular Volume 94.8 fL (80.0-94.0); Mean Platelet Volume 12.3 fL (9.5-13.5); Monocytes Absolute Auto 0.5 10^3/uL (0.3-0.8); Monocytes Percent Auto 7.2 % (1.7-12.0); Neutrophils Absolute Auto 5.2 10^3/uL (1.4-6.5); Neutrophils Percent Auto 69.8 % (43.0-75.0); Platelet Count 76 10^3/uL (150-450); Red Blood Count 4.04 10^6/uL (4.70-6.10); Red Cell Distribution Width 14.1 % (11.0-15.0); White Blood Count 7.5 10^3/uL (4.0-11.0)
[2024-05-23 16:33] LABS: Bacteria Urine TRACE #/HPF (NONE SEEN); Cast Seen? NONE SEEN #/LPF (NONE SEEN); Crystals Seen? None Seen #/HPF (None Seen); Mucus Urine TRACE (NONE SEEN); RBC Urine 0-2 #/HPF (0-2); Squamous Epithelial Cell Urine RARE #/LPF (NONE/RARE); WBC Urine NONE SEEN #/HPF (NONE SEEN)
[2024-05-23 16:37] LABS: Anion Gap 13.6; Calcium 8.9 mg/dL (8.5-10.1); Carbon Dioxide 25.9 mmol/L (21.0-32.0); Chloride 110 mmol/L (98-107); Estimated GFR (African America 31 (>=60 mL/min/1.73m^2); Estimated GFR (Non-African Ame 26 (>=60 mL/min/1.73m^2); Glucose 78 mg/dL (74-106); Magnesium 1.9 mg/dL (1.8-2.4); Potassium 4.5 mmol/L (3.5-5.1); Sodium 145 mmol/L (136-145); Uric Acid 8.8 mg/dL (3.5-7.2)
[2024-05-25 10:18] LABS: PTH, Intact 141 pg/mL (15-65)
== END 2024-05-23 15:47 | disposition home or self-care (01) ==
LOC: LAB 15:46
PROVIDERS: PCP Nurse Practitioner Family
DX: N18.4 Chronic kidney disease, stage 4 (severe) (principal)
CPT/HCPCS: 36415; 80048; 81001; 82043; 82306; 82570; 83735; 83970; 84550; 85025

== ENCOUNTER 2024-09-19 11:27 | Outpatient (OUT) | payer MEDICARE, SELFPAY | END 2024-09-19 11:28 | disposition home or self-care (01) | LOC: LAB 11:29 | PROVIDERS: PCP Nurse Practitioner Family; Visit Provider Internal Medicine Cardiovascular Disease | DX: R06.09 Other forms of dyspnea (principal) | CPT/HCPCS: 36415; 83880 ==

== ENCOUNTER 2024-09-19 11:37 | Outpatient (OUT) | payer MEDICARE, SELFPAY ==
[2024-09-19 12:25] LABS: Microalbumin Urine Random 28.4 mg/dL (<=30.0)
[2024-09-19 12:25] LABS: Albumin Level 3.7 g/dL (3.4-5.0); Anion Gap 13.9; BUN Creatinine Ratio 15.3; Calcium 8.8 mg/dL (8.5-10.1); Chloride 107 mmol/L (98-107); Estimated GFR (African America 34 (>=60 mL/min/1.73m^2); Estimated GFR (Non-African Ame 28 (>=60 mL/min/1.73m^2); Glucose 92 mg/dL (74-106); Magnesium 1.7 mg/dL (1.8-2.4); Potassium 4.9 mmol/L (3.5-5.1); Sodium 143 mmol/L (136-145); Uric Acid 7.4 mg/dL (3.5-7.2)
[2024-09-19 12:27] LABS: Basophils Percent Auto 0.4 % (0.2-2.0); Eosinophils Absolute Auto 0.3 10^3/uL (0.0-0.7); Eosinophils Percent Auto 4.7 % (0.9-7.0); Hematocrit 36.1 % (42.0-54.0); Hemoglobin 11.8 g/dL (14.0-18.0); Immature Granulocytes Abs Auto 0.04 10^3/uL (0.00-0.03); Immature Granulocytes Pct Auto 0.6 % (0.0-0.5); Lymphocytes Percent Auto 14.3 % (20.5-60.0); Mean Corpuscular HGB Conc 32.7 g/dL (29.9-35.2); Mean Corpuscular Hemoglobin 30.8 pg (25.9-34.0); Mean Corpuscular Volume 94.3 fL (80.0-94.0); Monocytes Absolute Auto 0.5 10^3/uL (0.3-0.8); Monocytes Percent Auto 7.1 % (1.7-12.0); Neutrophils Percent Auto 72.9 % (43.0-75.0); Platelet Count 56 10^3/uL (150-450); Red Blood Count 3.83 10^6/uL (4.70-6.10); Red Cell Distribution Width 14.6 % (11.0-15.0); White Blood Count 6.9 10^3/uL (4.0-11.0)
[2024-09-19 12:49] LABS: Bilirubin Urine NEGATIVE (NEGATIVE); Blood Urine NEGATIVE (NEGATIVE); Clarity Urine CLEAR (CLEAR); Color Urine LT. YELLOW (YELLOW); Glucose Urine UA NEGATIVE (NEGATIVE); Ketones Urine NEGATIVE (NEGATIVE); Leukocyte Esterase Urine NEGATIVE (NEGATIVE); Nitrite Urine NEGATIVE (NEGATIVE); Protein Urine 100 mg/dL (NEG/TRACE)
[2024-09-19 14:36] LABS: Bacteria Urine TRACE #/HPF (NONE SEEN); Cast Seen? NONE SEEN #/LPF (NONE SEEN); Crystals Seen? None Seen #/HPF (None Seen); Mucus Urine NONE SEEN (NONE SEEN); RBC Urine 0-2 #/HPF (0-2); WBC Urine 0-2 #/HPF (NONE SEEN)
[2024-09-19 14:37] LABS: Squamous Epithelial Cell Urine RARE #/LPF (NONE/RARE)
[2024-09-21 10:08] LABS: PTH, Intact 118 pg/mL (15-65)
== END 2024-09-19 11:38 | disposition home or self-care (01) ==
PROVIDERS: PCP Nurse Practitioner Family
DX: R06.09 Other forms of dyspnea (principal); N18.4 Chronic kidney disease, stage 4 (severe)
CPT/HCPCS: 36415; 80048; 81001; 82042; 82043; 82306; 82570; 83735; 83880; 83970; 84550; 85025